=== PATIENT | female | born 1995 | race Caucasian/White ===

== ENCOUNTER 2023-03-24 11:40 | Outpatient (OUT) | payer OTHER, SELFPAY ==
[2023-03-24 12:03] LABS: Basophils Absolute Auto 0.1 10^3/uL (0.0-0.1); Basophils Percent Auto 1.1 % (0.2-2.0); Eosinophils Absolute Auto 0.1 10^3/uL (0.0-0.7); Eosinophils Percent Auto 1.3 % (0.9-7.0); Hematocrit 39.1 % (36.0-48.0); Hemoglobin 12.9 g/dL (12.0-16.0); Immature Granulocytes Abs Auto 0.03 10^3/uL (0.00-0.03); Immature Granulocytes Pct Auto 0.5 % (0.0-0.5); Lymphocytes Absolute Auto 2.4 10^3/uL (1.2-3.8); Lymphocytes Percent Auto 37.9 % (20.5-60.0); Mean Corpuscular Hemoglobin 31.5 pg (26.7-34.0); Mean Corpuscular Volume 95.6 fL (81.0-99.0); Mean Platelet Volume 10.3 fL (9.5-13.5); Monocytes Absolute Auto 0.6 10^3/uL (0.3-0.8); Monocytes Percent Auto 10.1 % (1.7-12.0); Neutrophils Absolute Auto 3.1 10^3/uL (1.4-6.5); Neutrophils Percent Auto 49.1 % (43.0-75.0); Platelet Count 339 10^3/uL (150-450); Red Blood Count 4.09 10^6/uL (4.20-5.40); Red Cell Distribution Width 11.9 % (11.0-15.0); White Blood Count 6.3 10^3/uL (4.0-11.0)
[2023-03-24 13:37] LABS: Estimated Average Glucose 91 mg/dL; Glycohemoglobin A1C 4.8 % (4.5-6.2)
[2023-03-24 13:53] LABS: Alanine Aminotransferase 22 U/L (14-59); Albumin Globulin Ratio 1.1; Albumin Level 3.7 g/dL (3.4-5.0); Alkaline Phosphatase 63 U/L (46-116); Anion Gap 11.6; Aspartate Amino Transferase 16 U/L (15-37); BUN Creatinine Ratio 17.6; Bilirubin Direct 0.1 mg/dL (0.0-0.2); Bilirubin Total 0.6 mg/dL (0.2-1.0); Calcium 8.8 mg/dL (8.5-10.1); Carbon Dioxide 28.7 mmol/L (21.0-32.0); Chloride 102 mmol/L (98-107); Chol HDL Ratio 2.1; Cholesterol 164 mg/dL (<=200); Estimated GFR (African America >60 (>=60); Estimated GFR (Non-African Ame >60 (>=60); Globulin 3.3 g/dL; Glucose 89 mg/dL (74-106); HDL Cholesterol 77 mg/dL (40-60); Potassium 4.3 mmol/L (3.5-5.1); Sodium 138 mmol/L (136-145); Thyroid Stimulating Hormone 1.737 uIU/mL (0.358-3.740); Triglycerides 50 mg/dL (<=150)
== END 2023-03-24 11:41 | disposition home or self-care (01) ==
LOC: LAB 11:44
PROVIDERS: PCP Family Medicine; Visit Provider Family Medicine
DX: Z00.00 Encounter for general adult medical examination without abnormal findings (principal)
CPT/HCPCS: 36415; 80048; 80061; 80076; 83036; 84443; 85025

== ENCOUNTER 2024-06-27 11:56 | Outpatient (OUT) | payer OTHER, SELFPAY ==
[2024-06-27 12:14] LABS: Basophils Absolute Auto 0.1 10^3/uL (0.0-0.1); Basophils Percent Auto 0.7 % (0.2-2.0); Eosinophils Absolute Auto 0.1 10^3/uL (0.0-0.7); Eosinophils Percent Auto 0.7 % (0.9-7.0); Hematocrit 39.4 % (36.0-48.0); Hemoglobin 13.2 g/dL (12.0-16.0); Immature Granulocytes Abs Auto 0.03 10^3/uL (0.00-0.03); Immature Granulocytes Pct Auto 0.4 % (0.0-0.5); Lymphocytes Absolute Auto 1.8 10^3/uL (1.2-3.8); Lymphocytes Percent Auto 24.2 % (20.5-60.0); Mean Corpuscular HGB Conc 33.5 g/dL (29.9-35.2); Mean Corpuscular Hemoglobin 31.1 pg (26.7-34.0); Mean Corpuscular Volume 92.9 fL (81.0-99.0); Mean Platelet Volume 10.5 fL (9.5-13.5); Monocytes Absolute Auto 0.7 10^3/uL (0.3-0.8); Neutrophils Absolute Auto 4.7 10^3/uL (1.4-6.5); Platelet Count 301 10^3/uL (150-450); Red Blood Count 4.24 10^6/uL (4.20-5.40); Red Cell Distribution Width 12.1 % (11.0-15.0); White Blood Count 7.3 10^3/uL (4.0-11.0)
[2024-06-27 12:45] LABS: Estimated Average Glucose 97 mg/dL
[2024-06-27 12:57] LABS: Alanine Aminotransferase 18 U/L (14-59); Albumin Globulin Ratio 1.3; Albumin Level 3.9 g/dL (3.4-5.0); Alkaline Phosphatase 61 U/L (46-116); Anion Gap 12.7; Aspartate Amino Transferase 14 U/L (15-37); BUN Creatinine Ratio 10.4; Bilirubin Direct 0.1 mg/dL (0.0-0.2); Bilirubin Total 0.5 mg/dL (0.2-1.0); Calcium 9.1 mg/dL (8.5-10.1); Carbon Dioxide 28.2 mmol/L (21.0-32.0); Chloride 105 mmol/L (98-107); Chol HDL Ratio 2.6; Cholesterol 157 mg/dL (<=200); Estimated GFR (African America >60 (>=60 mL/min/1.73m^2); Estimated GFR (Non-African Ame >60 (>=60 mL/min/1.73m^2); Globulin 3.1 g/dL; Glucose 94 mg/dL (74-106); HDL Cholesterol 60 mg/dL (40-60); LDL Cholesterol Calculated 86.6 mg/dL; Potassium 3.9 mmol/L (3.5-5.1); Sodium 142 mmol/L (136-145); Thyroid Stimulating Hormone 1.979 uIU/mL (0.358-3.740); Triglycerides 52 mg/dL (<=150); VLDL CHOLESTEROL 10.4 mg/dL
== END 2024-06-27 11:57 | disposition home or self-care (01) ==
LOC: LAB 11:57
PROVIDERS: PCP Family Medicine; Visit Provider Family Medicine
DX: Z00.00 Encounter for general adult medical examination without abnormal findings (principal)
CPT/HCPCS: 36415; 80048; 80061; 80076; 83036; 84443; 85025

== ENCOUNTER 2024-11-26 13:16 | Outpatient (OUT) | payer OTHER, SELFPAY ==
--- OUTSIDE RECORDS SUMMARY | 2024-11-22 08:00 | XMS_ITS | Encounter Summary ---
Author Organization [facility] Address [address] [place] [address] Care Team Providers Care Sponge Fisherman Name Role Phone Skyler Webb MD Primary Care Provider [phone] Encounter Details Date Type Department Care Team (Latest Contact Info) Description 11/22/2024 8:00 AM EDT Ancillary Procedure [facility] [address] [place] [address] Abnormal yolk sac during first trimester, single or unspecified fetus Social History Tobacco Use Types Packs/Day Years Used Date Smoking Tobacco: Never Smokeless Tobacco: Never Social Connection and Isolat ion Panel [NHANES] Answer Date Recorded In a typical week, how many times do you talk on the phone with family, friends, or neighbors? More than three times a week 09/19/2023 How often do you get togethe r with friends or relatives? Once a week 09/19/2023 How often do you attend chur or hindu services? Never 09/19/2023 Do you belong to any clubs o r organizations such as taoism groups, unions, fraternal or athletic groups, or school groups? No 09/19/2023 How often do you attend meet ings of the clubs or organizations you belong to? Never 09/19/2023 Are you , , di vorced, , never , or living with a partner? 09/19/2023 AUDIT-C Answer Date Recorded Q1: How often do you have a drink containing alc ohol? 2-4 times a month 09/19/2023 Q2: How many drinks containi ng alcohol do you have on a typical day when you are drinking? 3 or 4 09/19/2023 Q3: How often do you have si x or more drinks on one occasion? Never 09/19/2023 Overall Financial Resource Strain (CARDIA) Answe r Date Recorded How hard is it for you to pa y for the very basics like food, housing, medical care, and heating? Not hard at all 09/19/2023 [facility] of Occupat ional Health - Occupational Stress Questionnaire Answer Date Recorded Do you feel stress - tense, restless, nervous, or anxious, or unable to sleep at night because your mind is troubled all the time - these days? Not at all 09/19/2023 Exercise Vital Sign Answer Date Recorde d On average, how many days pe r week do you engage in moderate to strenuous exercise (like a brisk walk)? 5 days 09/19/2023 On average, how many minutes do you engage in exercise at this level? 60 min 09/19/2023 Hunger Vital Sign Answer Date Recorded Within the past 12 months, y ou worried that your food would run out before you got the money to buy more. Never true 09/19/19 24 Within the past 12 months, t he food you bought just didn't last and you didn't have money to get more. Never true 09/19/2023 PRAPARE - Transportation Answer Date Re corded In the past 12 months, has l ack of transportation kept you from medical appointments or from getting medications? No 08/25 In the past 12 months, has l ack of transportation kept you from meetings, work, or from getting things needed for daily living? No 09/19/2023 Housing Stability Vital Sign Answer Ramiro e Recorded In the last 12 months, was t here a time when you were not able to pay the mortgage or rent on time? No 09/19/2023 In the last 12 months, how many places have you lived? 1 09/19/2023 In the last 12 months, was t here a time when you did not have a steady place to sleep or slept in a care home (including now)? No 09/19/2023 Estimated Date of Delivery Comme nts Yes 06/23/2025 Based on last me nstrual period of 09/16/2024 Sex and Gender Information Value Date Recorded Sex Assigned at Not on file Legal Sex Female 10:00 AM EDT Gender Identity Not on file Sexual Orientation Not on file documented as of this encounter Plan of Treatment Upcoming Encounters Date Type Department Care Team (Late st Contact Info) Description 11/28/2024 1:00 PM EDT Office Visit [facility] [address] [place] [address] Skyler Webb MD [address] [place] [address] 12/05/2024 9:50 AM EDT Routine [facility] [address] [place] [place] [id number] Oleksandr Phelan DO [address] [place] [address] documented as of this encounter Procedures Procedure Name Priority Date/Time Associated Diagnosis Comments US OB TRANSVAGINAL Routine 11/22/2024 8: 25 AM EDT Abnormal yolk sac during first trimester, single or unspecified fetus documented in this encounter Results * US OB transvaginal (11/22/2024 8:25 AM EDT) Anatomical Region Laterality Modality Body Ultrasound 11/25/2024 10:2 4 AM EDT Narrative 11/25/2024 10:24 AM EDT EXAM: US OB TRANSVAGINAL HISTORY: Dating. COMPARISON: Ob ultrasound 11/08/2024. TECHNIQUE: Two-dimensional transvaginal grayscale ultrasound imaging of the pelvis was performed. Color Doppler evaluation of the ovaries was also performed. FINDINGS: The uterus demonstrates a normal homogeneous echotexture. The cervix measures 4.2 cm in length and the cervical os is closed. The right ovary is not visualized. The left ovary measures 3.1 x 1.6 x 2.1 cm and demonstrates a normal echotexture. There is normal color Doppler flow. No fluid is present within the cul-de-sac. There is a single, live intrauterine gestation identified with a heart rate of 179 beats per minute and a crown-rump length measurement of 2.9 cm, correlating to a gestational age of 9 weeks 5 days (+/- 6 days). There is no subchorionic hemorrhage visualized. A yolk sac is visualized. IMPRESSION: 1. Single, live intrauterine gestation 9 weeks, 4 days by LMP. Today's ultrasound measurements correlate with a gestational age of 9 weeks 5 days (+/- 6 days). AVILA by today's ultrasound is 06/22/2025. 2. Yolk sac appears unremarkable on today's exam. 3. Normal color Doppler evaluation of the left ovary, the right ovary was not visualized. Interpreted by: Electronically signed by PIERCE CLARK II, MD, PHD at 25-Nov-2024 10:22:19 AM [facility] Procedure Note Pierce Clark MD - 11/25/2024 EXAM: US OB TRANSVAGINAL HISTORY: Dating. COMPARISON: Ob ultrasound 11/08/2024. TECHNIQUE: Two-dimensional transvaginal grayscale ultrasound imaging ofthe pelvis was performed. Color Doppler evaluation of the ovaries was alsoperformed. FINDINGS: The uterus demonstrates a normal homogeneous echotexture. The cervixmeasures 4.2 cm in length and the cervical os is closed. The right ovary is not visualized. The left ovary measures 3.1 x 1.6 x 2.1 cm and demonstrates a normalechotexture. There is normal color Doppler flow. No fluid is present within the cul-de-sac. There is a single, live intrauterine gestation identified with a fetalheart rate of 179 beats per minute and a crown-rump length measurement of2.9 cm, correlating to a gestational age of 9 weeks 5 days (+/- 6 days).There is no subchorionic hemorrhage visualized. A yolk sac isvisualized. IMPRESSION: 1. Single, live intrauterine gestation 9 weeks, 4 days by LMP. Today'sultrasound measurements correlate with a gestational age of 9 weeks 5 days(+/- 6 days). AVILA by today's ultrasound is 06/22/2025. 2. Yolk sac appears unremarkable on today's exam. 3. Normal color Doppler evaluation of the left ovary, the right ovary wasnot visualized. Interpreted by: Electronically signed by PIERCE CLARK II, MD, PHD [id number] 10:22:19 AM [facility] us Oleksandr Phelan DO IMG OB US PROCEDURES Final Resul t documented in this encounter Visit Diagnoses Diagnosis Abnormal yolk sac during first trimester, single or unspecified fetus documented in this encounter Care Teams Sponge Fisherman Relationship Specialty Start Date End Date Skyler Webb MD [address] [place] [address] PCP - General Family Medicine 09/26/23 documented as of this encounter
--- OUTSIDE RECORDS SUMMARY | 2024-11-26 13:20 | XMS_ITS | Clinical Summary ---
Author Organization [facility] Healthcare Address [address] [place] [address] Care Team Providers Care Cat Scanner Operator Name Role Phone Skyler Webb MD Primary Care Provider [phone] Allergies Active Allergy Reactions Criticality Noted Date Comments Lactose Unknown 07/04/2023 Lactose Intolerance - Digestive Aids Medications loratadine (Claritin) 10 MG tablet 03/26/2024 Active sertraline (Zoloft) 50 MG tabletIndication s:Major depressive disorder, recurrent episode, mild (HCC) (CMS/HCC) Take 1 tablet (50 mg) by mouth Daily 30 tablet 3 08/14/2024 Active MV-Min-Fe Fum-FA-DHA ( 1 PO) Take 1 tablet by mouth Daily Active Inulin (FIBER CHOICE PO) Take 1 tablet by mouth Daily Active Active Problems Problem Noted Date Diagnosed Date Family planning counseling 08/14/2024 Assessment & Plan (08/14/2024 10:57 AM EST): Discussed OTC and medication safety during . Annual physical exam 05/28/2024 Assessment & Plan (05/28/2024 3:13 PM EST): Due for labs. Discussed proper diet and regular aerobic exercise. Need aerobic exercise 5-6 days a week for 30 minutes at a time. Smaller portions and limit total calories. Colonoscopy after age 45. Tetanus every 10 years. Advised not to smoke. Generalized anxiety disorder 09/26/2023 Assessment & Plan (08/14/2024 10:56 AM EST): Mood well controlled but plan on getting . Stop wellbutrin and change to zoloft. Assessment & Plan (03/28/2024 11:45 AM EDT): Symptoms remain controlled with wellbutrin and continue. Assessment & Plan (01/26/2024 11:31 AM EDT): Symptoms remain controlled with wellbutrin and continue. Assessment & Plan (12/26/2023 11:17 AM EDT): Symptoms remain controlled with wellbutrin and continue. Assessment & Plan (09/26/2023 11:18 AM EDT): Symptoms well controlled but weight gain. Wants to work on weight and continue celexa. May need to adjust meds if no change or continue to gain weight. Major depressive disorder, recurrent episode, mi ld ([facility]) 09/26/2023 Assessment & Plan (08/14/2024 10:56 AM EST): Mood well controlled but plan on getting . Stop wellbutrin and change to zoloft. Assessment & Plan (05/28/2024 3:14 PM EST): Symptoms remain controlled with wellbutrin and continue. Assessment & Plan (03/28/2024 11:45 AM EDT): Symptoms remain controlled with wellbutrin and continue. Assessment & Plan (01/26/2024 11:31 AM EDT): Symptoms remain controlled with wellbutrin and continue. Assessment & Plan (12/26/2023 11:17 AM EDT): Symptoms remain controlled with wellbutrin and continue. Assessment & Plan (09/26/2023 11:19 AM EDT): Symptoms well controlled but weight gain. Wants to work on weight and continue celexa. May need to adjust meds if no change or continue to gain weight. Vitamin D deficiency 09/26/2023 Overweight (BMI 25.0-29.9) 09/26/2023 Assessment & Plan (03/28/2024 11:46 AM EDT): Patient doing well with adipex and lost 24 pounds in 3 months. Tolerating well with only mild dry mouth. Continue with dietary changes and less calories. Need to limit snacking and smaller portions. Continue healthier choices. Need regular aerobic exercise 30 minutes at a time 5-6 days a week. Refill for another month. OARRS reviewed. Continue meds as prescribed. If develop new or worsening symptoms contact office. Assessment & Plan (01/26/2024 11:32 AM EDT): Patient doing well with adipex and lost 12 pounds in first month. Tolerating well with only mild dry mouth. Continue with dietary changes and less calories. Need to limit snacking and smaller portions. Continue healthier choices. Need regular aerobic exercise 30 minutes at a time 5-6 days a week. Refill for second month. OARRS reviewed. Continue meds as prescribed. If develop new or worsening symptoms contact office. Assessment & Plan (12/26/2023 11:17 AM EDT): Patient overweight and difficult time losing weight. Discussed proper diet and regular aerobic exercise. Recommend Weight Watchers and need to limit calories and smaller portions. Need to increase activity and regular aerobic exercise several days a week for 30 minutes at a time. Interested in adipex and warned of potential cardiac side effects. Script written for first month and will need to recheck weight in 1 month. OARRS reviewed. Continue medications as prescribed. Assessment & Plan (09/26/2023 11:18 AM EDT): Gained weight likely related to celexa. Discussed proper diet and regular aerobic exercise. Recommend Weight Watchers and need to limit calories and smaller portions. Need to increase activity and regular aerobic exercise several days a week for 30 minutes at a time. Estimated Date of Delivery Comme nts Yes 06/23/2025 Based on last me nstrual period of 09/16/2024 Resolved Problems Problem Noted Date Diagnosed Date Resolved Date Need for malaria prophylaxis 01/26/2024 03/28/2024 Assessment & Plan (01/26/2024 11:32 AM EDT): Plan on travel to [place] and take malaria prophylaxis. Encounters Date Type Department Care Team Description 11/22/2024 8:00 AM EDT Ancillary Procedure [facility] [address] [place] [address] Abnormal yolk sac during first trimester, single or unspecified fetus 11/13/2024 Telephone [facility] [address] [place] [address] Noemí Yanes LPN 11/08/2024 10:30 AM EDT Initial [facility] [address] [place] [address] [place]: [id number] 11/08/2024 10:00 AM EDT Ancillary Procedure [facility] [address] [place] [address] Missed menses 10/17/2024 Refill [facility] [address] [place] [address] Skyler Webb MD from Last 3 Months Family History Medical History Relation Name Comments high blood pressure Father Polycystic ovary syndrome Mother high blood pressure Paternal Grandfather Relation Name Status Comments Father Mother Other Alive Paternal Grandfather Alive Social History Tobacco Use Types Packs/Day Years Used Date Smoking Tobacco: Never Smokeless Tobacco: Never Tobacco Cessation:Counseling Given: Not Answered Social Connection and Isolat ion Panel [NHANES] Answer Date Recorded In a typical week, how many times do you talk on the phone with family, friends, or neighbors? More than three times a week 09/19/2023 How often do you get togethe r with friends or relatives? Once a week 09/19/2023 How often do you attend chur ch or muslim services? Never 09/19/2023 Do you belong to any clubs o r organizations such as yarsanism groups, unions, fraternal or athletic groups, or [...] and heating? Not hard at all 09/19/2023 [facility] of Occupat ional Health - Occupational Stress [...] place to sleep or slept in a fpc (including now)? No 09/19/2023 Estimated Date of Delivery Comme nts Yes 06/23/2025 Based on last me nstrual period of 09/16/2024 Sex and Gender Information Value Date Recorded Sex Assigned at Not on file Legal Sex Female 10:00 AM EDT Gender Identity Not on file Sexual Orientation Not on file Last Filed Vital Signs Vital Sign Reading Time Taken Comments Blood Pressure 120/70 11/08/2024 11:00 AM EDT Pulse 98 08/14/2024 10:35 AM EST Temperature 36.2 C (97.1 F) 08/14/2024 10:35 AM EST Respiratory Rate 20 08/14/2024 10:35 AM EST Oxygen Saturation 99% 08/14/2024 10:35 AM EST Inhaled Oxygen Concentration - - Weight 70.1 kg (154 lb 9.6 oz) 11/08/2024 11:00 AM EDT Height 167.6 cm (5' 6 ) 08/14/2024 10:35 AM EST Body Mass Index 24.95 08/14/2024 10:35 AM EST Plan of Treatment Upcoming Encounters Date Type Department Care Team (Late st Contact Info) Description 11/28/2024 1:00 PM EDT Office Visit [facility] [address] [place] [address] Skyler Webb MD [address] [place] [address] 12/05/2024 9:50 AM EDT Routine [facility] [address] [place] [id number] Oleksandr Phelan, DO [address] [place] [address] Health Maintenance Due Date Last Done Comments Pap Smear 11/16/2015 Cervical Cancer Screening 2024 HPV/Cotest 2024 Influenza Vaccine Completed 05/01/2024 Procedures Procedure Name Priority Date/Time Associated Diagnosis Comments US OB TRANSVAGINAL Routine 11/22/2024 8: 25 AM EDT Abnormal yolk sac during first trimester, single or unspecified fetus US OB TRANSVAGINAL Routine 11/08/2024 10 :58 AM EDT Missed menses POCT URINALYSIS DIPSTICK Routine 11/08/2024 10:37 AM EDT Missed menses POCT , URINE Routine 11/08/2024 10:37 AM EDT Missed menses from Last 3 Months Results * US OB transvaginal (11/22/2024 8:25 AM EDT) Only the most recent of2 resultswithin the time period is included. Anatomical Region Laterality Modality Body Ultrasound 11/25/2024 [...] II, MD, PHD at 25-Nov-2024 10:22:19 AM [facility] Procedure Note Pierce Clark MD - [...] signed by PIERCE CLARK II, MD, PHD [id number] 10:22:19 AM [facility] Oleksandr Phelan DO [facility] [place] [place] OB US PROCEDURES Final Resul t * (ABNORMAL) POCT , urine manually resulted (11/08/2024 10:37 AM EDT) Preg Test, Ur Positive Negative Urine 11/08/2024 10:3 7 AM EDT Oleksandr Tapan DO POINT OF CARE TEST ENTER/EDIT OR DERABLES Final Result * (ABNORMAL) POCT urinalysis dipstick manually resulted (11/08/2024 10:37 AM EDT) Color, UA Yellow Clarity, UA Clear Glucose, UA Negative Negative - 2000(110) ++++ mg/dL Bilirubin, UA Positive Negative - 4(70) +++ mg/dL Comment:small Ketones, UA Positive Negative - 160(16) ++++ mg/dL Comment:15 Spec Grav, UA 1.020 1 - 1.03 Blood, UA Positive Negative - 50 Curtis/mcL Comment:trace-intact pH, UA 7.5 5 - 9 Protein, UA Positive Negative - 2000(20) ++++ mg/dL Comment:30 Urobilinogen, UA 1.0 0.2 - 12 mg/dL Leukocytes, UA Trace Negative - 500+++ Ramos/mcL Nitrite, UA Negative Negative - Positive Urine 11/08/2024 10:3 7 AM EDT Anatexiso DO POINT OF CARE TEST ENTER/EDIT OR DERABLES Final Result from Last 3 Months Insurance [employer] Care Teams Cat Scanner Operator Relationship Specialty Start Date End Date Skyler Webb MD [address] [place] [address] PCP - General Family Medicine 09/26/23
--- OUTSIDE RECORDS SUMMARY | 2024-11-26 13:20 | XMS_ITS | Encounter Summary ---
Author Organization [facility] Address [address] [facility] [place] [address] Care Team Providers Care Wind Energy Mechanic Name Role Phone Skyler Webb MD Primary Care Provider [phone] Encounter Details Date Type Department Care Team (Late st Contact Info) Description 11/13/2024 Telephone [facility] [address] [place] [address] Noemí Yanes LPN Social History Tobacco Use Types Packs/Day Years [...] How often do you attend chur or samaritan services? Never 09/19/2023 Do you belong to any clubs o r organizations such as jewish groups, unions, fraternal or athletic groups, or [...] and heating? Not hard at all 09/19/2023 [facility] [place] of Occupat ional Health - Occupational Stress [...] place to sleep or slept in a retirement (including now)? No 09/19/2023 Estimated Date of Delivery Comme nts Yes 06/23/2025 Based on last me nstrual period of 09/16/2024 Sex and Gender Information Value Date Recorded Sex Assigned at Not on file Legal Sex Female 10:00 AM EDT Gender Identity Not on file Sexual Orientation Not on file documented as of this encounter Miscellaneous Notes * Telephone Encounter - Noemí Yanes LPN - 11/13/2024 1:41 PM EDT Pt was called and reviewed ultrasound and abnormal yolk sac- ordered repeat ultrasound for pt to have obtained on 11/22/24- pt transferred to front desk agent to schedule. documented in this encounter Plan of Treatment Upcoming Encounters Date Type Department Care Team (Late st Contact Info) Description 11/28/2024 1:00 PM EDT Office Visit [facility] [address] [place] [address] Skyler Webb MD [address] [place] [address] 12/05/2024 9:50 AM EDT Routine [facility] [address] [place] [address] Oleksandr Phelan, DO [address] [place], [place] [id number] documented as of this encounter Results * US OB transvaginal [...] II, MD, PHD at 25-Nov-2024 10:22:19 AM [facility] Procedure Note Pierce Clark MD - [...] signed by PIERCE CLARK II, MD, PHD [id number] 10:22:19 AM [facility] us Oleksandr Phelan DO IMG OB US PROCEDURES Final Resul t documented in this encounter Visit Diagnoses Diagnosis Abnormal yolk sac during first trimester, single or unspecified fetus Abnormal yolk sac during first trimester, single or unspecified fetus documented in this encounter Care Teams Wind Energy Mechanic Relationship Specialty Start Date End Date Skyler Webb MD [address] [place] [address] PCP - General Family Medicine 09/26/23 documented as of this encounter
--- OUTSIDE RECORDS SUMMARY | 2024-11-26 13:40 | XMS_ITS | CCD ---
Author Organization [facility] Care Team Providers Care De Ionizer Operator Name Role Phone WEST, DR QUINN Mortensen Consulting Unavailable HAY, DR RIVAS Attending Unavailable HAY, DR RIVAS Admitting Unavailable HAY, DR RIVAS Consulting Unavailable NADERER, DR SKYLER Arizmendi Attending Unavailable NADERER, DR SKYLER Arizmendi Consulting Unavailable NADERER, DR SKYLER Arizmendi Primary Care Unavailable KARELYERER, DR SKYLER Arizmendi Admitting Unavailable JAMES VALVERDE Consulting Unavailable JAMES VALVERDE Admitting Unavailable KARELYEREModesta, DR SKYLER Arizmendi Primary Care Unavailable JAMES VALVERDE Attending Unavailable Angelia Teixeira Unavailable Harmony DESIGN CHECKER-Kayleen Shannon Attending Provider Mirtha Antunez Unavailable Mirtha Antunez Attending Unavailable Mirtha Antunez Admitting Unavailable NON STAFF Primary Care Unavailable Skyler Puente MD Primary Care Provider SKYLER PUENTE Attending Unavailable KWAME, SKYLER Attending Unavailable KWAME, SKYLER Attending Unavailable KWAME, SKYLER Attending Unavailable KWAME, SKYLER Attending Unavailable Allergies Allergy Classification Reported Allergen(s) Allergy Type Date of Onset Reaction(s) Facility (12 sources) Lactose (non-medical use) Propensity to adverse reactions 4 Unknown [facility] Medications Current Medications Medication Drug Class(es) Dates Sig (Normalized) Sig (Original) atovaquone 250 mg / proguanil hydrochloride 100 mg oral tablet (3 sources) Antimalarial, Antiprotozoal Start: 01-26-2024 End: 03-28-2024 take 1 tablet by mouth once daily atovaquone-proguan il (Malarone) 250-100 MG tablet Indications: Need for malaria prophylaxis Take 1 tablet by mouth Daily Start 2 days prior to travel and continue for 7 days after returning home. 20 tablet 01/26/2024 03/28/2024 Discontinued 24 hr buPROPion hydrochloride 150 mg extended release oral tablet (12 sources) Aminoketone Start: 02-27-2024 End: 08-14-2024 take 1 tablet by mouth once daily buPROPion XL (Wellbutrin XL) 150 MG 24 hr tablet Indications: Major depressive disorder, recurrent episode, mild (HCC) (CMS/HCC) TAKE 1 TABLET BY MOUTH DAILY DO NOT CRUSH, CHEW, OR SPLIT 30 tablet 3 02/27/2024 08/14/2024 Discontinued Start: 01-11-2024 Bupropion Hcl Active MG PO January 11, 2024 12:00am Inulin (1 source) take 1 tablet by mouth once daily Inulin (FIBER CHOICE PO) Take 1 tablet by mouth Daily Active loratadine 10 mg oral tablet (7 sources) Start: loratadine (Claritin) 10 MG tablet 03/26/2024 Active naproxen sodium 550 mg oral tablet (1 source) Nonsteroidal Anti-inflammatory Drug Start: 3 take 1 tablet by mouth every twelve hours Naproxen Sodium 550 MG 1 cap(s) Orally every 12 hrs for 10 days for wrist pain and swelling Dec, Active MV-Min-Fe Fum-FA-DHA ( 1 PO) (1 source) MV-Min- Fe Fum-FA-DHA ( 1 PO) Take 1 tablet by mouth Daily Active sertraline 50 mg oral tablet (4 sources) Serotonin Reuptake Inhibitor Start: 5 take 1 tablet by mouth once daily sertraline (Zoloft) 50 MG tablet Indications: Major depressive disorder, recurrent episode, mild (HCC) (CMS/HCC) Take 1 tablet (50 mg) by mouth Daily 30 tablet 3 08/14/2024 Active Start: 08-14-2024 take 1 tablet by arelis th once daily sertraline (Zoloft) 50 MG tablet Indications: Major depressive disorder, recurrent episode, mild (HCC) (CMS/HCC) Take 1 tablet (50 mg) by mouth Daily 30 tablet 3 08/14/2024 Active Sertraline HCl 5 0 MG 1.5 tablet Oral for 30 days Active Wrist Splint/Right XL - (1 source) Start: 01-04-2023 Wrist Splint/R ight XL - as directed Dec, Active Completed/Discontinued Medications Medication Drug Class(es) Dates Sig (Normalized) Sig (Original) brompheniramine maleate 0.4 mg/ml / dextromethorphan hydrobromide 2 mg/ml / pseudoephedrine hydrochloride 6 mg/ml oral solution (2 sources) alpha-Adrenergic Agonist, Uncompetitive D-bpttyd-V-aspartat e Receptor Antagonist, Sigma-1 Agonist Start: 09-27-2022 take 10 mL by mouth every six hours Pseudoeph-Bromp hen-DM 30-2-10 MG/5ML 10 mL Orally every 6 hours for 5 days Sep, Not-Taking FLUoxetine (2 sources) Serotonin Reuptake Inhibitor Fluoxetine Not-Taking Fluoxetine Activ e ondansetron 4 mg disintegrating oral tablet (2 sources) Serotonin-3 Receptor Antagonist Start: 09-27-2022 take 1 tablet by mouth every eight hours Ondansetron 4 MG 1 tablet on the tongue and allow to dissolve Orally every 8 hours for 5 days Sep, Not-Taking phentermine hydrochloride 37.5 mg oral tablet (11 sources) Sympathomimetic Amine Anorectic Start: 01-26-2024 End: 06-06-2024 take 1 tablet by mouth before mealtime phentermine (Adipex-P) 37.5 MG tablet Indications: Obesity (BMI 30-39.9) Take 1 tablet (37.5 mg) by mouth in the morning. Take before meals. 30 tablet 05/07/2024 05/28/2024 Discontinued Start: 01-11-2024 take 37.5 mg by mout h once daily Phentermine Active 37.5 MG PO Daily January 11, 2024 12:00am Problems Active Problems Problem Classification Problem Date Documented Da te Episodic/Chronic Anxiety disorders (16 sources) Generalized anxiety disorder; Translations: [Generalized anxiety disorder] Onset: 09-26-2023 09-26-2023 Chronic Cardiac dysrhythmias (4 sources) Palpitations; Translations: [PALPITATIONS] Onset: 03-11-2021 Episodic Contraceptive and procreative management (5 sources) Patient encounter status; Translations: [Encounter for other general counseling and advice on contraception] Onset: 08-14-2024 08-14-2024 Episodic Menstrual disorders (1 source) Missed period; Translations: [Irregular menstruation, unspecified] 11-01-2024 Chronic Mood disorders (18 sources) Recurrent major depressive episodes, mild ; Translations: [Major depressive disorder, recurrent, mild] Onset: 09-26-2023 09-26-2023 Chronic Nutritional deficiencies (12 sources) Vitamin D deficiency; Translations: [Vitamin D deficiency, unspecified] Onset: 09-26-2023 09-26-2023 Chronic Other nervous system disorders (1 source) Carpal tunnel syndrome of right wrist; Translations: [Carpal tunnel syndrome, right upper limb] Chronic Other nervous system disorders (1 source) Carpal tunnel syndrome, right upper limb Chronic Other non-traumatic joint disorders (1 source) Pain in right wrist Episodic Other nutritional; endocrine; and metabolic disorders (5 sources) Body mass index 30+ - obesity; Translations: [Obesity, unspecified] Onset: 09-26-2023 09-26-2023 Chronic Other and delivery including normal (2 sources) ; Translations: [Encounter for supervision of normal , unspecified, unspecified trimester] 11-08-2024 Episodic Other upper respiratory disease (1 source) Nasal congestion Episodic Unclassified (1 source) Pain in right wrist; Translations: [Pain in right wrist] Onset: 01-04-2023 Past or Other Problems Problem Classification Problem Date Documented Da te Episodic/Chronic E Codes: Fall (1 source) Fall on same level from slipping, tripping and stumbling without subsequent striking against object, initial encounter; Translations: [FALL SAME LVL SLIP NO STRK OBJ INIT] Onset: 10-05-2020 Episodic Other injuries and conditions due to external causes (3 sources) Unspecified injury of thorax, initial encounter; Translations: [UNSPECIFIED INJURY THORAX INITIAL] Onset: 10-01-2020 Episodic Other nutritional; endocrine; and metabolic disorders (13 sources) Body mass index 25-29 - overweight; Translations: [Overweight] Onset: 09-26-2023 03-28-2024 Episodic Residual codes; unclassified (12 sources) Prevention status; Translations: [Need for malaria prophylaxis] Onset: 01-26-2024 Resolved: 03-28-2024 01-26-2024 Episodic Superficial injury; contusion (1 source) Contusion of unspecified front wall of thorax, initial encounter; Translations: [CONTUS UNS FRONT WALL THORAX INIT] Onset: 04-12-2021 Episodic Viral infection (1 source) COVID-19 Results Test Name Value Interpretation Reference Range Facility US OB TRANSVAGINALon US OB TRANSVAGINAL EXAM: US OB TRANSVAGINAL HISTORY: Dating. COMPARISON: [...] II, MD, PHD at 25-Nov-2024 10:22:19 AM [facility] Normal Not Available Comment on above: Order Comment: US OB VIABILITY PLEASE PERFORM TRANSVAGINAL ULTRASOUND IF INDICATED Patient's last menstrual period was 09/16/2024. HCG ( test) Ql (U)o n 11-08-2024 Interpretation and review of laboratory results Abnormal [facility] Preg Test, Ur Positive Negative [facility] US OB TRANSVAGINALon 025 US OB TRANSVAGINAL EXAM: US OB TRANSVAGINAL HISTORY: Dating. COMPARISON: None available. TECHNIQUE: Two-dimensional transvaginal grayscale ultrasound imaging of the pelvis was performed. Color Doppler evaluation of the ovaries was also performed. FINDINGS: The uterus demonstrates a normal homogeneous echotexture. There is a 3.2 cm fibroid within the uterine body. The cervix measures 3.5 cm in length and the cervical os is closed. The right ovary is not visualized. The left ovary measures 3.9 x 1.8 x 3.1 cm and demonstrates a normal echotexture. There is normal color Doppler flow. No fluid is present within the cul-de-sac. There is a single, live intrauterine gestation identified with a heart rate of 155 beats per minute and a crown-rump length measurement of 1.4 cm, correlating to a gestational age of 7 weeks 4 days (+/- 5 days). There is no subchorionic hemorrhage visualized. There is a yolk sac visualized that appears abnormal in shape, based off of the provided images. IMPRESSION: 1. Single, live intrauterine gestation 7 weeks, 4 days by LMP. Today's ultrasound measurements correlate with a gestational age of 7 weeks 4 days (+/- 5 days). AVILA by today's ultrasound is 07/24/2024. 2. Abnormal appearing yolk sac visualized on the provided images. A short-term follow-up ultrasound is recommended to monitor progression. 3. Uterine fibroid. 4. Normal color Doppler evaluation of the left ovary, the right ovary was not visualized. Interpreted by: Electronically signed by PIERCE CLARK II, MD, PHD at 10-Nov-2024 09:18:36 PM [facility] Normal Not Available Comment on above: Order Comment: US OB TRANSVAGINAL No LMP recorded. Urinalysis macro (dipstick) panel (U)on 11-08-2024 Bilirubin, UA Positive Negative - 4(70) +++ mg/dL [facility] Comment on above: small Blood, UA Positive Negative - 50 Curtis/mcL [facility] Comment on above: trace-intact [facility]A Yellow [facility] Glucose, UA Negative Negative - 2000(110) ++++ mg/dL [facility] Interpretation and review of laboratory results Abnormal [facility] Ketones, UA Positive Negative - 160(16) ++++ mg/dL [facility] Comment on above: 15 Leukocytes, UA Trace Negative - 500+++ Ramos/mcL [facility] Nitrite, UA Negative Negative - Positive [facility] pH, UA 7.5 5 - [address] [facility] Protein, UA Positive Negative - 1999(20) ++++ mg/dL [facility] Comment on above: 30 Spec Grav, UA 1.02 1 - 1.03 [facility] Urobilinogen, UA 1.0 0.2 - 12 mg/dL [facility] ALL CBC WITH AUTO DIFFon BASOPHILS ABSOLUTE AUTO 0.1 [facility] Basophils/100 WBC (Bld) 0.7 % 0.2 - 2.0 % [facility] Eosinophils/100 WBC (Bld) 0.7 % Low 0.9 - 7.0 % [facility] Erythrocyte distribution width (RBC) [Ratio] 12.1 % 11.0 - 15.0 % [facility] Hematocrit (Bld) [Volume fraction] 39.4 % 36.0 - 48.0 % [facility] e Hemoglobin (Bld) [Mass/Vol] 13.2 g/dL 12.0 - 16.0 g/dL [facility] IMMATURE GRANULOCYTES ABS AUTO 0.03 [facility] Immature granulocytes/100 WBC (Bld) 0.4 % 0.0 - 0.5 % [facility] Interpretation and review of laboratory results Abnormal [facility] LYMPHOCYTES ABSOLUTE AUTO 1.8 [facility] Lymphocytes/100 WBC (Bld) 24.2 % 20.5 - 60.0 % [facility] MCH (RBC) [Entitic mass] 31.1 pg 26.7 - 34.0 pg [facility] MCHC (RBC) [Mass/Vol] 33.5 g/dL 29.9 - 35.2 g/dL [facility] MCV (RBC) [Entitic vol] 92.9 fL 81.0 - 99.0 fL [facility] MONOCYTES ABSOLUTE AUTO 0.7 [facility] Monocytes/100 WBC (Bld) 9 % 1.7 - 12.0 % [facility] NEUTROPHILS ABSOLUTE AUTO 4.7 [facility] Neutrophils/100 WBC (Bld) 65 % 43.0 - 75.0 % [facility] Platelet mean volume (Bld) [Entitic vol] 10.5 fL 9.5 - 13.[address] [facility] EO # 0.1 [facility] PLT 301 [facility] TB RBC 4.24 [facility] WBC 7[facility]3 [facility] XR wrist RT min 3V*on 2022 XR wrist RT min 3V* [facility] [employer] Other XR wrist RT min 3V* [facility] [employer] Other XR wrist RT min 3V* [address] [place] [address] [employer] Other XR wrist RT min 3V* KOURTNEY Gal[place] [address] [place] [employer] Other XR wrist RT min 3V* XRay Report [place] [employer] Other XR wrist RT min 3V* Signed [employer] Other XR wrist RT min 3V* Patient: Anjana Booth MR#: [id number] [employer] Other XR wrist RT min 3V* [id number] [employer] Other XR wrist RT min 3V* : 1995 Acct:[id number] [employer] Other XR wrist RT min 3V* Age/Sex: 27 / F ADM Date: 01/04/23 [employer] Other XR wrist RT min 3V* Loc: XDUCLY Room: Type: [facility] [employer] Other XR wrist RT min 3V* Attending Dr: Mirtha TYSON [employer] Other XR wrist RT min 3V* Copies to: JAH Monsalve [employer] Other XR wrist RT min 3V* Ordering Provider: JAH Monsalve [employer] Other XR wrist RT min 3V* Date of Service: 01/04/23 [employer] Other XR wrist RT min 3V* XR/XR wrist RT min 3V*: RIGHT WRIST PAIN [employer] Other XR wrist RT min 3V* 4 views RIGHT wrist plain film [employer] Other XR wrist RT min 3V* COMPARISON: None [employer] Other XR wrist RT min 3V* HISTORY: RIGHT dorsal wrist pain starting 2 days ago. [employer] Other XR wrist RT min 3V* ACUTE FINDINGS: None [employer] Other XR wrist RT min 3V* DEGENERATIVE CHANGE: Unremarkable [employer] Other XR wrist RT min 3V* SOFT TISSUE FINDINGS: Unremarkable [employer] Other XR wrist RT min 3V* JOINT EFFUSION: None [employer] Other XR wrist RT min 3V* POSTOP CHANGES: None [employer] Other XR wrist RT min 3V* BONE MINERALIZATION: Adequate [employer] Other XR wrist RT min 3V* XR/XR wrist RT min 3V* [employer] Other XR wrist RT min 3V* IMPRESSION: Unremarkable exam [employer] Other XR wrist RT min 3V* Impression dictated by: Anurag Hollingsworth M.D.01/04/2023 10:38 AM [employer] Other XR wrist RT min 3V* Dictation Location: [facility] [employer] Other XR wrist RT min 3V* Transcribed By: JOSEFINA 01/04/23 1038 [employer] Other XR wrist RT min 3V* Dictated By: Anurag Hollingsworth DO 01/04/23 1033 [employer] Other XR wrist RT min 3V* Signed By: [employer] Other XR wrist RT min 3V* 01/04/23 1038 No rt [employer] Other XR wrist RT min 3V* [facility] [employer] [address] [place] [address] XRay Report Signed Patient: Anjana Booth MR#: [id number] : 1995 Acct:[id number] Age/Sex: 27 / F ADM Date: 01/04/23 Loc: XDUC Room: Type: [facility] Attending Dr: Mirtha TYSON Copies to: JAH Monsalve Ordering Provider: JAH Monsalve Date of Service: 01/04/23 XR/XR wrist RT min 3V*: RIGHT WRIST PAIN 4 views RIGHT wrist plain film COMPARISON: None HISTORY: RIGHT dorsal wrist pain starting 2 days ago. ACUTE FINDINGS: None DEGENERATIVE CHANGE: Unremarkable SOFT TISSUE FINDINGS: Unremarkable JOINT EFFUSION: None POSTOP CHANGES: None BONE MINERALIZATION: Adequate XR/XR wrist RT min 3V* IMPRESSION: Unremarkable exam Impression dictated by: Anurag Hollingsworth M.D.01/04/2023 10:38 AM Dictation Location: [place] [address] Transcribed By: [facility] 01/04/23 1038 Dictated By: Anurag Hollingsworth DO 01/04/23 1033 Signed By: 01/04/23 1038 Normal [facility] COVID/FLU RT-PCRon 3 SARS-CoV-2 (COVID-19) RNA DEIRDRE+probe Ql (Unsp spec) Positive [facility] Other COVID/FLU RT-PCR Negative [facility] [employer] Other CBC AUTO DIFFon 03-11-2021 BASO # 0.1 103/ul Normal 0.0-0.1 [facility] Comment on above: Performed By: #### C BC #### [facility] [address] [address] [address] Mary Billy Basophils/100 WBC (Bld) 0.6 % Normal 0.2-2.0 [facility] Comment on above: Performed By: #### C BC #### [facility] [address] [place] [address] Dr. Mary Billy EO # 0.1 103/ul Normal 0.0-0.7 [facility] Comment on above: Performed By: #### C BC #### [facility] [address] [place] [address] Dr. Mary Billy Eosinophils/100 WBC (Bld) 0.6 % Critically low 0.9-7.0 [facility] Comment on above: Performed By: #### C BC #### [facility] [address] [place] [address] Dr. Mary Billy Erythrocyte distribution width (RBC) [Ratio] 12.0 % Normal 11.0-15.0 [facility] Comment on above: Performed By: #### C BC #### [facility] [address] [place] [address] Dr. Mary Billy Hematocrit (Bld) [Volume fraction] 38.8 % Normal 36.0-48.0 [facility] Comment on above: Performed By: #### C BC #### [facility] [address] [place] [address] Dr. Mary Billy Hemoglobin (Bld) [Mass/Vol] 12.8 g/dL Normal 12.0-16.0 [facility] Comment on above: Performed By: #### C BC #### [facility] [address] [place] [address] Dr. Mary Billy IG # 0.03 10e3/ul Normal 0.00-0.03 [facility] Comment on above: Performed By: #### C BC #### [facility] [address] [place] [address] Dr. Mary Billy IG % 0.4 % Normal 0.0-0.5 [facility] Comment on above: Performed By: #### C BC #### [facility] [address] [place] [address] Dr. Mary Billy LYMPH # 2.7 103/ul Normal 1.2-3.[address] [facility] Comment on above: Performed By: #### C BC #### [facility] [address] [place] [address] Dr. Mary Billy Lymphocytes/100 WBC (Bld) 33.0 % Normal 20.5-60.0 [facility] Comment on above: Performed By: #### C BC #### [facility] [address] [place] [address] Dr. Mary Billy MANUAL DIFF REQ NO Normal [facility] Comment on above: Performed By: #### C BC #### [facility] [address] [place] [address] Dr. Mary Billy MCH (RBC) [Entitic mass] 31.3 pg Normal 26.7-34.0 [facility] Comment on above: Performed By: #### C BC #### [facility] [address] [place] [address] Dr. Mary Billy MCHC (RBC) [Mass/Vol] 33.0 g/dL Normal 29.9-35.2 [facility] Comment on above: Performed By: #### C BC #### [facility] [address] [place] [address] Dr. Mary Billy MCV (RBC) [Entitic vol] 94.9 fL Normal 81.0-99.0 [facility] Comment on above: Performed By: #### C BC #### [facility] [address] [place] [address] Dr. Mary Billy MONO # 0.8 103/ul Normal 0.3-0.[address] [facility] Comment on above: Performed By: #### C BC #### [facility] [address] [place] [address] Dr. Mary Billy Monocytes/100 WBC (Bld) 10.1 % Normal 1.7-12.[address] [facility] Comment on above: Performed By: #### C BC #### [facility] [address] [place] [address] Dr. Mary Billy NEUT # 4.5 103/ul Normal 1.4-6.[address] [facility] Comment on above: Performed By: #### C BC #### [facility] [address] [address] [address] Mary Billy Neutrophils/100 WBC (Bld) 55.3 % Normal 43.0-75.0 [facility] Comment on above: Performed By: #### C BC #### [facility] [address] [address] [address] Mary Billy Platelet mean volume (Bld) [Entitic vol] 10.5 fL Normal 9.5-13.5 [facility] Comment on above: Performed By: #### C BC #### [facility] [address] [address] [address] Mary Billy PLT 261 103/ul Normal 150-450 [facility] Comment on above: Performed By: #### C BC #### [facility] [address] [place] [address] Dr. Mary Billy RBC 4.09 106/ul Critically low 4.20-5.40 [facility] Comment on above: Performed By: #### C BC #### [facility] [address] [place] [address] Dr. Mary Billy WBC 8.1 103/ul Normal 4.0-11.0 [facility] Comment on above: Performed By: #### C BC #### [facility] [address] [place] [address] Dr. Mary Billy PROF CHEM 8 (BAS METB)on Anion gap [Moles/Vol] 9.6 mmol/L Normal [facility] Comment on above: Performed By: #### B MP #### [facility] [address] [place] [address] Dr. Mary Billy Calcium [Mass/Vol] 9.2 mg/dL Normal 8.4-10.2 [facility] Comment on above: Performed By: #### B MP #### [facility] [address] [place] [address] Dr. Mary Billy Chloride [Moles/Vol] 104 mmol/L Normal 98-107 [facility] Comment on above: Performed By: #### B MP #### [facility] [address] [address] [address] Mary Billy CO2 [Moles/Vol] 29.9 mmol/L Normal 22.0-30.0 [facility] Comment on above: Performed By: #### B MP #### [facility] [address] [address] [address] Mary Billy Creatinine [Mass/Vol] 0.50 mg/dL Critically low 0.52-1.[address] [facility] Comment on above: Performed By: #### B MP #### [facility] [address] [address] [address] Mary Billy EGFR-AF SURINAMESE >60 Normal >=60 [facility] Comment on above: Performed By: #### B MP #### [facility] [address] [address] [address] Mary Billy EGFR-NON AF SURINAMESE >60 Normal >=[address] [facility] Comment on above: Performed By: #### B MP #### [facility] [address] [address] [address] Mary Billy Glucose [Mass/Vol] 89 mg/dL Normal 74-106 [facility] Comment on above: Performed By: #### B MP #### [facility] [address] [address] [address] Mary Billy Potassium [Moles/Vol] 3.5 mmol/L Normal 3.4-5.[address] [facility] Comment on above: Performed By: #### B MP #### [facility] [address] [address] [address] Mary Billy Sodium [Moles/Vol] 140 mmol/L Normal 137-145 [facility] Comment on above: Performed By: #### B MP #### [facility] [address] [address] [address] Mary Billy Urea nitrogen [Mass/Vol] 6.0 mg/dL Critically low 7.0-17.[address] [facility] Comment on above: Performed By: #### B MP #### [facility] [address] [address] [address] Mary Billy Urea nitrogen/Creatinine [Mass ratio] 12.0 mg/mg Normal [facility] Comment on above: Performed By: #### B MP #### [facility] [address] [place] [address] Dr. Mary Billy CBC AUTO DIFFon 12-09-2020 BASO # 0.1 103/ul Normal 0.0-0.1 [facility] Comment on above: Performed By: #### C BC #### [facility] [address] [place] [address] Curt Noemí Basophils/100 WBC (Bld) 0.9 % Normal 0.2-2.0 [facility] Comment on above: Performed By: #### C BC #### [facility] [address] [place] [address] Curt Noemí EO # 0.1 103/ul Normal 0.0-0.7 [facility] Comment on above: Performed By: #### C BC #### [facility] [address] [place] [address] Curt Noemí Eosinophils/100 WBC (Bld) 1.5 % Normal 0.9-7.0 [facility] Comment on above: Performed By: #### C BC #### [facility] [address] [place] [address] Curt Noemí Erythrocyte distribution width (RBC) [Ratio] 11.6 % Normal 11.0-15.0 [facility] Comment on above: Performed By: #### C BC #### [facility] [address] [place] [address] Curt Noemí Hematocrit (Bld) [Volume fraction] 38.6 % Normal 36.0-48.0 [facility] Comment on above: Performed By: #### C BC #### [facility] [address] [place], [place] [id number] Curt Noemí Hemoglobin (Bld) [Mass/Vol] 13.1 g/dL Normal 12.0-16.0 [facility] Comment on above: Performed By: #### C BC #### [facility] [address] [place] [address] Curt Noemí IG # 0.08 10e3/ul Critically high 0.00-0.03 [facility] Comment on above: Performed By: #### C BC #### [facility] [address] [address] Curtbenny Dowd IG % 0.9 % Critically high 0.0-0.5 [facility] Comment on above: Performed By: #### C BC #### [facility] [address] [address] Curtbenny Dowd LYMPH # 2.7 103/ul Normal 1.2-3.8 [facility] Comment on above: Performed By: #### C BC #### [facility] [address] [place] [address] Curt Dowd Lymphocytes/100 WBC (Bld) 31.4 % Normal 20.5-60.0 [facility] Comment on above: Performed By: #### C BC #### [facility] [address] [place] [address] Curt Dowd MANUAL DIFF REQ NO Normal [facility] Comment on above: Performed By: #### C BC #### [facility] [address] [place] [address] Curt Dowd MCH (RBC) [Entitic mass] 31.7 pg Normal 26.7-34.0 [facility] Comment on above: Performed By: #### C BC #### [facility] [address] [place] [address] Curt Dowd MCHC (RBC) [Mass/Vol] 33.9 g/dL Normal 29.9-35.2 [facility] Comment on above: Performed By: #### C BC #### [facility] [address] [place] [address] Curtbenny Dowd MCV (RBC) [Entitic vol] 93.5 fL Normal 81.0-99.0 [facility] Comment on above: Performed By: #### C BC #### [facility] [address] [place] [address] Curtbenny Morganen MONO # 0.8 103/ul Normal 0.3-0.8 [facility] Comment on above: Performed By: #### C BC #### [facility] [address] [place], [place] [address] Curt Morganen Monocytes/100 WBC (Bld) 9.4 % Normal 1.7-12.0 [facility] Comment on above: Performed By: #### C BC #### [facility] [address] [place], [place] [address] Curt Dowd NEUT # 4.8 103/ul Normal 1.4-6.5 [facility] Comment on above: Performed By: #### C BC #### [facility] [address] [place], [place] [address] Curt Dowd Neutrophils/100 WBC (Bld) 55.9 % Normal 43.0-75.0 [facility] Comment on above: Performed By: #### C BC #### [facility] [address] [place], [place] [phone] Curt Dowd Platelet mean volume (Bld) [Entitic vol] 10.8 fL Normal 9.5-13.5 [facility] Comment on above: Performed By: #### C BC #### [facility] [address] [place], [place] [phone] Curtbenny Morganen PLT 379 103/ul Normal 150-450 [facility] Comment on above: Performed By: #### C BC #### [facility] [address] [place] [address] Curt Noemí RBC 4.13 106/ul Critically low 4.20-5.40 [facility] Comment on above: Performed By: #### C BC #### [facility] [address] [place] [address] Curt Noemí WBC 8.6 103/ul Normal 4.0-11.[address] [facility] Comment on above: Performed By: #### C BC #### [facility] [address] [place], [place] [phone] Curt Dowd GLYCOHEMOGLOBIN A1Con 2020 ADA RECOMMENDATION ADA THERAPEUTIC TARGET 6.0 - 7.0 ACTION SUGGESTED > 7.0 Normal [facility] Comment on above: Performed By: #### A 1C #### [facility] [address] [place], [place] [address] Cutr Noemí Glucose [Mass/Vol] 100 mg/dL Normal [facility] Comment on above: Performed By: #### A 1C #### [facility] [address] [place], [place] [address] Curt Noemí HbA1c (Bld) [Mass fraction] 5.1 % Normal <=6.0 [facility] Comment on above: Performed By: #### A 1C #### [facility] [address] [place], [place] [address] Curt Noemí LIPID PROFILEon 12-09-2020 CHOL-HDL RATIO NORM SEE BELOW Normal [facility] Comment on above: Result Comment: 3.3 - 4.4 LOW RISK 4.4 - 7.1 AVERAGE RISK 7.1 - 11.0 MODERATE RISK >11.0 HIGH RISK Performed By: #### T SH, LIPID, BMP, LIVER #### [facility] [address] [phone] Curt Noemí Cholesterol [Mass/Vol] 131 mg/dL Normal <=200 [facility] Comment on above: Performed By: #### T SH, LIPID, BMP, LIVER #### [facility] [address] [place], [place] [address] Curt Noemí Cholesterol in HDL [Mass/Vol] 71 mg/dL Normal [facility] Comment on above: Performed By: #### T SH, LIPID, BMP, LIVER #### [facility] [address] [place], [place] [address] Curt Noemí Cholesterol in LDL [Mass/Vol] 55.2 mg/dL Normal [facility] Comment on above: Performed By: #### T SH, LIPID, BMP, LIVER #### [facility] [address] [place], [place] [address] Curt Noemí Cholesterol.total/Ch olesterol in HDL [Mass ratio] 1.8 {ratio} Normal [facility] Comment on above: Performed By: #### T SH, LIPID, BMP, LIVER #### [facility] [address] [place], [place] [address] Curt Noemí HDL NORMAL > or = 60 mg/dl - LOW CARDIOVASCULAR RISK <40 mg/dl - HIGH CARDIOVASCULAR RISK Normal [facility] Comment on above: Performed By: #### T SH, LIPID, BMP, LIVER #### [facility] [address] [phone] Curt Noemí LDL CALC NORMAL SEE BELOW Normal [facility] Comment on above: Result Comment: <100 mg/dl OPTIMAL 100 - 129 mg/dl NEAR OR ABOVE OPTIMAL 130 - 159 mg/dl BORDERLINE HIGH 160 - 189 mg/dl HIGH >190 mg/dl VERY HIGH Performed By: #### T SH, LIPID, BMP, LIVER #### [facility] [address] [address] Curt Noemí Triglyceride [Mass/Vol] 24 mg/dL Normal <=150 [facility] Comment on above: Performed By: #### T SH, LIPID, BMP, LIVER #### [facility] [address] [address] Curt Noemí VLDL CALC 4.8 mg/dL Normal [facility] Comment on above: Performed By: #### T SH, LIPID, BMP, LIVER #### [facility] [address] [phone] Curtbenny Morganen LIVER PROFILEon 12-09-2020 Albumin [Mass/Vol] 3.9 g/dL Normal 3.5-5.0 [facility] Comment on above: Performed By: #### T SH, LIPID, BMP, LIVER #### [facility] [address] [phone] Curt Noemí Albumin/Globulin [Mass ratio] 1.0 {ratio} Normal [facility] Comment on above: Performed By: #### T SH, LIPID, BMP, LIVER #### [facility] [address] [phone] Curt Noemí ALP [Catalytic activity/Vol] 59 U/L Normal 38-126 [facility] Comment on above: Performed By: #### T SH, LIPID, BMP, LIVER #### [facility] [address] [phone] Curt Noemí ALT [Catalytic activity/Vol] 20 U/L Normal 9-[address] [facility] Comment on above: Performed By: #### T SH, LIPID, BMP, LIVER #### [facility] [address] [place] [address] Curt Noemí AST [Catalytic activity/Vol] 17 U/L Normal 14-36 [facility] Comment on above: Performed By: #### T SH, LIPID, BMP, LIVER #### [facility] [address] [place], [place] [address] Curt Noemí BILI, CONJUGATED 0.1 mg/dL Normal 0.0-0.3 [facility] Comment on above: Performed By: #### T SH, LIPID, BMP, LIVER #### [facility] [address] [place] [address] Curt Noemí Bilirubin [Mass/Vol] 0.3 mg/dL Normal 0.2-1.[address] [facility] Comment on above: Performed By: #### T SH, LIPID, BMP, LIVER #### [facility] [address] [place] [address] Curt Noemí Globulin (S) [Mass/Vol] 3.8 g/dL Normal [facility] Comment on above: Performed By: #### T SH, LIPID, BMP, LIVER #### [facility] [address] [place] [address] Curt Noemí Protein [Mass/Vol] 7.7 g/dL Normal 6.1-8.2 [facility] [place] [facility] Comment on above: Performed By: #### T SH, LIPID, BMP, LIVER #### [facility] [address] [place], [place] [address] Curt Noemí PROF CHEM 8 (BAS METB)on Anion gap [Moles/Vol] 10.3 mmol/L Normal [facility] Comment on above: Performed By: #### T SH, LIPID, BMP, LIVER #### [facility] [address] [place], [place] [address] Curt Noemí Calcium [Mass/Vol] 9.1 mg/dL Normal 8.4-10.2 [facility] [place] [facility] Comment on above: Performed By: #### T SH, LIPID, BMP, LIVER #### [facility] [address] [address] Curt Noemí Chloride [Moles/Vol] 104 mmol/L Normal 98-107 [facility] Comment on above: Performed By: #### T SH, LIPID, BMP, LIVER #### [facility] [address] [address] Curt Noemí CO2 [Moles/Vol] 31.3 mmol/L Critically high 22.0-30.0 [facility] Comment on above: Performed By: #### T SH, LIPID, BMP, LIVER #### [facility] [address] [address] Curt Noemí Creatinine [Mass/Vol] 0.60 mg/dL Normal 0.52-1.04 [facility] Comment on above: Performed By: #### T SH, LIPID, BMP, LIVER #### [facility] [address] [address] Curt Noemí EGFR-AF SURINAMESE >60 Normal >=60 [facility] Comment on above: Performed By: #### T SH, LIPID, BMP, LIVER #### [facility] [address] [address] Curt Noemí EGFR-NON AF SURINAMESE >60 Normal >=60 [facility] Comment on above: Performed By: #### T SH, LIPID, BMP, LIVER #### [facility] [address] [address] Curt Noemí Glucose [Mass/Vol] 108 mg/dL Critically high 74-106 [facility] Comment on above: Performed By: #### T SH, LIPID, BMP, LIVER #### [facility] [address] [phone] Curt Noemí Potassium [Moles/Vol] 3.6 mmol/L Normal 3.4-5.0 [facility] Comment on above: Performed By: #### T SH, LIPID, BMP, LIVER #### [facility] [address] [phone] Curt Noemí Sodium [Moles/Vol] 142 mmol/L Normal 137-145 [facility] [place] [facility] Comment on above: Performed By: #### T SH, LIPID, BMP, LIVER #### [facility] [address] [place], [place] [address] Curt Noemí Urea nitrogen [Mass/Vol] 10.0 mg/dL Normal 7.0-17.0 [facility] Comment on above: Performed By: #### T SH, LIPID, BMP, LIVER #### [facility] [address] [place] [address] Curt Noemí Urea nitrogen/Creatinine [Mass ratio] 16.7 mg/mg Normal [facility] Comment on above: Performed By: #### T SH, LIPID, BMP, LIVER #### [facility] [address] [place] [address] Curt Noemí TSHon 12-09-2020 TSH 2.211 uIU/mL Normal 0.470-4.680 [facility] Comment on above: Performed By: #### T SH, LIPID, BMP, LIVER #### [facility] [address] [place] [address] Curt Noemí TSH RANGE SEE BELOW Normal [facility] Comment on above: Result Comment: <0.3 4 UIU/ml HYPERTHYROID 0.34-5.60 UIU/ml EUTHYROID >5.60 UIU/ml HYPOTHYROID Performed By: #### T SH, LIPID, BMP, LIVER #### [facility] [address] [place], [place] [phone] Curt Noemí VITAMIN D 25 OHon 12-09-2020 VIT D 25-OH 35.1 ng/mL Normal [facility] Comment on above: Performed By: #### V ITAD #### [facility] [address] [place] [address] Curt Noemí VIT D RANGES SEE BELOW Normal [facility] Comment on above: Result Comment: <20 ng/mL Vit D deficient 20 - <30 ng/mL Vit D insufficient 30 - 100 ng/mL Vit D sufficient >100 ng/mL Potential Toxicity Performed By: #### V ITAD #### [facility] [address] [place] [address] Curt Noemí XR CHEST 2 Von 10-01-2020 XR CHEST 2 V EXAMINATION: XR CHEST 2 V HISTORY: Injury of sternum COMPARISON: No relevant comparison available. TECHNIQUE: PA and lateral FINDINGS: LUNGS: No significant pulmonary parenchymal abnormalities. VASCULATURE: No increased pulmonary vasculature. PLEURA: No pneumothorax, effusion, or pleural thickening. CARDIAC: No cardiomegaly or cardiac silhouette abnormality. MEDIASTINUM: No visible mass or adenopathy. BONES: No fracture or visible bone lesion. OTHER: Negative. IMPRESSION: No acute abnormality Electronically authenticated by: QUINN LEAL Date: 2020-10-01 09:29 Normal [facility] Vital Signs Date Time Vital Sign Value Performing Clinician Facility 11-08-2024 11:00-0400 Body mass index (BMI) [Ratio] 24.95 kg/m2 [facility] 11-08-2024 11:00-0400 Body weight 70.13 kg [facility] 11-08-2024 11:00-0400 Diastolic blood pressure 70 mm[Hg] [facility] 11-08-2024 11:00-0400 Systolic blood pressure 120 mm[Hg] [facility] 08-14-2024 10:35-0500 Body height 167.6 cm Skyler Puente MD Work Phone: [facility] 08-14-2024 10:35-0500 Body mass index (BMI) [Ratio] 26.47 kg/m2 Skyler Puente MD Work Phone: [facility] 08-14-2024 10:35-0500 Body temperature 97.11 [degF] Skyler Puente MD Work Phone: [facility] 08-14-2024 10:35-0500 Body weight 74.39 kg Skyler Puente MD Work Phone: [facility] 08-14-2024 10:35-0500 Diastolic blood pressure 66 mm[Hg] Skyler Puente MD Work Phone: [facility] 08-14-2024 10:35-0500 Heart rate 98 /min Skyler Puente MD Work Phone: [facility] 02-19-2025 10:35-0500 Respiratory rate 20 /min Skyler Puente MD Work Phone: [facility] 08-14-2024 10:35-0500 SaO2% (BldA) [Mass fraction] 99 % Skyler Puente MD Work Phone: [facility] 08-14-2024 10:35-0500 Systolic blood pressure 120 mm[Hg] Skyler Puente MD Work Phone: [facility] 05-28-2024 14:46-0500 Body height 167.6 cm Skyler Puente MD Work Phone: [facility] 05-28-2024 14:46-0500 Body mass index (BMI) [Ratio] 26.95 kg/m2 Skyler Puente MD Work Phone: [facility] 05-28-2024 14:46-0500 Body temperature 97.81 [degF] Skyler Puente MD Work Phone: [facility] 05-28-2024 14:46-0500 Body weight 75.75 kg Skyler Puente MD Work Phone: [facility] 05-28-2024 14:46-0500 Diastolic blood pressure 70 mm[Hg] Skyler Puente MD Work Phone: [facility] 05-28-2024 14:46-0500 Heart rate 94 /min Skyler Puente MD Work Phone: [facility] 05-28-2024 14:46-0500 Respiratory rate 18 /min Skyler Puente MD Work Phone: [facility] 05-28-2024 14:46-0500 SaO2% (BldA) [Mass fraction] 99 % Skyler Puente MD Work Phone: [facility] 05-28-2024 14:46-0500 Systolic blood pressure 122 mm[Hg] Skyler Puente MD Work Phone: [facility] 03-28-2024 11:17-0400 Body height 167.6 cm Skyler Puente MD Work Phone: [facility] 03-28-2024 11:17-0400 Body mass index (BMI) [Ratio] 28.08 kg/m2 Skyler Puente MD Work Phone: [facility] 03-28-2024 11:17-0400 Body temperature 97.9 [degF] Skyler Puente MD Work Phone: [facility] 03-28-2024 11:17-0400 Body weight 78.93 kg Skyler Puente MD Work Phone: [facility] 03-28-2024 11:17-0400 Diastolic blood pressure 62 mm[Hg] Skyler Puente MD Work Phone: [facility] 03-28-2024 11:17-0400 Heart rate 110 /min Skyler Puente MD Work Phone: [facility] 03-28-2024 11:17-0400 Respiratory rate 18 /min Skyler Puente MD Work Phone: [facility] 03-28-2024 11:17-0400 SaO2% (BldA) [Mass fraction] 98 % Skyler Puente MD Work Phone: [facility] 03-28-2024 11:17-0400 Systolic blood pressure 114 mm[Hg] Skyler Puente MD Work Phone: [facility] 01-11-2024 14:39-0400 Body height 167.64 cm [facility] 01-11-2024 14:39-0400 Body mass index (BMI) [Ratio] 31.4 kg/m2 [facility] 01-11-2024 14:39-0400 Body temperature 98.2 [degF] [facility] 01-11-2024 14:39-0400 Body weight 88.45 kg [facility] 01-11-2024 14:39-0400 Heart rate 85 /min [facility] 01-11-2024 14:39-0400 Respiratory rate 18 /min [facility] 01-11-2024 14:39-0400 SaO2% (BldA) [Mass fraction] 98 % [facility] 01-04-2023 09:55-0400 Body height 167.64 cm Mirtha Antunez Other [facility] Other 01-04-2023 09:55-0400 Body mass index (BMI) [Ratio] 27.08 kg/m2 Mirtha Lackeymond Other [facility] Other 01-04-2023 09:55-0400 Body temperature 97.7 [degF] Mirtha Antunez Other [facility] Other 01-04-2023 09:55-0400 Body weight 76.11 kg Mirtha Antunez Other [facility] Other 01-04-2023 09:55-0400 Diastolic blood pressure 81 mm[Hg] Mirtha Antunez Other [facility] Other 01-04-2023 09:55-0400 Respiratory rate 18 /min Mirtha Antunez Other [facility] Other 01-04-2023 09:55-0400 SaO2% (BldA) [Mass fraction] 96 % Mirtha Antunez Other [facility] Other 01-04-2023 09:55-0400 Systolic blood pressure 113 mm[Hg] Mirtha Harmony Other [facility] Other 09-27-2022 10:35-0400 Body height 167.64 cm Angelia Teixeira Other [facility] Other 09-27-2022 10:35-0400 Body mass index (BMI) [Ratio] 25.82 kg/m2 Angelia Teixeira Other [facility] Other 09-27-2022 10:35-0400 Body temperature 98.8 [degF] Angelia Teixeira Other [facility] Other 09-27-2022 10:35-0400 Body weight 72.58 kg Angelia Teixeira Other [facility] Other 09-27-2022 10:35-0400 Respiratory rate 18 /min Angelia Teixeira Other [facility] Other 09-27-2022 10:35-0400 SaO2% (BldA) [Mass fraction] 96 % Angelia Teixeira Other [facility] Other Encounters Encounter Date Encounter Type Care Provider Facility Start: 11-22-2024 End: 11-22-2024 ambulatory SKYLER PUENTE Not Available Start: 11-08-2024 End: 11-08-2024 Office outpatient visit 5 minutes [facility] [place] [facility] Comment on above: GA: 7w4d Start: 11-08-2024 End: 11-08-2024 ambulatory SKYLER PUENTE Not Available Start: 08-14-2024 End: 08-14-2024 Bamboo flowsheet Skyler Puente MD Work Phone: [facility] Start: 08-14-2024 End: 08-14-2024 Bamboo flowsheet Skyler Puenet MD Work Phone: [facility] Start: 08-14-2024 End: 08-14-2024 Office outpatient visit 25 minutes Skyler Puente MD Work Phone: [facility] Comment on above: Major depressive dis order, recurrent episode, mild (HCC) (CMS/HCC) (Primary Dx); Generalized anxiety disorder (CMS/HCC); Family planning counseling Start: 08-14-2024 End: 08-14-2024 ambulatory SKYLER PUENTE Not Available Start: 06-27-2024 End: 06-27-2024 Clinisync Result Encounter Skyler Puente MD Work Phone: [facility] Unsolicited Start: 06-27-2024 End: 06-27-2024 Clinisync Result Encounter Skyler Puente MD Work Phone: [facility] Unsolicited Start: 05-28-2024 End: 05-28-2024 Periodic preventive med est patient 18-39 yrs Skyler Puente MD Work Phone: [facility] Comment on above: Annual physical exam (Primary Dx); Major depressive disorder, recurrent episode, mild (HCC) (CMS/HCC) Start: 05-28-2024 End: 05-28-2024 ambulatory SKYLER PUENTE Not Available Start: 05-28-2024 End: 05-28-2024 Bamboo flowsheet Skyler Puente MD Work Phone: [facility] Start: 05-28-2024 End: 05-28-2024 Bamboo flowsheet Skyler Puente MD Work Phone: [facility] Start: 05-28-2024 End: 05-28-2024 Patient encounter procedure Skyler Puente MD Work Phone: [facility] Work Phone: Start: 05-07-2024 End: 05-07-2024 Refill Skyler Puente MD Work Phone: [facility] Comment on above: Obesity (BMI 30-39.9 ) Start: 03-28-2024 End: 03-28-2024 Bamboo flowsheet Skyler Puente MD Work Phone: [facility] Start: 03-28-2024 End: 03-28-2024 Bamboo flowsheet Skyler Puente MD Work Phone: [facility] Start: 03-28-2024 End: 03-28-2024 Office outpatient visit 25 minutes Skyler Puente MD Work Phone: [facility] Comment on above: Major depressive dis order, recurrent episode, mild (HCC) (CMS/HCC) (Primary Dx); Generalized anxiety disorder (CMS/HCC); Obesity (BMI 30-39.9); Overweight (BMI 25.0-29.9) Start: 03-28-2024 End: 03-28-2024 ambulatory SKYLER PUENTE Not Available Start: 01-26-2024 End: 01-26-2024 ambulatory SKYLER PUENTE Not Available Start: 01-11-2024 End: 01-11-2024 ambulatory [facility] Work Phone: Start: 01-11-2024 End: 01-11-2024 Patient encounter procedure [facility] Work Phone: Start: 12-26-2023 End: 12-26-2023 ambulatory SKYLER PUENTE Not Available Start: 01-04-2023 Office outpatient vi sit 15 minutes Mirthaketty Antunez [facility] Start: 01-04-2023 End: 01-04-2023 ambulatory Mirtha Antunez Facility:[facility] Start: 01-04-2023 End: 01-04-2023 ambulatory DES[employer] Mirtha Antunez Work Phone: [facility] Work Phone: Start: 01-04-2023 End: 01-04-2023 Patient encounter procedure DESIGN CHECKER-C Mirtha Antunez Work Phone: [facility] Work Phone: Start: 09-27-2022 End: 09-27-2022 ambulatory Angelia Teixeira Other [facility] Other Start: 09-27-2022 Office outpatient ne w 30 minutes Angelia Teixeira [facility] Start: 03-11-2021 End: 03-11-2021 ambulatory JAMES VALVERDE Facility: Start: 12-16-2020 Encounter for genera l adult medical examination without abnormal findings DR SKYLER PUENTE [facility] Start: 12-09-2020 End: 12-10-[address] SKYLER PUENTE Facility:[facility] Start: 12-09-2020 End: 12-10-2020 Encounter for general adult medical examination without abnormal findings DR SKYLER PUENTE Facility:[facility] Start: 10-01-2020 End: 10-01-[address] QUINN LEAL Facility:[facility] Procedures Date Procedure Procedure Detail Performing Clinician Start: 11-08-2024 Urnls dip stick/tabl et rgnt non-auto w/o micrscp Oleksandr Phelan DO Work Phone: Start: 06-27-2024 ALL CBC WITH AUTO DIFF Skyler Puente MD Work Phone: Start: 01-04-2023 Plain X-ray of right wrist DESIGN CHECKER-C Mirtha Antunez Work Phone: Plan of Treatment Date Care Activity Detail Author Start: 12-05-2024 End: 12-05-2024 Patient encounter procedure 12/05/2024 9:50 AM EDT Routine [facility] [address] [place] [id number] Oleksandr Phelan, DO [address] [place] [address] [facility] Start: 11-28-2024 End: 11-28-2024 Patient encounter procedure 11/28/2024 1:00 PM EDT Office Visit [facility] [address] [place] [phone] Skyler Puente MD [address] [place] [id number] [facility] Start: 11-12-2024 End: 11-12-2024 Patient encounter procedure 11/12/2024 10:45 AM EDT Office Visit [facility] [address] [place] [phone] Skyler Puente MD [address] [place] [address] [facility] Start: 11-08-2024 End: 11-08-2025 ABO/Rh ABO/Rh Lab Routine Missed menses , unspecified gestational age Expected: 11/08/2024 (Approximate), Expires: 11/08/2025 [facility] Comment on above: Expected: 11/08/2024 (Approximate), Expires: 11/08/2025 Start: 11-08-2024 End: 11-08-2025 Blood type and Indirect antibody screen panel - Blood Type and screen Lab Routine Missed menses , unspecified gestational age Expected: 11/08/2024 (Approximate), Expires: 11/08/2025 [facility] Comment on above: Expected: 11/08/2024 (Approximate), Expires: 11/08/2025 Start: 11-08-2024 End: 11-08-2025 Drugs of abuse panel - Urine by Screen method Rapid drug screen, urine Lab Routine , unspecified gestational age Encounter for supervision of normal first in first trimester Expected: 11/08/2024 (Approximate), Expires: 11/08/2025 [facility] Comment on above: Expected: 11/08/2024 (Approximate), Expires: 11/08/2025 Start: 11-01-2024 End: 02-01-2025 US Pelvis transvaginal US OB transvaginal Imaging Routine Missed menses Expected: 11/01/2024, Expires: 02/01/2025 [facility] Work Phone: Comment on above: Expected: 11/01/2024 , Expires: 02/01/2025 Start: 08-14-2024 End: 08-14-2024 Patient encounter procedure 08/14/2024 10:30 AM EST Office Visit [facility] [address] [place] [id number] Skyler Puente MD [address] [place] [address] Arrived [facility] Comment on above: Arrived Start: 05-28-2024 End: 05-28-2024 Patient encounter procedure [facility] Comment on above: Arrived Start: 05-28-2024 End: 05-28-2025 Basic metabolic 1998 panel - Serum or Plasma Basic metabolic panel Lab Routine Annual physical exam Expected: 05/28/2024 (Approximate), Expires: 05/28/2025 [facility] Comment on above: Expected: 05/28/2024 (Approximate), Expires: 05/28/2025 Start: 05-28-2024 End: 05-28-2025 CBC W Auto Differential panel - Blood CBC and differential Lab Routine Annual physical exam Expected: 05/28/2024 (Approximate), Expires: 05/28/2025 [facility] Comment on above: Expected: 05/28/2024 (Approximate), Expires: 05/28/2025 Start: 05-28-2024 End: 05-28-2025 Hemoglobin A1c/Hemoglobin.total in Blood Hemoglobin A1c Lab Routine Annual physical exam Expected: 05/28/2024 (Approximate), Expires: 05/28/2025 [facility] Work Phone: Comment on above: Expected: 05/28/2024 (Approximate), Expires: 05/28/2025 Start: 05-28-2024 End: 05-28-2025 Hepatic function 2000 panel - Serum or Plasma Hepatic function panel Lab Routine Annual physical exam Expected: 05/28/2024 (Approximate), Expires: 05/28/2025 [facility] Comment on above: Expected: 05/28/2024 (Approximate), Expires: 05/28/2025 Start: 05-28-2024 End: 05-28-2025 Lipid 1996 panel - Serum or Plasma Lipid panel Lab Routine Annual physical exam Expected: 05/28/2024 (Approximate), Expires: 05/28/2025 [facility] Comment on above: Expected: 05/28/2024 (Approximate), Expires: 05/28/2025 Start: 05-28-2024 End: 05-28-2025 Thyrotropin [Units/volume] in Serum or Plasma TSH Lab Routine Annual physical exam Expected: 05/28/2024 (Approximate), Expires: 05/28/2025 [facility] Comment on above: Expected: 05/28/2024 (Approximate), Expires: 05/28/2025 Start: 03-28-2024 End: 03-28-2024 Patient encounter procedure 03/28/2024 11:15 AM EDT Office Visit [facility] [address] [place] [address] Skyler Puente MD [address] [place] [address] Arrived [facility] Comment on above: Arrived Start: 02-25-2024 Influenza vaccination Influenza Vacc ine (#1) [facility] Bacteria identified in Urine by Culture Urine culture Microbiology Routine Missed menses Ordered: 11/08/2024 [facility] Comment on above: Ordered: 11/08/2024 CBC W Auto Different ial panel - Blood CBC and differential Lab Routine Missed menses , unspecified gestational age Ordered: 11/08/2024 [facility] Comment on above: Ordered: 11/08/2024 Hemoglobin A1c/Hemoglobin.total in Blood Hemoglobin A1c Lab Routine Missed menses , unspecified gestational age Ordered: 11/08/2024 [facility] Comment on above: Ordered: 11/08/2024 Hepatitis B virus surface Ag [Presence] in Serum or Plasma by Immunoassay Hepatitis B surface antigen Lab Routine Missed menses , unspecified gestational age Ordered: 11/08/2024 [facility] Comment on above: Ordered: 11/08/2024 Hepatitis C virus Ab [Presence] in Serum or Plasma by Immunoassay Hepatitis C antibody Lab Routine Missed menses , unspecified gestational age Ordered: 11/08/2024 [facility] Comment on above: Ordered: 11/08/2024 HIV-1/HIV-2 antigen/antibody combination immunoassay HIV-1 and HIV-2 antibodies Lab Routine Missed menses , unspecified gestational age Ordered: 11/08/2024 [facility] Comment on above: Ordered: 11/08/2024 Reagin Ab [Presence] in Serum by RPR RPR Lab Routine Missed menses , unspecified gestational age Ordered: 11/08/2024 [facility] Comment on above: Ordered: 11/08/2024 Rubella antibody, IgG Rubella an tibody, IgG Lab Routine Missed menses , unspecified gestational age Ordered: 11/08/2024 [facility] Comment on above: Ordered: 11/08/2024 US Pelvis transvaginal US OB tra nsvaginal Imaging Routine Missed menses 11/08/2024 10:58 AM EDT [facility] Immunizations Immunization Date Immunization Notes Care Provider Fa cility 05-01-2024 influenza virus vacc ine, unspecified formulation Skyler Puente MD Work Phone: [facility] Healthcare Payers Date Payer Category Payer Private Health Insurance [id number] 2023 Self-pay 2018 Managed Care HMO (unspecified) [id number] 1994 Unknown [id number] 1994 Unknown [id number] 2.16.84 [id number] 1994 Unknown [id number] 2.16.84 [id number] 1994 Unknown [id number] 1994 Unknown [id number] 1994 Unknown [id number] 1994 Unknown [id number] 1994 Unknown [id number] 1994 Unknown [id number] 1994 Unknown [id number] 1994 Unknown [id number] 1959 Private Health Insurance [id number] Unknown [id number] Social History Date Type Detail Facility Unknown if ever smoked [facility] Other Start: 09-19-2023 End: 08-14-2024 Sex Assigned At [facility] Start: 1995 Sex Assigned At Female [facility] Start: 09-26-2023 End: 01-11-2024 Tobacco smoking status NHIS Never smoked tobacco (finding) [facility] Start: 09-26-2023 Tobacco use and exposure Smokeless tobacco non-user [facility] Start: 09-19-2023 End: 08-14-2024 History of Social function [facility] Do you belong to any clubs or organizations such as voodoo groups, unions, fraternal or athletic groups, or school groups? No [facility] Are you now , , , , never or living with a partner? [facility] How often to you hav e a drink containing alcohol? 2-4 times a month [facility] How many standard dr inks containing alcohol do you have on a typical day? 3 or 4 [facility] How often do you hav e 6 or more drinks on 1 occasion? Never [facility] How hard is it for y ou to pay for the very basics like food, housing, medical care, and heating Not hard at all [facility] Do you feel stress - tense, restless, nervous, or anxious, or unable to sleep at night because your mind is troubled all the time - these days [OSQ] Not at all [facility] (I/We) worried wheth er (my/our) food would run out before (I/we) got money to buy more. Never true [facility] Start: 1995 Sex assigned at Not on file [facility] Start: 09-30-2024 [facility] Healthcare Clinical Notes 09-27-2022 to 11-08-2024 Missy CallejasAVA - 11/08/2024 10:30 AM Sharmin Puente MD - 08/14/2024 10:57 AM Christine Puente MD - 08/14/2024 10:56 AM Christine Puente MD - 08/14/2024 10:56 AM EST Note Date & Type Note Facility 11-08-2024 History of Presen t illness Narrative Reason for Appointment: Patient ID: Anjana Booth is a 28 y.o. female who presents for Amenorrhea Patient presents today for a Nurse OB Intake appointment. Patient is 7w4d with a Estimated Date of Delivery: 06/23/25 OB History Para Term AB Living 1 SAB IAB Ectopic Multiple Live Births # Outcome Date GA Lbr Samuel/2nd Weight Sex Type Anes PTL Lv 1 Current Current Medications: has a current medication list which includes the following prescription(s): inulin, loratadine, mv-min-fe fum-fa-dha, and sertraline. Medical History: Active Ambulatory Problems Diagnosis Date Noted Generalized anxiety disorder (CMS/HCC) 09/26/2023 Major depressive disorder, recurrent episode, mild (HCC) (CMS/HCC) 09/26/2023 Vitamin D deficiency 09/26/2023 Overweight (BMI 25.0-29.9) 09/26/2023 Annual physical exam 05/28/2024 Family planning counseling 08/14/2024 Resolved Ambulatory Problems Diagnosis Date Noted Need for malaria prophylaxis 01/26/2024 Past Medical History: Diagnosis Date At standard risk for fall MO (generalized anxiety disorder) (CMS/HCC) MDD (major depressive disorder), recurrent episode, mild (HCC) (CMS/HCC) Sprain of ulnar collateral ligament of right wrist, subsequent encounter Family History Problem Relation Name Age of Onset Polycystic ovary syndrome Mother Other (high blood pressure) Father Other (high blood pressure) Paternal Grandfather Social History Tobacco Use Smoking status: Never Smokeless tobacco: Never Substance Use Topics Alcohol use: Not on file Drug use: Not on file Past Surgical History: Procedure Laterality Date COLONOSCOPY EGD TONSILLECTOMY 2002 WISDOM TOOTH EXTRACTION Allergies Allergen Reactions Lactose Unknown Lactose Intolerance - Digestive Aids Vitals: Estimated body mass index is 24.95 kg/m as calculated from the following: Height as of 25: 5' 6 . Weight as of this encounter: 154 lb 9.6 oz. BP: 120/70 Patient's last menstrual period was 09/16/2024. Assessment/Plan Diagnoses and all orders for this visit: Missed menses - US OB transvaginal; Future - Type and screen; Future - ABO/Rh; Future - CBC and differential - Hemoglobin A1c - RPR - Rubella antibody, IgG - Hepatitis B surface antigen - Hepatitis C antibody - HIV-1 and HIV-2 antibodies - Urine culture - POCT , urine manually resulted - POCT urinalysis dipstick manually resulted , unspecified gestational age - Type and screen; Future - ABO/Rh; Future - CBC and differential - Hemoglobin A1c - RPR - Rubella antibody, IgG - Hepatitis B surface antigen - Hepatitis C antibody - HIV-1 and HIV-2 antibodies - Rapid drug screen, urine; Future Encounter for supervision of normal first in first trimester - Rapid drug screen, urine; Future Nurse Note: OB Intake: Patient presents today for first OB visit. Patients history has been reviewed in great detail including any potential risks. Patient signed consent forms and patient desires testing in both trimesters. Patient currently has no complaints and has been advised to drink 6-8 glasses of water a day, eat no raw or undercooked meat, and stay away from [facility]. Patient has also been advised to not change litter boxes and eat 6 small meals a day. Patient has been consulted regarding the do's and don'ts of . Patient was given labs and all questions and concerns were answered. Follow Up: Patient is to return in 4 weeks for routine OB appointment. Follow Up: Patient is to have labs drawn at directed and return to office for initial OB appointment with provider. Patient may call office as needed with any concerns or questions. Nurse Visit Completed by: Missy Callejas LPN documented in this encounter [facility] 08-14-2024 History of Presen t illness Narrative Associated Problem(s): Family planning counseling Discussed OTC and medication safety during . Associated Problem(s): Generalized anxiety disorder (CMS/HCC) Mood well controlled but plan on getting . Stop wellbutrin and change to zoloft. Associated Problem(s): Major depressive disorder, recurrent episode, mild (HCC) (CMS/HCC) Mood well controlled but plan on getting . Stop wellbutrin and change to zoloft. Images from the original note were not included. Subjective Patient ID: Anjana Booth is a 28 y.o. female who presents for Follow-up (Med check. ). Wants to discuss possible . Taking wellbutrin daily and mood well controlled. Not down or sad and feels happier. Anxiety stable. Not as stressed out or overwhelmed. Not as nervous or worry as much. Not as graves or irritable. Plans on trying to get soon and wants to know if able to continue antidepressants. Also curious about other medications and OTC during . Review of Systems Respiratory: Negative for cough, shortness of breath and wheezing. Cardiovascular: Negative for chest pain and palpitations. Gastrointestinal: Negative for abdominal pain, diarrhea, nausea and vomiting. Genitourinary: Negative for dysuria. Objective Physical Exam Constitutional: General: She is not in acute distress. Appearance: Normal appearance. HENT: Head: Normocephalic. Right Ear: Tympanic membrane normal. Left Ear: Tympanic membrane normal. Eyes: Extraocular Movements: Extraocular movements intact. Pupils: Pupils are equal, round, and reactive to light. Cardiovascular: Rate and Rhythm: Normal rate and regular rhythm. Heart sounds: No murmur heard. No friction rub. No gallop. Pulmonary: Effort: Pulmonary effort is normal. Breath sounds: Normal breath sounds. No wheezing, rhonchi or rales. Abdominal: General: Bowel sounds are normal. There is no distension. Palpations: Abdomen is soft. Tenderness: There is no abdominal tenderness. There is no guarding or rebound. Musculoskeletal: Cervical back: Neck supple. Right lower leg: No edema. Left lower leg: No edema. Neurological: Mental Status: She is alert. Assessment/Plan Problem List Items Addressed This Visit Generalized anxiety disorder (CMS/HCC) Mood well controlled but plan on getting . Stop wellbutrin and change to zoloft. Major depressive disorder, recurrent episode, mild (HCC) (CMS/HCC) - Primary Mood well controlled but plan on getting . Stop wellbutrin and change to zoloft. Relevant Medications sertraline (Zoloft) 50 MG tablet Family planning counseling Discussed OTC and medication safety during . documented in this encounter [facility] 05-28-2024 History of Presen t illness Narrative Associated Problem(s): Major depressive disorder, recurrent episode, mild (HCC) (CMS/HCC) Symptoms remain controlled with wellbutrin and continue. Associated Problem(s): Annual physical exam Due for labs. Discussed proper diet and regular aerobic exercise. Need aerobic exercise 5-6 days a week for 30 minutes at a time. Smaller portions and limit total calories. Colonoscopy after age 45. Tetanus every 10 years. Advised not to smoke. Images from the original note were not included. Subjective Patient ID: Anjana Booth is a 28 y.o. female who presents for Follow-up (2 m). Presents for annual PE. Patient feels well today. Weight down 7 pounds since last visit and 31 pounds since December. Remains active and exercises several days a week. Tries to watch diet and eat healthy. Increased fruits and vegetables. Smaller portions and limits snacking. Tries to limit total daily calories. Due for labs. Depression and anxiety controlled with medication. Not down or sad and feels happier. Review of Systems Respiratory: Negative for cough, shortness of breath and wheezing. Cardiovascular: Negative for chest pain and palpitations. Gastrointestinal: Negative for abdominal pain, diarrhea, nausea and vomiting. Genitourinary: Negative for dysuria. Objective Physical Exam Constitutional: General: She is not in acute distress. Appearance: Normal appearance. HENT: Head: Normocephalic. Right Ear: Tympanic membrane normal. Left Ear: Tympanic membrane normal. Eyes: Extraocular Movements: Extraocular movements intact. Pupils: Pupils are equal, round, and reactive to light. Cardiovascular: Rate and Rhythm: Normal rate and regular rhythm. Heart sounds: No murmur heard. No friction rub. No gallop. Pulmonary: Effort: Pulmonary effort is normal. Breath sounds: Normal breath sounds. No wheezing, rhonchi or rales. Abdominal: General: Bowel sounds are normal. There is no distension. Palpations: Abdomen is soft. Tenderness: There is no abdominal tenderness. There is no guarding or rebound. Musculoskeletal: General: No swelling or tenderness. Cervical back: Neck supple. Right lower leg: No edema. Left lower leg: No edema. Skin: Findings: No erythema or rash. Neurological: General: No focal deficit present. Mental Status: She is alert and oriented to person, place, and time. Cranial Nerves: No cranial nerve deficit. Motor: No weakness. Gait: Gait normal. Assessment/Plan Problem List Items Addressed This Visit Major depressive disorder, recurrent episode, mild (HCC) (CMS/HCC) Symptoms remain controlled with wellbutrin and continue. Annual physical exam - Primary Due for labs. Discussed proper diet and regular aerobic exercise. Need aerobic exercise 5-6 days a week for 30 minutes at a time. Smaller portions and limit total calories. Colonoscopy after age 45. Tetanus every 10 years. Advised not to smoke. Relevant Orders Hemoglobin A1c Basic metabolic panel CBC and differential Hepatic function panel Lipid panel TSH documented in this encounter [facility] 03-28-2024 History of Presen t illness Narrative Associated Problem(s): Overweight (BMI 25.0-29.9) Patient doing well with adipex and lost [...] develop new or worsening symptoms contact office. Associated Problem(s): Generalized anxiety disorder (CMS/HCC) Symptoms remain controlled with wellbutrin and continue. Associated Problem(s): Major depressive disorder, recurrent episode, mild (HCC) (CMS/HCC) Symptoms remain controlled with wellbutrin and continue. Images from the original note were not included. Subjective Patient ID: Anjana Booth is a 28 y.o. female who presents for Epistaxis (Nose Bleed) and Follow-up (Check up on new meds). Follow up depression, anxiety, and weight. Patient feels well today. Mood well controlled with wellbutrin. Not down or sad and feels happier. Anxiety stable. Not as stressed out or overwhelmed. Not as nervous or worry as much. Not as graves or irritable. Continues to have severe stress and new stressors but handling well. Tolerating medication without side effects. Taking adipex and weight down 12 pounds since last visit and 24 pounds in 3 months. Tolerating medication without side effects except mild dry mouth. Not as hungry with medication. Smaller portions and not snacking. Increased fruits and vegetables. Tries to limit total daily calories. Review of Systems Respiratory: Negative for cough, shortness of breath and wheezing. Cardiovascular: Negative for chest pain and palpitations. Gastrointestinal: Negative for abdominal pain, diarrhea, nausea and vomiting. Genitourinary: Negative for dysuria. Objective Physical Exam Constitutional: General: She is not in acute distress. Appearance: Normal appearance. HENT: Head: Normocephalic. Right Ear: Tympanic membrane normal. Left Ear: Tympanic membrane normal. Eyes: Extraocular Movements: Extraocular movements intact. Pupils: Pupils are equal, round, and reactive to light. Cardiovascular: Rate and Rhythm: Normal rate and regular rhythm. Heart sounds: No murmur heard. No friction rub. No gallop. Pulmonary: Effort: Pulmonary effort is normal. Breath sounds: Normal breath sounds. No wheezing, rhonchi or rales. Abdominal: General: Bowel sounds are normal. There is no distension. Palpations: Abdomen is soft. Tenderness: There is no abdominal tenderness. There is no guarding or rebound. Musculoskeletal: Cervical back: Neck supple. Right lower leg: No edema. Left lower leg: No edema. Neurological: Mental Status: She is alert. Assessment/Plan Problem List Items Addressed This Visit Generalized anxiety disorder (CMS/HCC) Symptoms remain controlled with wellbutrin and continue. Major depressive disorder, recurrent episode, mild (HCC) (CMS/HCC) - Primary Symptoms remain controlled with wellbutrin and continue. Overweight (BMI 25.0-29.9) Patient doing well with adipex and lost [...] develop new or worsening symptoms contact office. Relevant Medications phentermine (Adipex-P) 37.5 MG tablet documented in this encounter [facility] 01-04-2023 Evaluation note Encounter Date Diagnosis Assessment Notes Dec, Right wrist pain (ICD-10 - M25.531) Dec, Carpal tunnel syndrome of right wrist (ICD-10 - G56.01) Carpal tunnel syndrome home care material was printed Drink plenty fluids, get plenty of rest. Take the Aleve as prescribed. Wear the splint to your wrist is much as possible including when you sleep. Follow-up with your family physician if no improvement in 5 to 7 days. Off work until Monday. [facility] Other 04-04-2023 Evaluation note* Encounter Date Diagnosis Assessment Notes Treatment Notes Treatment Clinical Notes Sep, Nasal congestion (ICD-10 - R09.81) Sep, COVID-19 (ICD-10 - U07.1) COVID PCR test performed in office today. Advised patient that test was positive. Influenza A/B test negative. Instructed patient to isolate per CDC guidelines for 5 days from symptom onset, mask 5 days following. May return to work/activities outside home after isolation period as long as symptoms are improving and has been afebrile for 24 hours without use of antipyretic. Advised patient that treatment of COVID is with viral supportive care, rx of Bromfed and Zofran as needed, Tylenol/Motrin as needed for body aches/fever. Increase fluids and rest. Encouraged use of cool mist humidifier. Follow-up with PCP to advise of positive result and further management. Immediate eval for SOB, difficulty, chest pain, fevers that do not break with antipyretic or any other concerning symptoms as reviewed on patient education handout. Patient verbalizes understanding and is agreeable to treatment plan. Patient left in stable condition [facility] Other Evaluation noteNo assessment information available [facility] Work Phone: Evaluation note* Diagnosis Major depressive disorder, recurrent episode, mild (HCC) (CMS/HCC)- Primary Major depressive disorder, recurrent episode, mild Generalized anxiety disorder (CMS/HCC) Generalized anxiety disorder Obesity (BMI 30-39.9) Overweight (BMI 25.0-29.9) Overweight [facility] Diagnosis Major depressive disorder, recurrent episode, mild (HCC) (CMS/HCC)- Primary Major depressive disorder, recurrent episode, mild Generalized anxiety disorder (CMS/HCC) Generalized anxiety disorder Obesity (BMI 30-39.9) Major depressive disorder, recurrent episode, mild (HCC) (CMS/HCC)- Primary Major depressive disorder, recurrent episode, mild Generalized anxiety disorder (CMS/HCC) Generalized anxiety disorder Obesity (BMI 30-39.9) Major depressive disorder, recurrent episode, mild (HCC) (CMS/HCC)- Primary Major depressive disorder, recurrent episode, mild Generalized anxiety disorder (CMS/HCC) Generalized anxiety disorder Obesity (BMI 30-39.9) Need for malaria prophylaxis Major depressive disorder, recurrent episode, mild (HCC) (CMS/HCC)- Primary Major depressive disorder, recurrent episode, mild Generalized anxiety disorder (CMS/HCC) Generalized anxiety disorder Obesity (BMI 30-39.9) Overweight (BMI 25.0-29.9) Overweight Obesity (BMI 30-39.9) [facility] Diagnosis Major depressive disorder, recurrent episode, mild (HCC) (CMS/HCC)- Primary Major depressive disorder, recurrent episode, mild Generalized anxiety disorder (CMS/HCC) Generalized anxiety disorder Obesity (BMI 30-39.9) Major depressive disorder, recurrent episode, mild (HCC) (CMS/HCC)- Primary Major depressive disorder, recurrent episode, mild Generalized anxiety disorder (CMS/HCC) Generalized anxiety disorder Obesity (BMI 30-39.9) Major depressive disorder, recurrent episode, mild (HCC) (CMS/HCC)- Primary Major depressive disorder, recurrent episode, mild Generalized anxiety disorder (CMS/HCC) Generalized anxiety disorder Obesity (BMI 30-39.9) Need for malaria prophylaxis Major depressive disorder, recurrent episode, mild (HCC) (CMS/HCC)- Primary Major depressive disorder, recurrent episode, mild Generalized anxiety disorder (CMS/HCC) Generalized anxiety disorder Obesity (BMI 30-39.9) Overweight (BMI 25.0-29.9) Overweight Annual physical exam- Primary Routine general medical examination at a health care facility Major depressive disorder, recurrent episode, mild (HCC) (CMS/HCC) Major depressive disorder, recurrent episode, mild [facility] Diagnosis Major depressive disorder, recurrent episode, mild (HCC) (CMS/HCC)- Primary Major depressive disorder, recurrent episode, mild Generalized anxiety disorder (CMS/HCC) Generalized anxiety disorder Obesity (BMI 30-39.9) Major depressive disorder, recurrent episode, mild (HCC) (CMS/HCC)- Primary Major depressive disorder, recurrent episode, mild Generalized anxiety disorder (CMS/HCC) Generalized anxiety disorder Obesity (BMI 30-39.9) Major depressive disorder, recurrent episode, mild (HCC) (CMS/HCC)- Primary Major depressive disorder, recurrent episode, mild Generalized anxiety disorder (CMS/HCC) Generalized anxiety disorder Obesity (BMI 30-39.9) Need for malaria prophylaxis Major depressive disorder, recurrent episode, mild (HCC) (CMS/HCC)- Primary Major depressive disorder, recurrent episode, mild Generalized anxiety disorder (CMS/HCC) Generalized anxiety disorder Obesity (BMI 30-39.9) Overweight (BMI 25.0-29.9) Overweight Annual physical exam- Primary Routine general medical examination at a health care facility Major depressive disorder, recurrent episode, mild (HCC) (CMS/HCC) Major depressive disorder, recurrent episode, mild Major depressive disorder, recurrent episode, mild (HCC) (CMS/HCC)- Primary Major depressive disorder, recurrent episode, mild Generalized anxiety disorder (CMS/HCC) Generalized anxiety disorder Family planning counseling Other general counseling and advice for contraceptive management documented in this encounter [facility] Diagnosis Major depressive disorder, recurrent episode, mild (HCC) (CMS/HCC)- Primary Major depressive disorder, recurrent episode, mild Generalized anxiety disorder (CMS/HCC) Generalized anxiety disorder Obesity (BMI 30-39.9) Major depressive disorder, recurrent episode, mild (HCC) (CMS/HCC)- Primary Major depressive disorder, recurrent episode, mild Generalized anxiety disorder (CMS/HCC) Generalized anxiety disorder Obesity (BMI 30-39.9) Major depressive disorder, recurrent episode, mild (HCC) (CMS/HCC)- Primary Major depressive disorder, recurrent episode, mild Generalized anxiety disorder (CMS/HCC) Generalized anxiety disorder Obesity (BMI 30-39.9) Need for malaria prophylaxis Major depressive disorder, recurrent episode, mild (HCC) (CMS/HCC)- Primary Major depressive disorder, recurrent episode, mild Generalized anxiety disorder (CMS/HCC) Generalized anxiety disorder Obesity (BMI 30-39.9) Overweight (BMI 25.0-29.9) Overweight Annual physical exam- Primary Routine general medical examination at a health care facility Major depressive disorder, recurrent episode, mild (HCC) (CMS/HCC) Major depressive disorder, recurrent episode, mild Major depressive disorder, recurrent episode, mild (HCC) (CMS/HCC)- Primary Major depressive disorder, recurrent episode, mild Generalized anxiety disorder (CMS/HCC) Generalized anxiety disorder Family planning counseling Other general counseling and advice for contraceptive management Missed menses , unspecified gestational age Encounter for supervision of normal first in first trimester documented in this encounter [facility] N[facility]ative - Reported* Type Description Date Medical History Depression Medical History Anxiety Surgical History tonsillectomy and adenoidectomy Hospitalization History see above [facility] Other Summary Purpose Family History No Family History Records Found Relationship Condition Age at Onset Recorded Date/T zhang father Hypertension Unknown Advance Directives No Advanced Directives Records Found Advance Directive Response Recorded Date/ Time Advance Directives No January 12 9:23am Chief Complaint and Reason for Visit Chief Complaint Skin irritation on v agina Reason for Referral Specialty Diagnoses / Procedures Referred By Ty t Referred To Contact Diagnoses Obesity (BMI 30-39.9) Skyler Puente MD [address] [place] [address] Referral ID Status Reason Start Date Expiration Date V isits Requested Visits Authorized [id number] Pending Review 03/28/2024 09/24/2024 1 1 Additional Source Comments INFORMATION SOURCE (unrecogn ized section and content) DATE CREATED AUTHOR 03/15/2021 [facility] DATE CREATED AUTHOR AUTHOR'S ORGANIZ ATION 01/14/2023 [facility] DATE CREATED AUTHOR AUTHOR'S ORGANIZ ATION 11/25/2024 [facility] EPIC REASON FOR VISIT (unrecogniz ed section and content) Reason Comments Epistaxis (Nose Bleed) Follow-up Check up on new meds Reason Onset Date Comments Med Refill 05/07/2024 Reason Comments Follow-up 2 m Reason Comments Follow-up Med check. Reason Comments Amenorrhea Care Teams (unrecognized sec tion and content) Team Status: Inactive Member Role Status Dates Mirtha Antunez NP-C Attending Provider Active Team Status: Active Member Role Status Dates NON STAFF Primary Care Provider Active Team Status: Inactive Member Role Status Dates NON STAFF Primary Care Provider Active Start: January 11, 2024 End: January 11, 2024 Pam Zavala APRN Attending Provider Active Start: January 11, 2024 End: January 11, 2024 De Ionizer Operator Relationship Specialty Start Date End Date Skyler Puente MD [address] [place] [address] PCP - General Family Medicine 09/26/23 De Ionizer Operator Relationship Specialty Start Date End Date Skyler Puente MD [address] [place] [address] PCP - General Family Medicine 09/26/23 De Ionizer Operator Relationship Specialty Start Date End Date Skyler Puente MD [address] [place] [phone] PCP - General Family Medicine 09/26/23 De Ionizer Operator Relationship Specialty Start Date End Date Skyler Puente MD [address] [place] [phone] PCP - General Family Medicine 09/26/23 De Ionizer Operator Relationship Specialty Start Date End Date Skyler Puente MD [address] [place] [phone] PCP - General Family Medicine 09/26/23 De Ionizer Operator Relationship Specialty Start Date End Date Skyler Puente MD [address] [place] [phone] PCP - General Family Medicine 09/26/23 De Ionizer Operator Relationship Specialty Start Date End Date Skyler Puente MD [address] [place] [phone] PCP - General Family Medicine 09/26/23 De Ionizer Operator Relationship Specialty Start Date End Date Skyler Puente MD [address] [place] [phone] PCP - General Family Medicine 09/26/23 De Ionizer Operator Relationship Specialty Start Date End Date Skyler Puente MD [address] [place] [phone] PCP - General Family Medicine 09/26/23 Goals (unrecognized section and content) Goals may be documented in a n alternate section FOR RECORDS PERTAINING TO PATIENTS WHO ARE OR HAVE BEEN ENROLLED IN A CHEMICAL DEPENDENCY/SUBSTANCEABUSE PROGRAM, SOME INFORMATION MAY BE OMITTED. This clinical summary was aggregated from multiple sources. Caution should be exercised in using it in the provision of clinical care. This summary normalizes information from multiple sources, and as a consequence, information in this document may materially change the coding, format and clinical context of patient data. In addition, data may be omitted in some cases. CLINICAL DECISIONS SHOULD BE BASED ON THE PRIMARY CLINICAL RECORDS. [facility] [employer] [facility]. provides no warranty or guarantee of the accuracy or completeness of information in this document.
[2024-11-26 14:05] LABS: Basophils Percent Auto 0.5 % (0.2-2.0); Eosinophils Percent Auto 0.5 % (0.9-7.0); Hematocrit 36.5 % (36.0-48.0); Hemoglobin 12.3 g/dL (12.0-16.0); Immature Granulocytes Abs Auto 0.03 10^3/uL (0.00-0.03); Immature Granulocytes Pct Auto 0.4 % (0.0-0.5); Lymphocytes Absolute Auto 1.6 10^3/uL (1.2-3.8); Lymphocytes Percent Auto 21.4 % (20.5-60.0); Mean Corpuscular HGB Conc 33.7 g/dL (29.9-35.2); Mean Corpuscular Hemoglobin 31.2 pg (26.7-34.0); Mean Corpuscular Volume 92.6 fL (81.0-99.0); Mean Platelet Volume 10.7 fL (9.5-13.5); Monocytes Absolute Auto 0.7 10^3/uL (0.3-0.8); Monocytes Percent Auto 9.7 % (1.7-12.0); Neutrophils Percent Auto 67.5 % (43.0-75.0); Platelet Count 271 10^3/uL (150-450); Red Blood Count 3.94 10^6/uL (4.20-5.40); Red Cell Distribution Width 11.9 % (11.0-15.0); White Blood Count 7.5 10^3/uL (4.0-11.0)
[2024-11-26 14:12] LABS: Amphetamine Screen Urine NEGATIVE (NEGATIVE); Barbiturates Screen Urine NEGATIVE (NEGATIVE); Benzodiazepines Screen Urine NEGATIVE (NEGATIVE); Cannabinoid Screen Urine NEGATIVE (NEGATIVE); Cocaine Screen Urine NEGATIVE (NEGATIVE); Methadone Screen Urine NEGATIVE (NEGATIVE); Methamphetamines Screen Urine NEGATIVE (NEGATIVE); Opiate Screen Urine NEGATIVE (NEGATIVE); Phencyclidine Screen Urine NEGATIVE (NEGATIVE); Tricyclic Antidepressant Urine NEGATIVE (NEGATIVE)
[2024-11-26 14:12] LABS: BOX Test Reference Lab UNITY; BOX Test Sent Out UNITY
[2024-11-26 14:13] LABS: Buprenorphine Screen Urine NEGATIVE (NEGATIVE); Oxycodone Screen Urine NEGATIVE (NEGATIVE)
[2024-11-26 15:00] LABS: Estimated Average Glucose 97 mg/dL
[2024-11-27 06:08] LABS: HBsAg Screen Negative (Negative); HCV Ab Non Reactive (Non Reactive); Rubella Antibodies, IgG <0.90 index (Immune >0.99)
[2024-11-27 09:08] LABS: HIV Ab/p24 Ag Screen Non Reactive (Non Reactive)
[2024-11-27 12:09] LABS: Rapid Plasma Reagin, Quant Non Reactive titer (NonRea<1:1)
== END 2024-11-26 13:17 | disposition home or self-care (01) ==
LOC: LAB 13:18
PROVIDERS: PCP Family Medicine; Visit Provider Obstetrics & Gynecology
DX: Z34.01 Encounter for supervision of normal first pregnancy, first trimester (principal); Z36.0 Encounter for antenatal screening for chromosomal anomalies; N92.6 Irregular menstruation, unspecified
CPT/HCPCS: 36415; 80307; 83036; 85025; 86592; 86762; 86803; 86850; 86900; 86901; 87086; 87340; 87389

== ENCOUNTER 2025-01-02 12:19 | Outpatient (REF) | payer OTHER, SELFPAY ==
--- OUTSIDE RECORDS SUMMARY | 2025-01-02 09:30 | XMS_ITS | Encounter Summary ---
Author Organization [facility] Address [address] [place] [place] [address] Care Team Providers Care Site Administrator Name Role Phone Skyler Webb MD Primary Care Provider [phone] Reason for Visit * Reason Comments Routine Visit Encounter Details Date Type Department Care Team (Latest Contact Info) Description 01/02/2025 9:30 AM EDT Routine [facility] [address] [phone] Mariam Fatima PA [address] [place] [address] 15 weeks gestation of ([facility]); Second trimester ([facility]); Well woman exam with routine gynecological exam; Screening, , for anatomic survey ([facility]); Exposure to STD; Vaginal discharge Social History Tobacco Use Types Packs/Day Years [...] often do you attend chur ch or sikh services? Never 09/19/2023 Do you belong to any clubs o r organizations such as yazidi groups, unions, fraternal or athletic groups, or [...] and heating? Not hard at all 09/19/2023 [facility] - Occupational Stress [...] place to sleep or slept in a mcc (including now)? No 09/19/2023 Estimated Date of Delivery Comme nts Yes 06/23/2025 Based on last me nstrual period of 09/16/2024 Sex and Gender Information Value Date Recorded Sex Assigned at Not on file Legal Sex Female 10:00 AM EDT Gender Identity Not on file Sexual Orientation Not on file documented as of this encounter Last Filed Vital Signs Vital Sign Reading Time Taken Comments Blood Pressure 110/70 01/02/2025 9:46 AM EDT Pulse - - Temperature - - Respiratory Rate - - Oxygen Saturation - - Inhaled Oxygen Concentration - - Weight 70.4 kg (155 lb 1.9 oz) 01/02/2025 9:46 A M EDT Height - - Body Mass Index 25.04 11/28/2024 1:18 PM EDT documented in this encounter Progress Notes * LOWELL Mckee - 01/02/2025 9:30 AM EDT Reason for Appointment: Patient ID: Yi Booth is a 29 y.o. female who presents for Routine Visit Patient presents today for Annual Exam. and Return OB appointment. MEDICATIONS Current Outpatient Medications Medication Instructions aspirin 81 mg, Daily Inulin (FIBER CHOICE PO) 1 tablet, Daily MV-Min-Fe Fum-FA-DHA ( 1 PO) 1 tablet, Daily sertraline (ZOLOFT) 50 mg, Oral, Daily ALLERGIES Allergies Allergen Reactions Lactose Unknown Lactose Intolerance - Digestive Aids PROBLEMS Active Ambulatory Problems Diagnosis Date Noted Generalized anxiety disorder 09/26/2023 Major depressive disorder, recurrent episode, mild 09/26/2023 Vitamin D deficiency 09/26/2023 Overweight (BMI 25.0-29.9) 09/26/2023 Annual physical exam 05/28/2024 10 weeks gestation of ([facility]) 11/28/2024 Resolved Ambulatory Problems Diagnosis Date Noted Need for malaria prophylaxis 01/26/2024 Family planning counseling 08/14/2024 Past Medical History: Diagnosis Date At standard risk for fall MO (generalized anxiety disorder) MDD (major depressive disorder), recurrent episode, mild Other primary thrombophilia ([facility]) Sprain of ulnar collateral ligament of right wrist, subsequent encounter HISTORY PAST MEDICAL HISTORY SOCIAL HISTORY Past Medical History: Diagnosis Date At standard risk for fall MO (generalized anxiety disorder) MDD (major depressive disorder), recurrent episode, mild Other primary thrombophilia ([facility]) pre-disposition to blood clots- (genetic testing) Overweight (BMI 25.0-29.9) Sprain of ulnar collateral ligament of right wrist, subsequent encounter Vitamin D deficiency Social History Tobacco Use Smoking status: Never Smokeless tobacco: Never Substance Use Topics Alcohol use: Not on file Drug use: Not on file FAMILY HISTORY Family History Problem Relation Name Age of Onset Polycystic ovary syndrome Mother Other (high blood pressure) Father Other (high blood pressure) Paternal Grandfather SURGICAL HISTORY Past Surgical History: Procedure Laterality Date COLONOSCOPY EGD TONSILLECTOMY 2002 WISDOM TOOTH EXTRACTION REVIEW OF SYSTEMS Review of Systems: Review of Systems All other systems reviewed and are negative. OBJECTIVE Objective: Physical Exam Constitutional: Appearance: Normal appearance. She is well-developed. Genitourinary: Vulva normal. Cardiovascular: Rate and Rhythm: Normal rate and regular rhythm. Pulmonary: Effort: Pulmonary effort is normal. Breath sounds: Normal breath sounds. Abdominal: General: Bowel sounds are normal. There is no distension. Palpations: Abdomen is soft. Tenderness: There is no abdominal tenderness. There is no guarding or rebound. Musculoskeletal: General: No swelling. Normal range of motion. Right lower leg: No edema. Left lower leg: No edema. Neurological: Mental Status: She is alert and oriented to person, place, and time. Skin: General: Skin is warm and dry. Psychiatric: Mood and Affect: Mood normal. Behavior: Behavior normal. Vitals and nursing note reviewed. Exam conducted with a occ med physician present. Vitals: Estimated body mass index is 25.04 kg/m?? as calculated from the following: Height as of 11/28/24: 5' 6 . Weight as of this encounter: 155 lb 1.9 oz. BP: 110/70 Patient's last menstrual period was 09/16/2024. ASSESSMENT & PLAN ICD-10-CM 1. 15 weeks gestation of ([facility]) Z3A.15 POCT urinalysis dipstick manually resulted Alpha fetoprotein, maternal Alpha fetoprotein, maternal CANCELED: POCT urinalysis dipstick manually resulted 2. Second trimester ([facility]) Z34.92 POCT urinalysis dipstick manually resulted Alpha fetoprotein, maternal Alpha fetoprotein, maternal CANCELED: POCT urinalysis dipstick manually resulted 3. Well woman exam with routine gynecological exam Z01.419 Pap Smear HPV DNA probe, amplified 4. Screening, , for anatomic survey ([facility]) Z36.89 US OB 14+ weeks anatomy scan US OB 14+ weeks anatomy scan 5. Exposure to STD Z20.2 CHLAMYDIA TRACHOMATIS (GENITO/STI) Neisseria gonorrhea DNA probe, direct 6. Vaginal discharge N89.8 SURESWAB(R) ADVANCED VAGINITIS PLUS, TMA Return OB/Annual Exam: Patient presents today for a annual exam/routine obstetrics appointment. Patient is currently [id number]. Patient states she is doing well but has complaints of nausea in the morning. Pap and cultures was obtained without difficulty and patient was given orders for anatomy scan and msAFP to be obtained. Orders Placed This Encounter Procedures HPV DNA probe, amplified US OB 14+ weeks anatomy scan CHLAMYDIA TRACHOMATIS (GENITO/STI) Neisseria gonorrhea DNA probe, direct Alpha fetoprotein, maternal POCT urinalysis dipstick manually resulted Follow Up: Patient is to schedule annual exam for next year and return to office in 4 weeks for OB appointment. Documented by Coby Strauss MA on behalf of: LOWELL Mckee documented in this encounter Plan of Treatment Upcoming Encounters Date Type Department Care Team (Late st Contact Info) Description 02/03/2025 1:00 PM EDT Ancillary Procedure [facility] [address] [place] [phone] 02/03/2025 2:10 PM EDT Routine [facility] [address] [place] [phone] Oleksandr Phelan, [address] [place] [address] 05/30/2025 9:15 AM EST Office Visit [facility] [address] [place] [address] Skyler Webb MD [address] [place] [address] Scheduled Orders Name Type Priority Associated Diagnoses Orde r Schedule SURESWAB(R) ADVANCED VAGINITIS PLUS, TMA Pathology and Cytology Routine Vaginal discharge Ordered: 01/02/2025 CHLAMYDIA TRACHOMATIS (GENITO/STI) Lab Routine Exposure to STD Ordered: 01/02/2025 Neisseria gonorrhea DNA probe, direct Lab Routine Exposure to STD Ordered: 01/02/2025 Pap Smear Pathology and Cytology Routine Well woman exam with routine gynecological exam Ordered: 01/02/2025 HPV DNA probe, amplified Microbiology Routine Well woman exam with routine gynecological exam Ordered: 01/02/2025 US OB 14+ weeks anatomy scan Imaging Routine Screening, , for anatomic survey ([facility]) Expected: 01/02/2025, Expires: 04/04/2025 Alpha fetoprotein, maternal Lab Routine 15 weeks gestation of ([facility]) Second trimester ([facility]) Expected: 01/02/2025 (Approximate), Expires: 03/05/2025 documented as of this encounter Procedures Procedure Name Priority Date/Time Associated Diagnosis Comments POCT URINALYSIS DIPSTICK Routine 01/02/2025 9:53 AM EDT 15 weeks gestation of ([facility]) Second trimester ([facility]) documented in this encounter Results * POCT urinalysis dipstick manually resulted (01/02/2025 9:53 AM EDT) Color, UA Yellow Clarity, UA Clear Glucose, UA Negative Negative - 1999(110) ++++ mg/dL Bilirubin, UA Negative Negative - 4(70) +++ mg/dL Ketones, UA Negative Negative - 160(16) ++++ mg/dL Spec Grav, UA 1.020 1 - 1.03 Blood, UA Negative Negative - 50 Curtis/mcL pH, UA 6.0 5 - 9 Protein, UA Negative Negative - 1999(20) ++++ mg/dL Urobilinogen, UA 1.0 0.2 - 12 mg/dL Leukocytes, UA Negative Negative - 500+++ Ramos/mcL Nitrite, UA Negative Negative - Positive Urine 01/02/2025 9:53 AM EDT Mariam ETIENNE POINT OF CARE TEST ENTER/EDIT OR DERABLES Final Result documented in this encounter Visit Diagnoses Diagnosis 15 weeks gestation of ([facility]) Second trimester ([facility]) state, incidental Well woman exam with routine gynecological exam Routine gynecological examination Screening, , for anatomic survey ([facility]) Encounter for anatomic survey Exposure to STD Vaginal discharge Leukorrhea, not specified as infective documented in this encounter Care Teams Site Administrator Relationship Specialty Start Date End Date Skyler Webb MD [address] [place] [address] PCP - General Family Medicine 09/26/23 documented as of this encounter
--- OUTSIDE RECORDS SUMMARY | 2025-01-02 12:22 | XMS_ITS | Encounter Summary ---
Author Organization [facility] Address [address] [place] [address] [place] [address] Care Team Providers Care Chemicals Distiller Name Role Phone Skyler Webb MD Primary Care Provider [phone] Encounter Details Date Type Department Care Team (Late st Contact Info) Description 11/26/2024 Abstract [facility] [address] [place] [phone] Oleksandr Phelan, DO [address] [place] [address] Social History Tobacco Use Types Packs/Day Years [...] often do you attend chur ch or rastafarian services? Never 09/19/2023 Do you belong to any clubs o r organizations such as caodaism groups, unions, fraternal or athletic groups, or [...] and heating? Not hard at all 09/19/2023 [facility] - Occupational Stress Questionnaire Answer Date Recorded [...] place to sleep or slept in a senior living (including now)? No 09/19/2023 Estimated Date of [...] EDT Ancillary Procedure [facility] [address] [place] [phone] 02/03/2025 2:10 PM EDT Routine [facility] [address] [place] [place] [phone] Oleksandr Phelan, DO [address] [place], [place] [id number] 05/30/2025 9:15 AM EST Office Visit [facility] [address] [place] [phone] Skyler Webb MD [address] [place] [address] documented as of this encounter Visit Diagnoses Not on filedocumented in this encounter Care Teams Chemicals Distiller Relationship Specialty Start Date End Date Skyler Webb MD [address] [place] [address] PCP - General Family Medicine 09/26/23 documented as of this encounter
--- OUTSIDE RECORDS SUMMARY | 2025-01-02 12:22 | XMS_ITS | Clinical Summary ---
Author Organization [facility] Healthcare Address [address] [place] [address] Care Team Providers Care Anatomy Professor Name Role Phone Skyler Webb MD Primary Care Provider [phone] Allergies Active Allergy Reactions Criticality Noted Date Comments Lactose Unknown 07/04/2023 Lactose Intolerance - Digestive Aids Medications MV-Min-Fe Fum-FA-DHA ( 1 PO) Take 1 tablet by mouth Daily Active Inulin (FIBER CHOICE PO) Take 1 tablet by mouth Daily Active sertraline (Zoloft) 50 MG tabletIndication s:Major depressive disorder, recurrent episode, mild Take 1 tablet (50 mg) by mouth Daily 90 tablet 3 11/28/2024 Active aspirin 81 MG EC tablet Take 81 mg by mouth Daily Active Active Problems Problem Noted Date Diagnosed Date 10 weeks gestation of ([facility]) 2024 Assessment & Plan (11/28/2024 1:42 PM EDT): Doing well and follow with OB. Annual physical exam 05/28/2024 Assessment & Plan (05/28/2024 3:13 PM EST): Due for labs. Discussed proper diet and regular aerobic exercise. Need aerobic exercise 5-6 days a week for 30 minutes at a time. Smaller portions and limit total calories. Colonoscopy after age 45. Tetanus every 10 years. Advised not to smoke. Generalized anxiety disorder 09/26/2023 Assessment & Plan (11/28/2024 1:42 PM EDT): Symptoms remain controlled with zoloft and continue. Assessment & Plan (08/14/2024 10:56 AM EST): [...] Major depressive disorder, recurrent episode, mi ld 09/26/2023 Assessment & Plan (11/28/2024 1:42 PM EDT): Symptoms remain controlled with zoloft and continue. Assessment & Plan (08/14/2024 10:56 AM EST): [...] Problem Noted Date Diagnosed Date Resolved Date Family planning counseling 08/14/2024 0 11/28/2024 Assessment & Plan (08/14/2024 10:57 AM EST): Discussed OTC and medication safety during . Need for malaria prophylaxis 01/26/2024 03/28/2024 Assessment & Plan (01/26/2024 11:32 AM EDT): Plan on travel to [place] and take malaria prophylaxis. Encounters Date Type Department Care Team Description 01/02/2025 9:30 AM EDT [facility]ine [facility] [address] [place] [address] Mariam Fatima PA 15 weeks gestation of ([facility]); Second trimester ([facility]); Well woman exam with routine gynecological exam; Screening, , for anatomic survey ([facility]); Exposure to STD; Vaginal discharge 01/02/2025 Bamboo flowsheet [facility] [address] [place] [place] [address] Mariam Fatima PA 12/09/2024 Abstract [facility] [address] [place] [address] Oleksandr Phelan DO 12/05/2024 9:50 AM EDT Routine [facility] [address] [place] [address] Oleksandr Phelan DO First trimester ([facility]); 11 weeks gestation of ([facility]) 12/05/2024 Bamboo flowsheet [facility] [address] [place] [address] Oleksandr Phelan DO 11/28/2024 1:00 PM EDT [facility] [address] [place] [phone] Skyler Webb MD Major depressive disorder, recurrent episode, mild (Primary Dx); Generalized anxiety disorder ; 10 weeks gestation of ([facility]) 11/28/2024 Bamboo flowsheet [facility] [address] [place] [address] Skyler Webb MD 11/26/2024 Abstract [facility] [address] [place] [address] Oleksandr Phelan, DO 11/26/2024 Clinisync Result Encounter [facility] External Department Unsolicited Oleksandr Phelan, DO 11/22/2024 8:00 AM EDT Ancillary Procedure [facility] [address] [place] [address] Abnormal yolk sac during first trimester, single or unspecified fetus ([facility]) 11/13/20[address] [facility] [address] [place] [address] Noemí Yanes LPN 11/08/2024 10:30 AM EDT Initial [facility] [address] [place] [address] GA: [id number] 11/08/2024 10:00 AM EDT Ancillary Procedure [facility] [address] [place] [address] Missed menses 10/17/2024 Refill [facility] [address] [place] [address] Skyler Webb MD from Last 3 Months [...] often do you attend chur ch or catholic services? Never 09/19/2023 Do you belong to any clubs o r organizations such as congregational groups, unions, fraternal or athletic groups, or [...] and heating? Not hard at all 09/19/2023 [facility] Occupat ional Health - Occupational Stress [...] place to sleep or slept in a long-term (including now)? No 09/19/2023 Estimated Date of [...] Pressure 110/70 01/02/2025 9:46 AM EDT Pulse 100 11/28/2024 1:18 PM EDT Temperature 36.6 C (97.8 F) 11/28/2024 1:18 PM EDT Respiratory Rate 20 11/28/2024 1:18 PM EDT Oxygen Saturation 99% 11/28/2024 1:18 PM EDT Inhaled Oxygen Concentration - - Weight 70.4 kg (155 lb 1.9 oz) 01/02/2025 9:46 A M EDT Height 167.6 cm (5' 6 ) 11/28/2024 1:18 PM EDT Body Mass Index 25.04 11/28/2024 1:18 PM EDT Plan of Treatment Upcoming Encounters Date Type Department Care Team (Late st Contact Info) Description 02/03/2025 1:00 PM EDT Ancillary Procedure [facility] [address] [place] [phone] 02/03/2025 2:10 PM EDT Routine [facility] [address] [facility] [place] [phone] Oleksandr Phelan, DO [facility] [place] [address] 05/30/2025 9:15 AM EST Office Visit [facility] [address] [place] [phone] Skyler Webb MD [address] [place] [address] Health Maintenance Due Date Last Done Comments Pap Smear 11/16/2015 Cervical Cancer Screening 2024 HPV/Cotest 2024 Influenza Vaccine (#1) 2025 05/01/2024 Procedures Procedure Name Priority Date/Time Associated Diagnosis Comments POCT URINALYSIS DIPSTICK Routine 01/02/2025 9:53 AM EDT 15 weeks gestation of ([facility]) Second trimester ([facility]) POCT URINALYSIS DIPSTICK Routine 12/05/2024 9:56 AM EDT First trimester ([facility]) 11 weeks gestation of ([facility]) HBSAG SCREEN Routine 11/26/2024 1:42 PM EDT RAPID PLASMA REAGIN, QUANT Routine 11/26/2024 1:42 PM EDT HIV AB/P24 AG WITH REFLEX Routine 11/26/2024 1:42 PM EDT HCV ANTIBODY RFX TO QUANT PCR Routine 11/26/2024 1:42 PM EDT ALL RUBELLA IGG AB Routine 11/26/2024 1: 42 PM EDT ALL TYPE AND SCREEN Routine 11/26/2024 1 :42 PM EDT MLR HEMOGLOBIN A1C Routine 11/26/2024 1: 42 PM EDT ALL CBC WITH AUTO DIFF Routine 11/26/2024 1:42 PM EDT BOX TEST Routine 11/26/2024 1:42 PM EDT URINE CULTURE, ROUTINE Routine 11/26/2024 1:23 PM EDT [facility] DRUG SCREEN RAPID (URINE) Routine 11/26/2024 1:23 PM EDT US OB TRANSVAGINAL Routine 11/22/2024 8: 25 AM EDT Abnormal yolk sac during first trimester, single or unspecified fetus ([facility]) US OB TRANSVAGINAL Routine 11/08/2024 10 :58 AM EDT Missed menses POCT URINALYSIS DIPSTICK Routine 11/08/2024 10:37 AM EDT Missed menses POCT , URINE Routine 11/08/2024 10:37 AM EDT Missed menses from Last 3 Months Results * POCT urinalysis dipstick manually resulted (01/02/2025 9:53 AM EDT) Only the most recent of3 resultswithin the time period is included. Color, UA Yellow Clarity, UA Clear Glucose, UA Negative Negative - 2000(110) ++++ mg/dL Bilirubin, UA Negative Negative - 4(70) +++ mg/dL Ketones, UA Negative Negative - 160(16) ++++ mg/dL Spec Grav, UA 1.020 1 - 1.03 Blood, UA Negative Negative - 50 Curtis/mcL pH, UA 6.0 5 - 9 Protein, UA Negative Negative - 2000(20) ++++ mg/dL Urobilinogen, UA 1.0 0.2 - 12 mg/dL Leukocytes, UA Negative Negative - 500+++ Ramos/mcL Nitrite, UA Negative Negative - Positive Urine 01/02/2025 9:53 AM EDT Mariam ETIENNE POINT OF CARE TEST ENTER/EDIT OR DERABLES Final Result * BOX TEST (11/26/2024 1:42 PM EDT) [facility] BOX TEST SENT OUT [facility] [address]1 [facility] [address]2 11/26/24 [facility] 11/26/2024 1:42 PM EDT 11/26/2024 1:53 PM EDT Narrative CLINISYNC - 11/26/2024 2:12 PM EDT [facility] Generic External Data Provider LAB BLOOD ORDERAB LES Final Result [facility] * HBSAG SCREEN (11/26/2024 1:42 PM EDT) [facility] HBSAG SCREEN Negative Negative [facility] Comment: Performed at: [facility] [employer] [id number] Political Geographer: Alfred Selby PhD, Phone: [phone] 11/26/2024 1:42 PM EDT 11/26/2024 1:53 PM EDT Narrative CLINISYNC - 11/27/2024 12:09 PM EDT Generic External Data Provider LAB BLOOD ORDERAB LES Final Result Performing Organization Address City/[facility]/ZIP Co de Phone Number [facility] * RAPID PLASMA REAGIN, QUANT (11/26/2024 1:42 PM EDT) [facility] RAPID PLASMA REAGIN, QUANT Non Reactive NonRea<1: 1 titer [facility] Comment: Please Note: This test does not meet current guidelines for screening and diagnosis of syphilis. This test is intended for following treatment response in patients being treated for syphilis infection. To screen for syphilis infection, a reflex cascade that includes both RPR and a treponema-specific assay should be utilized, such as Treponema pallidum (Syphilis) Screening [facility] (439883) or Rapid Plasma Reagin (RPR) Test With Reflex to Quantitative RPR and Confirmatory Treponema pallidum Antibodies ([id number]). Performed at: [facility] [employer], [place] [id number] Political Geographer: Alfred Selby PhD, Phone: [phone] 11/26/2024 1:42 PM EDT 11/26/2024 1:53 PM EDT Narrative CLINISYMN - 11/27/2024 12:09 PM EDT us Generic External Data Provider LAB BLOOD ORDERAB LES Final Result Performing Organization Address [facility] Co de Phone Number [facility] * HIV AB/P24 AG WITH REFLEX (11/26/2024 1:42 PM EDT) HIV AB/P24 AG SCREEN Non Reactive Non Reactive [facility] Comment: HIV-1/HIV-2 antibodies and HIV-1 p24 antigen were NOT detected. There is no laboratory evidence of HIV infection. HIV Negative Performed at: [facility] [address] [id number] Political Geographer: Alfred Sleby PhD, Phone: [phone] 11/26/2024 1:42 PM EDT 11/26/2024 1:53 PM EDT Narrative CLINISYMN - 11/27/2024 9:08 AM EDT us Oleksandr Tapan DO LAB BLOOD ORDERABLES Final Resul t Performing Organization Address [facility] de Phone Number [facility] * HCV ANTIBODY RFX TO QUANT PCR (11/26/2024 1:42 PM EDT) Pathologist [facility] HCV AB Non Reactive Non Reactive [facility] INTERPRETATION: Comment . [facility] Comment: Not infected with HCV unless early or acute infection is suspected (which may be delayed in an immunocompromised individual), or other evidence exists to indicate HCV infection. 11/26/2024 1:42 PM EDT 11/26/2024 1:53 PM EDT Narrative CLINISYMN - 11/27/2024 6:08 AM EDT us Oleksandr Tapan DO LAB BLOOD ORDERABLES Final Resul t Performing Organization Address [facility] Co de Phone Number [facility] * MLR HEMOGLOBIN A1C (11/26/2024 1:42 PM EDT) Pathologist [facility] GLYCOHEMOGLOBIN A1C 5.0 4.5 - 6.2 % [facility] Comment: ADA RECOMMENDED LIMIT 4.0 - 6.0 ADA THERAPEUTIC TARGET < 7.0 ACTION SUGGESTED > 7.0 ESTIMATED AVERAGE GLUCOSE 97 mg/dL [facility] 11/26/2024 1:42 PM EDT 11/26/2024 1:53 PM EDT Narrative CLINISYNC - 11/26/2024 3:21 PM EDT Generic External Data Provider CLINISYNC F inal Result Performing Organization Address [facility]/ZIP Co de Phone Number [facility] * ALL TYPE AND SCREEN (11/26/2024 1:42 PM EDT) [facility] BLOOD TYPE A Negative [facility] ANTIBODY SCREEN NEGATIVE [facility] 11/26/2024 1:42 PM EDT 11/26/2024 1:53 PM EDT Narrative CLINISYNC - 11/26/2024 3:55 PM EDT [facility] , us Oleksandr Phelan DO CLINISYNC Final Result Performing Organization Address [facility] Co de Phone Number [facility] * (ABNORMAL) ALL RUBELLA IGG AB (11/26/2024 1:42 PM EDT) [facility] RUBELLA ANTIBODIES, IGG <0.90(A) Immune >0.99 index [facility] Comment: Non-immune <0.90 Equivocal 0.90 - 0.99 Immune >0.99 Performed at: [address] [id number] Political Geographer: Alfred Selby PhD, Phone: [phone] 11/26/2024 1:42 PM EDT 11/26/2024 1:53 PM EDT Narrative CLINISYNC - 11/27/2024 6:08 AM EDT us Oleksandr Tapan DO CLINISYNC Final Result CLINISYNC [facility] * (ABNORMAL) ALL CBC WITH AUTO DIFF (11/26/2024 1:42 PM EDT) [facility] TB WBC 7.5 4.0 - 11.0 10 3/uL [facility] TBH RBC 3.94(L) 4.20 - 5.40 10 6/uL [facility]H HGB 12.3 12.0 - 16.0 g/dL [facility] TBH HCT 36.5 36.0 - 48.0 % [facility] MCV 92.6 81.0 - 99.0 fL [facility] TBH MCH 31.2 26.7 - 34.0 pg TBH TBH MCHC 33.7 29.9 - 35.2 g/dL [facility] TBH RDW 11.9 11.0 - 15.0 % [facility] TBH PLT 271 150 - 450 10 3/uL TBH TBH MPV 10.7 9.5 - 13.5 fL [facility] NEUTROPHILS PERCENT AUTO 67.5 43.0 - 75.0 % [facility] LYMPHOCYTES PERCENT AUTO 21.4 20.5 - 60.0 % [facility] MONOCYTES PERCENT AUTO 9.7 1.7 - 12.0 % [facility]H EO % 0.5(L) 0.9 - 7.0 % [facility] BASOPHILS PERCENT AUTO 0.5 0.2 - 2.0 % [facility] IMMATURE GRANULOCYTES PCT AUTO 0.4 0.0 - 0.5 % [facility] NEUTROPHILS ABSOLUTE AUTO 5.0 1.4 - 6.5 10 3/uL [facility] LYMPHOCYTES ABSOLUTE AUTO 1.6 1.2 - 3.8 10 3/uL [facility] MONOCYTES ABSOLUTE AUTO 0.7 0.3 - 0.8 10 3/uL TBH TBH EO # 0.0 0.0 - 0.7 10 3/uL [facility] BASOPHILS ABSOLUTE AUTO 0.0 0.0 - 0.1 10 3/uL [facility] IMMATURE GRANULOCYTES ABS AUTO 0.03 0.00 - 0.03 10 3/uL [facility] 11/26/2024 1:42 PM EDT 11/26/2024 1:53 PM EDT Narrative CLINTANESHANC - 11/26/2024 2:14 PM EDT Generic External Data Provider YEVGENIY F inal Result Performing Organization Address City[facility]/ZIP Co de Phone Number [facility] * URINE CULTURE, ROUTINE (11/26/2024 1:23 PM EDT) URINE CULTURE, ROUTINE Urine Culture, Routine TB URINE CULTURE, ROUTINE Mixed urogenital tammy [facility] URINE CULTURE, ROUTINE 25,000-50,000 colony forming units per mL [facility] URINE CULTURE, ROUTINE Performed at: [facility] URINE CULTURE, ROUTINE [address], [place] [phone] [facility] URINE CULTURE, ROUTINE Political Geographer: Alfred Selby PhD, Phone: [phone] [facility] 11/26/2024 1:23 PM EDT 11/26/2024 1:55 PM EDT Narrative TIMMN - 11/28/2024 8:09 AM EDT Generic External Data Provider LAB BLOOD ORDERAB LES Final Result Performing Organization Address [facility]/ZIP Co de Phone Number [facility] * [facility] DRUG SCREEN RAPID (URINE) (11/26/2024 1:23 PM EDT) CANNABINOID SCREEN URINE NEGATIVE NEGATIVE TBH PHENCYCLIDINE SCREEN URINE NEGATIVE NEGATIVE TBH COCAINE SCREEN URINE NEGATIVE NEGATIVE TBH METHAMPHETAMINES SCREEN URINE NEGATIVE NEGATIVE TBH OPIATE SCREEN URINE NEGATIVE NEGATIVE TBH AMPHETAMINE SCREEN URINE NEGATIVE NEGATIVE TBH BENZODIAZEPINES SCREEN URINE NEGATIVE NEGATIVE TBH TRICYCLIC ANTIDEPRESSANT URINE NEGATIVE NEGATIVE TBH METHADONE SCREEN URINE NEGATIVE NEGATIVE TBH BARBITURATES SCREEN URINE NEGATIVE NEGATIVE TBH OXYCODONE SCREEN URINE NEGATIVE NEGATIVE TBH BUPRENORPHINE SCREEN URINE NEGATIVE NEGATIVE TB[facility] Comment: DRUG CLASS TEST SYSTEM CUT-OFF CONCENTRATIONS ARE FOLLOWS: AMP (Amphetamine): 500 ng/mL BAR (Barbiturates): 200 ng/mL BZO (Benzodiazepines): 150 ng/mL BUP (Buprenorphine): 10 ng/mL KELLI (Cocaine): 150 ng/mL mAMP (Methamphetamine): 500 ng/mL MTD (Methadone): 200 ng/mL OPI (Opiates): 100 ng/mL OXY (Oxycodone): 100 ng/mL PCP (Phencyclidine): 25 ng/mL THC (Cannabinoids): 50 ng/mL TCA (Trycyclic Antidepressants): 300 ng/mL 11/26/2024 1:23 PM EDT 11/26/2024 1:55 PM EDT Narrative YEVGENIY - 11/26/2024 2:13 PM EDT us Generic External Data Provider YEVGENIY Guerrero inal Result YEVGENIY [facility] * US OB transvaginal (11/22/2024 8:25 AM [...] II, MD, PHD at 25-Nov-2024 10:22:19 AM [facility] Procedure Note Pierce Clark MD - [...] signed by PIERCE CLARK II, MD, PHD [id number] 10:22:19 AM [facility] us Oleksandr Tapan DO IMG OB US PROCEDURES Final Resul t * (ABNORMAL) POCT , urine manually resulted (11/08/2024 10:37 AM EDT) Preg Test, Ur Positive Negative Urine 11/08/2024 10:3 7 AM EDT us Oleksandr Tapan DO POINT OF CARE TEST ENTER/EDIT OR DERABLES Final Result from Last 3 Months Insurance [facility] Address: [facility] [id number] [place] [address] Care Teams Anatomy Professor Relationship Specialty Start Date End Date Skyler Webb MD [address] [facility] [place] [address] PCP - General Family Medicine 09/26/23
--- OUTSIDE RECORDS SUMMARY | 2025-01-02 12:22 | XMS_ITS | Encounter Summary ---
Author Organization [facility] Address [address] [facility] [place] [address] Care Team Providers Care Presiding Steward Name Role Phone Skyler Webb MD Primary Care Provider [phone] Encounter Details Date Type Department Care Team (Late st Contact Info) Description 12/09/2024 Abstract [facility] OB [address] [place] [phone] Oleksandr Phelan, DO [address] [place] [address] Social History Tobacco Use Types Packs/Day Years [...] often do you attend chur ch or alevism services? Never 09/19/2023 Do you belong to [...] and heating? Not hard at all 09/19/2023 [facility]at ional [facility] - Occupational Stress Questionnaire Answer Date Recorded [...] place to sleep or slept in a [place] health care facility (including now)? No 09/19/2023 Estimated Date of [...] EDT Ancillary Procedure [facility] [address] [facility] [place] [address] 02/03/2025 2:10 PM EDT Routine [facility] [address] [facility] [place] [address] Oleksandr Phelan, DO [address] [place], [place] [address] 05/30/2025 9:15 AM EST Office Visit [facility] [address] [place] [phone] Skyler Webb MD [address] [place] [address] documented as of this encounter Visit Diagnoses Not on filedocumented in this encounter Care Teams Presiding Steward Relationship Specialty Start Date End Date Skyler Webb MD [address] [place] [address] PCP - General Family Medicine 09/26/23 documented as of this encounter
--- OUTSIDE RECORDS SUMMARY | 2025-01-02 12:22 | XMS_ITS | Clinical Summary ---
Author Organization [facility] tem Address [id number] [address] [place] [address] Care Team Providers Care Medical Billing Coordinator Name Role Phone Skyler Webb MD Primary Care Provider [phone] Allergies No known active allergies Medications No known medications Active Problems No known active problems Family History Medical History Relation Name Comments Hypertension Father Fibromyalgia Maternal Grandmother Ovarian cysts Mother hysterectomy Heart disease Paternal Grandfather Stroke Paternal Grandfather Relation Name Status Comments Father Maternal Grandmother Mother Paternal Grandfather Social History Tobacco Use Types Packs/Day Years Used Date Smoking Tobacco: Never Smokeless Tobacco: Never Alcohol Use Standard Drinks/Week Comments Yes 2 (1 standard drink = 0.6 oz pur e alcohol) 4-6 drinks every 2 weeks Childcare Answer Date Recorded Childcare Unknown 12/06/2018 Employment Answer Date Recorded Employment Unknown 12/06/2018 Purpose - Life Answer Date Recorded Purpose and direction in life Unknown Comments No Sex and Gender Information Value Date Recorded Sex Assigned at Not on file Legal Sex Female 10:56 AM EST Gender Identity Not on file Sexual Orientation Not on file 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 Not on file Not on file Last Filed Vital Signs Vital Sign Reading Time Taken Comments Blood Pressure 120/62 01/28/2021 11:15 AM EDT Pulse 82 01/28/2021 11:15 AM EDT Temperature - - Respiratory Rate 16 01/28/2021 11:15 AM EDT Oxygen Saturation - - Inhaled Oxygen Concentration - - Weight 68 kg (150 lb) 01/28/2021 11:15 AM EDT Height 166.4 cm (5' 5.5 ) 01/28/2021 11:15 AM ED T Body Mass Index 24.58 01/28/2021 11:15 AM EDT Plan of Treatment Health Maintenance Due Date Last Done Comments Depression Screening 2006 Tobacco Screening 2006 Adult BMI Screening 2012 DTaP,Tdap and Td Vaccines (1 - Tdap) 2013 Pap Smear 01/29/2024 01/28/2021, 08/14/2017 COVID-19 Vaccine ( season) 02/25/202401/2021, 10/25/2020 Influenza Vaccine 02/24/2025 Medical Devices Not on file Procedures Procedure Name Priority Date/Time Associated Diagnosis Comments PAP SMEAR Routine 01/28/2021 10:19 AM EDT Encounter for gynecological examination with Papanicolaou smear of cervix from Last 3 Months or Most Recently Relevant to Health Maintenance Results * Pap Smear (01/28/2021 10:19 AM EDT) 01/28/2021 10:1 9 AM EDT 01/29/2021 10:20 AM EDT Narrative COPATH - 02/01/2021 12:18 PM EDT [facility] [address] [place] [address] Gynecologic Cytology Consultation Patient Name: ANJANA BOOTH : 1995 (Age: 25) Gender: F Taken: 01/28/2021 Reported: 02/01/2021 Physician(s): MARLYN RIZVI ([phone]) Copy To: Med. Rec. #: [id number] Acct: # [id number] Final Cytologic Interpretation ThinPrep Pap Test (Cervical): Satisfactory for evaluation. A transformation zone component is present. NEGATIVE FOR INTRAEPITHELIAL LESION OR MALIGNANCY. [facility]/02/01/2021 Interpretation performed at [facility], [address] [place] [address], License number: [id number]. Electronically Signed Out By [place](ASCP) Date of Last Menstrual Period: 01/07/2021 Other Clinical Conditions: Z01.419 Mannequin Maker exam wo/abn findings Source of Specimen ThinPrep Pap Test (Cervical) Thin Prep Pap (DEALER CARD ROOM) Fee Code(s): G0145 The Pap test is a screening test with an inherent, but low, probability of error. The Pap test is primarily effective for the diagnosis and prevention of squamous cell carcinoma. Regular screening is critical for prevention. ThinPrep liquid-based slides, which meet the [employer] criteria for automated screening, have been screened by the [employer] System (as of 03/12/07) along with an additional manual rescreening by a metal drawer and, if indicated, by a pathologist. us Marlyn Rizvi MD PATHOLOGY/CYTOLOGY ORDERABLES nal Result COPATH from Last 3 Months or Most Recently Relevant to Health Maintenance Insurance [employer] Care Teams Medical Billing Coordinator Relationship Specialty Start Date End Date Skyler Webb MD PCP - General Family Medicine 01/28/21
[2025-01-06 16:09] LABS: Age Gdln ACOG Testing Note (.); IGP, Aptima HPV, rfx 16/18,45 Note (.)
== END 2025-01-02 12:20 | disposition home or self-care (01) ==
LOC: LAB 12:19
PROVIDERS: PCP Family Medicine; Visit Provider Physician Assistant
DX: Z01.419 Encounter for gynecological examination (general) (routine) without abnormal findings (principal)
CPT/HCPCS: 88175

== ENCOUNTER 2025-02-03 14:59 | Outpatient (OUT) | payer OTHER, SELFPAY ==
--- OUTSIDE RECORDS SUMMARY | 2025-02-03 13:00 | XMS_ITS | Encounter Summary ---
Author Organization [facility] Address [address] [place] [address] Care Team Providers Care Pan Shover Name Role Phone Skyler Webb MD Primary Care Provider [phone] Encounter Details Date Type Department Care Team (Late st Contact Info) Description 02/03/2025 1:00 PM EDT Ancillary Procedure [facility] [address] [place] [address] [place] [address] Social History Tobacco Use Types Packs/Day Years [...] How often do you attend chur or christianity services? Never 09/19/2023 Do you belong to any clubs o r organizations such as hindu groups, unions, fraternal or athletic groups, or [...] and heating? Not hard at all 09/19/2023 [facility] - Occupational [...] place to sleep or slept in a penitentiary (including now)? No 09/19/2023 Estimated Date of [...] Care Team (Late st Contact Info) Description 03/03/2025 9:50 AM EDT Routine [facility] [address] [place] [address] Mariam Fatima PA [address] [place] [address] 05/30/2025 9:15 AM EST Office Visit [facility] [address] [place] [phone] Skyler Webb MD [address] [place] [phone] Pending Results Name Type Priority Associated Diagnoses Date /Time US OB 14+ weeks anatomy scan Imaging Routine Screening, , for anatomic survey ([facility]) 02/03/2025 1:54 PM EDT documented as of this encounter Visit Diagnoses Not on filedocumented in this encounter Care Teams Pan Shover Relationship Specialty Start Date End Date Skyler Webb MD [address] [place] [phone] PCP - General Family Medicine 09/26/23 documented as of this encounter
--- OUTSIDE RECORDS SUMMARY | 2025-02-03 14:10 | XMS_ITS | Encounter Summary ---
Author Organization [facility] Address [address] [facility] [place] [address] Care Team Providers Care Supervisor [employer] Name Role Phone Skyler Webb MD Primary Care Provider [phone] Reason for Visit * Reason Comments Routine Visit Encounter Details Date Type Department Care Team (Late st Contact Info) Description 02/03/2025 2:10 PM EDT Routine [facility] [address] [place] [place] [address] Oleksandr Phelan DO [address] [place] [address] Second trimester ([facility]); 20 weeks gestation of ([facility]); Vitamin D deficiency Social History Tobacco Use Types Packs/Day Years [...] often do you attend chur ch or congregation services? Never 09/19/2023 Do you belong to [...] and heating? Not hard at all 09/19/2023 [facility]at ional [facility] - Occupational Stress [...] place to sleep or slept in a long term (including now)? No 09/19/2023 Estimated Date of [...] Sign Reading Time Taken Comments Blood Pressure 120/80 02/03/2025 2:15 PM EDT Pulse - - Temperature - - Respiratory Rate - - Oxygen Saturation - - Inhaled Oxygen Concentration - - Weight 73.1 kg (161 lb 4 oz) 02/03/2025 2:15 PM EDT Height - - Body Mass Index 26.03 11/28/2024 1:18 PM EDT documented in this encounter Plan of Treatment Upcoming Encounters Date Type Department Care Team (Late st Contact Info) Description 03/03/2025 9:50 AM EDT Routine [facility] [address] [place] [address] Mariam Fatima PA [address] [place] [address] 05/30/2025 9:15 AM EST Office Visit [facility] [address] [place] [address] Skyler Webb MD [address] [place] [address] Scheduled Orders Name Type Priority Associated Diagnoses Orde r Schedule Lead, blood Lab Routine Second trimester ([facility]) 20 weeks gestation of ([facility]) Vitamin D deficiency Expected: 02/03/2025 (Approximate), Expires: 02/03/2026 documented as of this encounter Procedures Procedure Name Priority Date/Time Associated Diagnosis Comments POCT URINALYSIS DIPSTICK Routine 02/03/2025 2:20 PM EDT Second trimester ([facility]) documented in this encounter Results * POCT urinalysis dipstick manually resulted (02/03/2025 2:20 PM EDT) Color, UA Yellow Clarity, UA Clear Glucose, UA Negative Negative - 1999(110) ++++ mg/dL Bilirubin, UA Negative Negative - 4(70) +++ mg/dL Ketones, UA Negative Negative - 160(16) ++++ mg/dL Spec Grav, UA 1.015 1 - 1.03 Blood, UA Negative Negative - 50 Curtis/mcL pH, UA 6.5 5 - 9 Protein, UA Negative Negative - 2000(20) ++++ mg/dL Urobilinogen, UA 0.2 0.2 - 12 mg/dL Leukocytes, UA Negative Negative - 500+++ Ramos/mcL Nitrite, UA Negative Negative - Positive Urine 02/03/2025 2:20 PM EDT Oleksandr Phelan DO POINT OF CARE TEST ENTER/EDIT OR DERABLES Final Result documented in this encounter Visit Diagnoses Diagnosis Second trimester ([facility]) state, incidental 20 weeks gestation of ([facility]) Vitamin D deficiency documented in this encounter Care Teams Supervisor Water Treatment Plant Relationship Specialty Start Date End Date Skyler Webb MD [address] [place] [address] PCP - General Family Medicine 09/26/23 documented as of this encounter
--- OUTSIDE RECORDS SUMMARY | 2025-02-03 15:04 | XMS_ITS ---
Author Organization [facility] Source Produ ction (ClinicalSummary Clone) Address Unknown Care Team Providers Care Bridge Construction Inspector Name Role Phone Unavailable Primary Care Physician Unavailab le Results * [UNITY] ANEUPLOIDY NIPT Performed by: [email or web address] Component Value Range Date Fraction 7.6% 12/02/2024 08 :59 pm UTC Rh(D) NIPT RhD NOT DETECTED 12/02/2024 08:59 pm UTC Sex Chromosome Aneuploidy NOT DETECTED 08:59 pm UTC Monosomy X LOW RISK <1 in 10,000 2024 08:59 pm UTC Trisomy 13 LOW RISK <1 in 10,000 2024 08:59 pm UTC Trisomy 18 LOW RISK <1 in 10,000 2024 08:59 pm UTC Trisomy 21 LOW RISK <1 in 10,000 2024 08:59 pm UTC Sex MALE 12/02/2024 08:5 9 pm UTC Gestation LEYVA 12/03/19 08:59 pm UTC For detailed report, see PDF See PDF 12/02/2024 08:59 pm UTC 12/02/2024 08:5 9 pm UTC Social History Observation Value Start Date End Date
--- OUTSIDE RECORDS SUMMARY | 2025-02-03 15:04 | XMS_ITS | Clinical Summary ---
Author Organization [facility] Healthcare Address [address] [place] [address] Care Team Providers Care Activities Assistant Name Role Phone Skyler Webb MD Primary Care Provider [phone] Allergies Active Allergy Reactions Criticality Noted Date [...] Date Diagnosed Date 10 weeks gestation of ([facility]) 2024 Assessment & Plan (11/28/2024 1:42 PM [...] 11:32 AM EDT): Plan on travel to [place] and take malaria prophylaxis. Encounters Date Type Department Care Team Description 02/03/2025 2:10 PM [place] [address] Oleksandr Phelan DO Second trimester ([facility]); 20 weeks gestation of ([facility]); Vitamin D deficiency 02/03/2025 1:00 PM EDT [place]illary [place] [address] 01/08/2025 Orders Only NOMTamera CARMEN [facility] [place] [address] Lucrecia Das MA 01/02/2025 9:30 AM ED[place] [address] Mariam Fatima PA 15 weeks gestation of ([facility]); Second trimester ([facility]); Well woman exam with routine gynecological exam; Screening, , for anatomic survey ([facility]); Exposure to STD; Vaginal discharge 01/02/2025 Clinisync Result Encounter NOMS External Department Unsolicited Provider, Generic External Data 01/02/2025 External Result Encounter NOMS External Department Unsolicited Mariam Fatima PA 01/02/2025 Bamboo flowsheet [place] [place] [phone] Mariam Fatima PA 12/09/2024 Abstract [facility] [place] [phone] Oleksandr Phelan, 12/05/2024 9:50 AM EDT Routine [facility] [place] [address] Oleksandr Phelan, DO First trimester ([facility]); 11 weeks gestation of ([facility]) 12/05/2024 Bamboo flowsheet [facility] Sasha Tavarez [facility] [address] Oleksandr Phelan, 11/28/2024 1:00 PM EDT Office Visit [facility] [address] [place] [address] Skyler Webb MD Major depressive disorder, recurrent episode, mild (Primary Dx); Generalized anxiety disorder ; 10 weeks gestation of ([facility]) 11/28/2024 Bamboo flowsheet [facility] [address] [place] [address] Skyler Webb MD 11/26/2024 Abstract [facility] [place] [phone] Oleksandr Phelan, 11/26/2024 Clinisync Result Encounter NOMS External Department Unsolicited Oleksandr Phelan, DO 11/22/2024 8:00 AM EDT Ancillary Procedure [facility] [phone] Abnormal yolk sac during first trimester, single or unspecified fetus ([facility]) 11/13/2024 Telephone [facility] [place] [address] Noemí Yanes LPN 11/08/2024 10:30 AM EDT Initial [facility]asha CARMEN [address] [place] [address] GA: [id number] 11/08/2024 10:00 AM EDT Ancillary Procedure [facility] S[facility] CARMEN [address] [place] [address] Missed menses from Last 3 Months Family History Medical [...] How often do you attend chur or taoist services? Never 09/19/2023 Do you belong to any clubs o r organizations such as oriental orthodox groups, unions, fraternal or athletic groups, or [...] and heating? Not hard at all 09/19/2023 [facility] Occupat ional Health - Occupational Stress [...] Pressure 120/80 02/03/2025 2:15 PM EDT Pulse 100 11/28/2024 1:18 PM EDT Temperature 36.6 C (97.8 F) 11/28/2024 1:18 PM EDT Respiratory Rate 20 11/28/2024 1:18 PM EDT Oxygen Saturation 99% 11/28/2024 1:18 PM EDT Inhaled Oxygen Concentration - - Weight 73.1 kg (161 lb 4 oz) 02/03/2025 2:15 PM EDT Height 167.6 cm (5' 6 ) 11/28/2024 1:18 PM EDT Body Mass Index 26.03 11/28/2024 1:18 PM EDT Plan of Treatment Upcoming Encounters Date Type Department Care Team (Late st Contact Info) Description 03/03/2025 9:50 AM EDT Routine [facility] OBGYN [address] [facility] [facility] [facility] [place] [address] Mariam Fatima PA [address] [place], [place] [phone] 05/30/2025 9:15 AM EST Office Visit [facility] [address] [place] [address] Skyler Webb MD [address] [place] [address] Health Maintenance Due Date Last Done Comments Influenza Vaccine (#1) 2025 05/01/2024 Cervical Cancer Screening 01/02/2030 HPV/Cotest 01/02/2030 Pap Smear 01/02/2030 01/02/2025 Procedures Procedure Name Priority Date/Time Associated Diagnosis Comments POCT URINALYSIS DIPSTICK Routine 02/03/2025 2:20 PM EDT Second trimester ([facility]) RECURRENT VAGINITIS (HTRX) Routine 01/02/2025 11:47 AM EDT POCT URINALYSIS DIPSTICK Routine 01/02/2025 9:53 AM EDT 15 weeks gestation of ([facility]) Second trimester ([facility]) IGP,APTIMA HPV,AGE GDLN Routine 01/02/2025 9:32 AM EDT PAP SMEAR Routine 01/02/2025 12:00 AM EDT POCT URINALYSIS DIPSTICK Routine 12/05/2024 9:56 AM EDT First trimester ([facility]) 11 weeks gestation of ([facility]) HBSAG SCREEN Routine 11/26/2024 1:42 PM EDT [...] during first trimester, single or unspecified fetus ([facility]) US OB TRANSVAGINAL Routine 11/08/2024 10 :58 AM EDT Missed menses POCT URINALYSIS DIPSTICK Routine 11/08/2024 10:37 AM EDT Missed menses POCT , URINE Routine 11/08/2024 10:37 AM EDT Missed menses from Last 3 Months Results * POCT urinalysis dipstick manually resulted (02/03/2025 2:20 PM EDT) Only the most recent of4 resultswithin the time period is included. Color, [...] TEST ENTER/EDIT OR DERABLES Final Result * RECURRENT VAGINITIS (HTRX) (01/02/2025 11:47 AM EDT) ATOPOBIUM VAGINAE 0 19.961 - 24.689 ppm 01/03/2025 6:32 AM EDT [facility] ATOPOBIUM VAGINAE Not Detected 19.961 - 24.689 ppm 01/03/2025 6:32 AM EDT [facility] BVAB 2,3 (BACTERIAL VAGINOSIS ASSOCIATED BACTERIA 2, 3); MOBILUNCUS SPP 0 19.961 - 24.689 ppm 01/03/2025 6:32 AM EDT [facility] BVAB 2,3 (BACTERIAL VAGINOSIS ASSOCIATED BACTERIA 2, 3); MOBILUNCUS SPP Not Detected 19.961 - 24.689 ppm 01/03/2025 6:32 AM EDT [facility] BRY ALBICANS, PARAPSILOSIS, TROPICALIS 0 19.961 - 30.770 ppm 01/03/2025 6:32 AM EDT [facility] BRY ALBICANS, PARAPSILOSIS, TROPICALIS Not Detected 19.961 - 30.770 ppm 01/03/2025 6:32 AM EDT [facility] BRY GLABRATA 0 23.000 - 32.138 ppm 01/03/2025 6:32 AM EDT [facility] BRY GLABRATA Not Detected 23.000 - 32.138 ppm 01/03/2025 6:32 AM EDT [facility] BRY KRUSEI 0 23.000 - 32.271 ppm 01/03/2025 6:32 AM EDT [facility] BRY KRUSEI Not Detected 23.000 - 32.271 ppm 01/03/2025 6:32 AM EDT [facility] CHLAMYDIA TRACHOMATIS 0 23.000 - 31.467 ppm 01/03/2025 6:32 AM EDT [facility] CHLAMYDIA TRACHOMATIS Not Detected 23.000 - 31.467 ppm 01/03/2025 6:32 AM EDT [facility] GARDNERELLA VAGINALIS 0 19.961 - 24.689 ppm 01/03/2025 6:32 AM EDT [facility] GARDNERELLA VAGINALIS Not Detected 19.961 - 24.689 ppm 01/03/2025 6:32 AM EDT [facility] MEGASPHAERA (TYPES 1, 2) 0 19.961 - 24.689 ppm 01/03/2025 6:32 AM EDT [facility] MEGASPHAERA (TYPES 1, 2) Not Detected 19.961 - 24.689 ppm 01/03/2025 6:32 AM EDT [facility] NEISSERIA GONORRHOEAE 0 23.000 - 32.117 ppm 01/03/2025 6:32 AM EDT [facility] NEISSERIA GONORRHOEAE Not Detected 23.000 - 32.117 ppm 01/03/2025 6:32 AM EDT [facility] TRICHOMONAS VAGINALIS 0 23.000 - 32.119 ppm 01/03/2025 6:32 AM EDT [facility] TRICHOMONAS VAGINALIS Not Detected 23.000 - 32.119 ppm 01/03/2025 6:32 AM EDT [facility] MYCOPLASMA GENITALIUM 0 19.961 - 24.689 ppm 01/03/2025 6:32 AM EDT [facility] MYCOPLASMA GENITALIUM Not Detected 19.961 - 24.689 ppm 01/03/2025 6:32 AM EDT [facility] Tissue 01/02/2025 11:4 7 AM EDT 01/03/2025 1:21 AM EDT us Mariam ETIENNE LAB BLOOD ORDERABLES Final Resul t [facility] [address] [place] [address] * IGP,APTIMA HPV,AGE GDLN (01/02/2025 9:32 AM EDT) Pathologist [facility] AGE GDLN ACOG TESTING Note . [facility] Comment: TESTS RESULT FLAG UNITS REF RANGE LAB Clinician Provided Cytology Information Source.............Vagina Other.............. No. of containers..01 ThinPrep Vial Age Algo ACOG Mariah... FLAG LEGEND: L-Low Normal,H-High Normal,LL-Alert Low,HH-Alert High <-Panic Low,>-Panic High,A-Abnormal,AA-Critical Abnormal Performed at: 01 =[facility] [place] [address] Chloe Valdes MD, IGP, APTIMA HPV, RFX 16/18,45 Note . [facility] Comment: TESTS RESULT FLAG UNITS REF RANGE LAB DIAGNOSIS: 02 NEGATIVE FOR INTRAEPITHELIAL LESION OR MALIGNANCY. Specimen adequacy: 02 Satisfactory for evaluation. No endocervical component is identified. An endocervical component is not commonly seen in the patient. Performed by: 02 Peace Shaw, Dry House Attendant ([facility]) . 02 Note: Note 02 The Pap smear is a screening test designed to aid in the detection of premalignant and malignant conditions of the uterine cervix. It is not a diagnostic procedure and should not be used as the sole means of detecting cervical cancer. Both false-positive and false-negative reports do occur. Test Methodology: Note 02 This liquid based ThinPrep(R) pap test was screened with the use of an image guided system. HPV Genotype Reflex Note 02 Criteria not met, HPV Genotype not performed. FLAG LEGEND: L-Low Normal,H-High Normal,LL-Alert Low,HH-Alert High <-Panic Low,>-Panic High,A-Abnormal,AA-Critical Abnormal Performed at: [address] [phone] Chloe Valdes MD, HPV APTIMA Negative Negative [facility] Comment: This nucleic acid amplification test detects fourteen high- risk HPV types (16,18,31,33,35,39,45,51,52,56,58,59,66,68) without differentiation. Performed at: =[facility] [address] [id number] Program Eligibility Specialist: Chloe Valdes MD, Phone: [phone] Performed at: [address] [id number] Program Eligibility Specialist: Chloe Valdes MD, Phone: [phone] 01/02/2025 9:32 AM EDT 01/02/2025 12:22 PM EDT Narrative CLINISYNC - 01/06/2025 4:09 PM EDT SPATULA-ALONE VAGINA Mariam ETIENNE LAB BLOOD ORDERABLES Final Resul t Performing Organization Address [facility]/ZIP Co de Phone Number [facility] * Pap Smear (01/02/2025 12:00 AM EDT) Swab Cervical swab / Unknown Oleksandr Phelan DO LAB CYTOLOGY ORDERABLES Final Re sult Performing Organization Address [facility]/ZIP Co de Phone Number EXTERNAL LAB * BOX TEST (11/26/2024 1:42 PM EDT) BOX TEST SENT OUT [facility] [address]1 [facility] BOX2 11/26/24 [facility] 11/26/2024 1:42 PM EDT 11/26/2024 1:53 PM EDT Narrative CLINISYNC - 11/26/2024 2:12 PM EDT UNITY BOX Generic External Data Provider LAB BLOOD ORDERAB LES Final Result Performing Organization Address [facility] Co de Phone Number [facility] * HBSAG SCREEN (11/26/2024 1:42 PM EDT) [facility] HBSAG SCREEN Negative Negative [facility] Comment: Performed at: [address] [id number] Program Eligibility Specialist: Alfred Selby PhD, Phone: [phone] 11/26/2024 1:42 PM EDT 11/26/2024 1:53 PM EDT Narrative CLINISYNC - 11/27/2024 12:09 PM EDT [facility] External Data Provider LAB BLOOD ORDERAB LES Final Result Performing Organization Address [facility] Phone [facility] * RAPID PLASMA REAGIN, QUANT (11/26/2024 1:42 PM EDT) [facility] RAPID PLASMA REAGIN, QUANT Non Reactive NonRea<1: 1 titer [facility] Comment: Please Note: This test does not meet current guidelines for screening and diagnosis of syphilis. This test is intended for following treatment response in patients being treated for syphilis infection. To screen for syphilis infection, a reflex cascade that includes both RPR and a treponema-specific assay should be utilized, such as Treponema pallidum (Syphilis) Screening [place] (037864) or Rapid Plasma Reagin (RPR) Test With Reflex to Quantitative RPR and Confirmatory Treponema pallidum Antibodies (154511). Performed at: [address] [id number] Program Eligibility Specialist: Alfred Selby PhD, Phone: [phone] 11/26/2024 1:42 PM EDT 11/26/2024 1:53 PM EDT Narrative CLINISYNC - 11/27/2024 12:09 PM EDT Generic External Data Provider LAB BLOOD ORDERAB LES Final Result Performing Organization Address [facility] Co de Phone Number [facility] * HIV AB/P24 AG WITH REFLEX (11/26/2024 1:42 PM EDT) Pathologist [facility] HIV AB/P24 AG SCREEN Non Reactive Non Reactive [facility] Comment: HIV-1/HIV-2 antibodies and HIV-1 p24 antigen were NOT detected. There is no laboratory evidence of HIV infection. HIV Negative Performed at: [facility] [address] [id number] Program Eligibility Specialist: Alfred Selby PhD, Phone: [phone] 11/26/2024 1:42 PM EDT 11/26/2024 1:53 PM EDT Narrative [facility] - 11/27/2024 9:08 AM EDT [facility] LAB BLOOD ORDERABLES Final Resul t Performing Organization Address [facility] Co de Phone Number [facility] * HCV ANTIBODY RFX TO QUANT PCR (11/26/2024 1:42 PM EDT) Pathologist [facility] HCV AB Non Reactive Non Reactive [facility] INTERPRETATION: Comment . [facility] Comment: Not infected with HCV unless early or acute infection is suspected (which may be delayed in an immunocompromised individual), or other evidence exists to indicate HCV infection. 11/26/2024 1:42 PM EDT 11/26/2024 1:53 PM EDT Narrative [facility] - 11/27/2024 6:08 AM EDT Electronic [facility] LAB BLOOD ORDERABLES Final Resul t Performing Organization Address City/[facility] Co de Phone Number [facility] * MLR HEMOGLOBIN A1C (11/26/2024 1:42 PM EDT) [facility] GLYCOHEMOGLOBIN A1C 5.0 4.5 - 6.2 % [facility] Comment: ADA RECOMMENDED LIMIT 4.0 - 6.0 ADA THERAPEUTIC TARGET < 7.0 ACTION SUGGESTED > 7.0 ESTIMATED AVERAGE GLUCOSE 97 mg/dL [facility] 11/26/2024 1:42 PM EDT 11/26/2024 1:53 PM EDT Narrative CLIN[facility]YNC - 11/26/2024 3:21 PM EDT Generic External Data Provider CLINISYNC F inal Result [facility] * ALL TYPE AND SCREEN (11/26/2024 1:42 PM EDT) Pathologist [facility] BLOOD TYPE A Negative [facility] ANTIBODY SCREEN NEGATIVE [facility] 11/26/2024 1:42 PM EDT 11/26/2024 1:53 PM EDT Narrative CLINISYNC - 11/26/2024 3:[address] [facility] Tapan DO CLINISYNC Final Result Performing Organization Address [facility] Co de Phone Number [facility] * (ABNORMAL) ALL RUBELLA IGG AB (11/26/2024 1:42 PM EDT) [facility] RUBELLA ANTIBODIES, IGG <0.90(A) Immune >0.99 index [facility] Comment: Non-immune <0.90 Equivocal 0.90 - 0.99 Immune >0.99 Performed at: [facility] [address] [id number] Program Eligibility Specialist: Alfred Selby PhD, Phone: [phone] 11/26/2024 1:42 PM EDT 11/26/2024 1:53 PM EDT Narrative CLINISYNC - 11/27/2024 6:08 AM EDT us Oleksandr Tapan DO CLINISYNC Final Result Performing Organization Address City/[facility]/ZIP Co de Phone Number [facility] * (ABNORMAL) ALL CBC WITH AUTO DIFF (11/26/2024 1:42 PM EDT) [facility] WBC 7.5 4.0 - 11.0 10 3/uL TBH TBH RBC 3.94(L) 4.20 - 5.40 10 6/uL TBH TBH HGB 12.3 12.0 - 16.0 g/dL TB TB HCT 36.5 36.0 - 48.0 % TB TB MCV 92.6 81.0 - 99.0 fL TB TB MCH 31.2 26.7 - 34.0 pg TBH TB MCHC 33.7 29.9 - 35.2 g/dL TB TB RDW 11.9 11.0 - 15.0 % TB TBH PLT 271 150 - 450 10 3/uL TB TBH MPV 10.7 9.5 - 13.5 fL TB NEUTROPHILS PERCENT AUTO 67.5 43.0 - 75.0 % TBH LYMPHOCYTES PERCENT AUTO 21.4 20.5 - 60.0 % TBH MONOCYTES PERCENT AUTO 9.7 1.7 - 12.0 % TB TBH EO % 0.5(L) 0.9 - 7.0 % TBH BASOPHILS PERCENT AUTO 0.5 0.2 - 2.0 % TBH IMMATURE GRANULOCYTES PCT AUTO 0.4 0.0 - 0.5 % TB NEUTROPHILS ABSOLUTE AUTO 5.0 1.4 - 6.5 [...] 1:53 PM EDT Narrative CLINISYNC - 11/26/2024 2:14 PM EDT us Generic External Data Provider YEVGENIY vickers Result [facility]ENTER[facility]CHELSEA [facility] * URINE CULTURE, ROUTINE (11/26/2024 1:23 PM EDT) Pathologist [facility] URINE CULTURE, ROUTINE Urine Culture, Routine TB URINE CULTURE, ROUTINE Mixed urogenital tammy TB URINE CULTURE, ROUTINE 25,000-50,000 colony forming units per mL [facility] URINE CULTURE, ROUTINE Performed at: - [facility] URINE CULTURE, ROUTINE [address] [place], [place] [id number] [facility] URINE CULTURE, ROUTINE Program Eligibility Specialist: Alfred Selby PhD, Phone: [phone] [facility] 11/26/2024 1:23 PM EDT 11/26/2024 1:55 PM EDT Narrative CLINISYNC - 11/28/2024 8:09 AM EDT us Generic External Data Provider LAB BLOOD ORDERAB LES Final Result [facility] * [facility] DRUG SCREEN RAPID (URINE) (11/26/2024 1:23 PM EDT) Pathologist [facility] CANNABINOID SCREEN URINE NEGATIVE NEGATIVE [facility] PHENCYCLIDINE [...] PM EDT 11/26/2024 1:55 PM EDT Narrative CLINISYNC - 11/26/2024 2:13 PM EDT us Generic External Data Provider CLINISYNC F inal Result YEVGENIY [facility] * US OB [...] II, MD, PHD at 25-Nov-2024 10:22:19 AM [facility] Procedure Note Pierce Clark MD - [...] signed by PIERCE CLARK II, MD, PHD [id number] 10:22:19 AM [facility] us Oleksandr Tapan DO IMG OB US PROCEDURES Final Resul t * (ABNORMAL) POCT , urine manually resulted (11/08/2024 10:37 AM EDT) Preg Test, Ur Positive Negative Urine 11/08/2024 10:3 7 AM EDT us Oleksandr Tapan DO POINT OF CARE TEST ENTER/EDIT OR DERABLES Final Result from Last 3 Months Insurance [employer] Care Teams Activities Assistant Relationship Specialty Start Date End Date Skyler Webb MD [address] [facility] [place] [address] PCP - General Family Medicine 09/26/23
--- OUTSIDE RECORDS SUMMARY | 2025-02-03 15:04 | XMS_ITS | Encounter Summary ---
Author Organization [facility] Address [address] [facility] [place] [address] Care Team Providers Care Plant Operator Control Room Operator Name Role Phone Skyler Webb MD Primary Care Provider [phone] Encounter Details Date Type Department Care Team (Late st Contact Info) Description 11/26/2024 Abstract [facility] OBGYN [address] [place] [address] Oleksandr Phelan DO [address] [place] [address] Social History Tobacco Use Types Packs/Day Years [...] often do you attend chur ch or spiritism services? Never 09/19/2023 Do you belong to any clubs o r organizations such as mandaen groups, unions, fraternal or athletic groups, or [...] and heating? Not hard at all 09/19/2023 [facility] Occupat ional Health - Occupational Stress [...] AM EDT Routine [facility] CARMEN [address] [place] [address] Mariam Fatima PA [address] [place] [address] 05/30/2025 9:15 AM EST Office Visit [facility] [address] [place] [phone] Skyler Webb MD [address] [place] [address] documented as of this encounter Visit Diagnoses Not on filedocumented in this encounter Care Teams Plant Operator Control Room Operator Relationship Specialty Start Date End Date Skyler Webb MD [address] [place] [address] PCP - General Family Medicine 09/26/23 documented as of this encounter
--- OUTSIDE RECORDS SUMMARY | 2025-02-03 15:04 | XMS_ITS ---
Author Organization [facility] Source Produ ction (ClinicalSummary Clone) Address Unknown Care Team Providers Care Business Economist Name Role Phone Unavailable Primary Care Physician Unavailab le Results * [UNITY] CARRIER SCREEN Performed by: [employer] AS Component Value Range Date Sickle Cell Disease/Beta-Thalassemia/Hemo globinopathies carrier screen NEGATIVE 12/06/2024 04:47 pm UTC Alpha-Thalassemia carrier screen NEGATIVE 12/06/2024 04:47 pm UTC Cystic Fibrosis carrier screen NEGATIVE 12/06/2024 04:47 pm UTC Spinal Muscular Atrophy carrier screen NEGATIVE 2 SMN1 copies, SNP not present 12/06/2024 04:47 pm UT For detailed report, see PDF See PDF 12/06/2024 04:47 pm UTC 12/06/2024 04:4 7 pm UT Social History Observation Value Start Date End Date
--- OUTSIDE RECORDS SUMMARY | 2025-02-03 15:04 | XMS_ITS | Encounter Summary ---
Author Organization [facility] Address [address] [facility] [place] [address] Care Team Providers Care Home Care Aide Name Role Phone Skyler Webb MD Primary Care Provider [phone] Encounter Details Date Type Department Care Team (Late st Contact Info) Description 01/08/2025 Orders Only [facility] [address] [place] [phone] Lucrecia Das MA [address] [place] [address] Social History Tobacco Use Types Packs/Day Years [...] How often do you attend chur or catholic services? Never 09/19/2023 Do you belong to any clubs o r organizations such as islam groups, unions, fraternal or athletic groups, or [...] and heating? Not hard at all 09/19/2023 [facility]at [facility] - Occupational Stress Questionnaire Answer Date Recorded [...] AM EDT Routine [facility] O[facility] [address] [address] Mariam Fatima PA [address] [place] [address] 05/30/2025 9:15 AM EST Office Visit [facility] [address] [place] [address] Skyler Webb MD [address] [place] [address] documented as of this encounter Procedures Procedure Name Priority Date/Time Associated Diagnosis Comments PAP SMEAR Routine 01/02/2025 12:00 AM EDT documented in this encounter Results * Pap Smear (01/02/2025 12:00 AM EDT) Swab Cervical swab / Unknown Oleksandr Tapan DO LAB CYTOLOGY ORDERABLES Final Re sult EXTERNAL LAB documented in this encounter Visit Diagnoses Not on filedocumented in this encounter Care Teams Home Care Aide Relationship Specialty Start Date End Date Skyler Webb MD [address] [place] [address] PCP - General Family Medicine 09/26/23 documented as of this encounter
--- OUTSIDE RECORDS SUMMARY | 2025-02-03 15:04 | XMS_ITS | Encounter Summary ---
Author Organization [facility] Address [address] [address] Care Team Providers Care Ops Manager Name Role Phone Skyler Webb MD Primary Care Provider [phone] Encounter Details Date Type Department Care Team (Late st Contact Info) Description 12/09/2024 Abstract [facility] [address] [place] [address] Oleksandr Phelan DO [address] [place] [address] Social History Tobacco Use Types Packs/Day Years [...] often do you attend chur ch or christianity services? Never 09/19/2023 Do you belong to any clubs o r organizations such as mormon groups, unions, fraternal or athletic groups, or [...] and heating? Not hard at all 09/19/2023 [facility] - Occupational [...] place to sleep or slept in a snf (including now)? No 09/19/2023 Estimated Date of [...] AM EDT Routine [facility] [address] [address] Mariam Fatima PA [address] [place] [address] 05/30/2025 9:15 AM EST Office Visit [facility] [address] [place] [id number] Skyler Webb MD [address] [place] [phone] documented as of this encounter Visit Diagnoses Not on filedocumented in this encounter Care Teams Ops Manager Relationship Specialty Start Date End Date Skyler Webb MD [address] [place] [address] PCP - General Family Medicine 09/26/23 documented as of this encounter
--- OUTSIDE RECORDS SUMMARY | 2025-02-03 15:04 | XMS_ITS | Clinical Summary ---
Author Organization [facility] tem Address [id number] [address] [place] [address] Care Team Providers Care Writing Tutor Name Role Phone Skyler Webb MD Primary Care Provider [phone] Allergies No known active allergies Medications No [...] Narrative COPATH - 02/01/2021 12:18 PM EDT [facility] [address] [place] [address] Gynecologic Cytology Consultation Patient Name: ANJANA BOOTH : 1995 (Age: 25) Gender: F Taken: 01/28/2021 Reported: 02/01/2021 Physician(s): MARLYN RIZVI ([phone]) Copy To: Med. Rec. #: [id number] Acct: # [id number] Final Cytologic Interpretation ThinPrep Pap Test (Cervical): Satisfactory for evaluation. A transformation zone component is present. NEGATIVE FOR INTRAEPITHELIAL LESION OR MALIGNANCY. [facility] [place]02/01/2021 Interpretation performed at [facility], [address] [place] [address], License number: [id number]. Electronically Signed Out By [place](ASCP) Date of Last Menstrual Period: 01/07/2021 Other Clinical Conditions: Z01.419 Piano Stringer exam wo/abn findings Source of Specimen ThinPrep Pap Test (Cervical) Thin Prep Pap (SEPARATOR TENDER) Fee Code(s): G0145 The Pap test is a screening test with an inherent, but low, probability of error. The Pap test is primarily effective for the diagnosis and prevention of squamous cell carcinoma. Regular screening is critical for prevention. ThinPrep liquid-based slides, which meet the Church History Professor criteria for automated screening, have been screened by the [facility] (as of 03/12/07) along with an additional manual rescreening by a trailer technician and, if indicated, by a pathologist. us Marlyn Rizvi MD PATHOLOGY/CYTOLOGY ORDERABLES nal Result COPATH from Last 3 Months or Most Recently Relevant to Health Maintenance Insurance [employer] Care Teams Writing Tutor Relationship Specialty Start Date End Date Skyler Webb MD PCP - General Family Medicine 01/28/21
[2025-02-04 11:08] LABS: Lead, Blood (Adult) <1.0 ug/dL (0.0-3.4)
== END 2025-02-03 15:00 | disposition home or self-care (01) ==
LOC: LAB 15:00
PROVIDERS: PCP Family Medicine; Visit Provider Obstetrics & Gynecology
DX: Z34.92 Encounter for supervision of normal pregnancy, unspecified, second trimester (principal); Z3A.20 20 weeks gestation of pregnancy; E55.9 Vitamin D deficiency, unspecified
CPT/HCPCS: 36415; 83655

== ENCOUNTER 2025-03-17 12:07 | Outpatient (OUT) | payer OTHER, SELFPAY ==
--- OUTSIDE RECORDS SUMMARY | 2025-03-17 12:13 | XMS_ITS | CCD ---
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 Name Role Phone WEST, DR QUINN Mortensen Consulting Unavailable HAY, DR RIVAS Attending Unavailable HAY, DR RIVAS Admitting Unavailable HAY, DR RIVAS Consulting Unavailable NADERER, DR SKYLER Arizmendi Attending Unavailable NADEREModesta, DR SKYLER Arizmendi Consulting Unavailable KWAME, DR SKYLER Arizmendi Primary Care Unavailable KARELYEREModesta, DR SKYLER Arizmendi Admitting Unavailable JAMES VALVERDE Consulting Unavailable JAMES VALVERDE Admitting Unavailable KWAME, DR SKYLER Arizmendi Primary Care Unavailable JAMES VALVERDE Attending Unavailable Angelia Teixeira Unavailable JAH Antunez Attending Provider Mirtha Antunez Unavailable Mirtha Antunez Attending Unavailable Mirtha Antunez Admitting Unavailable NON STAFF Primary Care Unavailable Skyler Puente MD Primary Care Provider Skyler Puente MD Primary Care Provider [phone] SKYLER PUENTE Attending Unavailable KWAME, SKYLER Attending Unavailable TOM PHELAN Attending Unavailable SKYLER PUENTE Attending Unavailable SKYLER PUENTE Attending Unavailable MARIAM FAJARDO Attending Unavailable MARIAM FAJARDO Referring Unavailable TOM PHELAN Attending Unavailable ALIZA KC Attending Unavailable Allergies Allergy Classification Reported Allergen(s) Allergy Type Date of Onset Reaction(s) Facility (20 sources) Lactose (non-medical use) Propensity to adverse reactions 4 Unknown [facility] Medications Current Medications Medication Drug Class(es) Dates Sig (Normalized) Sig (Original) aspirin 81 mg delayed release oral tablet (10 sources) Platelet Aggregation Inhibitor, Nonsteroidal Anti-inflammatory Drug take 1 tablet by mouth once daily aspirin 81 MG EC tablet Take 81 mg by mouth Daily Active atovaquone 250 mg / proguanil hydrochloride 100 [...] MG PO January 11, 2024 12:00am Inulin (19 sources) take 1 tablet by mouth once daily Inulin (FIBER CHOICE PO) Take 1 tablet by mouth Daily Active loratadine 10 mg oral tablet (11 sources) Start: 4 End: 5 loratadine (Claritin) 10 MG tablet 03/26/2024 11/28/2024 Discontinued naproxen sodium 550 mg oral tablet (1 source) Nonsteroidal Anti-inflammatory Drug Start: 3 take 1 tablet by mouth every twelve hours Naproxen Sodium 550 MG 1 cap(s) Orally every 12 hrs for 10 days for wrist pain and swelling Dec, Active MV-Min-Fe Fum-FA-DHA ( 1 PO) (19 sources) MV-Min- Fe Fum-FA-DHA ( 1 PO) Take 1 tablet by mouth Daily Active sertraline 50 mg oral tablet (20 sources) Serotonin Reuptake Inhibitor Start: 5 End: 5 take 1 tablet by mouth once daily sertraline (Zoloft) 50 MG tablet Indications: Major depressive disorder, recurrent episode, mild Take 1 tablet (50 mg) by mouth Daily 90 tablet 3 11/28/2024 Active Sertraline HCl 5 0 MG 1.5 tablet Oral for 30 days Active Wrist Splint/Right XL - (1 source) Start: 01-04-2023 Wrist Splint/R ight XL - as directed Dec, Active Completed/Discontinued Medications Medication Drug Class(es) Dates Sig (Normalized) Sig (Original) brompheniramine maleate 0.4 mg/ml / dextromethorphan hydrobromide 2 mg/ml / pseudoephedrine hydrochloride 6 mg/ml oral solution (2 sources) alpha-Adrenergic Agonist, Uncompetitive Z-udkjir-M-aspartat e Receptor Antagonist, Sigma-1 Agonist Start: 09-27-2022 [...] Active Problems Problem Classification Problem Date Documented Date Episodic/Chronic Anxiety disorders (20 sources) Generalized anxiety disorder; Translations: [Generalized anxiety disorder] Onset: 09-26-2023 09-26-2023 Chronic Cardiac dysrhythmias (4 sources) Palpitations; Translations: [PALPITATIONS] Onset: 03-11-2021 Episodic Contraceptive and procreative management (20 sources) Patient encounter status; Translations: [Encounter for other general counseling and advice on contraception] Onset: 08-14-2024 Resolved: 11-28-2024 08-14-2024 Episodic Immunizations and screening for infectious disease (2 sources) Exposure to sexually transmissible disorder; Translations: [Contact with and (suspected) exposure to infections with a predominantly sexual mode of transmission] 01-02-2025 Episodic Menstrual disorders (1 source) Missed period; Translations: [Irregular menstruation, unspecified] 11-01-2024 Chronic Mood disorders (20 sources) Recurrent major depressive episodes, mild ; Translations: [Major depressive disorder, recurrent, mild] Onset: 09-26-2023 09-26-2023 Chronic Nutritional deficiencies (20 sources) Vitamin D deficiency; Translations: [Vitamin D deficiency, unspecified] Onset: 09-26-2023 09-26-2023 Chronic Other female genital disorders (2 sources) Vaginal discharge; Translations: [Other specified noninflammatory disorders of vagina] 01-02-2025 Episodic Other nervous system disorders (1 source) Carpal [...] 09-26-2023 Chronic Other and delivery including normal (10 sources) ; Translations: [Encounter for supervision of normal , unspecified, unspecified trimester] 11-08-2024 Episodic Other upper respiratory disease (1 source) Nasal congestion Episodic Residual codes; unclassified (2 sources) Gestation period, 11 weeks; Translations: [11 weeks gestation of ] 12-05-2024 Episodic Residual codes; unclassified (2 sources) Gestation period, 15 weeks; Translations: [15 weeks gestation of ] 01-02-2025 Episodic Residual codes; unclassified (2 sources) Gestation period, 20 weeks; Translations: [20 weeks gestation of ] 02-03-2025 Episodic Residual codes; unclassified (2 sources) Gestation period, 24 weeks; Translations: [24 weeks gestation of ] 03-03-2025 Episodic Unclassified (1 source) Pain in right [...] Episodic Other nutritional; endocrine; and metabolic disorders (20 sources) Body mass index 25-29 - overweight; Translations: [Overweight] Onset: 09-26-2023 03-28-2024 Episodic Residual codes; unclassified (20 sources) Prevention status; Translations: [Need for malaria prophylaxis] Onset: 01-26-2024 Resolved: 03-28-2024 01-26-2024 Episodic Residual codes; unclassified (18 sources) Gestation period, 10 weeks; Translations: [10 weeks gestation of ] Onset: 11-28-2024 11-28-2024 Episodic Superficial injury; contusion (1 source) Contusion of unspecified front wall of thorax, initial encounter; Translations: [CONTUS UNS FRONT WALL THORAX INIT] Onset: 10-05-2020 Episodic Viral infection (1 source) COVID-19 Results Test Name Value Interpretation Reference Range Facility Urinalysis macro (dipstick) panel (U)on 03-03-2025 Bilirubin, UA Negative Negative - 4(70) +++ mg/dL [facility] Blood, UA Negative Negative - 50 Curtis/mcL [facility] Clarity, UA Clear [facility] re Color, UA [facility] Glucose, UA Negative Negative - 1999(110) ++++ mg/dL [facility] Interpretation and review of laboratory results Normal [facility] Ketones, UA Negative Negative - 160(16) ++++ mg/dL [facility] Leukocytes, UA Negative Negative - 500+++ Ramos/mcL [facility] Nitrite, UA Negative Negative - Positive [facility] pH, UA 6.5 5 - 9 [facility] e Protein, UA Negative Negative - 1999(20) ++++ mg/dL [facility] Spec Grav, UA 1.015 1 - 1.03 [facility] Urobilinogen, UA 1.0 0.2 - 12 mg/dL [facility] ALL LEADon 02-04-2025 LEAD, BLOOD (ADULT) <1.0 0.0 - 3. 4 ug/dL [facility] Comment on above: Testing performed by Inductively coupled plasma/Mass Spectrometry. Analysis by inductively coupled plasma/mass spectrometry (ICP/MS) This test was developed and its performance characteristics determined by [employer]. It has not been cleared or approved by the Food and Drug Administration. Environmental Exposure: WHO Recommendation <5.0 Occupational Exposure: OS Lead Std 40.0 TINO 30.0 Detection Limit = 1.0 Performed at: [address] [id number] Brand Planner: Alfred Selby PhD, Phone: [phone] Initial Venous No White/ [facility] Urinalysis macro (dipstick) panel (U)on 02-03-2025 Bilirubin, UA Negative Negative - 4(70) +++ mg/dL [facility] Blood, UA Negative Negative - 50 Curtis/mcL [facility] Clarity, UA Clear [facility] re Color, UA Yellow [facility] Glucose, UA Negative Negative - 1999(110) ++++ mg/dL [facility] Interpretation and review of laboratory results Normal [facility] Ketones, UA Negative Negative - 160(16) ++++ mg/dL [facility] Leukocytes, UA Negative Negative - 500+++ Ramos/mcL [facility] Nitrite, UA Negative Negative - Positive [facility] pH, UA 6.5 5 - 9 [facility] Protein, UA Negative Negative - 1999(20) ++++ mg/dL [facility] Spec Grav, UA 1.015 1 - 1.03 [facility] Urobilinogen, UA 0.2 0.2 - 12 mg/dL [facility] IGP,APTIMA HPV,AGE GDLNon AGE GDLN ACOG TESTING Note . [facility] Comment on above: TESTS RESULT FLAG UN ITS REF RANGE LAB Clinician Provided Cytology Information Source.............Vagina Other.............. No. of containers..01 ThinPrep Vial Age Annmarie MANRIQUEZ Mariah... 3065 FLAG LEGEND: L-Low Normal,H-High Normal,LL-Alert Low,HH-Alert High <-Panic Low,>-Panic High,A-Abnormal,AA-Critical Abnormal Performed at: 01 =G [address] [place] [address] Chloe Valdes MD, HPV APTIMA Negative Negative [facility] Comment on above: This nucleic acid am plification test detects fourteen high- risk HPV types (16,18,31,33,35,39,45,51,52,56,58,59,66,68) without differentiation. Performed at: [facility] [id number] Brand Planner: Chloe Valdes MD, Phone: [phone] Performed at: - [address] [id number] Brand Planner: Chloe Valdes MD, Phone: [phone] IGP, APTIMA HPV, RFX 16/18,45 Note . [facility] Comment on above: TESTS RESULT FLAG UN ITS REF RANGE LAB DIAGNOSIS: 02 NEGATIVE FOR INTRAEPITHELIAL LESION OR MALIGNANCY. Specimen adequacy: 02 Satisfactory for evaluation. No endocervical component is identified. An endocervical component is not commonly seen in the patient. Performed by: 02 [employer]ractor Mechan[employer] ([facility]) . 02 Note: Note 02 The Pap [...] <-Panic Low,>-Panic High,A-Abnormal,AA-Critical Abnormal Performed at: [address] [address] Chloe Valdes MD, SPATULA-ALONE VAGINA [facility] RECURRENT VAGINITIS (HTRX)on 01-03-2025 ATOPOBIUM VAGINAE 0 [facility] ATOPOBIUM VAGINAE Not detected [facility] BVAB 2,3 (BACTERIAL VAGINOSIS ASSOCIATED BACTERIA 2, 3); MOBILUNCUS SPP 0 [facility] BVAB 2,3 (BACTERIAL VAGINOSIS ASSOCIATED BACTERIA 2, 3); MOBILUNCUS SPP Not detected [facility] BRY ALBICANS, PARAPSILOSIS, TROPICALIS 0 [facility] BRY ALBICANS, PARAPSILOSIS, TROPICALIS Not detected [facility] BRY GLABRATA 0 [facility] BRY GLABRATA Not detected [facility] BRY KRUSEI 0 [facility] BRY KRUSEI Not detected [facility] CHLAMYDIA TRACHOMATIS 0 [facility] CHLAMYDIA TRACHOMATIS Not detected [facility] GARDNERELLA VAGINALIS 0 [facility] GARDNERELLA VAGINALIS Not detected [facility] MEGASPHAERA (TYPES 1, 2) 0 [facility] MEGASPHAERA (TYPES 1, 2) Not detected [facility] MYCOPLASMA GENITALIUM 0 [facility] MYCOPLASMA GENITALIUM Not detected [facility] NEISSERIA GONORRHOEAE 0 [facility] NEISSERIA GONORRHOEAE Not detected [facility] TRICHOMONAS VAGINALIS 0 [facility] TRICHOMONAS VAGINALIS Not detected [facility] US OB 14+ WEEKS ANATOMY SCAN on 01-02-2025 US OB 14+ WEEKS ANATOMY SCAN FINDINGS: Comparison made with prior examination of November 22, 2024. A single, live intrauterine is present with normal cardiac rate of 151 beats per minute. Normal activity and amniotic fluid volume. Amniotic fluid index is cm. Morphology is grossly normal. The placenta is posterior, inferior margin 4.8 cm from the closed internal cervical os. (5.0 cm length). The current sonographic age is 20 weeks and 1 days, based on the following measurements: BPD 4.7cm (20 weeks, 0days) Head Circumference 17.5cm ( 20 weeks,0 days) Abdominal Circumference 15.3cm ( 20 weeks,3 days) Femur Length 3.3cm ( 20 weeks, 2 days) Presentation Variable Placenta Posterior These measurements result in an estimated date of delivery of June 22, 2025. The current estimated weight is 349 grams ( pound, 12 ounces). IMPRESSION: Single, live intrauterine , current sonographic age of 20 weeks and 1 days, with an estimated date of delivery of June 22, 2025 * Estimated Weight (g) by Percentile is based upon an accurate estimated age based on last menstrual period. TRANSCRIBED BY: ELECTRONICALLY SIGNED BY: Elieser Camacho MD Normal Not Available Comment on above: Order Comment: US OB ANATOMY SINGLE W US OB CERVICAL LENGTH Estimated Date of Delivery: 06/23/25 Gestational Age as of 01/02/2025: 15w3d Urinalysis macro (dipstick) panel (U)on 01-02-2025 Bilirubin, UA Negative Negative - 4(70) +++ mg/dL [facility] Blood, UA Negative Negative - 50 Curtis/mcL [facility] Clarity, UA Clear [facility] re Color, UA Yellow [facility] Glucose, UA Negative Negative - 1999(110) ++++ mg/dL [facility] Interpretation and review of laboratory results Normal [facility] Ketones, UA Negative Negative - 160(16) ++++ mg/dL [facility] Leukocytes, UA Negative Negative - 500+++ Ramos/mcL [facility] Nitrite, UA Negative Negative - Positive [facility] pH, UA 6 5 - 9 [facility] Health[facility] e Protein, UA Negative Negative - 1999(20) ++++ mg/dL [facility] Spec Grav, UA 1.02 1 - 1.03 [facility] Urobilinogen, UA 1.0 0.2 - 12 mg/dL [facility] Urinalysis macro (dipstick) panel (U)on 12-05-2024 Bilirubin, UA Negative Negative - 4(70) +++ mg/dL [facility] Blood, UA Negative Negative - 50 Curtis/mcL [facility] Clarity, UA Clear [facility] re Color, UA Yellow [facility] Glucose, UA Negative Negative - 1999(110) ++++ mg/dL [facility] Interpretation and review of laboratory results Abnormal [facility] Ketones, UA Negative Negative - 160(16) ++++ mg/dL [facility] Leukocytes, UA Negative Negative - 500+++ Ramos/mcL [facility] Healthcare Nitrite, UA Negative Negative - Positive [facility] pH, UA 6 5 - 9 [facility] Health[facility] e Protein, UA Negative Negative - 1999(20) ++++ mg/dL [facility] Spec Grav, UA 1.025 1 - 1.03 [facility] Health care Urobilinogen, UA 1.0 0.2 - 12 mg/dL [facility] BOX TESTon 11-26-2024 BOX TEST SENT OUT JOSÉ [facility]EL [facility] B[facility] BOX2 11/26/24 [facility] BOX [facility] OB TRANSVAGINALon 025 US OB TRANSVAGINAL EXAM: [...] II, MD, PHD at 25-Nov-2024 10:22:19 AM [facility] Normal Not Available Comment on above: Order [...] II, MD, PHD at 10-Nov-2024 09:18:36 PM [facility] Normal Not Available Comment on above: Order Comment: US OB TRANSVAGINAL No LMP recorded. Urinalysis macro (dipstick) panel (U)on 11-08-2024 Bilirubin, UA Positive Negative - 4(70) +++ mg/dL [facility] Comment on above: small Blood, UA Positive Negative - 50 Curtis/mcL [facility] Comment on above: trace-intact Clarity, UA Clear [facility] re Color, UA Yellow [facility] Glucose, UA Negative Negative - 1999(110) ++++ mg/dL [facility] Interpretation and review of laboratory results Abnormal [facility] Ketones, UA Positive Negative - 160(16) ++++ mg/dL [facility] Comment on above: 15 Leukocytes, UA Trace Negative - 500+++ Ramos/mcL [facility] Nitrite, UA Negative Negative - Positive [facility] pH, UA 7.5 5 - 9 [facility] Protein, UA Positive Negative - 1999(20) ++++ mg/dL [facility] Comment on above: 30 Spec Grav, UA 1.02 1 - 1.03 [facility] Urobilinogen, UA 1.0 0.2 - 12 mg/dL [facility] ALL CBC WITH AUTO DIFFon BASOPHILS ABSOLUTE AUTO 0.1 [facility] Basophils/100 WBC (Bld) 0.7 % 0.2 - 2.0 % [facility] Eosinophils/100 WBC (Bld) 0.7 % Low 0.9 - 7.0 % [facility] Erythrocyte distribution width (RBC) [Ratio] 12.1 % 11.0 - 15.0 % [facility] Hematocrit (Bld) [Volume fraction] 39.4 % 36.0 - 48.0 % [facility] Hemoglobin (Bld) [Mass/Vol] 13.2 g/dL 12.0 - 16.0 g/dL [facility] IMMATURE GRANULOCYTES ABS AUTO 0.03 [facility] Immature granulocytes/100 WBC (Bld) 0.4 % 0.0 - 0.5 % [facility] Interpretation and review of laboratory results Abnormal [facility] LYMPHOCYTES ABSOLUTE AUTO 1.8 [facility] Lymphocytes/100 WBC (Bld) 24.2 % 20.5 - 60.0 % [facility] MCH (RBC) [Entitic mass] 31.1 pg 26.7 - 34.0 pg [facility] MCHC (RBC) [Mass/Vol] 33.5 g/dL 29.9 - 35.2 g/dL [facility] MCV (RBC) [Entitic vol] 92.9 fL 81.0 - 99.0 fL [facility] MONOCYTES ABSOLUTE AUTO 0.7 [facility] Monocytes/100 WBC (Bld) 9 % 1.7 - 12.0 % [facility] NEUTROPHILS ABSOLUTE AUTO 4.7 [facility] Neutrophils/100 WBC (Bld) 65 % 43.0 - 75.0 % [facility] Platelet mean volume (Bld) [Entitic vol] 10.5 fL 9.5 - 13.5 fL [facility] Healthc are TBH EO # 0.1 [facility] TBH PLT 301 [facility] TB RBC 4.24 [facility] WBC 7.3 [facility] XR wrist RT min 3V*on 07-12- 2023 XR wrist RT min 3V* [facility] [employer] Other XR wrist RT min 3V* [facility] [employer] Other XR wrist RT min 3V* [address] [facility] [employer] Other XR wrist RT min 3V* KOURTNEY Galvan [address] [place] [employer] Other XR wrist RT min 3V* XRay Report [place] [employer] Other XR wrist RT min 3V* Signed [employer] Other XR wrist RT min 3V* Patient: Yi Booth MR#: [id number] [employer] Other XR wrist RT min 3V* [id number] [employer] Other XR wrist RT min 3V* : 1995 Acct:[id number] [employer] Other XR wrist RT min 3V* Age/Sex: 27 / F ADM Date: 01/04/23 [employer] Other XR wrist RT min 3V* Loc: XDUCLY Room: Type: [facility] [employer] Other XR wrist RT min 3V* Attending Dr: Mirtha TYSON [employer] Other XR wrist RT min 3V* Copies to: JAH Monsalve [employer] Other XR wrist RT min 3V* Ordering Provider: JAH oMnsalve [employer] Other XR wrist RT min 3V* Date of Service: 01/04/23 [employer] Other XR wrist RT min 3V* XR/XR wrist RT min 3V*: RIGHT WRIST PAIN [employer] Other XR wrist RT min 3V* 4 views RIGHT wrist plain film [employer] Other XR wrist RT min 3V* COMPARISON: None [employer] Other XR wrist RT min 3V* HISTORY: RIGHT dorsal wrist pain starting 2 days ago. [employer] Other XR wrist RT min 3V* ACUTE FINDINGS: None [employer] Other XR wrist RT min 3V* DEGENERATIVE CHANGE: Unremarkable [employer] Other XR wrist RT min 3V* SOFT TISSUE FINDINGS: Unremarkable [employer] Other XR wrist RT min 3V* JOINT EFFUSION: None [employer] Other XR wrist RT min 3V* POSTOP CHANGES: None [employer] Other XR wrist RT min 3V* BONE MINERALIZATION: Adequate [employer] Other XR wrist RT min 3V* XR/XR wrist RT min 3V* [employer] Other XR wrist RT min 3V* IMPRESSION: Unremarkable exam [employer] Other XR wrist RT min 3V* Impression dictated by: Anurag Hollingsworth M.D.01/04/2023 10:38 AM [employer] Other XR wrist RT min 3V* Dictation Location: [place] [address] [employer] Other XR wrist RT min 3V* Transcribed By: PWS 01/04/23 1038 [employer] Other XR wrist RT min 3V* Dictated By: Anurag Hollingsworth DO 01/04/23 1033 [employer] Other XR wrist RT min 3V* Signed By: [employer] Other XR wrist RT min 3V* 01/04/23 1038 No [employer] [employer] [place] Other XR wrist RT min 3V* [facility] Main [place] [address] [place] [address] XRay Report Signed Patient: Yi Booth MR#: [id number] : 1995 Acct:[id number] Age/Sex: 27 / F ADM Date: 01/04/23 Loc: XDUCLY Room: Type: [facility] Attending Dr: Mirtha TYSON Copies to: JAH [...] Anurag Hollingsworth M.D.01/04/2023 10:38 AM Dictation Location: [place] [address] Transcribed By: [facility] 01/04/23 1038 Dictated By: Anurag Hollingsworth DO 01/04/23 1033 Signed By: 01/04/23 1038 Normal [facility] COVID/FLU RT-PCRon 3 SARS-CoV-2 (COVID-19) RNA DEIRDRE+probe Ql (Unsp spec) Positive [place] [employer] Other COVID/FLU RT-PCR Negative [facility] [employer] Other CBC AUTO DIFFon 03-11-2021 BASO # 0.1 103/ul Normal 0.0-0.1 [facility] Comment on above: Performed By: #### C BC #### [facility] [address] [place] [address] Dr. Mary Billy Basophils/100 WBC (Bld) 0.6 % Normal 0.2-2.0 [facility] Comment on above: Performed By: #### C BC #### [facility] [address] [place] [address] Dr. Mary Billy EO # 0.1 103/ul Normal 0.0-0.7 [facility] Comment on above: Performed By: #### C BC #### [facility] [address] [place] [address] Dr. Mary Billy Eosinophils/100 WBC (Bld) 0.6 % Critically low 0.9-7.0 [facility] Comment on above: Performed By: #### C BC #### [facility] [address] [place] [address] Dr. Mary Billy Erythrocyte distribution width (RBC) [Ratio] 12.0 % Normal 11.0-15.0 [facility] Comment on above: Performed By: #### C BC #### [facility] [address] [place] [address] Dr. Mary Billy Hematocrit (Bld) [Volume fraction] 38.8 % Normal 36.0-48.0 [facility] Comment on above: Performed By: #### C BC #### [facility] [address] [place] [address] Dr. Mary Billy Hemoglobin (Bld) [Mass/Vol] 12.8 g/dL Normal 12.0-16.0 [facility] Comment on above: Performed By: #### C BC #### [facility] [address] [place] [address] Dr. Mary Billy IG # 0.03 10e3/ul Normal 0.00-0.03 [facility] Comment on above: Performed By: #### C BC #### [facility] [address] [place] [address] Dr. Mary Billy IG % 0.4 % Normal 0.0-0.5 [facility] Comment on above: Performed By: #### C BC #### [facility] [address] [place] [address] Dr. Mary Billy LYMPH # 2.7 103/ul Normal 1.2-3.8 [facility] Comment on above: Performed By: #### C BC #### [facility] [address] [place] [address] Dr. Mary Billy Lymphocytes/100 WBC (Bld) 33.0 % Normal 20.5-60.0 [facility] Comment on above: Performed By: #### C BC #### [facility] [address] [place] [address] Dr. Mary Billy MANUAL DIFF REQ NO Normal [facility] Comment on above: Performed By: #### C BC #### [facility] [address] [place] [address] Dr. Mary Billy MCH (RBC) [Entitic mass] 31.3 pg Normal 26.7-34.0 [facility] Comment on above: Performed By: #### C BC #### [facility] [address] [place] [address] Dr. Mary Billy MCHC (RBC) [Mass/Vol] 33.0 g/dL Normal 29.9-35.2 [facility] Comment on above: Performed By: #### C BC #### [facility] [address] [place] [address] Dr. Mary Billy MCV (RBC) [Entitic vol] 94.9 fL Normal 81.0-99.0 [facility] Comment on above: Performed By: #### C BC #### [facility] [address] [place] [address] Dr. Mary Billy MONO # 0.8 103/ul Normal 0.3-0.8 [facility] Comment on above: Performed By: #### C BC #### [facility] [address] [place] [address] Dr. Mary Billy Monocytes/100 WBC (Bld) 10.1 % Normal 1.7-12.0 [facility] Comment on above: Performed By: #### C BC #### [facility] [address] [place] [address] Dr. Mary Billy NEUT # 4.5 103/ul Normal 1.4-6.5 [facility] Comment on above: Performed By: #### C BC #### [facility] [address] [place] [address] Dr. Mary Billy Neutrophils/100 WBC (Bld) 55.3 % Normal 43.0-75.0 [facility] Comment on above: Performed By: #### C BC #### [facility] [address] [place] [address] Dr. Mary Billy Platelet mean volume (Bld) [Entitic vol] 10.5 fL Normal 9.5-13.5 [facility] Comment on above: Performed By: #### C BC #### [facility] [address] [place] [address] Dr. Mary Billy PLT 261 103/ul Normal 150-450 [facility] Comment on above: Performed By: #### C BC #### [facility] [address] [place] [address] Dr. Mary Billy RBC 4.09 106/ul Critically low 4.20-5.40 [facility] Comment on above: Performed By: #### C BC #### [facility] [address] [place] [address] Dr. Mary Billy WBC 8.1 103/ul Normal 4.0-11.0 [facility] Comment on above: Performed By: #### C BC #### [facility] [address] [place] [address] Dr. Mary Billy PROF CHEM 8 (BAS METB)on Anion gap [Moles/Vol] 9.6 mmol/L Normal [facility] Comment on above: Performed By: #### B MP #### [facility] [address] [place] [address] Dr. Mary Billy Calcium [Mass/Vol] 9.2 mg/dL Normal 8.4-10.2 [facility] Comment on above: Performed By: #### B MP #### [facility] [address] [place] [address] Dr. Mary Billy Chloride [Moles/Vol] 104 mmol/L Normal 98-107 [facility] Comment on above: Performed By: #### B MP #### [facility] [address] [place] [address] Dr. Mary Billy CO2 [Moles/Vol] 29.9 mmol/L Normal 22.0-30.0 [facility] Comment on above: Performed By: #### B MP #### [facility] [address] [address] [address] Mary Billy Creatinine [Mass/Vol] 0.50 mg/dL Critically low 0.52-1.04 [facility] Comment on above: Performed By: #### B MP #### [facility] [address] [address] [address] Mary Billy EGFR-AF BRUNEIAN >60 Normal >=60 [facility] Comment on above: Performed By: #### B MP #### [facility] [address] [address] [address] Mary Billy EGFR-NON AF BRUNEIAN >60 Normal >=60 [facility] Comment on above: Performed By: #### B MP #### [facility] [address] [address] [address] Mary Billy Glucose [Mass/Vol] 89 mg/dL Normal 74-106 [facility] Comment on above: Performed By: #### B MP #### [facility] [address] [address] [address] Mary Billy Potassium [Moles/Vol] 3.5 mmol/L Normal 3.4-5.0 [facility] Comment on above: Performed By: #### B MP #### [facility] [address] [address] [address] Mary Billy Sodium [Moles/Vol] 140 mmol/L Normal 137-145 [facility] Comment on above: Performed By: #### B MP #### [facility] [address] [address] [address] Mary Billy Urea nitrogen [Mass/Vol] 6.0 mg/dL Critically low 7.0-17.0 [facility] Comment on above: Performed By: #### B MP #### [facility] [address] [address] [address] Mary Billy Urea nitrogen/Creatinine [Mass ratio] 12.0 mg/mg Normal [facility] Comment on above: Performed By: #### B MP #### [facility] [address] [place], [place] [address] Dr. Mary Billy CBC AUTO DIFFon 12-09-2020 BASO # 0.1 103/ul Normal 0.0-0.1 [facility] Comment on above: Performed By: #### C BC #### [facility] [address] [id number] Curt Noemí Basophils/100 WBC (Bld) 0.9 % Normal 0.2-2.0 [facility] Comment on above: Performed By: #### C BC #### [facility] [address] [id number] Curt Noemí EO # 0.1 103/ul Normal 0.0-0.7 [facility] Comment on above: Performed By: #### C BC #### [facility] [address] [place], [place] [id number] Curt Noemí Eosinophils/100 WBC (Bld) 1.5 % Normal 0.9-7.0 [facility] Comment on above: Performed By: #### C BC #### [facility] [address] [place], [place] [id number] Curt Noemí Erythrocyte distribution width (RBC) [Ratio] 11.6 % Normal 11.0-15.0 [facility] Comment on above: Performed By: #### C BC #### [facility] [address] [place], [place] [id number] Curt Noemí Hematocrit (Bld) [Volume fraction] 38.6 % Normal 36.0-48.0 [facility] Comment on above: Performed By: #### C BC #### [facility] [address] [id number] Curt Noemí Hemoglobin (Bld) [Mass/Vol] 13.1 g/dL Normal 12.0-16.0 [facility] Comment on above: Performed By: #### C BC #### [facility] [address] [id number] Curt Noemí IG # 0.08 10e3/ul Critically high 0.00-0.03 [facility] Comment on above: Performed By: #### C BC #### [facility] [address] [id number] Curt Noemí IG % 0.9 % Critically high 0.0-0.5 [facility] Comment on above: Performed By: #### C BC #### [facility] [address] [place], [place] [id number] Curt Noemí LYMPH # 2.7 103/ul Normal 1.2-3.8 [facility] Comment on above: Performed By: #### C BC #### [facility] [address] [place], [place] [id number] Curt Noemí Lymphocytes/100 WBC (Bld) 31.4 % Normal 20.5-60.0 [facility] Comment on above: Performed By: #### C BC #### [facility] [address] [place], [place] [id number] Curt Noemí MANUAL DIFF REQ NO Normal [facility] Comment on above: Performed By: #### C BC #### [facility] [address] [place], [place] [id number] Curt Noemí MCH (RBC) [Entitic mass] 31.7 pg Normal 26.7-34.0 [facility] Comment on above: Performed By: #### C BC #### [facility] [address] [place], [place] [id number] Curtbenny Dowd MCHC (RBC) [Mass/Vol] 33.9 g/dL Normal 29.9-35.2 [facility] Comment on above: Performed By: #### C BC #### [facility] [address] [place] [address] Curt Noemí MCV (RBC) [Entitic vol] 93.5 fL Normal 81.0-99.0 [facility] Comment on above: Performed By: #### C BC #### [facility] [address] [place] [address] Curt Noemí MONO # 0.8 103/ul Normal 0.3-0.8 [facility] Comment on above: Performed By: #### C BC #### [facility] [address] [id number] Curt Morganen Monocytes/100 WBC (Bld) 9.4 % Normal 1.7-12.0 [facility] Comment on above: Performed By: #### C BC #### [facility] [address] [place], [place] [id number] Curt Dowd NEUT # 4.8 103/ul Normal 1.4-6.5 [facility] Comment on above: Performed By: #### C BC #### [facility] [address] [place], [place] [id number] Curt Noemí Neutrophils/100 WBC (Bld) 55.9 % Normal 43.0-75.0 [facility] Comment on above: Performed By: #### C BC #### [facility] [address] [place], [place] [address] Curtbenny Dowd Platelet mean volume (Bld) [Entitic vol] 10.8 fL Normal 9.5-13.5 [facility] Comment on above: Performed By: #### C BC #### [facility] [address] [place], [place] [address] Curt Noemí PLT 379 103/ul Normal 150-450 [facility] Comment on above: Performed By: #### C BC #### [facility] [address] [place], [place] [address] Curtbenny Morganen RBC 4.13 106/ul Critically low 4.20-5.40 [facility] Comment on above: Performed By: #### C BC #### [facility] [address] [place], [place] [address] Curt Noemí WBC 8.6 103/ul Normal 4.0-11.0 [facility] Comment on above: Performed By: #### C BC #### [facility] [address] [place], [place] [address] Curtbenny Dowd GLYCOHEMOGLOBIN A1Con 2020 ADA RECOMMENDATION ADA THERAPEUTIC TARGET 6.0 - 7.0 ACTION SUGGESTED > 7.0 Normal [facility] Comment on above: Performed By: #### A 1C #### [facility] [address] [place], [place] [id number] Curt Noemí Glucose [Mass/Vol] 100 mg/dL Normal [facility] Comment on above: Performed By: #### A 1C #### [facility] [address] [place], [place] [address] Curt Noemí HbA1c (Bld) [Mass fraction] 5.1 % Normal <=6.0 [facility] Comment on above: Performed By: #### A 1C #### [facility] [address] [place], [place] [address] Curt Noemí LIPID PROFILEon 12-09-2020 CHOL-HDL RATIO NORM SEE BELOW Normal [facility] Comment on above: Result Comment: 3.3 - 4.4 LOW RISK 4.4 - 7.1 AVERAGE RISK 7.1 - 11.0 MODERATE RISK >11.0 HIGH RISK Performed By: #### T SH, LIPID, BMP, LIVER #### [facility] [address] [place], [place] [address] Curt Noemí Cholesterol [Mass/Vol] 131 mg/dL Normal <=200 [facility] Comment on above: Performed By: #### T SH, LIPID, BMP, LIVER #### [facility] [address] [place], [place] [address] Curt Noemí Cholesterol in HDL [Mass/Vol] 71 mg/dL Normal [facility] Comment on above: Performed By: #### T SH, LIPID, BMP, LIVER #### [facility] [address] [place], [place] [address] Curt Noemí Cholesterol in LDL [Mass/Vol] 55.2 mg/dL Normal [facility] Comment on above: Performed By: #### T SH, LIPID, BMP, LIVER #### [facility] [address] [place], [place] [address] Curt Noemí Cholesterol.total/Ch olesterol in HDL [Mass ratio] 1.8 {ratio} Normal [facility] Comment on above: Performed By: #### T SH, LIPID, BMP, LIVER #### [facility] [address] [place], [place] [address] Curt Noemí HDL NORMAL > or = 60 mg/dl - LOW CARDIOVASCULAR RISK <40 mg/dl - HIGH CARDIOVASCULAR RISK Normal [facility] Comment on above: Performed By: #### T SH, LIPID, BMP, LIVER #### [facility] [address] [id number] Curt Noemí LDL CALC NORMAL SEE BELOW Normal [facility] Comment on above: Result Comment: <100 mg/dl OPTIMAL 100 - 129 mg/dl NEAR OR ABOVE OPTIMAL 130 - 159 mg/dl BORDERLINE HIGH 160 - 189 mg/dl HIGH >190 mg/dl VERY HIGH Performed By: #### T SH, LIPID, BMP, LIVER #### [facility] [address] [address] Curt Noemí Triglyceride [Mass/Vol] 24 mg/dL Normal <=150 [facility] Comment on above: Performed By: #### T SH, LIPID, BMP, LIVER #### [facility] [address] [address] Curt Noemí VLDL CALC 4.8 mg/dL Normal [facility] Comment on above: Performed By: #### T SH, LIPID, BMP, LIVER #### [facility] [address] [address] Curtbenny Morganen LIVER PROFILEon 12-09-2020 Albumin [Mass/Vol] 3.9 g/dL Normal 3.5-5.0 [facility] Comment on above: Performed By: #### T SH, LIPID, BMP, LIVER #### [facility] [address] [id number] Curt Noemí Albumin/Globulin [Mass ratio] 1.0 {ratio} Normal [facility] Comment on above: Performed By: #### T SH, LIPID, BMP, LIVER #### [facility] [address] [address] Curt Noemí ALP [Catalytic activity/Vol] 59 U/L Normal 38-126 [facility] Comment on above: Performed By: #### T SH, LIPID, BMP, LIVER #### [facility] [address] [address] Curt Noemí ALT [Catalytic activity/Vol] 20 U/L Normal 9-52 [facility] Comment on above: Performed By: #### T SH, LIPID, BMP, LIVER #### [facility] [address] [id number] Curt Noemí AST [Catalytic activity/Vol] 17 U/L Normal 14-36 [facility] Comment on above: Performed By: #### T SH, LIPID, BMP, LIVER #### [facility] [address] [address] Curt Noemí BILI, CONJUGATED 0.1 mg/dL Normal 0.0-0.3 [facility] Comment on above: Performed By: #### T SH, LIPID, BMP, LIVER #### [facility] [address] [place] [address] Curt Noemí Bilirubin [Mass/Vol] 0.3 mg/dL Normal 0.2-1.3 [facility] Comment on above: Performed By: #### T SH, LIPID, BMP, LIVER #### [facility] [address] [place] [address] Curt Noemí Globulin (S) [Mass/Vol] 3.8 g/dL Normal [facility] Comment on above: Performed By: #### T SH, LIPID, BMP, LIVER #### [facility] [address] [place], [place] [address] Curt Noemí Protein [Mass/Vol] 7.7 g/dL Normal 6.1-8.2 [facility] Comment on above: Performed By: #### T SH, LIPID, BMP, LIVER #### [facility] [address] [place], [place] [address] Curt Noemí PROF CHEM 8 (BAS METB)on Anion gap [Moles/Vol] 10.3 mmol/L Normal [facility] Comment on above: Performed By: #### T SH, LIPID, BMP, LIVER #### [facility] [address] [place], [place] [address] Curt Noemí Calcium [Mass/Vol] 9.1 mg/dL Normal 8.4-10.2 [facility] Comment on above: Performed By: #### T SH, LIPID, BMP, LIVER #### [facility] [address] [place], [place] [address] Curt Noemí Chloride [Moles/Vol] 104 mmol/L Normal 98-107 [facility] Comment on above: Performed By: #### T SH, LIPID, BMP, LIVER #### [facility] [address] [address] Curt Onemí CO2 [Moles/Vol] 31.3 mmol/L Critically high 22.0-30.0 [facility] Comment on above: Performed By: #### T SH, LIPID, BMP, LIVER #### [facility] [address] [place] [address] Curt Noemí Creatinine [Mass/Vol] 0.60 mg/dL Normal 0.52-1.04 [facility] Comment on above: Performed By: #### T SH, LIPID, BMP, LIVER #### [facility] [address] [place] [address] Curt Noemí EGFR-AF BRUNEIAN >60 Normal >=60 [facility] Comment on above: Performed By: #### T SH, LIPID, BMP, LIVER #### [facility] [address] [place] [address] Curt Noemí EGFR-NON AF BRUNEIAN >60 Normal >=60 [facility] Comment on above: Performed By: #### T SH, LIPID, BMP, LIVER #### [facility] [address] [place] [address] Curt Noemí Glucose [Mass/Vol] 108 mg/dL Critically high 74-106 [facility] Comment on above: Performed By: #### T SH, LIPID, BMP, LIVER #### [facility] [address] [place] [address] Curt Noemí Potassium [Moles/Vol] 3.6 mmol/L Normal 3.4-5.0 [facility] Comment on above: Performed By: #### T SH, LIPID, BMP, LIVER #### [facility] [address] [place] [address] Curt Noemí Sodium [Moles/Vol] 142 mmol/L Normal 137-145 [facility] Comment on above: Performed By: #### T SH, LIPID, BMP, LIVER #### [facility] [address] [place], [place] [address] Curt Noemí Urea nitrogen [Mass/Vol] 10.0 mg/dL Normal 7.0-17.0 [facility] Comment on above: Performed By: #### T SH, LIPID, BMP, LIVER #### [facility] [address] [place] [address] Curt Noemí Urea nitrogen/Creatinine [Mass ratio] 16.7 mg/mg Normal [facility] Comment on above: Performed By: #### T SH, LIPID, BMP, LIVER #### [facility] [address] [place] [address] Curt Noemí TSHon 12-09-2020 TSH 2.211 uIU/mL Normal 0.470-4.680 [facility] Comment on above: Performed By: #### T SH, LIPID, BMP, LIVER #### [facility] [address] [place] [address] Curt Noemí TSH RANGE SEE BELOW Normal [facility] Comment on above: Result Comment: <0.3 4 UIU/ml HYPERTHYROID 0.34-5.60 UIU/ml EUTHYROID >5.60 UIU/ml HYPOTHYROID Performed By: #### T SH, LIPID, BMP, LIVER #### [facility] [address] [place] [address] Curt Noemí VITAMIN D 25 OHon 12-09-2020 VIT D 25-OH 35.1 ng/mL Normal [facility] Comment on above: Performed By: #### V ITAD #### [facility] [address] [place] [address] Curt Noemí VIT D RANGES SEE BELOW Normal [facility] Comment on above: Result Comment: <20 ng/mL Vit D deficient 20 - <30 ng/mL Vit D insufficient 30 - 100 ng/mL Vit D sufficient >100 ng/mL Potential Toxicity Performed By: #### V ITAD #### [facility] [address] [place], [place] [address] Curt Noemí XR CHEST 2 Von 10-01-2020 [...] by: QUINN LEAL Date: 2020-10-01 09:29 Normal [facility] Vital Signs Date Time Vital Sign Value Performing Clinician Facility 03-03-2025 10:23-0400 Body mass index (BMI) [Ratio] 27.12 kg/m2 Aliza Kc [employer] Work Phone: [facility] 03-03-2025 10:23-0400 Body weight 76.2 kg Aliza Kc [employer] Work Phone: [facility] 03-03-2025 10:23-0400 Diastolic blood pressure 72 mm[Hg] Aliza De [employer] Work Phone: [facility] 03-03-2025 10:23-0400 Systolic blood pressure 110 mm[Hg] Aliza De [employer] Work Phone: [facility] 02-03-2025 14:15-0400 Body mass index (BMI) [Ratio] 26.03 kg/m2 Tom Tapan DO Work Phone: [facility] 02-03-2025 14:15-0400 Body weight 73.14 kg Tom Tapan DO Work Phone: [facility] 02-03-2025 14:15-0400 Diastolic blood pressure 80 mm[Hg] Tom Tapan DO Work Phone: [facility] 02-03-2025 14:15-0400 Systolic blood pressure 120 mm[Hg] Tom Tapan DO Work Phone: [facility] 01-02-2025 09:46-0400 Body mass index (BMI) [Ratio] 25.04 kg/m2 Mariam ETIENNE Work Phone: [facility] 01-02-2025 09:46-0400 Body weight 70.36 kg Mariam ETIENNE Work Phone: [facility] 01-02-2025 09:46-0400 Diastolic blood pressure 70 mm[Hg] Mariam ETIENNE Work Phone: [facility] 01-02-2025 09:46-0400 Systolic blood pressure 110 mm[Hg] Mariam ETIENNE Work Phone: [facility] 12-05-2024 09:53-0400 Body mass index (BMI) [Ratio] 24.55 kg/m2 Tom Tapan DO Work Phone: [facility] 12-05-2024 09:53-0400 Body weight 69 kg Tom Tapan DO Work Phone: [facility] 12-05-2024 09:53-0400 Diastolic blood pressure 70 mm[Hg] Tom Tapan DO Work Phone: [facility] 12-05-2024 09:53-0400 Systolic blood pressure 110 mm[Hg] Tom Tapan DO Work Phone: [facility] 11-28-2024 13:18-0400 Body height 167.6 cm Skyler Puente MD Work Phone: [facility] 11-28-2024 13:18-0400 Body mass index (BMI) [Ratio] 25.02 kg/m2 Skyler Puente MD Work Phone: [facility] 11-28-2024 13:18-0400 Body temperature 97.81 [degF] Skyler Puente MD Work Phone: [facility] 11-28-2024 13:18-0400 Body weight 70.31 kg Skyler Puente MD Work Phone: [facility] 11-28-2024 13:18-0400 Diastolic blood pressure 70 mm[Hg] Skyler Puente MD Work Phone: [facility] 11-28-2024 13:18-0400 Heart rate 100 /min Skyler Puente MD Work Phone: [facility] 11-28-2024 13:18-0400 Respiratory rate 20 /min Skyler Puente MD Work Phone: [facility] 11-28-2024 13:18-0400 SaO2% (BldA) [Mass fraction] 99 % Skyler Puente MD Work Phone: [facility] 11-28-2024 13:18-0400 Systolic blood pressure 112 mm[Hg] Skyler Puente MD Work Phone: [facility] 11-08-2024 11:00-0400 Body mass index (BMI) [Ratio] 24.95 kg/m2 [facility] Nurse [facility] 11-08-2024 11:00-0400 Body weight 70.13 kg [facility] Nurse [facility] 11-08-2024 11:00-0400 Diastolic blood pressure 70 mm[Hg] [facility] Nurse [facility] 11-08-2024 11:00-0400 Systolic blood pressure 120 mm[Hg] [facility] Nurse [facility] 08-14-2024 10:35-0500 Body height 167.6 cm Skyler Puente MD Work Phone: [facility] 08-14-2024 10:35-0500 Body mass index (BMI) [Ratio] 26.47 kg/m2 Skyler Puente MD Work Phone: [facility] 08-14-2024 10:35-0500 Body temperature 97.11 [degF] Skyler Puente MD Work Phone: [facility] 08-14-2024 10:35-0500 Body weight 74.39 kg Skyler Puente MD Work Phone: [facility] 08-14-2024 10:35-0500 Diastolic blood pressure 66 mm[Hg] Skyler Puente MD Work Phone: [facility] 08-14-2024 10:35-0500 Heart rate 98 /min Skyler Puente MD Work Phone: [facility] Services 08-14-2024 10:35-0500 Respiratory rate 20 /min Skyler Puente MD Work Phone: [facility] 08-14-2024 10:35-0500 SaO2% (BldA) [Mass fraction] 99 % Skyler Puente MD Work Phone: [facility] 08-14-2024 10:35-0500 Systolic blood pressure 120 mm[Hg] Skyler Puente MD Work Phone: [facility] 05-28-2024 14:46-0500 Body height 167.6 cm Skyler Puente MD Work Phone: [facility] 05-28-2024 14:46-0500 Body mass index (BMI) [Ratio] 26.95 kg/m2 Skyler Puente MD Work Phone: [facility] 05-28-2024 14:46-0500 Body temperature 97.81 [degF] Skyler Puente MD Work Phone: [facility] 05-28-2024 14:46-0500 Body weight 75.75 kg Skyler Puente MD Work Phone: [facility] 05-28-2024 14:46-0500 Diastolic blood pressure 70 mm[Hg] Skyler Puente MD Work Phone: [facility] 05-28-2024 14:46-0500 Heart rate 94 /min Skyler Puente MD Work Phone: [facility] 05-28-2024 14:46-0500 Respiratory rate 18 /min Skyler Puente MD Work Phone: [facility] 05-28-2024 14:46-0500 SaO2% (BldA) [Mass fraction] 99 % Skyler Puente MD Work Phone: [facility] 05-28-2024 14:46-0500 Systolic blood pressure 122 mm[Hg] Skyler Puente MD Work Phone: [facility] 03-28-2024 11:17-0400 Body height 167.6 cm Skyler Puente MD Work Phone: [facility] 03-28-2024 11:17-0400 Body mass index (BMI) [Ratio] 28.08 kg/m2 Skyler Puente MD Work Phone: [facility] 03-28-2024 11:17-0400 Body temperature 97.9 [degF] Skyler Puente MD Work Phone: [facility] 03-28-2024 11:17-0400 Body weight 78.93 kg Skyler Puente MD Work Phone: [facility] 03-28-2024 11:17-0400 Diastolic blood pressure 62 mm[Hg] Skyler Puente MD Work Phone: [facility] 03-28-2024 11:17-0400 Heart rate 110 /min Skyler Puente MD Work Phone: [facility] 03-28-2024 11:17-0400 Respiratory rate 18 /min Skyler Puetne MD Work Phone: [facility] 03-28-2024 11:17-0400 SaO2% (BldA) [Mass fraction] 98 % Skyler Puente MD Work Phone: [facility] 03-28-2024 11:17-0400 Systolic blood pressure 114 mm[Hg] Skyler Puente MD Work Phone: [facility] 01-11-2024 14:39-0400 Body height 167.64 cm [facility] 01-11-2024 14:39-0400 Body mass index (BMI) [Ratio] 31.4 kg/m2 [facility] 01-11-2024 14:39-0400 Body temperature 98.2 [degF] [facility] 01-11-2024 14:39-0400 Body weight 88.45 kg [facility] 01-11-2024 14:39-0400 Heart rate 85 /min [facility] 01-11-2024 14:39-0400 Respiratory rate 18 /min [facility] 01-11-2024 14:39-0400 SaO2% (BldA) [Mass fraction] 98 % [facility] 01-04-2023 09:55-0400 Body height 167.64 cm Mirtha Lackeymond Other [facility] Other 01-04-2023 09:55-0400 Body mass index (BMI) [Ratio] 27.08 kg/m2 Mirtha Harmony Other [facility] Other 01-04-2023 09:55-0400 Body temperature 97.7 [degF] Mirtha Lackeymond Other [facility] Other 01-04-2023 09:55-0400 Body weight 76.11 kg Mirtha Harmony Other [facility] Other 01-04-2023 09:55-0400 Diastolic blood pressure 81 mm[Hg] Mirtha Harmony Other [facility] Other 01-04-2023 09:55-0400 Respiratory rate 18 /min Mirtha Harmony Other [facility] Other 01-04-2023 09:55-0400 SaO2% (BldA) [Mass fraction] 96 % Mirtha Harmony Other [facility] Other 01-04-2023 09:55-0400 Systolic blood pressure 113 mm[Hg] Mirtha Harmony Other [facility] Other 09-27-2022 10:35-0400 Body height 167.64 cm Angelia Teixeira Other [facility] Other 09-27-2022 10:35-0400 Body mass index (BMI) [Ratio] 25.82 kg/m2 Angelia Teixeira Other [facility] Other 09-27-2022 10:35-0400 Body temperature 98.8 [degF] Angelia Teixeira Other [facility] Other 09-27-2022 10:35-0400 Body weight 72.58 kg Angelia Teixeira Other [facility] Other 09-27-2022 10:35-0400 Respiratory rate 18 /min Angelia Teixeira Other [facility] Other 09-27-2022 10:35-0400 SaO2% (BldA) [Mass fraction] 96 % Angelia Teixeira Other [facility] Other Encounters Encounter Date Encounter Type Care Provider Facility Start: 03-03-2025 End: 03-03-2025 Bamboo flowsheet Aliza Kc [employer] Work Phone: [facility] Start: 03-03-2025 End: 03-03-2025 Bamboo flowsheet Aliza Kc [employer] Work Phone: [facility] Start: 03-03-2025 End: 03-03-2025 flow sheet Aliza Kc [employer] Work Phone: [facility] Comment on above: Second trimester pre gnancy ([facility]); 24 weeks gestation of ([facility]); Diabetes mellitus screening Start: 03-03-2025 End: 03-03-2025 ambulatory ALIZA KC Not Available Start: 02-03-2025 End: 02-03-2025 flow sheet Tom Phelan DO Work Phone: [facility] Comment on above: Second trimester pre gnancy ([facility]); 20 weeks gestation of ([facility]); Vitamin D deficiency Start: 02-03-2025 End: 02-04-2025 Clinisync Result Encounter Generic External Data Provider [facility] Unsolicited Start: 02-03-2025 End: 02-04-2025 Clinisync Result Encounter Generic External Data Provider [facility] External [facility] Unsolicited Start: 02-03-2025 End: 02-03-2025 ambulatory TOM TAPAN Not Available Start: 02-03-2025 End: 02-03-2025 ambulatory MARIAM FAJARDO Not Available Start: 01-02-2025 End: 01-02-2025 Bamboo flowsheet Mariam ETIENNE Work Phone: [facility] Start: 01-02-2025 End: 01-06-2025 Bamboo flowsheet Mariam EITENNE Work Phone: [facility] Start: 01-02-2025 End: 01-06-2025 Clinisync Result Encounter Generic External Data Provider [facility] External Department Unsolicited Start: 01-02-2025 End: 01-03-2025 External Result Encounter Mariam ETIENNE Work Phone: [facility] Unsolicited Start: 01-02-2025 End: 01-02-2025 Patient encounter procedure Mariam ETIENNE Work Phone: [facility] Start: 01-02-2025 End: 01-02-2025 Periodic preventive med est patient 18-39 yrs Mariam ETIENNE Work Phone: [facility] Comment on above: 15 weeks gestation o f ([facility]); Second trimester ([facility]); Well woman exam with routine gynecological exam; Screening, , for anatomic survey ([facility]); Exposure to STD; Vaginal discharge Start: 01-02-2025 End: 01-02-2025 ambulatory MARIAM FAJARDO Not Available Start: 12-05-2024 End: 12-05-2024 Bamboo flowsheet Tom Tapan DO Work Phone: [facility] Start: 12-05-2024 End: 12-05-2024 Bamboo flowsheet Tom Tapan DO Work Phone: [facility] Start: 12-05-2024 End: 12-05-2024 flow sheet Tom Tapan DO Work Phone: [facility] Comment on above: First trimester preg chio ([facility]); 11 weeks gestation of ([facility] Start: 12-05-2024 End: 12-05-2024 ambulatory TOM TAPAN Not Available Start: 11-28-2024 End: 11-28-2024 Bamboo flowsheet Skyler Puente MD Work Phone: [facility] Start: 11-28-2024 End: 11-28-2024 Bamboo flowsheet Skyler Puenet MD Work Phone: [facility] Start: 11-28-2024 End: 11-28-2024 ambulatory SKYLER PUENTE Not Available Start: 11-28-2024 End: 11-28-2024 Office outpatient visit 15 minutes Skyler Puente MD Work Phone: [facility] Comment on above: Major depressive dis order, recurrent episode, mild (HCC) (CMS/HCC) (Primary Dx); Generalized anxiety disorder (CMS/HCC); 10 weeks gestation of Start: 11-26-2024 End: 11-26-2024 Clinisync Result Encounter Tom Tapan DO Work Phone: [facility] Unsolicited Start: 11-26-2024 End: 11-26-2024 Clinisync Result Encounter Tom Tapan DO Work Phone: [facility] Unsolicited Start: 11-22-2024 End: 11-22-2024 ambulatory SKYLER PUENTE [...] (BMI 25.0-29.9) Start: 03-28-2024 End: 03-28-2024 ambulatory SKYELR PUENTE Not Available Start: 01-11-2024 End: 01-11-2024 ambulatory [facility] Work Phone: Start: 01-11-2024 End: 01-11-2024 Patient encounter procedure [facility] Work Phone: Start: 01-04-2023 Office outpatient vi sit 15 minutes Mirtha Antunez [facility] Start: 01-04-2023 End: 01-04-2023 ambulatory Mirtha Antunez Facility:[facility] Start: 01-04-2023 End: 01-04-2023 ambulatory [employer] Mirtha Antunez Work Phone: [facility] Work Phone: Start: 01-04-2023 End: 01-04-2023 Patient encounter procedure [employer] Mirthaketty Antunez Work Phone: [facility] Work Phone: Start: 09-27-2022 End: 09-27-2022 ambulatory Angelia Teixeira Other [facility] Other Start: 09-27-2022 Office outpatient ne w 30 minutes Angelia Teixeira [facility] Start: 03-11-2021 End: 03-11-2021 ambulatory JAMES VALVERDE Facility:[facility] Start: 12-16-2020 Encounter for genera l adult medical examination without abnormal findings DR SKYLER PUENTE [facility] Start: 12-09-2020 End: 12-10-[address] SKYLER PUENTE Facility:[facility] Start: 12-09-2020 End: 12-10-2020 Encounter for general adult medical examination without abnormal findings DR SKYLER PUENTE Facility:[facility] Start: 10-01-2020 End: 10-01-[address] QUINN LEAL Facility:[facility] Procedures Date Procedure Procedure Detail Performing Clinician Start: 03-03-2025 Urnls dip stick/tabl et rgnt non-auto w/o micrscp Aliza Kc NP Work Phone: Start: 02-03-2025 ALL LEAD Tom Fazi o DO Work Phone: Start: 02-03-2025 Urnls dip stick/tabl et rgnt non-auto w/o micrscp Tom Tapan DO Work Phone: Start: 01-02-2025 RECURRENT VAGINITIS (HTRX) Mariam ETIENNE Work Phone: Start: 01-02-2025 Urnls dip stick/tabl et rgnt non-auto w/o micrscp Mariam ETIENNE Work Phone: Start: 01-02-2025 IGP,APTIMA HPV,AGE GDLN Mariam ETIENNE Work Phone: Start: 01-02-2025 Microscopic observat ion [Identifier] in Cervix by Cyto stain Generic Provider Start: 12-05-2024 Urnls dip stick/tabl et rgnt non-auto w/o micrscp Tom Tapan DO Work Phone: Start: 11-26-2024 BOX TEST Generic Ex ternal Data Provider Start: 11-08-2024 Urnls dip stick/tabl et rgnt non-auto w/o micrscp Tom Phelan DO Work Phone: Start: 06-27-2024 ALL CBC WITH AUTO DIFF Skyler Puente MD Work Phone: Start: 01-04-2023 Plain X-ray of right wrist [employer] Mirtha Antunez Work Phone: Plan of Treatment Date Care Activity Detail Author Start: 01-02-2030 Screening for malign ant neoplasm of cervix [facility] Start: 05-30-2025 End: 05-30-2025 Patient encounter procedure 05/30/2025 9:15 AM EST Office Visit [facility] [address] [place] [address] Skyler Puente MD [address] [place] [phone] [facility] Start: 04-01-2025 End: 04-01-2025 Patient encounter procedure 04/01/2025 11:00 AM EDT Routine [facility] [address] [place] [phone] Aliza Kc, [employer] [address] [place] [phone] [facility] Start: 03-03-2025 End: 03-03-2026 CBC panel - Blood by Automated count CBC Lab Routine Diabetes mellitus screening Expected: 03/03/2025 (Approximate), Expires: 03/03/2026 [facility] Work Phone: Comment on above: Expected: 03/03/2025 (Approximate), Expires: 03/03/2026 Start: 03-03-2025 End: 03-03-2026 Measurement of glucose 1 hour after glucose challenge for glucose tolerance test Glucose tolerance, 1 hour Lab Routine Diabetes mellitus screening Expected: 03/03/2025 (Approximate), Expires: 03/03/2026 [facility] Comment on above: Expected: 03/03/2025 (Approximate), Expires: 03/03/2026 Start: 03-03-2025 End: 03-03-2025 Patient encounter procedure [facility] Comment on above: Arrived Start: 02-24-2025 Influenza vaccination Influenza Vacc ine (#1) [facility] Start: 02-03-2025 End: 02-03-2025 Patient encounter procedure 02/03/2025 2:10 PM EDT Routine [facility] [address] [place] [phone] Tom Phelan, DO [address] [place] [address] [facility] Start: 02-03-2025 End: 02-03-2026 Lead, blood Lead, blood Lab Routine Second trimester ([facility]) 20 weeks gestation of ([facility]) Vitamin D deficiency Expected: 02/03/2025 (Approximate), Expires: 02/03/2026 [facility] Work Phone: Comment on above: Expected: 02/03/2025 (Approximate), Expires: 02/03/2026 Start: 02-03-2025 End: 02-03-2025 Professional / ancillary services management 02/03/2025 1:00 PM EDT Ancillary Procedure [facility] [address] [place] [phone] [facility] Start: 01-02-2025 End: 03-05-2025 Alpha fetoprotein, maternal Alpha fetoprotein, maternal Lab Routine 15 weeks gestation of ([facility]) Second trimester ([facility]) Expected: 01/02/2025 (Approximate), Expires: 03/05/2025 [facility] Comment on above: Expected: 01/02/2025 (Approximate), Expires: 03/05/2025 Start: 01-02-2025 End: 04-04-2025 US for US OB 14+ weeks anatomy scan Imaging Routine Screening, , for anatomic survey ([facility]) Expected: 01/02/2025, Expires: 04/04/2025 [facility] Comment on above: Expected: 01/02/2025 , Expires: 04/04/2025 Start: 01-02-2025 End: 01-02-2025 Patient encounter procedure 01/02/2025 9:30 AM EDT Routine [facility] [address] [place] [phone] Mariam Fajardo PA [address] [place] [address] Arrived [facility] Comment on above: Arrived Start: 12-05-2024 End: 12-05-2024 Patient encounter procedure [facility] Comment on above: Arrived Start: 11-28-2024 End: 11-28-2024 Patient encounter procedure 11/28/2024 1:00 PM EDT Office Visit [facility] [address] [place] [address] Skyler Puente MD [address] [place] [phone] [facility] Start: 2024 Screening for malign ant neoplasm of cervix [facility] Start: 11-12-2024 End: 11-12-2024 Patient encounter procedure 11/12/2024 10:45 AM EDT Office Visit [facility] [address] [place] [address] Skyler Puente MD [address] [place] [phone] [facility] Start: 11-08-2024 End: 11-08-2025 ABO/Rh ABO/Rh Lab Routine Missed menses , unspecified gestational age Expected: 11/08/2024 (Approximate), Expires: 11/08/2025 [facility] Comment on above: Expected: 11/08/2024 (Approximate), Expires: 11/08/2025 Start: 11-08-2024 End: 11-08-2025 Blood type and Indirect antibody screen panel - Blood Type and screen Lab Routine Missed menses , unspecified gestational age Expected: 11/08/2024 (Approximate), Expires: 11/08/2025 [facility] Comment on above: Expected: 11/08/2024 (Approximate), Expires: 11/08/2025 Start: 11-08-2024 End: 11-08-2025 Drugs of abuse panel - Urine by Screen method Rapid drug screen, urine Lab Routine , unspecified gestational age Encounter for supervision of normal first in first trimester Expected: 11/08/2024 (Approximate), Expires: 11/08/2025 [facility] Comment on above: Expected: 11/08/2024 (Approximate), Expires: 11/08/2025 Start: 11-01-2024 End: 02-01-2025 US Pelvis transvaginal US OB transvaginal Imaging Routine Missed menses Expected: 11/01/2024, Expires: 02/01/2025 [facility] Work Phone: Comment on above: Expected: 11/01/2024 , Expires: 02/01/2025 Start: 08-14-2024 End: 08-14-2024 Patient encounter procedure 08/14/2024 10:30 AM EST Office Visit [facility] [address] [place] [address] Skyler Puente MD [address] [place] [address] Arrived [facility] Comment on above: Arrived Start: 05-28-2024 End: 05-28-2024 Patient encounter procedure [facility] Comment on above: Arrived Start: 05-28-2024 End: 05-28-2025 Basic metabolic 1998 panel - Serum or Plasma Basic metabolic panel Lab Routine Annual physical exam Expected: 05/28/2024 (Approximate), Expires: 05/28/2025 [facility] Comment on above: Expected: 05/28/2024 (Approximate), Expires: 05/28/2025 Start: 05-28-2024 End: 05-28-2025 CBC W Auto Differential panel - Blood CBC and differential Lab Routine Annual physical exam Expected: 05/28/2024 (Approximate), Expires: 05/28/2025 [facility] Comment on above: Expected: 05/28/2024 (Approximate), Expires: 05/28/2025 Start: 05-28-2024 End: 05-28-2025 Hemoglobin A1c/Hemoglobin.total in Blood Hemoglobin A1c Lab Routine Annual physical exam Expected: 05/28/2024 (Approximate), Expires: 05/28/2025 [facility] Work Phone: Comment on above: Expected: 05/28/2024 (Approximate), Expires: 05/28/2025 Start: 05-28-2024 End: 05-28-2025 Hepatic function 2000 panel - Serum or Plasma Hepatic function panel Lab Routine Annual physical exam Expected: 05/28/2024 (Approximate), Expires: 05/28/2025 [facility] Comment on above: Expected: 05/28/2024 (Approximate), Expires: 05/28/2025 Start: 05-28-2024 End: 05-28-2025 Lipid 1996 panel - Serum or Plasma Lipid panel Lab Routine Annual physical exam Expected: 05/28/2024 (Approximate), Expires: 05/28/2025 [facility] Comment on above: Expected: 05/28/2024 (Approximate), Expires: 05/28/2025 Start: 05-28-2024 End: 05-28-2025 Thyrotropin [Units/volume] in Serum or Plasma TSH Lab Routine Annual physical exam Expected: 05/28/2024 (Approximate), Expires: 05/28/2025 [facility] Comment on above: Expected: 05/28/2024 (Approximate), Expires: 05/28/2025 Start: 03-28-2024 End: 03-28-2024 Patient encounter procedure 03/28/2024 11:15 AM EDT Office Visit [facility] [address] [place] [address] Skyler Puente MD [address] [place] [phone] Arrived [facility] Comment on above: Arrived Start: 02-25-2024 Influenza vaccination Influenza Vacc ine (#1) [facility] Start: 11-16-2015 Screening for malign ant neoplasm of cervix Pap Smear [facility] Bacteria identified in Urine by Culture Urine culture Microbiology Routine Missed menses Ordered: 11/08/2024 [facility] Comment on above: Ordered: 11/08/2024 CBC W Auto Different ial panel - Blood CBC and differential Lab Routine Missed menses , unspecified gestational age Ordered: 11/08/2024 [facility] Comment on above: Ordered: 11/08/2024 CHLAMYDIA TRACHOMATI S (GENITO/STI) CHLAMYDIA TRACHOMATIS (GENITO/STI) Lab Routine Exposure to STD Ordered: 01/02/2025 [facility] Comment on above: Ordered: 01/02/2025 Cytology Cervical or vaginal smear or scraping study Pap Smear Pathology and Cytology Routine Well woman exam with routine gynecological exam Ordered: 01/02/2025 [facility] Comment on above: Ordered: 01/02/2025 Hemoglobin A1c/Hemoglobin.total in Blood Hemoglobin A1c Lab Routine Missed menses , unspecified gestational age Ordered: 11/08/2024 [facility] Comment on above: Ordered: 11/08/2024 Hepatitis B virus surface Ag [Presence] in Serum or Plasma by Immunoassay Hepatitis B surface antigen Lab Routine Missed menses , unspecified gestational age Ordered: 11/08/2024 [facility] Comment on above: Ordered: 11/08/2024 Hepatitis C virus Ab [Presence] in Serum or Plasma by Immunoassay Hepatitis C antibody Lab Routine Missed menses , unspecified gestational age Ordered: 11/08/2024 [facility] Comment on above: Ordered: 11/08/2024 HIV-1/HIV-2 antigen/antibody combination immunoassay HIV-1 and HIV-2 antibodies Lab Routine Missed menses , unspecified gestational age Ordered: 11/08/2024 [facility] Comment on above: Ordered: 11/08/2024 Human papilloma viru s DNA [Presence] in Unspecified specimen by Probe with amplification HPV DNA probe, amplified Microbiology Routine Well woman exam with routine gynecological exam Ordered: 01/02/2025 [facility] Comment on above: Ordered: 01/02/2025 Neisseria gonorrhoea e DNA [Presence] in Unspecified specimen by DEIRDRE with probe detection Neisseria gonorrhea DNA probe, direct Lab Routine Exposure to STD Ordered: 01/02/2025 [facility] Comment on above: Ordered: 01/02/2025 Reagin Ab [Presence] in Serum by RPR RPR Lab Routine Missed menses , unspecified gestational age Ordered: 11/08/2024 [facility] Comment on above: Ordered: 11/08/2024 Rubella antibody, IgG Rubella an tibody, IgG Lab Routine Missed menses , unspecified gestational age Ordered: 11/08/2024 [facility] Comment on above: Ordered: 11/08/2024 SURESWAB(R) ADVANCED VAGINITIS PLUS, TMA SURESWAB(R) ADVANCED VAGINITIS PLUS, TMA Pathology and Cytology Routine Vaginal discharge Ordered: 01/02/2025 [facility] Work Phone: Comment on above: Ordered: 01/02/2025 US Pelvis transvaginal US OB tra nsvaginal Imaging Routine Missed menses 11/08/2024 10:58 AM EDT [facility] Immunizations Immunization Date Immunization Notes Care Provider Fa cility 05-01-2024 influenza virus vacc ine, unspecified formulation Skyler Puente MD Work Phone: [facility] Payers Date Payer Category Payer Private Health Insurance [id number] 2023 Self-pay 2018 Managed Care HMO (unspecified) [id number] 1994 Unknown [id number] [id number] 1994 Unknown [id number] 2.16.84 [id number] 1994 Unknown [id number] 2.16.84 [id number] 1994 Unknown [id number] 1994 Unknown [id number] 1994 Unknown [id number] [id number] 1994 Unknown [id number] [id number] 1994 Unknown [id number] [id number] 1994 Unknown [id number] [id number] 1994 Unknown [id number] [id number] 1994 Unknown [id number] [id number] 1994 Unknown [id number] [id number] 1994 Unknown [id number] [id number] 1994 Unknown [id number] [id number] 1994 Unknown [id number] 1959 Private Health Insurance [id number] Unknown [id number] Social History Date Type Detail Facility Unknown if ever smoked [facility] Start: 09-19-2023 End: 11-28-2024 Sex Assigned At [facility] Start: 1995 Sex Assigned At Female [facility] Start: 09-26-2023 End: 01-11-2024 Tobacco smoking status NHIS Never smoked tobacco (finding) [facility] Start: 09-26-2023 Tobacco use and exposure Smokeless tobacco non-user [facility] Start: 09-19-2023 End: 11-28-2024 History of Social function [facility] Do you belong to any clubs or organizations such as taoist groups, unions, fraternal or athletic groups, or [...] Not at all [facility] (I/We) worried whedanie er (my/our) food would run out before (I/we) got money to buy more. Never true [facility] Start: 1995 Sex assigned at Not on file [facility] Start: 09-30-2024 [facility] Clinical Notes 09-27-2022 to 03-03-2025 Aurora Hernandez LPN - 03/03/2025 9:50 AM EDTSbrooke Hernandez LPN - 02/03/2025 2:10 PM LOWELL Low - 01/02/2025 9:30 AM LOWELL Low - 12/05/2024 9:50 AM EDT Note Date & Type Note Facility 03-03-2025 History of Presen t illness Narrative Reason for Appointment: Patient ID: Yi Booth is a 29 y.o. female who presents for Routine Visit Patient presents today for Return OB appointment. MEDICATIONS Current Outpatient Medications [...] physical exam 05/28/2024 10 weeks gestation of ([facility]) 11/28/2024 Resolved Ambulatory Problems Diagnosis Date Noted Need for malaria prophylaxis 01/26/2024 Family planning counseling 08/14/2024 Past Medical History: Diagnosis Date At standard risk for fall MO (generalized anxiety disorder) MDD (major depressive disorder), recurrent episode, mild Other primary thrombophilia ([facility]) Sprain of ulnar collateral ligament of right wrist, subsequent encounter HISTORY PAST MEDICAL HISTORY SOCIAL HISTORY Past Medical History: Diagnosis Date At standard risk for fall MO (generalized anxiety disorder) MDD (major depressive disorder), recurrent episode, mild 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 HENT: Negative. Eyes: Negative. Respiratory: Negative. Cardiovascular: Negative. Gastrointestinal: Negative. Genitourinary: Negative. Musculoskeletal: Negative. Skin: Negative. Neurological: Negative. All other systems reviewed and are negative. Hematological: Negative. Endocrine: Negative. Allergic/Immunologic: Negative. OBJECTIVE Objective: Physical Exam Constitutional: Appearance: Normal appearance. She is well-developed. Cardiovascular: Rate and Rhythm: Normal rate and [...] nursing note reviewed. Exam conducted with a put in beat adjuster present. Vitals: Estimated body mass index is 26.03 kg/m as calculated from the following: Height as of 11/28/24: 5' 6 . Weight as of 02/03/25: 161 lb 4 oz. BP: Patient's last menstrual period was 09/16/2024. ASSESSMENT & PLAN ICD-10-CM 1. Second trimester ([facility]) Z34.92 POCT urinalysis dipstick manually resulted 2. 24 weeks gestation of ([facility]) Z3A.24 3. Diabetes mellitus screening Z13.1 CBC Glucose tolerance, 1 hour CBC Glucose tolerance, 1 hour Patient presents today for a routine obstetrics appointment. Patient is currently 24w0d with a Estimated Date of Delivery: 06/23/25. Patient given orders for 1 hour gtt and CBC today. Patient to return to clinic in 4 weeks. 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 Patient has never personally had a DVT. Advised patient to perform pedal pushes and ensure with airline that she is able to fly at gestation. Documented by Aurora Hernandez LPN on behalf of: Aliza Kc NP documented in this encounter [facility] 02-03-2025 History of Presen t illness Narrative Reason for Appointment: Patient ID: Yi Booth is a 29 y.o. female who presents for Routine Visit Patient presents today for Return OB appointment. MEDICATIONS Current Outpatient Medications [...] physical exam 05/28/2024 10 weeks gestation of ([facility]) 11/28/2024 Resolved Ambulatory Problems Diagnosis Date Noted Need for malaria prophylaxis 01/26/2024 Family planning counseling 08/14/2024 Past Medical History: Diagnosis Date At standard risk for fall MO (generalized anxiety disorder) MDD (major depressive disorder), recurrent episode, mild Other primary thrombophilia ([facility]) Sprain of ulnar collateral ligament of right wrist, subsequent encounter HISTORY PAST MEDICAL HISTORY SOCIAL HISTORY Past Medical History: Diagnosis Date At standard risk for fall MO (generalized anxiety disorder) MDD (major depressive disorder), recurrent episode, mild 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 HENT: Negative. Eyes: Negative. Respiratory: Negative. Cardiovascular: Negative. Gastrointestinal: Negative. Genitourinary: Negative. Musculoskeletal: Negative. Skin: Negative. Neurological: Negative. All other systems reviewed and are negative. Hematological: Negative. Endocrine: Negative. Allergic/Immunologic: Negative. OBJECTIVE Objective: Physical Exam Constitutional: Appearance: Normal appearance. She is well-developed. Cardiovascular: Rate and Rhythm: Normal rate and [...] nursing note reviewed. Exam conducted with a put in beat adjuster present. Vitals: Estimated body mass index is 26.03 kg/m as calculated from the following: Height as of 11/28/24: 5' 6 . Weight as of this encounter: 161 lb 4 oz. BP: 120/80 Patient's last menstrual period was 09/16/2024. ASSESSMENT & PLAN ICD-10-CM 1. Second trimester ([facility]) Z34.92 POCT urinalysis dipstick manually resulted Lead, blood Lead, blood 2. 20 weeks gestation of ([facility]) Z3A.20 Lead, blood Lead, blood 3. Vitamin D deficiency E55.9 Lead, blood Lead, blood Patient presents today for a routine obstetrics appointment. Patient is currently 20w0d with a Estimated Date of Delivery: 06/23/25. Patient had anatomy scan performed prior to appointment today. Patient desires to have Lead Test obtained. Printed lab slip after confirming with [place] at [facility] that correct order was selected. Patient to return to clinic in 4 weeks for routine OB appointment. Documented by Aurora Hernandez LPN on behalf of: Tom Phelan DO documented in this encounter [facility] 01-02-2025 History of Presen t illness Narrative Reason for Appointment: Patient ID: Yi Booth [...] physical exam 05/28/2024 10 weeks gestation of ([facility]) 11/28/2024 Resolved Ambulatory Problems Diagnosis Date Noted Need for malaria prophylaxis 01/26/2024 Family planning counseling 08/14/2024 Past Medical History: Diagnosis Date At standard risk for fall MO (generalized anxiety disorder) MDD (major depressive disorder), recurrent episode, mild Other primary thrombophilia ([facility]) Sprain of ulnar collateral ligament of right wrist, subsequent encounter HISTORY PAST MEDICAL HISTORY SOCIAL HISTORY Past Medical History: Diagnosis Date At standard risk for fall MO (generalized anxiety disorder) MDD (major depressive disorder), recurrent episode, mild 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 Exam conducted with a put in beat adjuster present. Vitals: Estimated body mass index is 25.04 kg/m as calculated from the following: Height as of 11/28/24: 5' 6 . Weight as of this encounter: 155 lb 1.9 oz. BP: 110/70 Patient's last menstrual period was 09/16/2024. ASSESSMENT & PLAN ICD-10-CM 1. 15 weeks gestation of ([facility]) Z3A.15 POCT urinalysis dipstick manually resulted Alpha fetoprotein, maternal Alpha fetoprotein, maternal CANCELED: POCT urinalysis dipstick manually resulted 2. Second trimester ([facility]) Z34.92 POCT urinalysis dipstick manually resulted Alpha fetoprotein, maternal Alpha fetoprotein, maternal CANCELED: POCT urinalysis dipstick manually resulted 3. Well woman exam with routine gynecological exam Z01.419 Pap Smear HPV DNA probe, amplified 4. Screening, , for anatomic survey ([facility]) Z36.89 US OB 14+ weeks anatomy scan US OB 14+ weeks anatomy scan 5. Exposure to STD Z20.2 CHLAMYDIA TRACHOMATIS (GENITO/STI) Neisseria gonorrhea DNA probe, direct 6. Vaginal discharge N89.8 SURESWAB(R) ADVANCED VAGINITIS PLUS, TMA Return OB/Annual Exam: Patient presents today for a annual exam/routine obstetrics appointment. Patient is currently 15w3d . Patient states she is doing well but [...] of: LOWELL Mckee documented in this encounter [facility] 12-05-2024 History of Presen t illness Narrative Reason for Appointment: Patient ID: Yi Booth is a 29 y.o. female who presents for Routine Visit Patient presents today for Return OB appointment. MEDICATIONS Current Outpatient Medications Medication Instructions Inulin (FIBER CHOICE PO) 1 tablet, Daily [...] physical exam 05/28/2024 10 weeks gestation of ([facility]) 11/28/2024 Resolved Ambulatory Problems Diagnosis Date Noted Need for malaria prophylaxis 01/26/2024 Family planning counseling 08/14/2024 Past Medical History: Diagnosis Date At standard risk for fall MO (generalized anxiety disorder) MDD (major depressive disorder), recurrent episode, mild Other primary thrombophilia ([facility]) Sprain of ulnar collateral ligament of right wrist, subsequent encounter HISTORY PAST MEDICAL HISTORY SOCIAL HISTORY Past Medical History: Diagnosis Date At standard risk for fall MO (generalized anxiety disorder) MDD (major depressive disorder), recurrent episode, mild 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 HENT: Negative. Eyes: Negative. Respiratory: Negative. Cardiovascular: Negative. Gastrointestinal: Negative. Genitourinary: Negative. Musculoskeletal: Negative. Skin: Negative. Neurological: Negative. All other systems reviewed and are negative. Hematological: Negative. Endocrine: Negative. Allergic/Immunologic: Negative. OBJECTIVE Objective: Physical Exam Constitutional: Appearance: Normal appearance. She is normal weight. HENT: Head: Normocephalic. Cardiovascular: Rate and Rhythm: Normal rate. Pulses: Normal pulses. Pulmonary: Effort: Pulmonary effort is normal. Breath sounds: Normal breath sounds. Abdominal: Palpations: Abdomen is soft. Musculoskeletal: General: Normal range of motion. Neurological: General: No focal deficit present. Mental Status: She is alert and oriented to person, place, and time. Psychiatric: Mood and Affect: Mood normal. Behavior: Behavior normal. Thought Content: Thought content normal. Judgment: Judgment normal. Vitals and nursing note reviewed. Vitals: Estimated body mass index is 24.55 kg/m as calculated from the following: Height as of 11/28/24: 5' 6 . Weight as of this encounter: 152 lb 1.9 oz. BP: 110/70 Patient's last menstrual period was 09/16/2024. ASSESSMENT & PLAN ICD-10-CM 1. First trimester ([facility]) Z34.91 Urine dip 2. 11 weeks gestation of ([facility]) Z3A.11 Urine dip Return OB: Patient presents today for a routine obstetrics appointment. Patient is currently 11w3d . Patient states she is doing well but has complaints of being tired due to current . Patient has verbalizes frequent movement. labor precautions was discussed/given and patient was instructed to perform kick counts three times a day. Orders Placed This Encounter Procedures Urine dip Follow Up: Patient is to return to office in 2 week for routine OB appointment. Documented by LOWELL Mckee on behalf of: Tom Phelan DO documented in this encounter [facility] 11-28-2024 History of Presen t illness Narrative Associated Problem(s): Generalized anxiety disorder (CMS/HCC) Symptoms remain controlled with zoloft and continue. Associated Problem(s): Major depressive disorder, recurrent episode, mild (HCC) (CMS/HCC) Symptoms remain controlled with zoloft and continue. Associated Problem(s): 10 weeks gestation of Doing well and follow with OB. Images from the original note were not included. Subjective Patient ID: Yi Booth is a 29 y.o. female who presents for Follow-up (6m). Follow up depression and anxiety. Last visit stopped wellbutrin and changed to zoloft because wanted to get . Currently about 10 weeks and doing well. Mild nausea but overall feels well during early . Mood remains well controlled with zoloft. Not down or sad and feels happy. Interacting well with others and functioning well. Anxiety stable. Recently with increased stress and needed major home repair and lost job but handled well. Not as stressed out or overwhelmed. Not as nervous or worry as much. Not as graves or irritable. Review of Systems Respiratory: Negative for cough, [...] anxiety disorder (CMS/HCC) Symptoms remain controlled with zoloft and continue. Major depressive disorder, recurrent episode, mild (HCC) (CMS/HCC) - Primary Symptoms remain controlled with zoloft and continue. Relevant Medications sertraline (Zoloft) 50 MG tablet 10 weeks gestation of Doing well and follow with OB. documented in this encounter [facility] 11-08-2024 History of Presen t illness Narrative Reason for Appointment: Patient ID: Yi Booth is a 28 y.o. female who [...] calculated from the following: Height as of 08/14/24: 5' 6 . Weight as of this [...] or undercooked meat, and stay away from [facility]. Patient has also been advised to [...] Missy Callejas LPN documented in this encounter [facility] 08-14-2024 History of Presen t illness Narrative [...] note were not included. Subjective Patient ID: Yi Booth is a 28 y.o. female who [...] safety during . documented in this encounter [facility] 05-28-2024 History of Presen t illness Narrative [...] note were not included. Subjective Patient ID: Yi Booth is a 28 y.o. female who [...] Lipid panel TSH documented in this encounter [facility] 03-28-2024 History of Presen t illness Narrative [...] note were not included. Subjective Patient ID: Yi Booth is a 28 y.o. female who [...] 37.5 MG tablet documented in this encounter [facility] 01-04-2023 Evaluation note Encounter Date Diagnosis Assessment [...] to 7 days. Off work until Monday. [facility] [employer] Other 04-04-2023 Evaluation note* Encounter Date Diagnosis [...] treatment plan. Patient left in stable condition [facility] Other Evaluation noteNo assessment information available [facility] Work Phone: Evaluation note* Diagnosis Major depressive disorder, recurrent episode, mild (HCC) (CMS/HCC)- Primary Major depressive disorder, recurrent episode, mild Generalized anxiety disorder (CMS/HCC) Generalized anxiety disorder Obesity (BMI 30-39.9) Overweight (BMI 25.0-29.9) Overweight documented in this encounter [facility] HealthcareEvaluation note* Diagnosis Major depressive disorder, recurrent [...] Obesity (BMI 30-39.9) documented in this encounter [facility] HealthcareEvaluation note* Diagnosis Major depressive disorder, recurrent [...] first trimester documented in this encounter [facility]* [...] general counseling and advice for contraceptive management Major depressive disorder, recurrent episode, mild (HCC) (CMS/HCC)- Primary Major depressive disorder, recurrent episode, mild Generalized anxiety disorder (CMS/HCC) Generalized anxiety disorder 10 weeks gestation of documented in this encounter [facility]* Diagnosis Major depressive disorder, recurrent episode, mild- Primary Major depressive disorder, recurrent episode, mild Generalized anxiety disorder Generalized anxiety disorder Obesity (BMI 30-39.9) Major depressive disorder, recurrent episode, mild- Primary Major depressive disorder, recurrent episode, mild Generalized anxiety disorder Generalized anxiety disorder Obesity (BMI 30-39.9) Major depressive disorder, recurrent episode, mild- Primary Major depressive disorder, recurrent episode, mild Generalized anxiety disorder Generalized anxiety disorder Obesity (BMI 30-39.9) Need for malaria prophylaxis Major depressive disorder, recurrent episode, mild- Primary Major depressive disorder, recurrent episode, mild Generalized anxiety disorder Generalized anxiety disorder Obesity (BMI 30-39.9) Overweight (BMI 25.0-29.9) Overweight Annual physical exam- Primary Routine general medical examination at a health care facility Major depressive disorder, recurrent episode, mild Major depressive disorder, recurrent episode, mild Major depressive disorder, recurrent episode, mild- Primary Major depressive disorder, recurrent episode, mild Generalized anxiety disorder Generalized anxiety disorder Family planning counseling Other general counseling and advice for contraceptive management Major depressive disorder, recurrent episode, mild- Primary Major depressive disorder, recurrent episode, mild Generalized anxiety disorder Generalized anxiety disorder 10 weeks gestation of ([facility]) First trimester ([facility]) state, incidental 11 weeks gestation of ([facility]) documented in this encounter [facility]* Diagnosis Major depressive disorder, recurrent episode, mild- Primary Major depressive disorder, recurrent episode, mild Generalized anxiety disorder Generalized anxiety disorder Obesity (BMI 30-39.9) Major depressive disorder, recurrent episode, mild- Primary Major depressive disorder, recurrent episode, mild Generalized anxiety disorder Generalized anxiety disorder Obesity (BMI 30-39.9) Major depressive disorder, recurrent episode, mild- Primary Major depressive disorder, recurrent episode, mild Generalized anxiety disorder Generalized anxiety disorder Obesity (BMI 30-39.9) Need for malaria prophylaxis Major depressive disorder, recurrent episode, mild- Primary Major depressive disorder, recurrent episode, mild Generalized anxiety disorder Generalized anxiety disorder Obesity (BMI 30-39.9) Overweight (BMI 25.0-29.9) Overweight Annual physical exam- Primary Routine general medical examination at a health care facility Major depressive disorder, recurrent episode, mild Major depressive disorder, recurrent episode, mild Major depressive disorder, recurrent episode, mild- Primary Major depressive disorder, recurrent episode, mild Generalized anxiety disorder Generalized anxiety disorder Family planning counseling Other general counseling and advice for contraceptive management Major depressive disorder, recurrent episode, mild- Primary Major depressive disorder, recurrent episode, mild Generalized anxiety disorder Generalized anxiety disorder 10 weeks gestation of ([facility]) 15 weeks gestation of ([facility]) Second trimester ([facility]) state, incidental Well woman exam with routine gynecological exam Routine gynecological examination Screening, , for anatomic survey ([facility]) Encounter for anatomic survey Exposure to STD Vaginal discharge Leukorrhea, not specified as infective documented in this encounter [facility]* Diagnosis Major depressive disorder, recurrent episode, mild- Primary Major depressive disorder, recurrent episode, mild Generalized anxiety disorder Generalized anxiety disorder Obesity (BMI 30-39.9) Major depressive disorder, recurrent episode, mild- Primary Major depressive disorder, recurrent episode, mild Generalized anxiety disorder Generalized anxiety disorder Obesity (BMI 30-39.9) Major depressive disorder, recurrent episode, mild- Primary Major depressive disorder, recurrent episode, mild Generalized anxiety disorder Generalized anxiety disorder Obesity (BMI 30-39.9) Need for malaria prophylaxis Major depressive disorder, recurrent episode, mild- Primary Major depressive disorder, recurrent episode, mild Generalized anxiety disorder Generalized anxiety disorder Obesity (BMI 30-39.9) Overweight (BMI 25.0-29.9) Overweight Annual physical exam- Primary Routine general medical examination at a health care facility Major depressive disorder, recurrent episode, mild Major depressive disorder, recurrent episode, mild Major depressive disorder, recurrent episode, mild- Primary Major depressive disorder, recurrent episode, mild Generalized anxiety disorder Generalized anxiety disorder Family planning counseling Other general counseling and advice for contraceptive management Major depressive disorder, recurrent episode, mild- Primary Major depressive disorder, recurrent episode, mild Generalized anxiety disorder Generalized anxiety disorder 10 weeks gestation of ([facility]) Second trimester ([facility]) state, incidental 20 weeks gestation of ([facility]) Vitamin D deficiency documented in this encounter [facility] HealthcareEvaluation note* Diagnosis Major depressive disorder, recurrent episode, mild- Primary Major depressive disorder, recurrent episode, mild Generalized anxiety disorder Generalized anxiety disorder Obesity (BMI 30-39.9) Major depressive disorder, recurrent episode, mild- Primary Major depressive disorder, recurrent episode, mild Generalized anxiety disorder Generalized anxiety disorder Obesity (BMI 30-39.9) Major depressive disorder, recurrent episode, mild- Primary Major depressive disorder, recurrent episode, mild Generalized anxiety disorder Generalized anxiety disorder Obesity (BMI 30-39.9) Need for malaria prophylaxis Major depressive disorder, recurrent episode, mild- Primary Major depressive disorder, recurrent episode, mild Generalized anxiety disorder Generalized anxiety disorder Obesity (BMI 30-39.9) Overweight (BMI 25.0-29.9) Overweight Annual physical exam- Primary Routine general medical examination at a health care facility Major depressive disorder, recurrent episode, mild Major depressive disorder, recurrent episode, mild Major depressive disorder, recurrent episode, mild- Primary Major depressive disorder, recurrent episode, mild Generalized anxiety disorder Generalized anxiety disorder Family planning counseling Other general counseling and advice for contraceptive management Major depressive disorder, recurrent episode, mild- Primary Major depressive disorder, recurrent episode, mild Generalized anxiety disorder Generalized anxiety disorder 10 weeks gestation of ([facility]) Second trimester ([facility]) state, incidental 24 weeks gestation of ([facility]) Diabetes mellitus screening Screening for diabetes mellitus documented in this encounter [facility] HealthcareHistory general Narrative - Reported* Type Description Date Medical History Depression Medical History Anxiety Surgical History tonsillectomy and adenoidectomy Hospitalization History see above [facility] Other Summary Purpose Family History No Family History Records Found Relationship Condition Age at Onset Recorded Date/T zhang father Hypertension Unknown Advance Directives No Advanced Directives Records Found Advance Directive Response Recorded Date/ Time Advance Directives No January 12 9:23am Chief Complaint and Reason for Visit Chief Complaint Skin irritation on v agina Reason for Referral Specialty Diagnoses / Procedures Referred By Contac t Referred To Contact Diagnoses Obesity (BMI 30-39.9) Skyler Puente MD [address] [place] [address] Referral ID Status Reason Start Date Expiration Date V isits Requested Visits Authorized [id number] Pending Review 03/28/2024 09/24/2024 1 1 Additional Source Comments INFORMATION SOURCE (unrecogn ized section and content) DATE CREATED AUTHOR 03/15/2021 [facility] DATE CREATED AUTHOR AUTHOR'S ORGANIZ ATION 01/14/2023 [facility] DATE CREATED AUTHOR AUTHOR'S ORGANIZ ATION 03/04/2025 [facility] EPIC REASON FOR VISIT (unrecogniz ed section and content) Reason Comments Epistaxis (Nose Bleed) Follow-up Check up on new meds Reason Onset Date Comments Med Refill 05/07/2024 Reason Comments Follow-up 2 m Reason Comments Follow-up Med check. 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 Relationship Specialty Start Date End Date Skyler Puente MD [address] [place] [address] PCP - General Family Medicine 09/26/23 Flash Oven Operator Relationship Specialty Start Date End Date Skyler Puente MD [address] [place] [address] PCP - General Family Medicine 09/26/23 Flash Oven Operator Relationship Specialty Start Date End Date Skyler Puente MD [address] [place] [address] PCP - General Family Medicine 09/26/23 Flash Oven Operator Relationship Specialty Start Date End Date Skyler Puente MD [address] [place] [address] PCP - General Family Medicine 09/26/23 Flash Oven Operator Relationship Specialty Start Date End Date Skyler Punete MD [address] [place] [address] PCP - General Family Medicine 09/26/23 Flash Oven Operator Relationship Specialty Start Date End Date Skyler Puente MD [address] [place] [address] PCP - General Family Medicine 09/26/23 Flash Oven Operator Relationship Specialty Start Date End Date Skyler Puente MD [address] [place] [address] PCP - General Family Medicine 09/26/23 Flash Oven Operator Relationship Specialty Start Date End Date Skyler Puente MD [address] [place] [address] PCP - General Family Medicine 09/26/23 Flash Oven Operator Relationship Specialty Start Date End Date Skyler Puente MD [address] [place] [address] PCP - General Family Medicine 09/26/23 Flash Oven Operator Relationship Specialty Start Date End Date Skyler Puente MD [address] [place] [address] PCP - General Family Medicine 09/26/23 Flash Oven Operator Relationship Specialty Start Date End Date Skyler Puente MD [address] [place] [address] PCP - General Family Medicine 09/26/23 Flash Oven Operator Relationship Specialty Start Date End Date Skyler Puente MD [address] [place] [address] PCP - General Family Medicine 09/26/23 Flash Oven Operator Relationship Specialty Start Date End Date Skyler Puente MD [address] [place] [address] PCP - General Family Medicine 09/26/23 Flash Oven Operator Relationship Specialty Start Date End Date Skyler Puente MD [address] [place] [address] PCP - General Family Medicine 09/26/23 Flash Oven Operator Relationship Specialty Start Date End Date Skyler Puente MD [address] [place] [address] PCP - General Family Medicine 09/26/23 Flash Oven Operator Relationship Specialty Start Date End Date Skyler Puente MD [address] [place] [address] PCP - General Family Medicine 09/26/23 Flash Oven Operator Relationship Specialty Start Date End Date Skyler Puente MD PCP - General Family Medicine 09/26/23 Flash Oven Operator Relationship Specialty Start Date End Date Skyler Puente MD PCP - General Family Medicine 09/26/23 Goals [...] BE BASED ON THE PRIMARY CLINICAL RECORDS. [employer] provides no warranty or guarantee of the accuracy or completeness of information in this document.
[2025-03-17 13:46] LABS: Glucose 1 Hour 121 mg/dL (<130)
[2025-03-17 13:52] LABS: Hematocrit 37.0 % (36.0-48.0); Hemoglobin 12.6 g/dL (12.0-16.0); Immature Granulocytes Abs Auto 0.26 10^3/uL (0.00-0.03); Immature Granulocytes Pct Auto 2.3 % (0.0-0.5); Lymphocytes Absolute Auto 1.9 10^3/uL (1.2-3.8); Mean Corpuscular HGB Conc 34.1 g/dL (29.9-35.2); Mean Corpuscular Hemoglobin 33.2 pg (26.7-34.0); Mean Corpuscular Volume 97.4 fL (81.0-99.0); Platelet Count 269 10^3/uL (150-450); Red Blood Count 3.80 10^6/uL (4.20-5.40); White Blood Count 11.5 10^3/uL (4.0-11.0)
== END 2025-03-17 12:08 | disposition home or self-care (01) ==
LOC: LAB 12:08
PROVIDERS: PCP Family Medicine; Visit Provider Nurse Practitioner Family
DX: Z13.1 Encounter for screening for diabetes mellitus (principal)
CPT/HCPCS: 36415; 82950; 85025

== ENCOUNTER 2025-05-27 15:00 | Outpatient (REF) | payer OTHER, SELFPAY ==
--- OUTSIDE RECORDS SUMMARY | 2025-05-13 13:30 | XMS_ITS | Encounter Summary ---
Author Organization [facility] Address [address] [place] [address] Care Team Providers Care Cruise Counselor Name Role Phone Skyler Webb MD Primary Care Provider [phone] Reason for Visit * ReasonCommentsRoutine Visit Encounter Details DateTypeDepartmentCare Team (Latest Contact Info)Rpetqfmbpms19/18/2025 1:30 PM ESTRoutine [facility] [address] [place] [place] [phone] Oleksandr Phelan DO [address] [place] [address] Third trimester ([facility]); 34 weeks gestation of ([facility]); Heartburn during in third trimester ([facility]) Social History Tobacco UseTypesPacks/DayYears UsedDateSmoking Tobacco: NeverSmokeless Tobacco: NeverSocial Connection and Isolation PanelAnswerDate RecordedIn a typical week, how many times do you talk on the phone with family, friends, or neighbors?More than three times a week09/19/2023How often do you get together with friends or relatives?Once a week09/19/2023How often do you attend mu-ism or congregational services?Never4Do you belong to any clubs or organizations such as mu-ism groups, unions, fraternal or athletic groups, or school groups?No 09/19/2023How often do you attend meetings of the clubs or organizations you belong to?Never4Are you , , , , never , or living with a partner?Ktxnycp9109/19/2023UDIT-CAnswerDate RecordedQ1: How often do you have a drink containing alcohol?2-4 times a month09/19/2023Q2: How many drinks containing alcohol do you have on a typical day when you are drinking?3 or Q3: How often do you have six or more drinks on one occasion?Never09/19/2023Overall Financial Resource Strain (CARDIA)AnswerDate RecordedHow hard is it for you to pay for the very basics like food, housing, medical care, and heating?Not hard at all09/19/2023[facility] [place] of Occupational Health - Occupational Stress QuestionnaireAnswerDate RecordedDo you feel stress - tense, restless, nervous, or anxious, or unable to sleep at night because yourmind is troubled all the time - these days?Not at all09/19/2023 Exercise Vital SignAnswerDate RecordedOn average, how many days per week do you engage in moderate to strenuous exercise (like a brisk walk)?5 days09/19/2023On average, how many minutes do you engage in exercise at this level?60 min 09/19/2023Hunger Vital SignAnswerDate RecordedWithin the past 12 months, you worried that your food would run out before you got the money to buymore.Never true09/19/2023Within the past 12 months, the food you bought just didn't last and you didn't have money to get more.Never true09/19/2023RAPARE - TransportationAnswerDate RecordedIn the past 12 months, has lack of transportation kept you from medical appointments or from getting medications?No 09/19/2023In the past 12 months, has lack of transportation kept you from meetings, work, or from getting things needed for daily living?No09/19/2023 Housing Stability Vital SignAnswerDate RecordedIn the last 12 months, was there a time when you were not able to pay the mortgage or rent on time?No09/19/2023In the last 12 months, how many places have you lived?In the last 12 months, was there a time when you did not have a steady place to sleep or slept in [facility] (including now)?No4Estimated Date of Delivery GjzxybosBis88/29/2025Based on last menstrual period of 09/16/2024Sex and Gender InformationValueDate RecordedSex Assigned at BirthNot on fileLegal SexFemale 12/20/2022 10:00 AM EDTGender IdentityNot on fileSexual OrientationNot on file documented as of this encounter Last Filed Vital Signs Vital SignReadingTime TakenCommentsBlood Qqztpvln060/6605/13/2025 1:58 PM EST Pulse--Temperature--Respiratory Rate--Oxygen Saturation--Inhaled Oxygen Concentration--Gwbkva93.6 kg (191 lb)05/13/2025 1:58 PM ESTHeight--Body Mass Index30.8306 1:18 PM EDTdocumented in this encounter Progress Notes * Noemí Yanes, HOMOEOPATH - 05/13/2025 1:30 PM EST Reason for Appointment: Patient ID: Yi Booth is a 29 y.o. female who presents for Routine Visit Patient presents today for Return OB appointment. MEDICATIONS Current Outpatient Medications Medication Instructions aspirin 81 mg, Daily Inulin (FIBER CHOICE PO) 1 tablet, Daily omeprazole (PRILOSEC) 20 mg, Oral, Daily before breakfast, Do not crush or chew. MV-Min-Fe Fum-FA-DHA ( 1 PO) 1 tablet, Daily sertraline (ZOLOFT) 50 mg, Oral, Daily ALLERGIES Allergies Allergen Reactions Lactose Unknown Lactose Intolerance - Digestive Aids PROBLEMS Active Ambulatory Problems Diagnosis Date Noted Generalized anxiety disorder 09/26/2023 Major depressive disorder, recurrent episode, mild 09/26/2023 Vitamin D deficiency 09/26/2023 Overweight (BMI 25.0-29.9) 09/26/2023 Annual physical exam 05/28/2024 10 weeks gestation of ([facility]) 11/28/2024 Resolved Ambulatory Problems Diagnosis Date Noted Need for malaria prophylaxis 01/26/2024 Family planning counseling 08/14/2024 Past Medical History: Diagnosis Date At standard risk for fall MO (generalized anxiety disorder) MDD (major depressive disorder), recurrent episode, mild Other primary thrombophilia ([facility]) Sprain of ulnar collateral ligament of right wrist, subsequent encounter HISTORY PAST MEDICAL HISTORY SOCIAL HISTORY Past Medical History: Diagnosis Date At standard risk for fall MO (generalized anxiety disorder) MDD (major depressive disorder), recurrent episode, mild 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 Exam conducted with a business department chair present. Vitals: Estimated body mass index is 30.83 kg/m?? as calculated from the following: Height as of 11/28/24: 5' 6 . Weight as of this encounter: 191 lb. BP: 110/66 Patient's last menstrual period was 09/16/2024. Assessment/Plan ICD-10-CM 1. Third trimester ([facility]) Z34.93 2. 34 weeks gestation of ([facility]) Z3A.34 POCT urinalysis dipstick manually resulted 3. Heartburn during in third trimester ([facility]) O26.893 omeprazole (PriLOSEC) [address] eden R12 Assessment/Plan Return OB: Patient presents today for a routine obstetrics appointment. Patient is currently 34w1d . Patient states she is doing well but has complaints of being tired due to current . Patient has verbalizes frequent movement. labor precautions was discussed/given and patient was instructed to perform kick counts three times a day. Orders Placed This Encounter Procedures POCT urinalysis dipstick manually resulted Follow Up: Patient is to return to office in 2 week for routine OB appointment. Documented by Noemí Yanes LPN on behalf of: Oleksandr Phelan DO documented in this encounter Plan of Treatment DateTypeDepartmentCare Team (Latest Contact Info)Wdwcugtqcsj74/10/2025 1:50 PM ESTRoutine [facility] [address] [place] [address] Oleksandr Phelan DO [address] [place] [address] documented as of this encounter Procedures Procedure NamePriorityDate/TimeAssociated DiagnosisCommentsPOCT URINALYSIS IVPWCAMZLmvzahc87/18/2025 1:58 PM EST 34 weeks gestation of ([facility]) documented in this encounter Results * (ABNORMAL) POCT urinalysis dipstick manually resulted (05/13/2025 1:58 PM EST) ComponentValueRef RangeTest MethodAnalysis TimePerformed AtPathologist SignatureColor, UAYellowClarity, UAClearGlucose, UANegativeNegative - 2000(110) ++++ mg/dLBilirubin, UANegativeNegative - 4(70) +++ mg/dLKetones, UA NegativeNegative - 160(16) ++++ mg/dLSpec Grav, UA1.0101 - 1.03Blood, UA NegativeNegative - 50 Curtis/mcLpH, UA7.05 - 9Protein, UANegativeNegative - 2000(20) ++++ mg/dLUrobilinogen, UA1.00.2 - 12 mg/dLLeukocytes, UA2+Negative - 500+++ Ramos/mcLNitrite, UANegativeNegative - PositiveSpecimen (Source) Anatomical Location / LateralityCollection Method / VolumeCollection Time Received FexpZjjqc18/18/2025 1:58 PM EST Narrative Authorizing ProviderResult TypeResult StatusCorey Tapan DOPOINT OF CARE TEST ENTER/EDIT ORDERABLESFinal Result documented in this encounter Visit Diagnoses Diagnosis Third trimester ([facility]) state, incidental 34 weeks gestation of ([facility]) Heartburn during in third trimester ([facility]) documented in this encounter Care Teams Team MemberRelationshipSpecialtyStart DateEnd Date Skyler Webb MD [address] [place] [address] PCP - GeneralFamily Medicine09/26/23documented as of this encounter
--- OUTSIDE RECORDS SUMMARY | 2025-05-27 10:30 | XMS_ITS | Encounter Summary ---
Author Organization [facility] Address [address] [place] [address] Care Team Providers Care Rehabilitation Center Manager Name Role Phone Skyler Webb MD Primary Care Provider [phone] Reason for Visit * ReasonCommentsRoutine Visit Encounter Details DateTypeDepartmentCare Team (Latest Contact Info)Vcrlnrbwbav16/02/2025 10:30 AM ESTRoutine [facility] [address] [place] [phone] Oleksandr Phelan DO [address] [place] [address] 36 weeks gestation of ([facility]); Third trimester ([facility]); Heartburn during in third trimester ([facility]) Social History Tobacco UseTypesPacks/DayYears UsedDateSmoking Tobacco: NeverSmokeless Tobacco: NeverSocial Connection and Isolation PanelAnswerDate RecordedIn a typical week, how many times do you talk on the phone with family, friends, or neighbors?More than three times a week09/19/2023How often do you get together with friends or relatives?Once a week09/19/2023How often do you attend confucianism or roman catholic services?Never4Do you belong to any clubs or organizations such as confucianism groups, unions, fraternal or athletic groups, or school groups?No 09/19/2023How often do you attend meetings of the clubs or organizations you belong to?Never4Are you , , , , never , or living with a partner?Rmxkowp9209/19/2023UDIT-CAnswerDate RecordedQ1: How often do you have a [...] housing, medical care, and heating?Not hard at all09/19/2023[facility] [place] of Occupational Health - Occupational Stress QuestionnaireAnswerDate [...] steady place to sleep or [facility] ([facility] now)?No4Estimated Date of Delivery AztowrbcMuq20/29/2025Based on last menstrual period of 09/16/2024Sex and Gender InformationValueDate RecordedSex Assigned at BirthNot on fileLegal SexFemale 12/20/2022 10:00 AM EDTGender IdentityNot on fileSexual OrientationNot on file documented as of this encounter Last Filed Vital Signs Vital SignReadingTime TakenCommentsBlood Ytqmdego684/7005/27/2025 10:44 AM EST Pulse--Temperature--Respiratory Rate--Oxygen Saturation--Inhaled Oxygen Concentration--Ehcznz36.6 kg (195 lb 6.4 oz)05/27/2025 10:44 AM ESTHeight--Body Mass Index31.54011/28/2024 1:18 PM EDTdocumented in this encounter Plan of Treatment DateTypeDepartmentCare Team (Latest Contact Info)Mcenesmmzvz40/10/2025 1:50 PM ESTRoutine [facility] [address] [place] [address] Oleksandr Phelan DO [address] [place] [address] NameTypePriorityAssociated DiagnosesOrder ScheduleCULTURE, GROUP B STREP WITH SUSCEPTIBLITYLabRoutine Third trimester ([facility]) Expected: 05/27/2025, Expires: 05/27/2026documented as of this encounter Procedures Procedure NamePriorityDate/TimeAssociated DiagnosisCommentsPOCT URINALYSIS CMXYRYWOIstjwql83/02/2025 10:53 AM EST 36 weeks gestation of ([facility]) Third trimester ([facility]) documented in this encounter Results * (ABNORMAL) POCT urinalysis dipstick manually resulted (05/27/2025 10:53 AM EST)ComponentValueRef RangeTest MethodAnalysis TimePerformed AtPathologist SignatureColor, UAStrawClarity, UAClearGlucose, UANegativeNegative - 2000(110) ++++ mg/dLBilirubin, UANegativeNegative - 4(70) +++ mg/dLKetones, UANegative Negative - 160(16) ++++ mg/dLSpec Grav, UA1.0151 - 1.03Blood, UANegative Negative - 50 Curtis/mcLpH, UA6.55 - 9Protein, UA1+Negative - 2000(20) ++++ mg/dL Urobilinogen, UA1.00.2 - 12 mg/dLLeukocytes, UA1+Negative - 500+++ Ramos/mcL Nitrite, UANegativeNegative - PositiveSpecimen (Source)Anatomical Location / LateralityCollection Method / VolumeCollection TimeReceived TimeUrine 05/27/2025 10:53 AM EST Narrative Authorizing ProviderResult TypeResult StatusCorey Tapan DOPOINT OF CARE TEST ENTER/EDIT ORDERABLESFinal Result documented in this encounter Visit Diagnoses Diagnosis 36 weeks gestation of ([facility]) Third trimester ([facility]) state, incidental Heartburn during in third trimester ([facility]) documented in this encounter Care Teams Team MemberRelationshipSpecialtyStart DateEnd Date Skyler Webb MD [address] [place] [address] PCP - GeneralFamily Medicine09/26/23documented as of this encounter
--- OUTSIDE RECORDS SUMMARY | 2025-05-27 15:04 | XMS_ITS | Encounter Summary ---
Author Organization [facility] Address [address] [place] [address] Care Team Providers Care Distribution Dispatcher Name Role Phone Skyler Webb MD Primary Care Provider [phone] Encounter Details DateTypeDepartmentCare Team (Latest Contact Info)Veehatndyhu66/18/2025amboo flowsheet [facility] [address] [place] [phone] Oleksandr Phelan DO [address] [place], [facility] Social History Tobacco UseTypesPacks/DayYears UsedDateSmoking Tobacco: NeverSmokeless Tobacco: NeverSocial Connection and Isolation PanelAnswerDate RecordedIn a typical week, how many times do you talk on the phone with family, friends, or neighbors?More than three times a week09/19/2023How often do you get together with friends or relatives?Once a week09/19/2023How often do you attend sabianist or congregation services?Never4Do you belong to any clubs or organizations such as sabianist groups, unions, fraternal or athletic groups, or school groups?No 09/19/2023How often do you attend meetings of the clubs or organizations you belong to?Never09/19/2023re you , , , , never , or living with a partner?Mbnwapg9409/19/2023UDIT-CAnswerDate RecordedQ1: How often do you have a [...] housing, medical care, and heating?Not hard at all09/19/2023[facility] [place] of Occupational Health - Occupational Stress QuestionnaireAnswerDate [...] steady place to sleep or slept in ashelter (including now)?No09/19/2023Estimated Date of Delivery UcksoyujTia77/5Based on last menstrual period of 09/16/2024Sex and Gender InformationValueDate RecordedSex Assigned at BirthNot on fileLegal SexFemale 12/20/2022 10:00 AM EDTGender IdentityNot on fileSexual OrientationNot on file documented as of this encounter Plan of Treatment DateTypeDepartmentCare Team (Latest Contact Info)Gezrvuxcfru77/10/2025 1:50 PM ESTRoutine [facility] [address] [place] [address] Oleksandr Phelan DO [address] [place] [address] documented as of this encounter Visit Diagnoses Not on filedocumented in this encounter Care Teams Team MemberRelationshipSpecialtyStart DateEnd Date Skyler Webb MD [address] [place] [address] PCP - GeneralFamily Medicine09/26/23documented as of this encounter
--- OUTSIDE RECORDS SUMMARY | 2025-05-27 15:04 | XMS_ITS | Clinical Summary ---
Author Organization [facility] Healthcare Address [address] [place] [address] Care Team Providers Care Hand Cigar Maker Name Role Phone Skyler Webb MD Primary Care Provider [phone] Allergies Active AllergyReactionsCriticalityNoted SvjsEbftyxrxNdqqykpSjzpqga43/09/2024 Lactose Intolerance - Digestive Aids Medications MedicationSigDispense QuantityRefillsLast FilledStart DateEnd DateStatus MV-Min-Fe Fum-FA-DHA ( 1 PO) Take 1 tablet by mouth DailyActive Inulin (FIBER CHOICE PO) Take 1 tablet by mouth DailyActive sertraline (Zoloft) 50 MG tablet Indications:Major depressive disorder, recurrent episode, mildTake 1 tablet (50 mg) by mouth Daily 90 tablet 5Active aspirin 81 MG EC tablet Take 81 mg by mouth DailyActive omeprazole (PriLOSEC) [address] capsule Indications:Gastroesophageal Reflux Disease,HeartburnTake 1 capsule (20 mg) by mouth in the morning. Take before meals. Do not crush or chew. 30 capsule 5Active Active Problems ProblemNoted DateDiagnosed Date10 weeks gestation of ([facility]) 11/28/2024 Assessment & Plan (11/28/2024 1:42 PM EDT): Doing well and follow with OB. Annual physical exam05/28/2024 Assessment & Plan (05/28/2024 3:13 PM EST): Due for labs. Discussed proper diet and regular aerobic exercise. Need aerobic exercise 5-6 days a week for 30 minutes at a time. Smaller portions and limit total calories. Colonoscopy after age 45. Tetanus every 10 years. Advised not to smoke. Generalized anxiety ggynjxxn68/02/2024 Assessment & Plan (11/28/2024 1:42 PM EDT): [...] gain weight. Major depressive disorder, recurrent episode, mild09/26/2023 Assessment & Plan (11/28/2024 1:42 PM EDT): [...] or continue to gain weight. Vitamin D bylfkziwfd27/02/2024Overweight (BMI 25.0-29.9)09/26/2023 Assessment & Plan (03/28/2024 11:46 AM EDT): [...] as prescribed. If develop new or worsening sympto ms contact office. Assessment & Plan (01/26/2024 11:32 [...] minutes at a time. Estimated Date of DjbsrfveTgernrkqOwp93/29/2025Based on last menstrual period of 09/16/2024 Resolved Problems ProblemNoted DateDiagnosed DateResolved DateFamily planning lyqtvcucmt73/19/2025 11/28/2024 Assessment & Plan (08/14/2024 10:57 AM EST): Discussed OTC and medication safety during . Need for malaria bwevmaoqrat34 Assessment & Plan (01/26/2024 11:32 AM EDT): Plan on travel to [place] and take malaria prophylaxis. Encounters DateTypeDepartmentCare UyspStszulmmpds54/02/2025 10:30 [place] [address] Oleksandr Phelan, 36 weeks gestation of ([facility]); Third trimester ([facility]); Heartburn during in third trimester ([facility])05/27/20[place] [address] Oleksandr Phelan DO 05/13/2025 1:30 [place] [address] Oleksandr Phelan, Third trimester ([facility]); 34 weeks gestation of ([facility]); Heartburn during in third trimester ([facility])05/13/20[place] [address] Oleksandr Phelan DO 04/30/2025 2:00 PM ESTRoutine [facility] RESENDIZN [address] [place] [address] Oleksandr Phelan, Third trimester ([facility]); 32 weeks gestation of ([facility])04/30/2025 1:30 PM ESTAncillary Procedure [facility] CARMEN [address] [place] [address] [place] [address] size inconsistent with dates ([facility])04/16/2025 9:20 AM EDTRoutine [facility] [address] [place] [address] Aliza Kc NP size inconsistent with dates ([facility]) (Primary Dx); Third trimester ([facility]); 30 weeks gestation of ([facility])5Bamboo flowsheet [facility]END[facility] [address] [place] [address] [place] [address] Aliza Kc NP 04/01/2025 11:00 AM EDTRoutine [facility]END[facility] [address] [place] [address] [place] [address] Aliza Kc NP Third trimester ([facility]); 28 weeks gestation of ([facility])5Bamboo flowsheet [facility]END[facility] [address] [place] [address] [place] [address] Aliza Kc NP 5Clinisync Result Encounter NOMS External Department Unsolicited Aliza Kc NP 03/03/2025 9:50 AM EDTRoutine [facility] KASPERGYN [address] [place] [address] Aliza Kc NP Second trimester ([facility]); 24 weeks gestation of ([facility]); Diabetes mellitus ptkldlrop58/08/2025amboo flowsheet [facility] [address] [place] [address] Aliza Kc NP from Last 3 Months Family History Medical HistoryRelationNameCommentshigh blood pressureFatherPolycystic ovary syndromeMotherhigh blood pressurePaternal GrandfatherRelationNameStatusComments FatherMotherOtherAlivePaternal GrandfatherAlive Social History Tobacco UseTypesPacks/DayYears UsedDateSmoking Tobacco: NeverSmokeless Tobacco: Never Tobacco Cessation:Counseling Given: Not Answered Social Connection and Isolation PanelAnswerDate RecordedIn a typical week, how many times do you talk on the phone with family, friends, or neighbors?More than three times a week09/19/2023How often do you get together with friends or relatives?Once a week09/19/2023How often do you attend jew or jew services?Never09/19/2023o you belong to any clubs or organizations such as jew groups, unions, fraternal or athletic groups, or school groups?No 09/19/2023How often do you attend meetings of the clubs or organizations you belong to?Never09/19/2023re you , , , , never , or living with a partner?Fcdkrnx3809/19/2023UDIT-CAnswerDate RecordedQ1: How often do you have a [...] housing, medical care, and heating?Not hard at all09/19/2023[facility] [place] [facility] Occup[facility] Health - Occupational Stress QuestionnaireAnswerDate [...] steady place to sleep or slept in [facility] (including now)?No09/19/2023Estimated Date of Delivery AbuojkhwSkj20/29/2025Based on last menstrual period of 09/16/2024Sex and Gender InformationValueDate RecordedSex Assigned at BirthNot on fileLegal SexFemale 12/20/2022 10:00 AM EDTGender IdentityNot on fileSexual OrientationNot on file Last Filed Vital Signs Vital SignReadingTime TakenCommentsBlood Dfkrvrud961/7012 10:44 AM EST Lkbtb43555/05/2025 1:18 PM UUCFmiilebjotm78.6 ??C (97.8 ??F)11/28/2024 1:18 PM EDTRespiratory Ydra094411/28/2024 1:18 PM EDTOxygen Jccebwviqc81%11/28/2024 1:18 PM EDTInhaled Oxygen Concentration--Jrpnvy81.6 kg (195 lb 6.4 oz)05/27/2025 10:44 AM DMRHudtdg619.6 cm (5' 6 )11/28/2024 1:18 PM EDTBody Mass Index31.54 11/28/2024 1:18 PM EDT Plan of Treatment DateTypeDepartmentCare Team (Latest Contact Info)Zixtqbouztq94/10/2025 1:50 PM ESTRoutine [facility] [address] [place] [address] Oleksandr Phelan, [address] [place] [address] Health MaintenanceDue DateLast DoneCommentsCOVID-19 Vaccine ( season) /01/2021, 10/25/2020Influenza Vaccine (#1)/11/2023 Cervical Cancer Rnbviuble08/10/2030HPV/Frqxiy0001/02/2030Pap Smear01/02/2030 01/02/2025Pneumococcal Vaccine: Pediatrics (0 to 5 Years) and At-Risk Patients (6 to 64 Years)Aged OutNo longer eligible based on patient's age to complete this topic Procedures Procedure NamePriorityDate/TimeAssociated DiagnosisCommentsPOCT URINALYSIS OPXCXDBPCyorvge05/02/2025 10:53 AM EST 36 weeks gestation of ([facility]) Third trimester ([facility]) POCT URINALYSIS ETPYKJUYNubgdni57/18/2025 1:58 PM EST 34 weeks gestation of ([facility]) POCT URINALYSIS JYFOPLCNOzszwbb84/05/2025 2:35 PM EST 32 weeks gestation of ([facility]) OB FOLLOW UP TRANSABDOMINAL HIDONPPWJpxpybu80/05/2025 1:58 PM EST size inconsistent with dates ([facility]) POCT URINALYSIS RSCCKKFEJgrgask19/22/2025 9:56 AM EDT Third trimester ([facility]) POCT URINALYSIS YBUJTGHYVykulgx76/07/2025 11:12 AM EDT Third trimester ([facility]) ALL CBC WITH AUTO ZWCJYxhitvg75/22/2025 1:15 PM EDT GLUCOSE 1 HZKFGtbsnty85/22/2025 1:15 PM EDT POCT URINALYSIS UEWIOAUVSsyfhny67/08/2025 10:02 AM EDT Second trimester ([facility]) PAP QCVGNAvcrupz91/10/2025 12:00 AM EDTfrom Last 3 Months or Most Recently Relevant to Health Maintenance Results * (ABNORMAL) POCT urinalysis dipstick manually resulted (05/27/2025 10:53 AM EST) Only the most recent of6 resultswithin the time period is included. ComponentValueRef RangeTest MethodAnalysis TimePerformed AtPathologist Signature Color, UAStrawClarity, UAClearGlucose, UANegativeNegative - 2000(110) ++++ mg/dL Bilirubin, UANegativeNegative - 4(70) +++ mg/dLKetones, UANegativeNegative - 160(16) ++++ mg/dLSpec Grav, UA1.0151 - 1.03Blood, UANegativeNegative - 50 Curtis/mcLpH, UA6.55 - 9Protein, UA1+Negative - 2000(20) ++++ mg/dLUrobilinogen, UA 1.00.2 - 12 mg/dLLeukocytes, UA1+Negative - 500+++ Ramos/mcLNitrite, UANegative Negative - PositiveSpecimen (Source)Anatomical Location / LateralityCollection Method / VolumeCollection TimeReceived DznnIspyf60/02/2025 10:53 AM EST Narrative Authorizing ProviderResult TypeResult StatusCorey Tapan DOPOINT OF CARE TEST ENTER/EDIT ORDERABLESFinal Result * US OB follow up transabdominal approach (04/30/2025 1:58 PM EST)Anatomical RegionLateralityModalityBodyUltrasoundSpecimen (Source)Anatomical Location / LateralityCollection Method / VolumeCollection TimeReceived Time04/30/2025 2:27 PM EST Impressions 05/01/2025 7:58 AM EST 1. Single, live intrauterine , current sonographic age of 32 weeks and 4 days, with an estimated date of delivery of June 21, 2025. 2.Comparison made with the prior examination of February 03, 2025 delivery at that time was June 22, 2025. 3. Breech 4. 68.0% weight by percentile. * ??Estimated Weight (g) by Percentile is based upon an accurate estimated age based onlast menstrual period. ?? TRANSCRIBED BY: ? ELECTRONICALLY SIGNED BY: Elieser Camacho MD Narrative 05/01/2025 7:58 AM EST FINDINGS: A single, live intrauterine is present with normal cardiac rate of 132 ??beats per minute. Normal activity and amniotic fluid volume. Amniotic fluid index is ??14 cm. ??Morphology is grossly normal. The current sonographic age is 32 weeks and 4 days, based on the following measurements: BPD ? 8.1 cm ( 32 weeks,3 ??days) Head Circumference ? 30.7cm (34 weeks, 1 days) Abdominal Circumference ?29.7cm ( 33weeks, 5 days) Femur Length ?6.2 ??cm (32 weeks,0 ??days) Presentation ? Breech ? Weight (g) by Percentile ??68.0 % * These measurements result in an estimated date of delivery of June 21, 2025 ?The current estimated weight is 2131 ?? grams ( 4 pound, 11 ??ounces). ?? Procedure Note Elieser Camacho MD - 05/01/2025 FINDINGS: A single, live intrauterine is present with normal cardiacrate of 132 beats per minute. Normal activity and amniotic fluidvolume. Amniotic fluid index is 14 cm. Morphology is grossly normal. Thecurrent sonographic age is 32 weeks and 4 days, based on the followingmeasurements: BPD 8.1 cm ( 32 weeks,3 days) Head Circumference 30.7cm (34 weeks, 1 days) Abdominal Circumference 29.7cm ( 33weeks, 5 days) Femur Length 6.2 cm (32 weeks,0 days) Presentation Breech Weight (g) by Percentile 68.0 % * These measurements result in an estimated date of delivery of May The current estimated weight is 2131 grams ( 4 pound, 11ounces). IMPRESSION: 1. Single, live intrauterine , current sonographic age of 32weeks and 4 days, with an estimated date of delivery of May. 2.Comparison made with the prior examination of February 03, 2025 deliveryat that time was June 22, 2025. 3. Breech 4. 68.0% weight by percentile. * Estimated Weight (g) by Percentile is based upon an accurateestimated age based on last menstrual period. TRANSCRIBED BY: ELECTRONICALLY SIGNED BY: Elieser Camacho MD Authorizing ProviderResult TypeResult StatusAliza Kc NPIMG OB US PROCEDURESFinal Result * GLUCOSE 1 HOUR (03/17/2025 1:15 PM EDT)ComponentValueRef RangeTest Method Analysis TimePerformed AtPathologist SignatureGLUCOSE 1 FXZG910<130 mg/dLTBH Specimen (Source)Anatomical Location / LateralityCollection Method / Volume Collection TimeReceived Time03/17/2025 1:15 PM EDT03/17/2025 1:16 PM EDT Narrative [facility] - 03/17/2025 1:46 PM EDT Authorizing ProviderResult TypeResult StatusAliza Kc NPLAB BLOOD ORDERABLESFinal ResultPerforming OrganizationAddressCity/State/ZIP CodePhone Number [facility] * (ABNORMAL) ALL CBC WITH AUTO DIFF (03/17/2025 1:15 PM EDT)ComponentValueRef RangeTest MethodAnalysis TimePerformed AtPathologist SignatureTBH WBC11.5(H) 4.0 - 11.0 10 3/uLTBHTBH RBC3.80(L)4.20 - 5.40 10 6/uLTBHTBH HGB12.612.0 - 16.0 g/dLTBHTBH HCT37.036.0 - 48.0 %TBHTBH MCV97.481.0 - 99.0 fLTBHTBH MCH33.2 26.7 - 34.0 pgTBHTBH MCHC34.129.9 - 35.2 g/dLTBHTBH RDW12.511.0 - 15.0 %TBHTBH VHK684472 - 450 10 3/uLTBHTBH MPV10.79.5 - 13.5 fLTBHNEUTROPHILS PERCENT AUTO 72.743.0 - 75.0 %TBHLYMPHOCYTES PERCENT AUTO16.4(L)20.5 - 60.0 %TBHMONOCYTES PERCENT AUTO7.31.7 - 12.0 %TBHTBH EO %0.8(L)0.9 - 7.0 %TBHBASOPHILS PERCENT AUTO0.50.2 - 2.0 %TBHIMMATURE GRANULOCYTES PCT AUTO2.3(H)0.0 - 0.5 %TBH NEUTROPHILS ABSOLUTE AUTO8.3(H)1.4 - 6.5 10 3/uLTBHLYMPHOCYTES ABSOLUTE AUTO 1.91.2 - 3.8 10 3/uLTBHMONOCYTES ABSOLUTE AUTO0.80.3 - 0.8 10 3/uLTBHTBH EO # 0.10.0 - 0.7 10 3/uLTBHBASOPHILS ABSOLUTE AUTO0.10.0 - 0.1 10 3/uLTBHIMMATURE GRANULOCYTES ABS AUTO0.26(H)0.00 - 0.03 10 3/uLTBHSpecimen (Source)Anatomical Location / LateralityCollection Method / VolumeCollection TimeReceived Time 03/17/2025 1:15 PM EDT03/17/2025 1:16 PM EDT Narrative [facility] - 03/17/2025 1:57 PM EDT Authorizing ProviderResult TypeResult StatusKrjaroda De NPCLINISYNCFinal ResultPerforming OrganizationAddressCity/State/ZIP CodePhone Number CLINIS[facility]NC [facility] * Pap Smear (01/02/2025 12:00 AM EDT)Specimen (Source)Anatomical Location / LateralityCollection Method / VolumeCollection TimeReceived TimeSwabCervical swab / Unknown Narrative Authorizing ProviderResult TypeResult StatusCorey Tapan DOLAB CYTOLOGY ORDERABLESFinal ResultPerforming OrganizationAddressCity/State/ZIP CodePhone Number EXTERNAL LAB from Last 3 Months or Most Recently Relevant to Health Maintenance Insurance [facility] Address: [id number] [place] [address] Care Teams Team MemberRelationshipSpecialtyStart DateEnd Date Skyler Webb MD [address] [place] [address] PCP - GeneralFamily Medicine09/26/23
--- OUTSIDE RECORDS SUMMARY | 2025-05-27 15:04 | XMS_ITS | Encounter Summary ---
Author Organization [facility] Address [address] [place] [address] Care Team Providers Care Manager Technical Services Name Role Phone Skyler Webb MD Primary Care Provider [phone] Encounter Details DateTypeDepartmentCare Team (Latest Contact Info)Bnqzuazartr78/02/2025amboo flowsheet [facility] [address] [place] [address] Oleksandr Phelan DO [address] [place] [address] Social History Tobacco UseTypesPacks/DayYears UsedDateSmoking Tobacco: NeverSmokeless Tobacco: NeverSocial Connection and Isolation PanelAnswerDate RecordedIn a typical week, how many times do you talk on the phone with family, friends, or neighbors?More than three times a week09/19/2023How often do you get together with friends or relatives?Once a week09/19/2023How often do you attend mu-ism or adventism services?Never4Do you belong to any clubs or organizations such as mu-ism groups, unions, fraternal or athletic groups, or school groups?No 09/19/2023How often do you attend meetings of the clubs or organizations you belong to?Never09/19/2023re you , , , , never , or living with a partner?Rcbzabv6109/19/2023UDIT-CAnswerDate RecordedQ1: How often do you have a [...] housing, medical care, and heating?Not hard at all09/19/2023[facility] [place] of Occupational Health - Occupational Stress QuestionnaireAnswerDate [...] in ashelter (including now)?No09/19/2023Estimated Date of Delivery KtcqacxeQjv43/5Based on last menstrual period of 09/16/2024Sex and Gender InformationValueDate RecordedSex Assigned at BirthNot on fileLegal SexFemale 12/20/2022 10:00 AM EDTGender IdentityNot on fileSexual OrientationNot on file documented as of this encounter Plan of Treatment DateTypeDepartmentCare Team (Latest Contact Info)Yodxmyczgxz41/10/2025 1:50 PM ESTRoutine [facility] [address] [facility] [address] [place] [address] Oleksandr Phelan DO [address] [place] [address] documented as of this encounter Visit Diagnoses Not on filedocumented in this encounter Care Teams Team MemberRelationshipSpecialtyStart DateEnd Date Skyler Webb MD [address] [place] [address] PCP - GeneralFamily Medicine09/26/23documented as of this encounter
--- OUTSIDE RECORDS SUMMARY | 2025-05-27 15:16 | XMS_ITS | CCD ---
Author Organization [facility] CliniSyaz Care Team Providers Care Integration Manager Name Role Phone WEST, DR QUINN Mortensen [...] Angelia Teixeira Unavailable JAH Antunez Attending Provider [phone] Mirtha Antunez Unavailable Mirtha Antunez Attending Unavailable Mirtha Antunez Admitting Unavailable NON STAFF Primary Care Unavailable Skyler Puente MD Primary Care Provider [phone] Skyler Puente MD Primary Care Provider SKYLER PUENTE Attending Unavailable SKYLER PUENTE Attending Unavailable OLEKSANDR PHELAN Attending Unavailable MARIAM FAJARDO Attending Unavailable MARIAM FAJARDO Referring Unavailable OLEKSANDR PHELAN Attending Unavailable NIURKA KC Attending Unavailable NIURKA KC Attending Unavailable NIURKA KC Attending Unavailable NIURKA KC Referring Unavailable OLEKSANDR PHELAN Attending Unavailable SKYLER PUENTE Attending Unavailable Allergies Allergy ClassificationReported Allergen(s)Allergy TypeDate of OnsetReaction(s) Facility (20 sources)Lactose (non-medical use)Propensity to adverse whttftymb02-04-3230 UnknownNOMS Healthcare Medications Current Medications MedicationDrug Class(es)DatesSig (Normalized)Sig (Original)aspirin 81 mg delayed release oral tablet (19 sources)Platelet Aggregation Inhibitor, Nonsteroidal Anti-inflammatory Drug take 1 tablet by mouth once dailyaspirin 81 MG EC tablet Take 81 mg by mouth Daily Activeatovaquone 250 mg / proguanil hydrochloride 100 mg oral tablet (3 sources)Antimalarial, AntiprotozoalStart: 01-26-2024 End: 37-29-9536lufo 1 tablet by mouth once dailyatovaquone-proguanil (Malarone) 250-100 MG tablet Indications: Need for malaria prophylaxis Take 1 tablet by mouth Daily Start 2 days prior to travel and continue for 7 days after returning home. 20 tablet 01/26/2024 03/28/2024 Ldwwgmfwgpme81 hr buPROPion hydrochloride 150 mg extended release oral tablet (12 sources)AminoketoneStart: 02-27-2024 End: 55-90-7611rsnp 1 tablet by mouth once dailybuPROPion XL (Wellbutrin XL) 150 MG 24 hr tablet Indications: Major depressive disorder, recurrent episode, mild (HCC) (CMS/HCC) TAKE 1 TABLET BY MOUTH DAILY DO NOT CRUSH, CHEW, OR SPLIT 30 tablet 3 02/27/2024 08/14/2024 DiscontinuedStart: 36-78-9034Iacpuhcpj Hcl Active MG PO January 11, 2024 12:00amInulin (20 sources)take 1 tablet by mouth once dailyInulin (FIBER CHOICE PO) Take 1 tablet by mouth Daily Activeloratadine 10 mg oral tablet (11 sources)Start: 03-26-2024 End: 58-38-3827pvekhcoawg (Claritin) 10 MG tablet 03/26/2024 11/28/2024 Discontinuednaproxen sodium 550 mg oral tablet (1 source)Nonsteroidal Anti-inflammatory DrugStart: 86-53-1485ksmp 1 tablet by mouth every twelve hoursNaproxen Sodium 550 MG 1 cap(s) Orally every 12 hrs for 10 days for wrist pain and swelling ActivePrenatal MV-Min-Fe Fum-FA-DHA ( 1 PO) (20 sources) MV-Min-Fe Fum-FA-DHA ( 1 PO) Take 1 tablet by mouth Daily Activesertraline 50 mg oral tablet (20 sources)Serotonin Reuptake InhibitorStart: 08-14-2024 End: 58-59-5045uelm 1 tablet by mouth once dailysertraline (Zoloft) 50 MG tablet Indications: Major depressive disorder, recurrent episode, mild Take 1 tablet (50 mg) by mouth Daily 90 tablet 3 11/28/2024 ActiveSertraline HCl 50 MG 1.5 tablet Oral for 30 days ActiveWrist Splint/Right XL - (1 source)Start: 66-75-9148Xjkwh Splint/Right XL - as directed Dec, Active Completed/Discontinued Medications MedicationDrug Class(es)DatesSig (Normalized)Sig (Original)brompheniramine maleate 0.4 mg/ml / dextromethorphan hydrobromide 2 mg/ml / pseudoephedrine hydrochloride 6 mg/ml oral solution (2 sources)alpha-Adrenergic Agonist, Uncompetitive N-qewxid-A-aspartate Receptor Antagonist, Sigma-1 AgonistStart: 44-11-2631ktxe 10 mL by mouth every six hours Soeclycix-Roizelqf-YL 30-2-10 MG/5ML 10 mL Orally every 6 hours for 5 days Sep, Not-TakingFLUoxetine (2 sources)Serotonin Reuptake InhibitorFluoxetine Not-TakingFluoxetine Active ondansetron 4 mg disintegrating oral tablet (2 sources)Serotonin-3 Receptor AntagonistStart: 02-94-5104wiic 1 tablet by mouth every eight hoursOndansetron 4 MG 1 tablet on the tongue and allow to dissolve Orally every 8 hours for 5 days Sep, Not-Takingphentermine hydrochloride 37.5 mg oral tablet (11 sources)Sympathomimetic Amine AnorecticStart: 01-26-2024 End: 53-06-7049pcml 1 tablet by mouth before mealtimephentermine (Adipex-P) 37.5 MG tablet Indications: Obesity (BMI 30-39.9) Take 1 tablet (37.5 mg) bymouth in the morning. Take before meals. 30 tablet 05/07/2024 05/28/2024 Discontinued Start: 90-18-6665tfkb 37.5 mg by mouth once dailyPhentermine Active 37.5 MG PO Daily January 11, 2024 12:00am Problems Active Problems Problem ClassificationProblemDateDocumented DateEpisodic/ChronicAnxiety disorders (20 sources)Generalized anxiety disorder; Translations: [Generalized anxiety disorder]Onset: 701684-30-7488EwrugecLqvwdtk dysrhythmias (4 sources)Palpitations; Translations: [PALPITATIONS]Onset: 27-65-1964Gfbonmwv Immunizations and screening for infectious disease (2 sources)Exposure to sexually transmissible disorder; Translations: [Contact with and (suspected) exposure to infections with a predominantly sexual mode of transmission]83-01-5021BnseekmrNskuphplz disorders (1 source)Missed period; Translations: [Irregular menstruation, unspecified] 18-41-0064WbbgdfoRjgo disorders (20 sources)Recurrent major depressive episodes, mild ; Translations: [Major depressive disorder, recurrent, mild]Onset: hronic Nutritional deficiencies (20 sources)Vitamin D deficiency; Translations: [Vitamin D deficiency, unspecified]Onset: 214493-34-3779StzkwqePajxy complications of (2 sources) size does not accord with dates; Translations: [Uterine size- date discrepancy, unspecified trimester]25-97-7304CdxhktbnWqxom female genital disorders (2 sources)Vaginal discharge; Translations: [Other specified noninflammatory disorders of vagina]77-47-4570BevnhzovSggjw nervous system disorders (1 source)Carpal tunnel syndrome of right wrist; Translations: [Carpal tunnel syndrome, right upper limb]ChronicOther nervous system disorders (1 source)Carpal tunnel syndrome, right upper limbChronicOther non-traumatic joint disorders (1 source)Pain in right wristEpisodicOther nutritional; endocrine; and metabolic disorders (5 sources)Body mass index 30+ - obesity; Translations: [Obesity, unspecified] Onset: 508197-33-8349BvvyvxgBunxf and delivery including normal (16 sources); Translations: [Encounter for supervision of normal , unspecified, unspecified trimester]86-18-3860NuoeyadpUpkam upper respiratory disease (1 source)Nasal congestionEpisodicResidual codes; unclassified (2 sources)Gestation period, 11 weeks; Translations: [11 weeks gestation of ]91-50-8648LuinjbgvGvnepuiv codes; unclassified (2 sources)Gestation period, 15 weeks; Translations: [15 weeks gestation of ]32-40-0925MwvrdjjcRanvnvsf codes; unclassified (2 sources)Gestation period, 20 weeks; Translations: [20 weeks gestation of ]11-83-0886CupqwuodHkomahip codes; unclassified (2 sources)Gestation period, 24 weeks; Translations: [24 weeks gestation of ]59-19-2589LynizmquOakphowy codes; unclassified (2 sources)Gestation period, 28 weeks; Translations: [28 weeks gestation of ]19-55-2518SzzpzshxSgtkvyqw codes; unclassified (2 sources)Gestation period, 30 weeks; Translations: [30 weeks gestation of ]88-31-6720DhcmoyigBoziqwel codes; unclassified (2 sources)Gestation period, 32 weeks; Translations: [32 weeks gestation of ]29-46-9564NaactekrQurocwfbkeht (1 source)Pain in right wrist; Translations: [Pain in right wrist]Onset: 01-04-2023 Past or Other Problems Problem ClassificationProblemDateDocumented DateEpisodic/ChronicContraceptive and procreative management (20 sources)Patient encounter status; Translations: [Encounter for other general counseling and advice on contraception]Onset: 08-14-2024 Resolved: 205528-12-0722VfzkvqhxZ Codes: Fall (1 source)Fall on same level from slipping, tripping and stumbling without subsequent striking against object, initial encounter; Translations: [FALL SAME LVL SLIP NO STRK OBJ INIT]Onset: 37-07-1873TketgofySspom injuries and conditions due to external causes (3 sources)Unspecified injury of thorax, initial encounter; Translations: [UNSPECIFIED INJURY THORAX INITIAL]Onset: 53-55-6325IrxnbrsdTjlzz nutritional; endocrine; and metabolic disorders (20 sources)Body mass index 25-29 - overweight; Translations: [Overweight]Onset: 755730-78-7548KvnrgnmeDnxkcnes codes; unclassified (20 sources)Prevention status; Translations: [Need for malaria prophylaxis] Onset: 01-26-2024 Resolved: 110602-35-7925NyjweetpIhyxjqao codes; unclassified (20 sources)Gestation period, 10 weeks; Translations: [10 weeks gestation of ]Onset: 516581-47-9977DoynqewuMuwlegvofky injury; contusion (1 source)Contusion of unspecified front wall of thorax, initial encounter; Translations: [CONTUS UNS FRONT WALL THORAX INIT]Onset: 48-63-3677OhtczusjGahao infection (1 source)COVID-19 Results Test NameValueInterpretationReference RangeFacilityUS OB FOLLOW UP TRANSABDOMINAL APPROACHon 75-77-7579SK OB FOLLOW UP TRANSABDOMINAL APPROACH FINDINGS: A single, live intrauterine is present with normal cardiac rate of 132 beats per minute. Normal activity and amniotic fluid volume. Amniotic fluid index is 14 cm. Morphology is grossly normal. The current sonographic age is 32 weeks and 4 days, based on the following measurements: BPD 8.1 cm ( 32 weeks,3 days) Head Circumference 30.7cm (34 weeks, 1 days) Abdominal Circumference 29.7cm ( 33weeks, 5 days) Femur Length 6.2 cm (32 weeks,0 days) Presentation Breech Weight (g) by Percentile 68.0 % * These measurements result in an estimated date of delivery of June 21, 2025 The current estimated weight is 2131 grams ( 4 pound, 11 ounces). IMPRESSION: 1. Single, live intrauterine , current [...] menstrual period. TRANSCRIBED BY: ELECTRONICALLY SIGNED BY: Pastor RevelesNot AvailableComment on above:Order Comment: US OB SCAN FOR GROWTH Estimated Date of Delivery: 06/23/25 Gestational Age as of 04/16/2025: 06j5uRcpdmpaxod macro (dipstick) panel (U)on 99-58-8068Nrrmanvxr, UANegativeNegative - 4(70) +++ mg/dLNOMS HealthcareBlood, UANegativeNegative - 50 Curtis/mcLNOMS HealthcareClarity, UAClearNOMS Healthcare Color, UAYellowNOMS HealthcareGlucose, UANegativeNegative - 1999(110) ++++ mg/dL NOMS HealthcareInterpretation and review of laboratory resultsNormalNOMS HealthcareKetones, UANegativeNegative - 160(16) ++++ mg/dLNOMS Healthcare Leukocytes, UANegativeNegative - 500+++ Ramos/mcLNOMS HealthcareNitrite, UA NegativeNegative - PositiveNOMS HealthcarepH, UA6.05 - 9NOMS HealthcareProtein, UANegativeNegative - 1999(20) ++++ mg/dLNOMS HealthcareSpec Grav, UA1.0101 - 1.03NOMS HealthcareUrobilinogen, UA1.00.2 - 12 mg/dLNOMS HealthcareNOMS HealthcareUrinalysis macro (dipstick) panel (U)on 31-92-4026Xumlothts, UA NegativeNegative - 4(70) +++ mg/dLNOMS HealthcareBlood, UANegativeNegative - 50 Curtis/mcLNOMS HealthcareClarity, UACloudyNOMS HealthcareColor, UAYellowNOMS HealthcareGlucose, UANegativeNegative - 1999(110) ++++ mg/dLNOMS Healthcare Interpretation and review of laboratory resultsAbnormalNOMS HealthcareKetones, UANegativeNegative - 160(16) ++++ mg/dLNOMS HealthcareLeukocytes, UA3+Negative - 500+++ Ramos/mcLNOMS HealthcareNitrite, UANegativeNegative - PositiveNOMS HealthcarepH, UA6.55 - 9NOMS HealthcareProtein, UANegativeNegative - 1999(20) ++++ mg/dLNOMS HealthcareSpec Grav, UA1.0101 - 1.03NOMS HealthcareUrobilinogen, UA1.00.2 - 12 mg/dLNOMS HealthcareNOMS HealthcareUrinalysis macro (dipstick) panel (U)on 67-64-9428Fkgdtdfdl, UANegativeNegative - 4(70) +++ mg/dLNOMS HealthcareBlood, UANegativeNegative - 50 Curtis/mcLNOMS HealthcareClarity, UAClear NOMS HealthcareColor, UAYellowNOMS HealthcareGlucose, UANegativeNegative - 2000(110) ++++ mg/dLNOMS HealthcareInterpretation and review of laboratory resultsNormalNOMS HealthcareKetones, UANegativeNegative - 160(16) ++++ mg/dLNOMS HealthcareLeukocytes, UANegativeNegative - 500+++ Ramos/mcLNOMS HealthcareNitrite, UANegativeNegative - PositiveNOMS HealthcarepH, UA65 - 9NOMS HealthcareProtein, UANegativeNegative - 2000(20) ++++ mg/dLNOMS HealthcareSpec Grav, UA1.0151 - 1.03NOMS HealthcareUrobilinogen, UA0.20.2 - 12 mg/dLNOMS HealthcareNOMS HealthcareGLUCOSE 1 HOURon 46-12-5368Szdqdhh [Mass/Vol]121 mg/dLNINF - 130 mg/dL NOMS HealthcareCLINISYNCNOMS HealthcareUrinalysis macro (dipstick) panel (U)on 00-42-0972Dqhhpaune, UANegativeNegative - 4(70) +++ mg/dLNOMS HealthcareBlood, UANegativeNegative - 50 Curtis/mcLNOMS HealthcareClarity, UAClearNOMS Healthcare Color, UAAmberNOMS HealthcareGlucose, UANegativeNegative - 2000(110) ++++ mg/dL NOMS HealthcareInterpretation and review of laboratory resultsNormalNOMS HealthcareKetones, UANegativeNegative - 160(16) ++++ mg/dLNOMS Healthcare Leukocytes, UANegativeNegative - 500+++ Ramos/mcLNOMS HealthcareNitrite, UA NegativeNegative - PositiveNOMS HealthcarepH, UA6.55 - 9NOMS HealthcareProtein, UANegativeNegative - 2000(20) ++++ mg/dLNOMS HealthcareSpec Grav, UA1.0151 - 1.03NOMS HealthcareUrobilinogen, UA1.00.2 - 12 mg/dLNOMS HealthcareNOMS HealthcareALL LEADon 21-96-2060ZKIK, BLOOD (ADULT)<1.00.0 - 3.4 ug/dLNOMS HealthcareComment on above:Testing performed by Inductively coupled plasma/Mass Spectrometry. Analysis by inductively coupled plasma/mass spectrometry (ICP/MS) This test was developed and its performance characteristics determined by [employer]. It has not been cleared or approved by the Food and Drug Administration. Environmental Exposure: WHO Recommendation <5.0 Occupational Exposure: OSHA Lead Std 40.0 TINO 30.0 Detection Limit = 1.0 Performed at: [address] [id number] [employer] Photo Operator: Alfred Selby PhD, Phone: [phone] Initial Venous No White/ CLINISYNCNOMS HealthcareUrinalysis macro (dipstick) panel (U)on 02-03-2025 Bilirubin, UANegativeNegative - 4(70) +++ mg/dLNOMS HealthcareBlood, UANegative Negative - 50 Curtis/mcLNOMS HealthcareClarity, UAClearNOMS HealthcareColor, UA YellowNOMS HealthcareGlucose, UANegativeNegative - 2000(110) ++++ mg/dLNOMS HealthcareInterpretation and review of laboratory resultsNormalNOMS Healthcare Ketones, UANegativeNegative - 160(16) ++++ mg/dLNOMS HealthcareLeukocytes, UA NegativeNegative - 500+++ Ramos/mcLNOMS HealthcareNitrite, UANegativeNegative - PositiveNOMS HealthcarepH, UA6.55 - 9NOMS HealthcareProtein, UANegativeNegative - 2000(20) ++++ mg/dLNOMS HealthcareSpec Grav, UA1.0151 - 1.03N[facility] Healthcare Urobilinogen, UA0.20.2 - 12 mg/dLNOMS HealthcareNOMS HealthcareIGP,APTIMA HPV,AGE GDLNon 73-76-8413WBZ GDLN ACOG TESTINGNote.NOMS HealthcareComment on above:TESTS RESULT FLAG UNITS REF RANGE LAB Clinician Provided Cytology Information Source.............Vagina Other.............. No. of containers..01 ThinPrep Vial Age Algo ACOG Mariah... 29- FLAG LEGEND: L-Low Normal,H-High Normal,LL-Alert Low,HH-Alert High <-Panic Low,>-Panic High,A-Abnormal,AA-Critical Abnormal Performed at: 01 =[address] [address] Chloe Valdes MD, HPV APTIMANegativeNegativeNOMS HealthcareComment on above:This nucleic acid amplification test detects fourteen high- risk HPV types (16,18,31,33,35,39,45,51,52,56,58,59,66,68) without differentiation. Performed at: =[address] [id number] [employer] Operator: Chloe Valdes MD, Phone: [phone] Performed at: [address] [id number] [employer] Operator: Chloe Valdes MD, Phone: [phone] IGP, APTIMA HPV, RFX 16/18,45Note.NOMS HealthcareComment on above:TESTS RESULT FLAG UNITS REF RANGE LAB DIAGNOSIS: 02 NEGATIVE FOR INTRAEPITHELIAL LESION OR MALIGNANCY. Specimen adequacy: 02 Satisfactory for evaluation. No endocervical component is identified. An endocervical component is not commonly seen in the patient. Performed by: 02 [employer] ([facility]) . 02 Note: Note 02 The [...] <-Panic Low,>-Panic High,A-Abnormal,AA-Critical Abnormal Performed at: [address] [address] Chloe Valdes MD, SPATULA-ALONE VAGINA CLINISYNCNOMS HealthcareRECURRENT VAGINITIS (HTRX)on 27-94-4992KWJQJUYEU VAGINAE 0NOMS HealthcareATOPOBIUM VAGINAENot detectedNOMS HealthcareBVAB 2,3 (BACTERIAL VAGINOSIS ASSOCIATED BACTERIA 2, 3); MOBILUNCUS HAX3FTRR HealthcareBVAB 2,3 (BACTERIAL VAGINOSIS ASSOCIATED BACTERIA 2, 3); MOBILUNCUS SPPNot detectedNOMS HealthcareCANDIDA ALBICANS, PARAPSILOSIS, [id number] HealthcareCANDIDA ALBICANS, PARAPSILOSIS, TROPICALISNot detectedNOMS HealthcareCANDIDA GLABRATA0 NOMS HealthcareCANDIDA GLABRATANot detectedNOMS HealthcareCANDIDA NPZVSO2BVCE HealthcareCANDIDA KRUSEINot detectedNOMS HealthcareCHLAMYDIA UZLBUQSGATV5FAUS HealthcareCHLAMYDIA TRACHOMATISNot detectedNOMS HealthcareGARDNERELLA VAGINALIS0 NOMS HealthcareGARDNERELLA VAGINALISNot detectedNOMS HealthcareMEGASPHAERA (TYPES 1, 2)0NOMS HealthcareMEGASPHAERA (TYPES 1, 2)Not detectedNOMS Healthcare MYCOPLASMA [id number] HealthcareMYCOPLASMA GENITALIUMNot detectedNOMS HealthcareNEISSERIA ASVUUFPMMQR9CMZV HealthcareNEISSERIA GONORRHOEAENot detected NOMS HealthcareTRICHOMONAS PIZAYPDKR4ZXEZ HealthcareTRICHOMONAS VAGINALISNot detectedNOMS HealthcareNOMS HealthcareUS OB 14+ WEEKS ANATOMY SCANon 01-02-2025 US OB 14+ WEEKS ANATOMY SCANFINDINGS: Comparison made with prior examination of November 22, 2024. A single, live intrauterine is present with normal cardiac rate of 151 beats per minute. Normal activity and amniotic fluid volume. Amniotic fluid index is cm. Morphology is grossly normal. The placenta is posterior, inferior margin 4.8 cm from the closed internal cervical os.(5.0 cm length). The current sonographic age is [...] menstrual period. TRANSCRIBED BY: ELECTRONICALLY SIGNED BY: Juanjo Reveles AvailableComment on above:Order Comment: US OB ANATOMY SINGLE W US OB CERVICAL LENGTH Estimated Date of Delivery: 06/23/25 Gestational Age as of 01/02/2025: 58x2qUrarribhpb macro (dipstick) panel (U)on 95-91-9646Citaurcut, UANegativeNegative - 4(70) +++ mg/dLNOMS HealthcareBlood, UANegativeNegative - 50 Curtis/mcLNOMS HealthcareClarity, UAClearNOMS Healthcare Color, UAYellowNOMS HealthcareGlucose, UANegativeNegative - 2000(110) ++++ mg/dL NOMS HealthcareInterpretation and review of laboratory resultsNormalNOMS HealthcareKetones, UANegativeNegative - 160(16) ++++ mg/dLNOMS Healthcare Leukocytes, UANegativeNegative - 500+++ Ramos/mcLNOMS HealthcareNitrite, UA NegativeNegative - PositiveNOMS HealthcarepH, UA65 - 9NOMS HealthcareProtein, UA NegativeNegative - 2000(20) ++++ mg/dLNOMS HealthcareSpec Grav, UA1.021 - 1.03 NOMS HealthcareUrobilinogen, UA1.00.2 - 12 mg/dLNOMS HealthcareNOMS Healthcare Urinalysis macro (dipstick) panel (U)on 76-12-4696Youlowkos, UANegativeNegative - 4(70) +++ mg/dLNOMS HealthcareBlood, UANegativeNegative - 50 Curtis/mcLNOMS HealthcareClarity, UAClearNOMS HealthcareColor, UAYellowNOMS HealthcareGlucose, UANegativeNegative - 2000(110) ++++ mg/dLNOMS HealthcareInterpretation and review of laboratory resultsAbnormalNOMS HealthcareKetones, UANegativeNegative - 160(16) ++++ mg/dLNOMS HealthcareLeukocytes, UANegativeNegative - 500+++ Ramos/mcLNOMS HealthcareNitrite, UANegativeNegative - PositiveNOMS HealthcarepH, UA65 - 9NOMS HealthcareProtein, UANegativeNegative - 2000(20) ++++ mg/dLNOMS HealthcareSpec Grav, UA1.0251 - 1.03NOMS HealthcareUrobilinogen, UA1.00.2 - 12 mg/dLNOMS HealthcareNOMS HealthcareBOX TESTon 96-95-0387AKS TEST SENT OUTUNITY NOMS HwrvuqfythXQB0JTLJFUXSJ LwxfixdfcxCPO82/09/17NOMS HealthcareUNITY BOX CLINISYNCNOMS HealthcareUS OB TRANSVAGINALon 47-41-8884YW OB TRANSVAGINALEXAM: US OB TRANSVAGINAL HISTORY: Dating. COMPARISON: Ob [...] II, MD, PHD at 25-Nov-2024 10:22:19 AM [facility] TeleradiologyNormalNot AvailableComment on above:Order Comment: US OB VIABILITY PLEASE PERFORM TRANSVAGINAL ULTRASOUND IF INDICATED Patient's last menstrual period was 09/16/2024.HCG ( test) Ql (U)on 50-94-2812Jxsjmeshbzqkve and review of laboratory resultsAbnormACMH Hospital Preg Test, UrPositiveNegativeNOPhelps HealthNONY HealthcareUS OB TRANSVAGINALon 60-20-3130PL OB TRANSVAGINALEXAM: US OB TRANSVAGINAL HISTORY: Dating. COMPARISON: None [...] on the provided images. A short-term follow-up ultrasoundis recommended to monitor progression. 3. Uterine fibroid. 4. Normal color Doppler evaluation of the left ovary, the right ovary was not visualized. Interpreted by: Electronically signed by PIERCE CLARK II, MD, PHD at 10-Nov-2024 09:18:36 PM [facility] TeleradiologyNormalNot AvailableComment on above:Order Comment: US OB TRANSVAGINAL No LMP recorded.Urinalysis macro (dipstick) panel (U)on 80-18-2066Krsbcuwec, UA PositiveNegative - 4(70) +++ mg/dLNOMS HealthcareComment on above:smallBlood, UA PositiveNegative - 50 Curtis/mcLNOMS HealthcareComment on above:trace-intact Clarity, UAClearNOMS HealthcareColor, UAYellowNOMS HealthcareGlucose, UANegative Negative - 2000(110) ++++ mg/dLNOMS HealthcareInterpretation and review of laboratory resultsAbnormalNOMS HealthcareKetones, UAPositiveNegative - 160(16) ++++ mg/dLNOMS HealthcareComment on above:15Leukocytes, UATraceNegative - 500+++ Ramos/mcLNOMS HealthcareNitrite, UANegativeNegative - PositiveNOMS HealthcarepH, UA7.55 - 9NOMS HealthcareProtein, UAPositiveNegative - 2000(20) ++++ mg/dLNOMS HealthcareComment on above:30Spec Grav, UA1.021 - 1.03NOMS Healthcare Urobilinogen, UA1.00.2 - 12 mg/dLECU Health Chowan HospitalALL CBC WITH AUTO DIFFon 70-38-9213ZRAKTJNTW ABSOLUTE AUTO0.1NOMS HealthcareBasophils/100 WBC (Bld)0.7 %0.2 - 2.0 %NOMMetropolitan Saint Louis Psychiatric CenterEosinophils/100 WBC (Bld)0.7 %Low0.9 - 7.0 % University HospitalErythrocyte distribution width (RBC) [Ratio]12.1 %11.0 - 15.0 % NOMMetropolitan Saint Louis Psychiatric CenterHematocrit (Bld) [Volume fraction]39.4 %36.0 - 48.0 %University HospitalHemoglobin (Bld) [Mass/Vol]13.2 g/dL12.0 - 16.0 g/dLUniversity Hospital IMMATURE GRANULOCYTES ABS AUTO0.03NOPhelps HealthImmature granulocytes/100 WBC (Bld)0.4 %0.0 - 0.5 %University HospitalInterpretation and review of laboratory resultsAbnormalUniversity HospitalLYMPHOCYTES ABSOLUTE AUTO1.8NOPhelps Health Lymphocytes/100 WBC (Bld)24.2 %20.5 - 60.0 %[facility] DivisionH (RBC) [Entitic mass]31.1 pg26.7 - 34.0 pgHCA Midwest DivisionHC (RBC) [Mass/Vol]33.5 g/dL29.9 - 35.2 g/dLHCA Midwest DivisionV (RBC) [Entitic vol]92.9 fL81.0 - 99.0 fLUniversity HospitalMONOCYTES ABSOLUTE AUTO0.7NOPhelps HealthMonocytes/100 WBC (Bld)9 %1.7 - 12.0 %University HospitalNEUTROPHILS ABSOLUTE AUTO4.7NOPhelps Health Neutrophils/100 WBC (Bld)65 %43.0 - 75.0 %University HospitalPlatelet mean volume (Bld) [Entitic vol]10.5 fL9.5 - 13.5 fLSaint Luke's East Hospital EO #0.1NOMS [facility] TB [id number] Rehabilitation Center RBC4.24NOMissouri Rehabilitation Center WBC7.3NOPhelps Health CLINISYNCNONY HealthcareXR wrist RT min 3V*on 96-10-7598ZI wrist RT min 3V* [facility] SYSTEMNoscot[facility] [employer] Other XR wrist RT min 3V*[facility] Main [facility] Front[employer] Other XR wrist RT min 3V*[address] [facility] [employer] Other XR wrist RT min 3V*KOURTNEY Galvan [address]GlypdSamaritan Healthcare Front[employer] Other XR wrist RT min 3V*XRay ReportSamaritan Healthcare Front[employer] Other XR wrist RT min 3V*SignedMendon [employer] Other XR wrist RT min 3V*Patient: Yi Booth MR#: [id number] [employer] Other XR wrist RT min 3V*[id number] [employer] Other XR wrist RT min 3V*: 1995 Acct:[id number] [place] [employer] Other XR wrist RT min 3V*Age/Sex: 27 / F ADM Date: 01/04/23 [place] [employer] Other XR wrist RT min 3V*Loc: XDUCLY Room: Type: [facility] GERS Other XR wrist RT min 3V*Attending Dr: Mirtha TYSON [place] [employer] Other XR wrist RT min 3V*Copies to: JAH Monsalve GERS Other XR wrist RT min 3V*Ordering Provider: CHERELLE Monsalvemosaic life care at [facility] [employer] Other XR wrist RT min 3V*Date of Service: 01/04/23[place] [employer] Other XR wrist RT min 3V* XR/XR wrist RT min 3V*: RIGHT WRIST [facility] [employer] Other XR wrist RT min 3V*4 views RIGHT wrist plain filmMendon [employer] Other XR wrist RT min 3V*COMPARISON: [facility] [employer] Other XR wrist RT min 3V*HISTORY: RIGHT dorsal wrist pain starting 2 days ago.GERS Other XR wrist RT min 3V*ACUTE FINDINGS: [facility] [employer] Other XR wrist RT min 3V*DEGENERATIVE CHANGE: Unremarkable [place] [employer] Other XR wrist RT min 3V*SOFT TISSUE FINDINGS: Unremarkable GERS Other XR wrist RT min 3V*JOINT EFFUSION: [facility] [place] Other XR wrist RT min 3V*POSTOP CHANGES: [facility] [employer] Other XR wrist RT min 3V*BONE MINERALIZATION: AdequateMendon [employer] Other XR wrist RT min 3V* XR/XR wrist RT min 3V*GERS Other XR wrist RT min 3V*IMPRESSION: Unremarkable examMendon [employer] Other XR wrist RT min 3V*Impression dictated by: Anurag Hollingsworth M.D.01/04/2023 10:38 [facility] [place] Other XR wrist RT min 3V*Dictation Location: [place] [address] GERS Other XR wrist RT min 3V*Transcribed By: JOSEFINA 01/04/23 1038 GERS Other XR wrist RT min 3V*Dictated By: Anurag Hollingsworth DO 01/04/23 1033[place] [employer] Other XR wrist RT min 3V*Signed By:GERS Other XR wrist RT min 3V*01/04/23 1038[facility] [place] Other XR wrist RT min 3V*[facility] [place] [address] XRay Report Signed Patient: Yi Booth MR#: [id number] : 1995 Acct:[id number] Age/Sex: 27 / F ADM Date: 01/04/23 Loc: XDUCLY Room: Type: [facility] Attending Dr: Mirtha TYSON Copies to: JAH [...] Anurag Hollingsworth M.D.01/04/2023 10:38 AM Dictation Location: [place] [address] Transcribed By: [facility] 01/04/23 1038 Dictated By: Anurag Hollingsworth DO 01/04/23 1033 Signed By: 01/04/23 1038[facility] CenterCOVID/FLU RT-PCRon [id number]-CoV-2 (COVID-19) RNA DEIRDRE+probe Ql (Unsp spec)PositiveCarondelet HealthAMX Other COVID/FLU RT-PCRNegativeNoAMX Other CBC AUTO DIFFon [id number] #0.1 103/ulNormal 0.0-0.1The Flower HospitalComment on above:Performed By: #### CBC #### [facility] [address] [address] [address] Mary Gasophils/100 WBC (Bld)0.6 %Normal0.2-2.0[facility] Comment on above:Performed By: #### CBC #### [facility] [address] [place] [address] Dr. Mary Bedolla #0.1 103/ulNormal0.0-0.7The Flower HospitalComment on above: Performed By: #### CBC #### [facility] [address] [place] [address] Dr. Mary Mcbrideosinophils/100 WBC (Bld)0.6 %Critically low0.9-7.0The Flower HospitalComment on above:Performed By: #### CBC #### [facility] [address] [place] [address] Dr. Mary Mcbriderythrocyte distribution width (RBC) [Ratio]12.0 %Tmrham88.0-15.0 The Flower HospitalComment on above:Performed By: #### CBC #### [facility] [address] [place] [address] Dr. Mary BillyHematocrit (Bld) [Volume fraction]38.8 %Mvumkr19.0-48.0The Flower HospitalComment on above:Performed By: #### CBC #### [facility] [address] [place] [address] Dr. Mary BillyHemoglobin (Bld) [Mass/Vol]12.8 g/hZCrfwom16.0-16.0The Flower HospitalComment on above:Performed By: #### CBC #### [facility] [address] [place] [address] Dr. Mary Lowe #0.03 10e3/ulNormal0.00-0.03The Flower HospitalComment on above:Performed By: #### CBC #### [facility] [address] [place] [address] Dr. Mary Lowe %0.4 %Normal0.0-0.5The Flower HospitalComment on above: Performed By: #### CBC #### [facility] [address] [place] [address] Dr. Mary Mcneal #2.7 103/ulNormal1.2-3.8The Flower HospitalComment on above:Performed By: #### CBC #### [facility] [address] [place] [address] Dr. Mary Glasgowhocytes/100 WBC (Bld)33.0 %Bodcpr80.5-60.0The Flower HospitalComment on above:Performed By: #### CBC #### [facility] [address] [place] [address] Dr. Mary Mckeon DIFF REQNONormalThe Flower HospitalComment on above: Performed By: #### CBC #### [facility] [address] [place] [address] Dr. Mary Rose (RBC) [Entitic mass]31.3 olLbxmpu97.7-34.0The Flower HospitalComment on above:Performed By: #### CBC #### [facility] [address] [place] [address] Dr. Mary Rose (RBC) [Mass/Vol]33.0 g/bIEhposo52.9-35.2The Flower HospitalComment on above:Performed By: #### CBC #### [facility] [address] [place] [address] Dr. Mary Rose (RBC) [Entitic vol]94.9 zBGstplv24.0-99.0The Flower HospitalComment on above:Performed By: #### CBC #### [facility] [address] [place] [address] Dr. Mary Sanders #0.8 103/ulNormal0.3-0.8The Flower HospitalComment on above:Performed By: #### CBC #### [facility] [address] [place] [address] Dr. Mary Hardyocytes/100 WBC (Bld)10.1 %Normal1.7-12.0[facility] Comment on above:Performed By: #### CBC #### [facility] [address] [place] [address] Dr. Mary LopezUT #4.5 103/ulNormal1.4-6.5The Flower HospitalComment on above:Performed By: #### CBC #### [facility] [address] [address] [address] Mary Lopezutrophils/100 WBC (Bld)55.3 %Nfixya17.0-75.0The Flower HospitalComment on above:Performed By: #### CBC #### [facility] [address] [address] [address] Mary BillyPlatelet mean volume (Bld) [Entitic vol]10.5 fLNormal9.5-13.5The Flower HospitalComment on above:Performed By: #### CBC #### [facility] [address] [place] [address] Dr. Mary BillyPLT261 103/xfHgtqcu693-015Ywu Flower HospitalComment on above: Performed By: #### CBC #### [facility] [address] [place] [address] Dr. Mary BillyRBC4.09 106/ulCritically low4.20-5.40The Flower HospitalComment on above:Performed By: #### CBC #### [facility] [address] [place] [address] Dr. Mary BillyWBC8.1 103/ulNormal4.0-11.0The Flower HospitalComment on above: Performed By: #### CBC #### [facility] [address] [place] [address] Dr. Mary BillyPROF CHEM 8 (BAS METB)on 37-43-1048Hmbgh gap [Moles/Vol]9.6 mmol/LNormalThe Flower HospitalComment on above:Performed By: #### BMP #### [facility] [address] [place] [address] Dr. Mary BillyCalcium [Mass/Vol]9.2 mg/dLNormal8.4-10.2[facility] Comment on above:Performed By: #### BMP #### [facility] [address] [address] [address] Mary BillyChloride [Moles/Vol]104 mmol/QSmfype22-081RvrCenterville Comment on above:Performed By: #### BMP #### [facility] [address] [place] [address] Dr. Mary BillyCO2 [Moles/Vol]29.9 mmol/INflacz23.0-30.0[place] Comment on above:Performed By: #### BMP #### [facility] [address] [place] [address] Dr. Mary BillyCreatinine [Mass/Vol]0.50 mg/dLCritically low0.52-1.04The Flower HospitalComment on above:Performed By: #### BMP #### [facility] [address] [place] [address] Dr. Hernandez ChangEGFR-AF BERMUDIAN>60Normal>=60The Flower HospitalComment on above:Performed By: #### BMP #### [facility] [address] [place] [address] Dr. Mary McbrideGFR-NON AF BERMUDIAN>60Normal>=60CentervilleComment on above:Performed By: #### BMP #### [facility] [address] [place] [address] Dr. Mary BillyGlucose [Mass/Vol]89 mg/gEQihuut41-443RuwCenterville Comment on above:Performed By: #### BMP #### [facility] [address] [address] [address] Mary BillyPotassium [Moles/Vol]3.5 mmol/LNormal3.4-5.0[facility] Comment on above:Performed By: #### BMP #### [facility] [address] [place] [address] Dr. Mary BillySodium [Moles/Vol]140 mmol/YKoibvi821-536KngCenterville Comment on above:Performed By: #### BMP #### [facility] [address] [place] [address] Dr. Yilan ChangUrea nitrogen [Mass/Vol]6.0 mg/dLCritically low7.0-17.0The Flower HospitalComment on above:Performed By: #### BMP #### [facility] [address] [place] [address] Dr. Mary Saucedo nitrogen/Creatinine [Mass ratio]12.0 mg/mgNormalThe Flower HospitalComment on above:Performed By: #### BMP #### [facility] [address] [place] [address] Dr. Mary DelgadilloC AUTO DIFFon [id number] #0.1 103/ulNormal0.0-0.1The Flower HospitalComment on above:Performed By: #### CBC #### [facility] [address] [place] [address] Curt KarenBasophils/100 WBC (Bld)0.9 %Normal0.2-2.0[facility] Comment on above:Performed By: #### CBC #### [facility] [address] [place] [address] Curt KarenEO #0.1 103/ulNormal0.0-0.7The Flower HospitalComment on above: Performed By: #### CBC #### [facility] [address] [place] [address] Curt KarenEosinophils/100 WBC (Bld)1.5 %Normal0.9-7.0[facility] Comment on above:Performed By: #### CBC #### [facility] [address] [place] [address] Curt KarenErythrocyte distribution width (RBC) [Ratio]11.6 %Coujgk75.0-15.0The Flower HospitalComment on above:Performed By: #### CBC #### [facility] [address] [place] [address] Curt KarenHematocrit (Bld) [Volume fraction]38.6 %Scjvpq63.0-48.0The Flower HospitalComment on above:Performed By: #### CBC #### [facility] [address] [address] Curt KarenHemoglobin (Bld) [Mass/Vol]13.1 g/iCBfmlhs51.0-16.0The Flower HospitalComment on above:Performed By: #### CBC #### [facility] [address] [place] [address] Curt KarenIG #0.08 10e3/ulCritically high0.00-0.03The Flower HospitalComment on above:Performed By: #### CBC #### [facility] [address] [place] [address] Curt KarenIG %0.9 %Critically high0.0-0.5The Flower HospitalComment on above:Performed By: #### CBC #### [facility] [address] [place] [address] Curt KarenLYMPH #2.7 103/ulNormal1.2-3.8The Flower HospitalComment on above: Performed By: #### CBC #### [facility] [address] [place] [address] Curt KarenLymphocytes/100 WBC (Bld)31.4 %Xpntfr21.5-60.0[facility] Comment on above:Performed By: #### CBC #### [facility] [address] [place] [address] Curt KarenMANUAL DIFF REQNONormalThe Flower HospitalComment on above: Performed By: #### CBC #### [facility] [address] [place] [address] Curt KarenMCH (RBC) [Entitic mass]31.7 swNpkeev43.7-34.0[facility] Comment on above:Performed By: #### CBC #### [facility] [address] [place] [address] Curt KarenMCHC (RBC) [Mass/Vol]33.9 g/kERmsjcm08.9-35.2[facility] Comment on above:Performed By: #### CBC #### [facility] [address] [place] [address] Curt KarenMCV (RBC) [Entitic vol]93.5 hHDrmbod94.0-99.0[facility] Comment on above:Performed By: #### CBC #### [facility] [address] [place] [address] Curt MorganenMONO #0.8 103/ulNormal0.3-0.8The Flower HospitalComment on above: Performed By: #### CBC #### [facility] [address] [place] [address] Curt KarenMonocytes/100 WBC (Bld)9.4 %Normal1.7-12.0[facility] Comment on above:Performed By: #### CBC #### [facility] [address] [place] [address] Curt MorganenNEUT #4.8 103/ulNormal1.4-6.5The Flower HospitalComment on above: Performed By: #### CBC #### [facility] [address] [place] [address] Curt KarenNeutrophils/100 WBC (Bld)55.9 %Nazmav21.0-75.0[facility] Comment on above:Performed By: #### CBC #### [facility] [address] [place] [address] Curt KarenPlatelet mean volume (Bld) [Entitic vol]10.8 fLNormal9.5-13.5The Flower HospitalComment on above:Performed By: #### CBC #### [facility] [address] [place] [address] Curt PnwnxJRZ336 103/bnSrkysw742-297Chv Flower HospitalComment on above: Performed By: #### CBC #### [facility] [address] [place] [address] Curt KarenRBC4.13 106/ulCritically low4.20-5.40The Flower HospitalComment on above:Performed By: #### CBC #### [facility] [address] [place] [address] Curt KarenWBC8.6 103/ulNormal4.0-11.0CentervilleComment on above: Performed By: #### CBC #### [facility] [address] [address] Curt KarenGLYCOHEMOGLOBIN A1Con [id number] RECOMMENDATIONADA THERAPEUTIC TARGET 6.0 - 7.0 ACTION SUGGESTED > 7.0[facility] HospitalComment on above:Performed By: #### A1C #### [facility] [address] [address] Curt KarenGlucose [Mass/Vol]100 mg/dLTriHealth Bethesda North HospitalComment on above:Performed By: #### A1C #### [facility] [address] [place] [address] Curt DxldqJmI8d (Bld) [Mass fraction]5.1 %Normal<=6.0[place] Comment on above:Performed By: #### A1C #### [facility] [address] [address] Curt KarenLIPID PROFILEon 03-20-1062QGHS-HDL RATIO NORMSEE St[facility] Ironton CampusComment on above:Result Comment: 3.3 - 4.4 LOW RISK 4.4 - 7.1 AVERAGE RISK 7.1 - 11.0 MODERATE RISK >11.0 HIGH RISKPerformed By: #### TSH, LIPID, BMP, LIVER #### [facility] [address] [address] Curt KarenCholesterol [Mass/Vol]131 mg/dLrmal<=200[place] Comment on above:Performed By: #### TSH, LIPID, BMP, LIVER #### [facility] [address] [address] Curt KarenCholesterol in HDL [Mass/Vol]71 mg/dLTriHealth Bethesda North Hospital Comment on above:Performed By: #### TSH, LIPID, BMP, LIVER #### [facility] [address] [address] Curt KarenCholesterol in LDL [Mass/Vol]55.2 mg/dLTriHealth Bethesda North Hospital Comment on above:Performed By: #### TSH, LIPID, BMP, LIVER #### [facility] [address] [id number] Curt KarenCholesterol.total/Cholesterol in HDL [Mass ratio]1.8 {ratio}Normal The Flower HospitalComment on above:Performed By: #### TSH, LIPID, BMP, LIVER #### [facility] [address] [id number] Curt KarenHDL NORMAL> or = 60 mg/dl - LOW CARDIOVASCULAR RISK <40 mg/dl - HIGH CARDIOVASCULAR RISKTriHealth Bethesda North HospitalComment on above:Performed By: #### TSH, LIPID, BMP, LIVER #### [facility] [address] [id number] Curt KarenLDL CALC NORMALSEE BELOWTriHealth Bethesda North HospitalComment on above: Result Comment: <100 mg/dl OPTIMAL 100 - 129 mg/dl NEAR OR ABOVE OPTIMAL 130 - 159 mg/dl BORDERLINE HIGH 160 - 189 mg/dl HIGH >190 mg/dl VERY HIGHPerformed By: #### TSH, LIPID, BMP, LIVER #### [facility] [address] [address] Curt KarenTriglyceride [Mass/Vol]24 mg/dLNormal<=150[place] Comment on above:Performed By: #### TSH, LIPID, BMP, LIVER #### [facility] [address] [phone] Curt KarenVLDL CALC4.8 mg/dLNormMercy Health West HospitalComment on above: Performed By: #### TSH, LIPID, BMP, LIVER #### [facility] [address] [phone] Curt KarenLIVER PROFILEon 17-96-6975Lutdppg [Mass/Vol]3.9 g/dLNormal3.5-5.0The Flower HospitalComment on above:Performed By: #### TSH, LIPID, BMP, LIVER #### [facility] [address] [address] Curt KarenAlbumin/Globulin [Mass ratio]1.0 {ratio}NormalThe [facility] Comment on above:Performed By: #### TSH, LIPID, BMP, LIVER #### [facility] [address] [address] Curt KarenALP [Catalytic activity/Vol]59 U/VXbdshn78-773YkpCenterville Comment on above:Performed By: #### TSH, LIPID, BMP, LIVER #### [facility] [address] [place] [address] Curt KarenALT [Catalytic activity/Vol]20 U/LNormal9-52[place] Comment on above:Performed By: #### TSH, LIPID, BMP, LIVER #### [facility] [address] [place] [address] Curt KarenAST [Catalytic activity/Vol]17 U/UHdpdzc69-51DjsCenterville Comment on above:Performed By: #### TSH, LIPID, BMP, LIVER #### [facility] [address] [place] [address] Curt KarenBILI, CONJUGATED0.1 mg/dLNormal0.0-0.3TLouis Stokes Cleveland VA Medical CenterComment on above:Performed By: #### TSH, LIPID, BMP, LIVER #### [facility] [address] [place] [address] Curt KarenBilirubin [Mass/Vol]0.3 mg/dLNormal0.2-1.3TLouis Stokes Cleveland [facility] Center Comment on above:Performed By: #### TSH, LIPID, BMP, LIVER #### [facility] [address] [place] [address] Curt KarenGlobulin (S) [Mass/Vol]3.8 g/dLNormalThe Flower HospitalComment on above:Performed By: #### TSH, LIPID, BMP, LIVER #### [facility] [address] [place], [place] [id number] Curt KarenProtein [Mass/Vol]7.7 g/dLNormal6.1-8.2CentervilleComment on above:Performed By: #### TSH, LIPID, BMP, LIVER #### [facility] [address] [place] [address] Curt KarenPROF CHEM 8 (BAS METB)on 15-82-4677Ibapz gap [Moles/Vol]10.3 mmol/L NormalCentervilleComment on above:Performed By: #### TSH, LIPID, BMP, LIVER #### [facility] [address] [place] [address] Curt KarenCalcium [Mass/Vol]9.1 mg/dLNormal8.4-10.2[place] Comment on above:Performed By: #### TSH, LIPID, BMP, LIVER #### [facility] [address] [place] [address] Curt KarenChloride [Moles/Vol]104 mmol/CSirvyo29-676Tqe [facility] Comment on above:Performed By: #### TSH, LIPID, BMP, LIVER #### [facility] [address] [place] [address] Curt KarenCO2 [Moles/Vol]31.3 mmol/LCritically high22.0-30.0CentervilleComment on above:Performed By: #### TSH, LIPID, BMP, LIVER #### [facility] [address] [place] [address] Curt KarenCreatinine [Mass/Vol]0.60 mg/dLNormal0.52-1.04[place] Comment on above:Performed By: #### TSH, LIPID, BMP, LIVER #### [facility] [address] [place] [address] Curt KarenEGFR-AF BERMUDIAN>60Normal>=60The Flower HospitalComment on above: Performed By: #### TSH, LIPID, BMP, LIVER #### [facility] [address] [place] [address] Curt KarenEGFR-NON AF BERMUDIAN>60Normal>=60The Flower HospitalComment on above:Performed By: #### TSH, LIPID, BMP, LIVER #### [facility] [address] [place] [address] Curt KarenGlucose [Mass/Vol]108 mg/dLCritically jssh87-205YkeCentervilleComment on above:Performed By: #### TSH, LIPID, BMP, LIVER #### [facility] [address] [place] [address] Curt KarenPotassium [Moles/Vol]3.6 mmol/LNormal3.4-5.0[place] Comment on above:Performed By: #### TSH, LIPID, BMP, LIVER #### [facility] [address] [place] [address] Curt KarenSodium [Moles/Vol]142 mmol/UXkxmzp262-664Ack [facility] Comment on above:Performed By: #### TSH, LIPID, BMP, LIVER #### [facility] [address] [place] [address] Curt KarenUrea nitrogen [Mass/Vol]10.0 mg/dLNormal7.0-17.0CentervilleComment on above:Performed By: #### TSH, LIPID, BMP, LIVER #### [facility] [address] [place] [address] Curt KarenUrea nitrogen/Creatinine [Mass ratio]16.7 mg/mgNoOhioHealth Dublin Methodist HospitalComment on above:Performed By: #### TSH, LIPID, BMP, LIVER #### [facility] [address] [place] [address] Curt KarenTSHon 49-14-2043QIG3.211 uIU/mLNormal0.470-4.680The Flower HospitalComment on above:Performed By: #### TSH, LIPID, BMP, LIVER #### [facility] [address] [place] [address] Curt KarenTSH RANGESEE BELOWNoOhioHealth Dublin Methodist HospitalComment on above:Result Comment: <0.34 UIU/ml HYPERTHYROID 0.34-5.60 UIU/ml EUTHYROID >5.60 UIU/ml HYPOTHYROIDPerformed By: #### TSH, LIPID, BMP, LIVER #### [facility] [address] [place] [address] Curt KarenVITAMIN D 25 OHon 45-23-2028WLT D 25-OH35.1 ng/mLNHenry County HospitalComment on above:Performed By: #### VITAD #### [facility] [address] [place], [place] [id number] Curt DowdVIT Tamar RANGESSEE BELOWTriHealth Bethesda North HospitalComment on above: Result Comment: <20 ng/mL Vit D deficient 20 - <30 ng/mL Vit D insufficient 30 - 100 ng/mL Vit D sufficient >100 ng/mL Potential ToxicityPerformed By: #### VITAD #### [facility] [address] [place] [address] Curt MorganenXR CHEST 2 Von 23-47-2088JR CHEST 2 VEXAMINATION: XR CHEST 2 V HISTORY: Injury of [...] Electronically authenticated by: QUINN LEAL Date: 2020-10-01 09:29[facility] Vital Signs Date TimeVital SignValuePerforming YdrqmltmdEvqsfsat62-11-9380 14:22-0500Body mass index (BMI) [Ratio]30.18 kg/z4Wakzk Tapan DO Work Phone: [facility] HospitalAtrvgdyhhf87-62-3452 14:22-050Body ufebwf03.82 kgCorey Tapan DO Work Phone: [facility] HospitalTxlzgxtxoi68-89-0926 14:22050Diastolic blood qscmhnyu52 mm[Hg]Oleksandr Tapan DO Work Phone: [facility] HospitalSnpjpzqchp22-23-2869 14:22-050Systolic blood mm[Hg]Oleksandr Tapan DO Work Phone: [facility] HospitalGbmcjhrjle17-02-5827 09:46-0400Body mass index (BMI) [Ratio]29.38 kg/f5Qbmrylyr De REED OR WIND INSTRUMENT REPAIRER Work Phone: [phone] [place], [place] [address]Pmlosdvgwu19-93-3222 09:46-0400Body uhjxce27.56 kgKristina De REED OR WIND INSTRUMENT REPAIRER Work Phone: [phone] [place], [place] [address]Iriptcalzi61-08-8227 09:46-0400Diastolic blood lgripdsa78 mm[Hg]Niurka De REED OR WIND INSTRUMENT REPAIRER Work Phone: [phone] [place], [place] [address]Ejnjgqpyln51-52-1786 09:46-0400Systolic blood uwczxkcu174 mm[Hg]Niurka De REED OR WIND INSTRUMENT REPAIRER Work Phone: [phone] [place], [place] [address]3310-07-2025 11:05-0400Body mass index (BMI) [Ratio]28.85 kg/y5Jrddumab De REED OR WIND INSTRUMENT REPAIRER Work Phone: [phone] [place], [place] 6183310-07-2025 11:05-0400Body uwbxuf73.08 kgKristina De REED OR WIND INSTRUMENT REPAIRER Work Phone: [phone] [place], [place] 6183310-07-2025 11:05-0400Diastolic blood izcxblwj48 mm[Hg]Niurka De REED OR WIND INSTRUMENT REPAIRER Work Phone: [phone] [place], [place] [address]3310-07-2025 11:05-0400Systolic blood kgecbzpj626 mm[Hg]Niurka De REED OR WIND INSTRUMENT REPAIRER Work Phone: [phone] [place], [place] 6183309-08-2025 10:23-0400Body mass index (BMI) [Ratio]27.12 kg/w6Owckznyl De REED OR WIND INSTRUMENT REPAIRER Work Phone: [phone] [place], [place] 6183309-08-2025 10:23-0400Body jyfavb69.2 kg Niurka De REED OR WIND INSTRUMENT REPAIRER Work Phone: [phone] [place], [place] 6183309-08-2025 10:23-0400Diastolic blood concmuxe62 mm[Hg]Niurka De REED OR WIND INSTRUMENT REPAIRER Work Phone: [phone] [place], [place] 6183309-08-2025 10:23-0400Systolic blood brxxriox015 mm[Hg]Niurka De REED OR WIND INSTRUMENT REPAIRER Work Phone: [phone] [place], [place] 6183308-11-2025 14:15-0400Body mass index (BMI) [Ratio]26.03 kg/u1Ogvhy Tapan DO Work Phone: [facility] HospitalRlzdajwygg03-83-6700 14:15-0400Body .14 kgCorey Tapan DO Work Phone: [facility] HospitalCkduamfqmx69-51-1267 14:15-0400Diastolic blood ctbwmfoi36 mm[Hg]Oleksandr Tapan DO Work Phone: [phone]-[facility] HospitalIxbufhjtjo81-29-0926 14:15-0400Systolic blood fcignwit924 mm[Hg]Oleksandr Tapan DO Work Phone: [phone] [place], [place] [address]Ijnfxnqekj41-33-0642 09:46-0400Body mass index (BMI) [Ratio]25.04 kg/m2Amy Kushal PA Work Phone: [facility] HospitalLabcokhzsq41-66-3985 09:46-0400Body gezmad76.36 kgAmy Decatur PA Work Phone: [phone] [place], [place] [address]Ugpfacuezk66-45-4199 09:46-0400Diastolic blood khvsuqys53 mm[Hg]Mariam Laboyey PA Work Phone: [phone] [place], [place] [address]Iygvwuhnrd16-23-5860 09:46-0400Systolic blood ioomcmrw185 mm[Hg]Mariam Laboyey PA Work Phone: [phone] [place], [place] [address]Hdhnnyyaal84-19-4361 09:53-0400Body mass index (BMI) [Ratio]24.55 kg/o1Tavmb Tapan DO Work Phone: [phone] [place], [place] [address]Qobztetmxb68-26-0074 09:53-0400Body wtzane89 kg Oleksandr Tapan DO Work Phone: [phone] [place], [place] [address]Hrddwsfukl00-07-1152 09:53-0400Diastolic blood zwdhddic73 mm[Hg]Oleksandr Tapan DO Work Phone: [phone] [place], [place] [address]Fbdexjvqur84-65-6026 09:53-0400Systolic blood cessxqas458 mm[Hg]Oleksandr Tapan DO Work Phone: [phone] [place], [place] [address]Hfuodkgpwg11-19-1503 13:18-0400Body huiwka546.6 cmMar Naderer MD Work Phone: [facility] HospitalFtvytsbyru44-33-4455 13:18-0400Body mass index (BMI) [Ratio]25.02 kg/m2Skyler Puente MD Work Phone: [facility] HospitalWdzanhwgvm66-61-7749 13:18-0400Body temperature 97.81 [degF]Skyler Puente MD Work Phone: [facility] HospitalHjukdbtzqc74-34-2795 13:18-0400Body siounw66.31 kgSkyler Puente MD Work Phone: [facility] HospitalZzanqyptqm70-54-5953 13:18-0400Diastolic blood ggkdujiq79 mm[Hg]Skyler Puente MD Work Phone: [facility] HospitalXsllrgejgy90-69-3920 13:18-0400Heart gpqw203 /min Skyler Puente MD Work Phone: [facility] HospitalLdtyscswxr64-83-2084 13:18-0400Respiratory rate20 /minSkyler Puente MD Work Phone: [facility] HospitalUduvbnhthp81-62-7447 13:18-5584PmA5% (BldA) [Mass fraction]99 %Skyler Puente MD Work Phone: [facility] HospitalFitsiqduyf85-53-0490 13:18-0400Systolic blood lxobyrka081 mm[Hg]Skyler Puente MD Work Phone: [facility] HospitalIcjgboecur91-36-9896 11:00-0400Body mass index (BMI) [Ratio]24.95 kg/m2[facility]05-16-2025 11:00-0400Body slqyff67.13 kgSaint [facility]05-[facility]-2025 11:00-0400Diastolic blood gtflloos96 mm[Hg][facility]05-16-2025 11:00-0400Systolic blood fubgyamr109 mm[Hg][facility]02-19-2025 10:35-0500Body amqxyt168.6 cmSkyler Puente MD Work Phone: [facility] HospitalYjsijolzht54-62-0972 10:35-0500Body mass index (BMI) [Ratio]26.47 kg/m2Skyler Puente MD Work Phone: [facility] HospitalQeknvywnfq11-64-7323 10:35-0500Body temperature 97.11 [degF]Skyler Puente MD Work Phone: [facility] HospitalNymfklegkl02-22-2088 10:35-0500Body orppwi88.39 kgSkyler Puente MD Work Phone: [facility] HospitalUydnvjzhgd38-99-1042 10:35-0500Diastolic blood fseacygw28 mm[Hg]Skyler Puente MD Work Phone: [facility] HospitalNkzphpzreb21-73-3994 10:35-0500Heart rate98 /min Skyler Puente MD Work Phone: [facility] HospitalDfshonzghl03-11-3818 10:35-0500Respiratory rate20 /minSkyler Puente MD Work Phone: [facility] HospitalDjxszginqk53-69-1279 10:35-9020ZtM5% (BldA) [Mass fraction]99 %Skyler Puente MD Work Phone: [facility] HospitalAyqgmstwnd79-79-0028 10:35-0500Systolic blood chtbnwwy903 mm[Hg]Skyler Puente MD Work Phone: [facility] HospitalSqefjijylm58-93-8523 14:46-0500Body aglgay688.6 cmSkyler Puente MD Work Phone: [facility] HospitalLbkzdfjhhk56-34-8726 14:46-0500Body mass index (BMI) [Ratio]26.95 kg/m2Skyler Puente MD Work Phone: [facility] HospitalOmdfngwqej66-82-8997 14:46-0500Body temperature 97.81 [degF]Skyler Puente MD Work Phone: [facility] HospitalZrpqmcmeho62-04-8870 14:46-0500Body pbjpde87.75 kgSkyler Puente MD Work Phone: [facility] HospitalAnlsbgpseh58-94-1881 14:46-0500Diastolic blood fkpicgut55 mm[Hg]Skyler Puente MD Work Phone: [facility] HospitalOqnngijyew77-31-0122 14:46-0500Heart rate94 /min Skyler Puente MD Work Phone: [facility] HospitalJoqcqifrnu05-41-1275 14:46-0500Respiratory rate18 /minSkyler Puente MD Work Phone: [facility] HospitalAnlmqkwxpz77-70-8255 14:46-2393EgL3% (BldA) [Mass fraction]99 %Skyler Puente MD Work Phone: [facility] HospitalKjdckwzovm43-03-9309 14:46-0500Systolic blood ziatnjnf735 mm[Hg]Skyler Puente MD Work Phone: [facility] HospitalDbwssawzxa78-51-0343 11:17-0400Body rkilku688.6 cmSkyler Puente MD Work Phone: [phone])713-[address] [place], [place] [address]Edncexdxnx31-05-2236 11:17-0400Body mass index (BMI) [Ratio]28.08 kg/m2Skyler Puente MD Work Phone: [facility] HospitalJcctsjecqv23-25-2532 11:17-0400Body temperature 97.9 [degF]Skyler Puente MD Work Phone: [facility] HospitalQkvozcmiue68-86-6486 11:17-0400Body rynmtx75.93 kgSkyler Puente MD Work Phone: [phone] HospitalLecvxycaru86-78-1414 11:17-0400Diastolic blood ictvptnw20 mm[Hg]Skyler Puente MD Work Phone: [place] [address]Cldlfmxsif82-63-7731 11:17-0400Heart zsug706 /min Skyler Puente MD Work Phone: [place] [address]Wqeexuosgc69-65-6777 11:17-0400Respiratory rate18 /minSkyler Puente MD Work Phone: [place] [address]Svoaacjqvr27-22-1891 11:17-7477HkY5% (BldA) [Mass fraction]98 %Skyler Puente MD Work Phone: [facility] HospitalHealjixxkc88-48-2300 11:17-0400Systolic blood njovmfhe660 mm[Hg]Skyler Puente MD Work Phone: [facility] HospitalOhlynnzank10-72-6687 14:39-0400Body numwtr648.64 [facility] 14:39-0400Body mass index (BMI) [Ratio]31.4 kg/c0BbnzosmvhMorrow County Hospital07-18-2024 14:39-0400Body hbytpwwmssw47.2 [degF][facility]07-18-2024 14:39-0400Body mvzmsa04.45 kgMorrow [facility]07-18-2024 14:39-0400Heart rate 85 /[facility]07-18-2024 14:39-0400Respiratory rate18 /[facility]07-18-2024 14:39-6637OnS8% (BldA) [Mass fraction]98 %[facility]07-12-2023 09:55-0400Body height 167.64 [place] Other [employer] Other 07-12-2023 09:55-0400Body mass index (BMI) [Ratio] 27.08 kg/x3DuydayMirtha Antunez Other [employer] Other 07-12-2023 09:55-0400Body snotsssffmn56.7 [degF]Mirtha Antunez Other [employer] Other 07-12-2023 09:55-0400Body .11 kgLowellpawan Harmony Other [employer] Other 07-12-2023 09:55-0400Diastolic blood fzknqogz64 mm[Hg] Mirtha Antunez Other no[employer]cracy Other 07-12-2023 09:55-0400Respiratory rate18 /minPapawan Antunez Other noWowcracy Other 07-12-2023 09:55-4341YfI7% (BldA) [Mass fraction]96 % Mirtha Antunez Other [employer] Other 07-12-2023 09:55-0400Systolic blood wuvppjir335 mm[Hg] Mirtha Antunez Other [facility] Other 04-04-2023 10:35-0400Body vxurhr823.64 cmAmbshashi Teixeira Other [facility] [employer] Other 04-04-2023 10:35-0400Body mass index (BMI) [Ratio] 25.82 kg/r3CfnaaAngelia Teixeira Other [employer] Other 04-04-2023 10:35-0400Body icnjdmotqsy60.8 [degF]Angelia Teixeira Other [employer]cr[employer] Other 04-04-2023 10:35-0400Body mliaen49.58 kgAngelia Teixeira Other [employer] Other 04-04-2023 10:35-0400Respiratory rate18 /minAngelia Teixeira Other [employer]cr[employer] Other 04-04-2023 10:35-4767FqY6% (BldA) [Mass fraction]96 % Angelia Teixeira Other [place] [employer] Other Encounters Encounter DateEncounter TypeCare ProviderFacilityStart: 04-30-2025 End: 67-32-3916Feysjeiu flow sheetCorey Tapan DO Work Phone: [facility] OBGYNComment on above:Third trimester ([facility]); 32 weeks gestation of ([facility])Start: 04-30-2025 End: 93-53-7140eoagdlroqfLQDUD FAZIONot AvailableStart: 04-16-2025 End: 21-23-4942Ilzbjb flowsheetKristina De REED OR WIND INSTRUMENT REPAIRER Work Phone: [facility] OBGYNStart: 04-16-2025 End: 76-98-5973Efhuwn flowsheetKristina De REED OR WIND INSTRUMENT REPAIRER Work Phone: [facility] [place] OBGYNStart: 04-16-2025 End: 11-14-6605vvnqraeswaJBPMCNBI EBERLYNot AvailableStart: 04-16-2025 End: 52-53-2151Qrzqiwve flow sheetKristina De REED OR WIND INSTRUMENT REPAIRER Work Phone: [facility] [place] OBGYNComment on above: size inconsistent with dates ([facility]) (Primary Dx); Third trimester ([facility]); 30 weeks gestation of ([facility])Start: 04-01-2025 End: 85-25-2784Nvobdf flowsheetKristina De REED OR WIND INSTRUMENT REPAIRER Work Phone: [facility] [place] OBGYNStart: 04-01-2025 End: 20-91-8536Ublnzv flowsheetKristina De REED OR WIND INSTRUMENT REPAIRER Work Phone: [facility] OBGYNStart: 04-01-2025 End: 27-34-3052Kvcikfut flow sheetKristina De REED OR WIND INSTRUMENT REPAIRER Work Phone: [facility] [place] OBGYNComment on above:Third trimester ([facility]); 28 weeks gestation of ([facility])Start: 04-01-2025 End: 15-42-9536altmrpjsuoKTTXXQKA EBERLYNot AvailableStart: 03-17-2025 End: 69-20-5396Ujqgnykvh Result EncounterNiurka Kc REED OR WIND INSTRUMENT REPAIRER Work Phone: [facility] External Department UnsolicitedStart: 03-17-2025 End: 71-41-8170Adgzukzjz Result EncounterNiurka Kc REED OR WIND INSTRUMENT REPAIRER Work Phone: NOKY External Department UnsolicitedStart: 03-03-2025 End: 57-29-9762Snbhvk flowsheetNiurka De REED OR WIND INSTRUMENT REPAIRER Work Phone: [facility] OBGYNStart: 03-03-2025 End: 87-48-9024Gxwuvw flowsheetKrjaroda De REED OR WIND INSTRUMENT REPAIRER Work Phone: [facility] [place] OBGYNStart: 03-03-2025 End: 57-79-5329Bhubbvlg flow sheetNgaa De REED OR WIND INSTRUMENT REPAIRER Work Phone: [facility] OBGYNComment on above:Second trimester ([facility]); 24 weeks gestation of ([facility]); Diabetes mellitus screeningStart: 03-03-2025 End: 16-41-1847hdgezluyxtFXRNIIHP EBERLYNot AvailableStart: 02-03-2025 End: 81-04-7243Ijbidcjw flow sheetCorey Tapan DO Work Phone: [facility] OBGYNComment on above:Second trimester ([facility]); 20 weeks gestation of ([facility]); Vitamin D deficiencyStart: 02-03-2025 End: 77-80-5352Cqvfowzoc Result EncounterGeneric External Data ProviderNOMS External Department UnsolicitedStart: 02-03-2025 End: 82-82-2164Zomrfcukj Result EncounterGeneric External Data ProviderNOMS External Department UnsolicitedStart: 02-03-2025 End: 75-09-3609mifvtkzawgVHRZU FAZIONot AvailableStart: 02-03-2025 End: 36-22-1464uescljbjyxRSE RAMEYNot AvailableStart: 01-02-2025 End: 89-50-4810Pciasc flowsheetMariam Fajardo LOWELL Work Phone: NOVF BCP OBStart: 01-02-2025 End: 31-01-8616Ftbfaw flowsheetMariam Fajardo LOWELL Work Phone: noms BCP OBStart: 01-02-2025 End: 49-87-2332Tbkhxwipd Result EncounterGeneric External Data ProviderNOMS External Department UnsolicitedStart: 01-02-2025 End: 79-45-4035Lwgpozfo Result EncounterMariam Fajardo LOWELL Work Phone: noMS External Department UnsolicitedStart: 01-02-2025 End: 94-59-3311Aianrlb encounter procedureMariam Fajardo LOWELL Work Phone: noms HealthcareStart: 01-02-2025 End: 40-21-2491Nxlnyiyr preventive med est patient 18-39 yrsMariam Fajardo LOWELL Work Phone: [facility] BCP OBComment on above:15 weeks gestation of ([facility]); Second trimester ([facility]); Well woman exam with routine gynecological exam; Screening, , for anatomic survey ([facility]); Exposure to STD; Vaginal dischargeStart: 01-02-2025 End: 76-40-9689miftcfbiweVEY RAMEYNot AvailableStart: 12-05-2024 End: 00-82-1217Svxfid flowsheetCorey Tapan DO Work Phone: [facility] BCP OBStart: 12-05-2024 End: 18-60-8790Eezhmp flowsheetCorey Tapan DO Work Phone: [facility] BCP OBStart: 12-05-2024 End: 71-59-9232Qxbkyszg flow sheetCorey Tapan DO Work Phone: [facility] BCP OBComment on above:First trimester ([facility]); 11 weeks gestation of ([facility])Start: 12-05-2024 End: 52-42-0757coeqzufnnpYQHQA FAZIONot AvailableStart: 11-28-2024 End: 73-20-2241Vwnbgf Terell Puente MD Work Phone: [facility] CWM FMStart: 11-28-2024 End: 57-06-8081Hjoidy Terell Puente MD Work Phone: [facility] CWM FMStart: 11-28-2024 End: 67-14-4074vxprvkfnpbJKFC NADERERNot AvailableStart: 11-28-2024 End: 95-59-9022Gruyps outpatient visit 15 minutesSkyler Puente MD Work Phone: [facility] CWM FMComment on above:Major depressive disorder, recurrent episode, mild (HCC) (CMS/HCC) (Primary Dx); Generalized anxiety disorder (CMS/HCC); 10 weeks gestation of pregnancyStart: 11-26-2024 End: 86-54-1052Dyxzeaaei Result EncounterCorey Tapan DO Work Phone: NOZF External Department UnsolicitedStart: 11-26-2024 End: 07-68-4657Wirpgqsuo Result EncounterCorey Tapan DO Work Phone: noms External Department UnsolicitedStart: 11-22-2024 End: 21-39-5996uzngloegjkMIPK NADERERNot AvailableStart: 11-08-2024 End: 28-92-2631Cajvjv outpatient visit 5 minutesNoms Bcp Ob Tapan NurseNOMS BCP OBComment on above:GA: 6c2sOlcke: 11-08-2024 End: 00-08-7077tfzxmjuwydHDDP NADERERNot AvailableStart: 08-14-2024 End: 12-71-2712Mqjbdl Terell Puente MD Work Phone: [facility] CWM FMStart: 08-14-2024 End: 84-39-2502Cyqbmufermín Puente MD Work Phone: [facility] CWM FMStart: 08-14-2024 End: 87-61-9788Pghtsn outpatient visit 25 minutesSkyler Puente MD Work Phone: NOQI CWM FMComment on above:Major depressive disorder, recurrent episode, mild (HCC) (CMS/HCC) (Primary Dx); Generalized anxiety disorder (CMS/HCC); Family planning counselingStart: 08-14-2024 End: 88-66-6989datfnaxypmDVFR NADERERNot AvailableStart: 06-27-2024 End: 66-07-8471Zrcdppqhb Result EncounterSkyler Puente MD Work Phone: noms External Department UnsolicitedStart: 06-27-2024 End: 75-11-7886Pkkeayjgx Result EncounterSkyler Puente MD Work Phone: noms External Department UnsolicitedStart: 05-28-2024 End: 79-47-4555Ipdxijny preventive med est patient 18-39 yrsSkyler Puente MD Work Phone: noms CWM FMComment on above:Annual physical exam (Primary Dx); Major depressive disorder, recurrent episode, mild (HCC) (CMS/HCC)Start: 05-28-2024 End: 80-90-4941lyumfypmmbVEJM NADERERNot AvailableStart: 05-28-2024 End: 74-64-2987Ddcbzq Terell Puente MD Work Phone: NOXT CWM FMStart: 05-28-2024 End: 98-13-4621Rdfxuk Terell Puente MD Work Phone: NOIH CWM FMStart: 05-28-2024 End: 11-21-1373Qxagmbe encounter procedureSkyler Puente MD Work Phone: [facility] Work Phone: Start: 05-07-2024 End: 93-17-1441MelgmmFwqc Naderer MD Work Phone: NOOP CWM FMComment on above:Obesity (BMI 30-39.9) Start: 03-28-2024 End: 01-91-7371Vkjduyuli Puente MD Work Phone: noms CWM FMStart: 03-28-2024 End: 52-00-0375Tzmqcfuli Puente MD Work Phone: [facility]oms CWM FMStart: 03-28-2024 End: 23-85-3102Drzwvz outpatient visit 25 minutesSkyler Puente MD Work Phone: noms CWM FMComment on above:Major depressive disorder, recurrent episode, mild (HCC) (CMS/HCC) (Primary Dx); Generalized anxiety disorder (CMS/HCC); Obesity (BMI 30-39.9); Overweight (BMI 25.0-29.9)Start: 01-11-2024 End: 72-29-1407onqnymzvrnFnzlijtheUniversity Hospitals [facility] Work Phone: Start: 01-11-2024 End: 20-09-5199Jwcopsk encounter procedureSampson [facility] Work Phone: Start: 58-67-4094Jbmllj outpatient visit 15 minutes Mirthaketty AntunezFPG Urgent Care ClydeStart: 01-04-2023 End: 42-27-4317fshwfefttrFjuexa HarmonyFacility:[facility] Start: 01-04-2023 End: 50-35-4066xugogkhgtlTA-C Mirthaketty Antunez Work Phone: [facility] Work Phone: Start: 01-04-2023 End: 61-72-3052Fvflhqd encounter procedureNP-C Mirtha Harmony Work Phone: [facility] [place] Work Phone: Start: 09-27-2022 End: 94-37-4157orrxchanovOrxjv Keller Other [facility] [employer] Other Start: 69-69-6002Aeupzo outpatient new 30 minutesAngelia Webb [facility] Care ClydeStart: 03-11-2021 End: 41-18-6368xqexiutgukDZYTQHV D KATKOFacility:Q3Rdomr: 30-49-6596Ehwyfajld for general adult medical examination without abnormal findingsDR DREW Kyleigh KWAME [facility] HospitalStart: 12-09-2020 End: 35-30-0868aguceqilepAV MARC Kyleigh NADERERFacility:N3Tuevp: 12-09-2020 End: 64-18-7727Jlxmaukzq for general adult medical examination without abnormal findingsDR SKYLER Arizmendi NADERERFacility:B2Cfati: 10-01-2020 End: 62-95-4813dqdesisdsrDT QUINN Mortensen WESTFacility:H1 Procedures DateProcedureProcedure DetailPerforming ClinicianStart: 93-57-0629Pisll dip stick/tablet rgnt non-auto w/o micrscpCorey Tapan DO Work Phone: Start: 40-48-7415Ejpdo dip stick/tablet rgnt non-auto w/o micrscpKristina De REED OR WIND INSTRUMENT REPAIRER Work Phone: Start: 35-89-2881Peujp dip stick/tablet rgnt non-auto w/o micrscpKristina De REED OR WIND INSTRUMENT REPAIRER Work Phone: Start: 07-59-4762VQBZMAN 1 HOURKristina De REED OR WIND INSTRUMENT REPAIRER Work Phone: Start: 79-34-7583Oecfj dip stick/tablet rgnt non-auto w/o micrscpKristina De REED OR WIND INSTRUMENT REPAIRER Work Phone: Start: 60-17-4436CYI LEADCorey Tapan DO Work Phone: Start: 92-10-3764Eljwn dip stick/tablet rgnt non-auto w/o micrscpCorey Tapan DO Work Phone: Start: 10-68-5716IADIDVCGR VAGINITIS (HTRX)Mariam ETIENNE Work Phone: Start: 55-45-8492Dkwlz dip stick/tablet rgnt non-auto w/o micrscpAmy Kushal ETIENNE Work Phone: Start: 42-79-1456MUD,APTIMA HPV,AGE GDLNAmy Kushal ETIENNE Work Phone: Start: 61-88-8535Vjyruhpatlp observation [Identifier] in Cervix by Cyto stainGeneric ProviderStart: 94-00-7678Btrjp dip stick/tablet rgnt non-auto w/o micrscpCorey Tapan DO Work Phone: Start: 29-23-5714OLF TESTGeneric External Data ProviderStart: 22-30-1363Exllo dip stick/tablet rgnt non-auto w/o micrscpCorey Tapan DO Work Phone: Start: 54-86-9442WXV CBC WITH AUTO DIFFMarc Kwame ALMAGUER Work Phone: Start: 41-19-4546Rbuez X-ray of right wristNP-C Mirtha Antunez Work Phone: Plan of Treatment DateCare ActivityDetailAuthorStart: 05-70-1624Qciogtnqg for malignant neoplasm of cervixNOMS HealthcareStart: 05-30-2025 End: 04-35-9144Flrfkmc encounter /05/2025 9:15 AM EST Office Visit [facility] [address] [place] [address] Skyler Puente MD [address] [place] [address] [facility] FMStart: 05-13-2025 End: 46-39-5673Lbivqwh encounter dmbyjerqw97/18/2025 1:30 PM EST Routine NOMTamera CARMEN [address] [place], [id number] Oleksandr Phelan DO [address] [place] [address] [facility] KASPERGYNStart: 04-16-2025 End: 84-43-9522NM for pregnancyUS OB follow up transabdominal approach Imaging Routine size inconsistent with dates ([facility]) Expected: 04/16/2025, Expires: 08/17/2025[facility] Work Phone: comment on above:Expected: 04/16/2025, Expires: 08/17/2025Start: 04-01-2025 End: 04-23-5317Aidegdq encounter hokgixnva89/07/2025 11:00 AM EDT Routine [facility] [place] [facility] [address] [place] [address] Niurka Kc, REED OR WIND INSTRUMENT REPAIRER [address] [place] [address] NOMTamera [place] OBGYNStart: 03-03-2025 End: 25-23-2502WNN panel - Blood by Automated countCBC Lab Routine Diabetes mellitus screening Expected: 03/03/2025 (Approximate), Expires: 03/03/2026[facility] Work Phone: comment on above:Expected: 03/03/2025 (Approximate), Expires: 03/03/2026Start: 03-03-2025 End: 52-15-0186Hmlkyevkier of glucose 1 hour after glucose challenge for glucose tolerance testGlucose tolerance, 1 hour Lab Routine Diabetes mellitus screening Expected: 03/03/2025 (Approximate), Expires: 03/03/2026[facility] HospitalComment on above:Expected: 03/03/2025 (Approximate), Expires: 03/03/2026Start: 03-03-2025 End: 86-14-9735Ebavipp encounter procedureNOMS [place] OBGYNComment on above: ArrivedStart: 23-85-7120MUUDJ-19 Vaccine ( season)COVID-19 Vaccine ()[facility] HealthcareStart: 60-26-1325Owmnnzxzn vaccinationInfluenza Vaccine (#1)[facility] HealthcareStart: 02-03-2025 End: 76-02-2340Tjhugwj encounter divvjnuwo77/11/2025 2:10 PM EDT Routine [facility] OB [address] [place] [phone] Oleksandr Phelan, DO [address] [place] [address] N[facility] BCP OBStart: 02-03-2025 End: 58-58-3770Yxrd, bloodLead, blood Lab Routine Second trimester ([facility]) 20 weeks gestation of ([facility]) Vitamin D deficiency Expected: 02/03/2025 (Approximate), Expires: 02/03/2026[facility] Work Phone: comment on above:Expected: 02/03/2025 (Approximate), Expires: 02/03/2026Start: 02-03-2025 End: 45-81-2224Xyxyzzdtvthj / ancillary services cmpuhacfca97/11/2025 1:00 PM EDT Ancillary Procedure [facility] OB [address] [place] [address] [facility] OBStart: 01-02-2025 End: 24-10-3309Mqoqt fetoprotein, maternalAlpha fetoprotein, maternal Lab Routine 15 weeks gestation of ([facility]) Second trimester ([facility]) Expected: 01/02/2025 (Approximate), Expires: 03/05/2025[facility] Healthcare Comment on above:Expected: 01/02/2025 (Approximate), Expires: 03/05/2025Start: 01-02-2025 End: 50-20-1186IC for pregnancyUS OB 14+ weeks anatomy scan Imaging Routine Screening, , for anatomic survey ([facility]) Expected: 01/02/2025, Expires: 04/04/2025[facility] HealthcareComment on above:Expected: 01/02/2025, Expires: 04/04/2025Start: 01-02-2025 End: 91-07-5691Cpzceos encounter /10/2025 9:30 AM EDT Routine [facility] [address] [place] [phone] Mariam Fajardo PA [address] [place] [address] ArrivedNOMS BCP OBComment on above: ArrivedStart: 12-05-2024 End: 38-68-3837Yvsmhba encounter procedureNONY BCP OBComment on above:Arrived Start: 11-28-2024 End: 44-48-6404Omcaseg encounter fofabovys45/05/2025 1:00 PM EDT Office Visit [facility] [address] [place] [address] Skyler Puente MD [address] [place] [phone] NOMTamera MELVIN FMStart: 63-04-5677Bjrsqnbum for malignant neoplasm of cervixNONY HealthcareStart: 11-12-2024 End: 30-73-5247Aixmlwz encounter xdaxtkxsm54/20/2025 10:45 AM EDT Office Visit [facility] [address] [place] [address] Skyler Puente MD [address] [place] [address] [facility] FMStart: 11-08-2024 End: 23-96-7134KZZ/RhABO/Rh Lab Routine Missed menses , unspecified gestational age Expected: 11/08/2024 (Approximate), Expires: 11/08/2025NOMS HealthcareComment on above:Expected: 11/08/2024 (Approximate), Expires: 11/08/2025Start: 11-08-2024 End: 74-96-8285Ctvaa type and Indirect antibody screen panel - BloodType and screen Lab Routine Missed menses , unspecified gestational age Expected: 11/08/2024 (Approximate), Expires: 11/08/2025NOMS HealthcareComment on above:Expected: 11/08/2024 (Approximate), Expires: 11/08/2025Start: 11-08-2024 End: 88-80-5746Aypks of abuse panel - Urine by Screen methodRapid drug screen, urine Lab Routine , unspecified gestational age Encounter for supervision of normal first in first trimester Expected: 11/08/2024 (Approximate), Expires: 11/08/2025NONY HealthcareComment on above:Expected: 11/08/2024 (Approximate), Expires: 11/08/2025Start: 11-01-2024 End: 65-19-2664FI Pelvis transvaginalUS OB transvaginal Imaging Routine Missed menses Expected: 11/01/2024, Expires: 02/01/2025[facility] Work Phone: comment on above:Expected: 11/01/2024, Expires: 02/01/2025Start: 08-14-2024 End: 09-85-4430Dpuvews encounter lfyjbdccx41/19/2025 10:30 AM EST Office Visit [facility] [address] [place] [id number] Skyler Puente MD [address] [place] [id number] ArrivedNOMS CWM FMComment on above:ArrivedStart: 05-28-2024 End: 45-85-3100Oijkikg encounter procedureNONY CWM FMComment on above:Arrived Start: 05-28-2024 End: 89-30-0305Ngyli metabolic 1998 panel - Serum or PlasmaBasic metabolic panel Lab Routine Annual physical exam Expected: 05/28/2024 (Approximate), Expires: 05/28/2025[facility] HealthcareComment on above:Expected: 05/28/2024 (Approximate), Expires: 05/28/2025Start: 05-28-2024 End: 53-64-8003LHO W Auto Differential panel - BloodCBC and differential Lab Routine Annual physical exam Expected: 05/28/2024 (Approximate), Expires: 1 07/29/2024[facility] HealthcareComment on above:Expected: 05/28/2024 (Approximate), Expires: 05/28/2025Start: 05-28-2024 End: 05-12-1543Tlycthqbcj A1c/Hemoglobin.total in BloodHemoglobin A1c Lab Routine Annual physical exam Expected: 05/28/2024 (Approximate), Expires: 05/28/2025[facility] Work Phone: Comment on above:Expected: 05/28/2024 (Approximate), Expires: 05/28/2025Start: 05-28-2024 End: 21-01-3170Tavbnfu function 2000 panel - Serum or PlasmaHepatic function panel Lab Routine Annual physical exam Expected: 05/28/2024 (Approximate), Expires: 05/28/2025[facility] HealthcareComment on above:Expected: 05/28/2024 (Approximate), Expires: 05/28/2025Start: 05-28-2024 End: 54-09-5305Wqwij 1996 panel - Serum or PlasmaLipid panel Lab Routine Annual physical exam Expected: 05/28/2024 (Approximate), Expires: 05/28/2025[facility] HealthcareComment on above:Expected: 05/28/2024 (Approximate), Expires: 05/28/2025Start: 05-28-2024 End: 81-64-1637Lkomszqvqec [Units/volume] in Serum or PlasmaTSH Lab Routine Annual physical exam Expected: 05/28/2024 (Approximate), Expires: 05/28/2025[facility] HealthcareComment on above:Expected: 05/28/2024 (Approximate), Expires: 05/28/2025Start: 03-28-2024 End: 31-58-1617Sufrrnn encounter ssmjhriap15/03/2024 11:15 AM EDT Office Visit [facility] [address] [place] [address] Skyler Puente MD [address] [place] [id number] [facility] FMComment on above:ArrivedStart: 90-68-7955Xtrwhbckf vaccinationInfluenza Vaccine (#1)[facility] HealthcareStart: 44-66-7611Ezbvlnive for malignant neoplasm of cervixPap SmearUniversity HospitalBacteria identified in Urine by CultureUrine culture Microbiology Routine Missed menses Ordered: 11/08/2024 [facility] HealthcareComment on above:Ordered: 11/08/2024BC W Auto Differential panel - BloodCBC and differential Lab Routine Missed menses , unspecified gestational age Ordered: 11/08/2024[facility] HealthcareComment on above:Ordered: 11/08/2024HLAMYDIA TRACHOMATIS (GENITO/STI)CHLAMYDIA TRACHOMATIS (GENITO/STI) Lab Routine Exposure to STD Ordered: 01/02/2025[facility] HealthcareComment on above: Ordered: 01/02/2025ytology Cervical or vaginal smear or scraping studyPap Smear Pathology and Cytology Routine Well woman exam with routine gynecological exam Ordered: 01/02/2025[facility] HealthcareComment on above:Ordered: 01/02/2025Hemoglobin A1c/Hemoglobin.total in BloodHemoglobin A1c Lab Routine Missed menses , unspecified gestational age Ordered: 11/08/2024[facility] HealthcareComment on above:Ordered: 11/08/2024Hepatitis B virus surface Ag [Presence] in Serum or Plasma by ImmunoassayHepatitis B surface antigen Lab Routine Missed menses , unspecified gestational age Ordered: 11/08/2024[facility] HealthcareComment on above:Ordered: 11/08/2024Hepatitis C virus Ab [Presence] in Serum or Plasma by ImmunoassayHepatitis C antibody Lab Routine Missed menses , unspecified gestational age Ordered: 11/08/2024[facility] HealthcareComment on above: Ordered: 11/08/2024HIV-1/HIV-2 antigen/antibody combination immunoassayHIV-1 and HIV-2 antibodies Lab Routine Missed menses , unspecified gestational age Ordered: 11/08/2024[facility] HealthcareComment on above:Ordered: 11/08/2024Human papilloma virus DNA [Presence] in Unspecified specimen by Probe with amplificationHPV DNA probe, amplified Microbiology Routine Well woman exam with routine gynecological exam Ordered: 01/02/2025[facility] HealthcareComment on above: Ordered: 01/02/2025Neisseria gonorrhoeae DNA [Presence] in Unspecified specimen by DEIRDRE with probe detectionNeisseria gonorrhea DNA probe, direct Lab Routine Exposure to STD Ordered: 01/02/2025[facility] HealthcareComment on above:Ordered: 01/02/2025Reagin Ab [Presence] in Serum by RPRRPR Lab Routine Missed menses , unspecified gestational age Ordered: 11/08/2024[facility] HealthcareComment on above:Ordered: 11/08/2024Rubella antibody, IgGRubella antibody, IgG Lab Routine Missed menses , unspecified gestational age Ordered: 11/08/2024 [facility] HealthcareComment on above:Ordered: 11/08/2024SURESWAB(R) ADVANCED VAGINITIS PLUS, TMASURESWAB(R) ADVANCED VAGINITIS PLUS, TMA Pathology and Cytology Routine Vaginal discharge Ordered: 01/02/2025[facility] Work Phone: comment on above:Ordered: 01/02/2025US Pelvis transvaginalUS OB transvaginal Imaging Routine Missed menses 11/08/2024 10:[facility] Immunizations Immunization DateImmunizationNotesCare WsfswnssQbzkwjlr02-97-2979smfdyicpy virus vaccine, unspecified formulationSkyler Puente MD Work Phone: [facility] Payers DatePayer CategoryPayerPolicy [id number] Health [id number] [id number]-[id number] Care HMO (unspecified) [id number] 2.0.1.464879.3.57[id number] 2.0.1.720628.3.57[id number] 2.0.1.593604.3.57[id number] 2.840.1.933276.3.57[id number] 2.16840.1.498630.3.57[id number] 2..1.300770.3.57[id number] 2.840.1.352678.3.579.[id number] 2..1.692505.3.57[id number] 2..1.350262.3.579.[id number] 2..1.918158.3.579.[id number] 2..1.786077.3.579.[id number] 2..1.343755.3.579.[id number] 2..1.115419.3.57[id number] 2.0.1.473633.3.579.2.[id number] 2..1.629734.3.579.2.356619-60-4922Yujddcr1533415 2..1.685307.3.57[id number] 2..1.137677.3.579.2.399182-40-1036Pxlklwj2397979 2.0.1.533431.3.579.2.508757-50-1181Oxkamzg Health [id number] [id number] 2.16.840.1.104196.3.579.2.531 Social History DateTypeDetailFacilityUnknown if ever smokedNorth Kextil Other Start: 09-19-2023 End: 84-96-7484Eaa Assigned At [facility]NONY HealthcareStart: 91-51-7543Qrb Assigned At [facility]tart: 09-26-2023 End: 67-99-3314Xxdxuut smoking status NHISNever smoked tobacco (finding) [facility] Daytontart: 20-23-6516Sfcfdoz use and exposure Smokeless tobacco non-userNONY HealthcareStart: 09-19-2023 End: 90-71-6678Oselicz of Social functionNOMS HealthcareDo you belong to any clubs or organizations such as hindu groups, unions, fraV[employer] or athletic [employer], or school groups?NoNOMS HealthcareAre you now , , , , never or living with a partner?MarriedNOMS HealthcareHow often to you have a drink containing alcohol?2-4 times a monthNONY HealthcareHow many standard drinks containing alcohol do you have on a typical day?3 or 4NOMS HealthcareHow often do you have 6 or more drinks on 1 occasion?NeverNONY HealthcareStart: 56-34-4732Svz hard is it for you to pay for the very basics like food, housing, medical care, and heatingNot hard at allNONY HealthcareDo you feel stress - tense, restless, nervous, or anxious, or unable to sleep at night because yourmind is troubled all the time - these days [OSQ]Not at allNONY Healthcare(I/We) worried whether (my/our) food would run out before (I/we) got money to buy more.Never trueNONY HealthcareStart: 12-05-0235Moh assigned at birthNot on fileNONY HealthcareStart: 27-12-2125AdpvhdzvqBONY Healthcare Clinical Notes 09-27-2022 to 04-30-2025 Note Date & JwykKbowVyiueuch06-70-8836 History of Present illness Narrative* Noemí Joaquín, AVA - 04/30/2025 2:00 PM EST Reason for Appointment: Patient ID: [...] nursing note reviewed. Exam conducted with a plating and point assembly supervisor present. Vitals: Estimated body mass index is 30.18 kg/m as calculated from the following: Height as of 11/28/24: 5' 6 . Weight as of this encounter: 187 lb. BP: 108/72 Patient's last menstrual period was 09/16/2024. Assessment/Plan ICD-10-CM 1. Third trimester ([facility]) Z34.93 2. 32 weeks gestation of ([facility]) Z3A.32 POCT urinalysis dipstick manually resulted Return OB: Patient presents today for a routine obstetrics appointment. Patient is currently 32w2d . Patient states she is doing well [...] of: Oleksandr Phelan DO documented in this encounterUniversity HospitalWegasloopn59-20-2893 History of Present illness Narrative* Niurka Kc MARC - 04/16/2025 9:20 AM EDT Reason for Appointment: Patient ID: [...] disorder), recurrent episode, mild Other primary thrombophilia ([facility]) Sprain of ulnar collateral ligament of right wrist, subsequent encounter HISTORY PAST MEDICAL HISTORY SOCIAL HISTORY Past Medical History: Diagnosis Date At standard risk for fall MO (generalized anxiety disorder) MDD (major depressive disorder), recurrent episode, mild 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 Exam conducted with a plating and point assembly supervisor present. Vitals: Estimated body mass index is 29.38 kg/m as calculated from the following: Height as of 11/28/24: 5' 6 . Weight as of this encounter: 182 lb. BP: 110/74 Patient's last menstrual period was 09/16/2024. Assessment/Plan ICD-10-CM 1. size inconsistent with dates ([facility]) O26.849 US OB follow up transabdominal approach 2. Third trimester ([facility]) Z34.93 POCT urinalysis dipstick manually resulted 3. 30 weeks gestation of ([facility]) Z3A.30 Return OB: Patient presents today for a routine obstetrics appointment. Patient is currently 30w2d . Patient states she is doing well but has complaints of being tired due to current . Patient has verbalizes frequent movement. labor precautions was discussed/given and patient was instructed to perform kick counts three times a day. Orders Placed This Encounter Procedures US OB follow up transabdominal approach POCT urinalysis dipstick manually resulted Follow Up: Patient is to return to office in 2 week for routine OB appointment. Documented by Lucrecia Das MA on behalf of: Niurka Kc NP documented in this encounterUniversity HospitalSxiiihdyhq20-37-5797 History of Present illness Narrative* Niurka Kc, MARC - 04/01/2025 11:00 AM EDT Reason for Appointment: Patient ID: [...] nursing note reviewed. Exam conducted with a plating and point assembly supervisor present. Vitals: Estimated body mass index is 28.85 kg/m as calculated from the following: Height as of 11/28/24: 5' 6 . Weight as of this encounter: 178 lb 12 oz. BP: 116/72 Patient's last menstrual period was 09/16/2024. ASSESSMENT & PLAN ICD-10-CM 1. Third trimester ([facility]) Z34.93 POCT urinalysis dipstick manually resulted 2. 28 weeks gestation of ([facility]) Z3A.28 Return OB: Patient presents today for a routine obstetrics appointment. Patient is currently 28w1d . Patient states she is doing well [...] week for routine OB appointment. Documented by Niurka Kc NP on behalf of: Niurka Kc NP documented in this encounterUniversity HospitalExdkppucpq51-94-9358 History of Present illness Narrative* Aurora Hernandez LPN - 03/03/2025 9:50 AM EDT Reason for Appointment: Patient ID: [...] nursing note reviewed. Exam conducted with a plating and point assembly supervisor present. Vitals: Estimated body mass index is 26.03 kg/m as calculated from the following: Height as of 11/28/24: 5' 6 . Weight as of 02/03/25: 161 lb 4 oz. BP: Patient's last menstrual period was 09/16/2024. ASSESSMENT & PLAN ICD-10-CM 1. Second trimester ([facility]) Z34.92 POCT urinalysis dipstick manually resulted 2. 24 weeks gestation of ([facility]) Z3A.24 3. Diabetes mellitus screening Z13.1 CBC [...] by Aurora Hernandez LPN on behalf of: Niurka Kc NP documented in this encounterUniversity HospitalSexwuvbpcy38-25-4164 History of Present illness Narrative* Aurora Hernandez LPN - 02/03/2025 2:10 PM EDT Reason for Appointment: Patient ID: Yi [...] disorder), recurrent episode, mild Other primary thrombophilia ([facility]) Sprain of ulnar collateral ligament of right wrist, subsequent encounter HISTORY PAST MEDICAL HISTORY SOCIAL HISTORY Past Medical History: Diagnosis Date At standard risk for fall MO (generalized anxiety disorder) MDD (major depressive disorder), recurrent episode, mild 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 Exam conducted with a plating and point assembly supervisor present. Vitals: Estimated body mass index is 26.03 kg/m as calculated from the following: Height as of 11/28/24: 5' 6 . Weight as of this encounter: 161 lb 4 oz. BP: 120/80 Patient's last menstrual period was 09/16/2024. ASSESSMENT & PLAN ICD-10-CM 1. Second trimester ([facility]) Z34.92 POCT urinalysis dipstick manually resulted Lead, blood Lead, blood 2. 20 weeks gestation of ([facility]) Z3A.20 Lead, blood Lead, blood 3. Vitamin D deficiency E55.9 Lead, blood Lead, blood Patient presents today for a routine obstetrics appointment. Patient is currently 20w0d with a Estimated Date of Delivery: 06/23/25. Patient had anatomy scan performed prior to appointment today. Patient desires to have Lead Test obtained. Printed lab slip after confirming with [place] at [facility] that correct order was selected. Patient to return to clinic in 4 weeks for routine OB appointment. 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 Exam conducted with a plating and point assembly supervisor present. Vitals: Estimated body mass index is 25.04 kg/m as calculated from the following: Height as of 11/28/24: 5' 6 . Weight as of this encounter: 155 lb 1.9 oz. BP: 110/70 Patient's last menstrual period was 09/16/2024. ASSESSMENT & PLAN ICD-10-CM 1. 15 weeks gestation of ([facility]) Z3A.15 POCT urinalysis dipstick manually resulted Alpha fetoprotein, maternal Alpha fetoprotein, maternal CANCELED: POCT urinalysis dipstick manually resulted 2. Second trimester ([facility]) Z34.92 POCT urinalysis dipstick manually resulted Alpha fetoprotein, maternal Alpha fetoprotein, maternal CANCELED: POCT urinalysis dipstick manually resulted 3. Well woman exam with routine gynecological exam Z01.419 Pap Smear HPV DNA probe, amplified 4. Screening, , for anatomic survey ([facility]) Z36.89 US OB 14+ weeks anatomy scan US OB 14+ weeks anatomy scan 5. Exposure to STD Z20.2 CHLAMYDIA TRACHOMATIS (GENITO/STI) Neisseria gonorrhea DNA probe, direct 6. Vaginal discharge N89.8 SURESWAB(R) ADVANCED VAGINITIS PLUS, TMA Return OB/Annual Exam: Patient presents today for a annual exam/routine obstetrics appointment. Patient is currently 01v4bzurbxdfn. Patient states she is doing well but [...] behalf of: LOWELL Mckee documented in this encounterUniversity HospitalLuzjnlojfd66-41-7400 History of Present illness Narrative* LOWELL Mckee - 12/05/2024 9:50 AM EDT Reason for Appointment: Patient ID: [...] ASSESSMENT & PLAN ICD-10-CM 1. First trimester ([facility]) Z34.91 Urine dip 2. 11 weeks gestation of ([facility]) Z3A.11 Urine dip Return OB: Patient presents [...] Documented by LOWELL Mckee on behalf of: Oleksandr Phelan DO documented in this encounterUniversity HospitalYumqwqpclm20-23-2212 History of Present illness Narrative* Skyler Puente MD - 11/28/2024 1:42 PM EDTAssociated Problem(s): Generalized anxiety disorder (CMS/HCC) Symptoms remain controlled with zoloft and continue. * Skyler Puente MD - 11/28/2024 1:42 PM EDTAssociated Problem(s): Major depressive disorder, recurrent episode, mild (HCC) (CMS/HCC) Symptoms remain controlled with zoloft and continue. * Skyler Puente MD - 11/28/2024 1:42 PM EDTAssociated Problem(s): 10 weeks gestation of Doing well and follow with OB. * Skyler Puente MD - 11/28/2024 1:00 PM EDT Images from the original note were not [...] functioning well. Anxiety stable. Recently with increased stressand needed major home repair and lost job [...] and follow with OB. documented in this encounterUniversity HospitalLxmjawihgo29-49-7090 History of Present illness Narrative* Missy Callejas LPN - 11/08/2024 10:30 AM EDT Reason for Appointment: Patient ID: [...] drink 6-8 glasses of water a day, eatno raw or undercooked meat, and stay away from [facility]. Patient has also been advised to not change litter boxes and eat 6 small meals a day. Patient has been consulted regarding the do's and don'ts ofpregnancy. Patient was given labs and all questions [...] by: Missy Callejas LPN documented in this encounterUniversity HospitalBpaxtqvall43-91-3330 History of Present illness Narrative* Skyler Puente MD - 08/14/2024 10:57 AM ESTAssociated Problem(s): Family planning counseling Discussed OTC and medication safety during . * Skyler Puente MD - 08/14/2024 10:56 AM ESTAssociated Problem(s): Generalized anxiety disorder (CMS/HCC) Mood well controlled but plan on getting . Stop wellbutrin and change to zoloft. * Skyler Puente MD - 08/14/2024 10:56 AM ESTAssociated Problem(s): Major depressive disorder, recurrent episode, mild (HCC) (CMS/HCC) Mood well controlled but plan on getting . Stop wellbutrin and change to zoloft. * Skyler Puente MD - 08/14/2024 10:30 AM EST Images from the original note were not [...] soon and wants to know if able tocontinue antidepressants. Also curious about other medications and [...] medication safety during . documented in this encounterUniversity HospitalEewflijnfi35-73-0612 History of Present illness Narrative* Skyler Puente MD - 05/28/2024 3:14 PM ESTAssociated Problem(s): Major depressive disorder, recurrent episode, mild (HCC) (CMS/HCC) Symptoms remain controlled with wellbutrin and continue. * Skyler Puente MD - 05/28/2024 3:13 PM ESTAssociated Problem(s): Annual physical exam Due for labs. Discussed proper diet and regular aerobic exercise. Need aerobic exercise 5-6 days a week for 30 minutes at a time. Smaller portions and limit total calories. Colonoscopy after age 45. Tetanus every 10 years. Advised not to smoke. * Skyler Puente MD - 05/28/2024 2:30 PM EST Images from the original note were not [...] with medication. Not down or sad and feelshappier. Review of Systems Respiratory: Negative for cough, [...] panel Lipid panel TSH documented in this encounterUniversity HospitalLefislfqmi52-91-3789 History of Present illness Narrative* Skyler Puente MD - 03/28/2024 11:46 AM EDTAssociated Problem(s): Overweight (BMI 25.0-29.9) Patient doing well [...] develop new or worsening symptoms contact office. * Skyler Puente MD - 03/28/2024 11:45 AM EDTAssociated Problem(s): Generalized anxiety disorder (CMS/HCC) Symptoms remain controlled with wellbutrin and continue. * Skyler Puente MD - 03/28/2024 11:45 AM EDTAssociated Problem(s): Major depressive disorder, recurrent episode, mild (HCC) (CMS/HCC) Symptoms remain controlled with wellbutrin and continue. * Skyler Puente MD - 03/28/2024 11:15 AM EDT Images from the original note were not [...] side effects. Taking adipex and weight down 12pounds since last visit and 24 pounds in 3 months. Tolerating medication without side effects except mild dry mouth. Not as hungry with medication. Smaller portions and not snacking. Increased fruitsand vegetables. Tries to limit total daily calories. [...] (Adipex-P) 37.5 MG tablet documented in this [facility]07-12-2023 Evaluation note* Encounter Date Diagnosis Assessment Notes Treatment Notes Treatment Clinical Notes Dec, Right wrist pain (ICD-10 - M25.5 31) Dec,arpal tunnel syndrome of right wrist (ICD-10 - G56.01)Carpal tunnel syndrome home care material was printed Drink plenty fluids, get plenty of rest. Take the Aleve as prescribed. Wear the splint to your wrist is much as possible including when you sleep. Follow-up with your family physician if no improvement in 5 to 7 days. Off work until Monday. [facility] Other 04-04-2023 Evaluation note* Encounter Date Diagnosis Assessment Notes Treatment Notes Treatment Clinical Notes Sep, Nasal congestion (ICD-10 - R09.8 1) Sep,OVID-19 (ICD-10 - U07.1) COVID PCR test performed [...] treatment plan. Patient left in stable condition [facility] Other Evaluation noteNo assessment information available [facility] Work Phone: Evaluation note* Diagnosis Major [...] in first trimester documented in this encounter [facility] HealthcareEvaluation note* Diagnosis Major depressive disorder, recurrent [...] Generalized anxiety disorder 10 weeks gestation of ([facility]) 15 weeks gestation of ([facility]) Second trimester ([facility]) state, incidental Well woman exam with routine gynecological exam Routine gynecological examination Screening, , for anatomic survey ([facility]) Encounter for anatomic survey Exposure to STD [...] Generalized anxiety disorder 10 weeks gestation of ([facility]) Second trimester ([facility]) state, incidental 20 weeks gestation of ([facility]) Vitamin D deficiency documented in this encounter [facility] HealthcareEvaluation note* [...] Generalized anxiety disorder 10 weeks gestation of ([facility]) Second trimester ([facility]) state, incidental 24 weeks gestation of ([facility]) Diabetes mellitus screening Screening for diabetes mellitus documented in this encounter [facility] HealthcareEvaluation note* Diagnosis Major depressive disorder, recurrent episode, mild- Primary Generalized anxiety disorder Obesity (BMI 30-39.9) Major depressive disorder, recurrent episode, mild- Primary Generalized anxiety disorder Obesity (BMI 30-39.9) Major depressive disorder, recurrent episode, mild- Primary Generalized anxiety disorder Obesity (BMI 30-39.9) Need for malaria prophylaxis Major depressive disorder, recurrent episode, mild- Primary Generalized anxiety disorder Obesity (BMI 30-39.9) Overweight (BMI 25.0-29.9) Overweight Annual physical exam- Primary Routine general medical examination at a health care facility Major depressive disorder, recurrent episode, mild Major depressive disorder, recurrent episode, mild- Primary Generalized anxiety disorder Family planning counseling Other general counseling and advice for contraceptive management Major depressive disorder, recurrent episode, mild- Primary Generalized anxiety disorder 10 weeks gestation of ([facility]) Third trimester ([facility]) state, incidental 28 weeks gestation of ([facility]) documented in this encounter [facility] HealthcareEvaluation note* Diagnosis Major depressive disorder, recurrent episode, mild- Primary Generalized anxiety disorder Obesity (BMI 30-39.9) Major depressive disorder, recurrent episode, mild- Primary Generalized anxiety disorder Obesity (BMI 30-39.9) Major depressive disorder, recurrent episode, mild- Primary Generalized anxiety disorder Obesity (BMI 30-39.9) Need for malaria prophylaxis Major depressive disorder, recurrent episode, mild- Primary Generalized anxiety disorder Obesity (BMI 30-39.9) Overweight (BMI 25.0-29.9) Overweight Annual physical exam- Primary Routine general medical examination at a health care facility Major depressive disorder, recurrent episode, mild Major depressive disorder, recurrent episode, mild- Primary Generalized anxiety disorder Family planning counseling Other general counseling and advice for contraceptive management Major depressive disorder, recurrent episode, mild- Primary Generalized anxiety disorder 10 weeks gestation of ([facility]) size inconsistent with dates ([facility])- Primary Third trimester ([facility]) state, incidental 30 weeks gestation of ([facility]) documented in this encounter [facility]* Diagnosis Major depressive disorder, recurrent episode, mild- Primary Generalized anxiety disorder Obesity (BMI 30-39.9) Major depressive disorder, recurrent episode, mild- Primary Generalized anxiety disorder Obesity (BMI 30-39.9) Major depressive disorder, recurrent episode, mild- Primary Generalized anxiety disorder Obesity (BMI 30-39.9) Need for malaria prophylaxis Major depressive disorder, recurrent episode, mild- Primary Generalized anxiety disorder Obesity (BMI 30-39.9) Overweight (BMI 25.0-29.9) Overweight Annual physical exam- Primary Routine general medical examination at a health care facility Major depressive disorder, recurrent episode, mild Major depressive disorder, recurrent episode, mild- Primary Generalized anxiety disorder Family planning counseling Other general counseling and advice for contraceptive management Major depressive disorder, recurrent episode, mild- Primary Generalized anxiety disorder 10 weeks gestation of ([facility]) Third trimester ([facility]) state, incidental 32 weeks gestation of ([facility]) documented in this encounter [facility] Narrative - Reported* Type Description Date Medical History Depression Medical HistoryAnxietySurgical Historytonsillectomy and adenoidectomy Hospitalization Historysee above GERS Other Summary Purpose Family History Relationship Condition Age at Onset Recorded Date/T zhang father Hypertension Unknown Advance Directives Advance Directive Response Recorded Date/ Time Advance Directives No January 12 9:23am Chief Complaint and Reason for Visit Chief Complaint Skin irritation on v agina Reason for Referral SpecialtyDiagnoses / ProceduresReferred By ContactReferred To Contact Diagnoses Obesity (BMI 30-39.9) Skyler Puente MD [address] [place] [address] Referral IDStatusReasonStart DateExpiration DateVisits RequestedVisits [id number] Additional Source Comments INFORMATION SOURCE (unrecogn ized section and content) DATE CREATED AUTHOR 03/15/2021 [facility] DATE CREATED AUTHOR AUTHOR'S ORGANIZ ATION 01/14/2023 [facility] DATE CREATED AUTHOR AUTHOR'S ORGANIZ ATION 05/02/2025 [facility] EPIC REASON FOR VISIT (unrecogniz ed section and content) ReasonCommentsEpistaxis (Nose Bleed)Follow-upCheck up on new medsReasonOnset DateCommentsMed Cikwyl104ReasonCommentsFollow-up2 mReasonComments Follow-upMed check.ReasonCommentsAmenorrheaReasonCommentsFollow-fh6oLujata CommentsRoutine Visit Care Teams (unrecognized sec tion and content) Team Status: Inactive Member Role Status Dates JAH Grant Attending Provider Active Team Status: Active Member Role Status Dates NON STAFF Primary Care Provider Active Team Status: Inactive Member Role Status Dates NON STAFF Primary Care Provider Active Start: January 11, 2024 End: January 11, 2024Esther Alvarez ProviderActiveStart: January 11, 2024 End: January 11, 2024Team MemberRelationshipSpecialtyStart DateEnd Date Skyler Puente MD [address] [place] [address] PCP - GeneralFamily Medicine09/26/23Team MemberRelationshipSpecialtyStart DateEnd Date Skyler Puente MD [address] [place] [address] PCP - GeneralFamily Medicine09/26/23Team MemberRelationshipSpecialtyStart DateEnd Date Skyler Puente MD [address] [place] [address] PCP - GeneralFamily Medicine09/26/23Team MemberRelationshipSpecialtyStart DateEnd Date Skyler Puente MD [address] [place] [address] PCP - GeneralFamily Medicine09/26/23Team MemberRelationshipSpecialtyStart DateEnd Date Skyler Puente MD [address] [place] [address] PCP - GeneralFamily Medicine09/26/23Team MemberRelationshipSpecialtyStart DateEnd Date Skyler Puente MD [address] [place] [address] PCP - GeneralFamily Medicine09/26/23Team MemberRelationshipSpecialtyStart DateEnd Date Skyler Puente MD [address] [place] [address] PCP - GeneralFamily Medicine09/26/23Team MemberRelationshipSpecialtyStart DateEnd Date Skyler Puente MD [address] [place] [address] PCP - [facility] Medicine09/26/23Team MemberRelationshipSpecialtyStart DateEnd Date Skyler Puente MD [address] [place] [address] PCP - [facility] Medicine09/26/23Team MemberRelationshipSpecialtyStart DateEnd Date Skyler Puente MD [address] [place] [address] PCP - [facility]09/26/23Team MemberRelationshipSpecialtyStart DateEnd Date Skyler Puente MD [address] [place] [address] PCP - [facility] Medicine09/26/23Team MemberRelationshipSpecialtyStart DateEnd Date Skyler Puente MD [address] [place] [address] [facility]/26/23Team MemberRelationshipSpecialtyStart DateEnd Date Skyler Puente MD [address] [place] [address] PCP - [facility] Medicine09/26/23Team MemberRelationshipSpecialtyStart DateEnd Date Skyler Puente MD [address] [place] [address] PCP - GeneralFamily Medicine09/26/23Team MemberRelationshipSpecialtyStart DateEnd Date Skyler Puente MD [address] [place] [address] PCP - GeneralFamily Medicine09/26/23Team MemberRelationshipSpecialtyStart DateEnd Date Skyler Puente MD [address] [place] [address] PCP - GeneralFamily Medicine09/26/23Team MemberRelationshipSpecialtyStart DateEnd Date Skyler Puente MD [address] [place] [address] PCP - Generalmily Medicine09/26/23Team MemberRelationshipSpecialtyStart DateEnd Date Skyler Puente MD PCP - Generalmily Medicine09/26/23Team MemberRelationshipSpecialtyStart DateEnd Date Skyler Puente MD PCP - GeneralFamily Medicine09/26/23Team MemberRelationshipSpecialtyStart DateEnd Date Skyler Puente MD PCP - GeneralFamily Medicine09/26/23Team MemberRelationshipSpecialtyStart DateEnd Date Skyler Puente MD PCP - GeneralFamily Medicine09/26/23Team MemberRelationshipSpecialtyStart DateEnd Date Skyler Puente MD PCP - [facility]09/26/23Team MemberRelationshipSpecialtyStart DateEnd Date Skyler Puente MD PCP - [facility]09/26/23 Goals (unrecognized section and content) Goals may [...] BE BASED ON THE PRIMARY CLINICAL RECORDS. [facility] [employer], [facility]. provides no warranty or guarantee of the accuracy or completeness of information in this document.
== END 2025-05-27 15:01 | disposition home or self-care (01) ==
LOC: LAB 15:00
PROVIDERS: PCP Family Medicine; Visit Provider Obstetrics & Gynecology
DX: Z34.93 Encounter for supervision of normal pregnancy, unspecified, third trimester (principal)
CPT/HCPCS: 87081

== ENCOUNTER 2025-06-15 21:45 | Inpatient (IN) | payer OTHER, SELFPAY ==
--- OUTSIDE RECORDS SUMMARY | 2025-06-04 14:20 | XMS_ITS | Encounter Summary ---
Author Organization [facility] Address [address] [place] [address] Care Team Providers Care Social Service Worker Name Role Phone Skyler Webb MD Primary Care Provider [phone] Reason for Visit * ReasonCommentsRoutine Visit Encounter Details DateTypeDepartmentCare Team (Latest Contact Info)Hihtcmaeqgo02/10/2025 2:20 PM ESTRoutine [facility] [address] [place] [address] Oleksandr Phelan DO [address] [place] [address] Third trimester ([facility]); 37 weeks gestation of ([facility]) Social History Tobacco UseTypesPacks/DayYears UsedDateSmoking Tobacco: NeverSmokeless Tobacco: NeverSocial Connection and Isolation PanelAnswerDate RecordedIn a typical week, how many times do you talk on the phone with family, friends, or neighbors?More than three times a week09/19/2023How often do you get together with friends or relatives?Once a week09/19/2023How often do you attend baptist or restoration services?Never4Do you belong to any clubs or organizations such as baptist groups, unions, fraternal or athletic groups, or school groups?No 09/19/2023How often do you attend meetings of the clubs or organizations you belong to?Never09/19/2023re you , , , , never , or living with a partner?Vvfzjhk1009/19/2023UDIT-CAnswerDate RecordedQ1: How often do you have a [...] housing, medical care, and heating?Not hard at all09/19/2023[facility] [place] of Occupational Health - Occupational Stress QuestionnaireAnswerDate [...] to sleep or slept in ashelter (including now)?No03/26/2024Estimated Date of Delivery SnurazzuFtj84/29/2025Based on last menstrual period of 09/16/2024Sex and Gender InformationValueDate RecordedSex Assigned at BirthNot on fileLegal SexFemale 12/20/2022 10:00 AM EDTGender IdentityNot on fileSexual OrientationNot on file documented as of this encounter Last Filed Vital Signs Vital SignReadingTime TakenCommentsBlood Kkidkrdp097/7806/04/2025 2:37 PM EST Pulse--Temperature--Respiratory Rate--Oxygen Saturation--Inhaled Oxygen Concentration--Vccwve97.8 kg (198 lb)06/04/2025 2:37 PM ESTHeight--Body Mass Index31.9611/28/2024 1:18 PM EDTdocumented in this encounter Progress Notes * Noemí Joaquín, AVA - 06/04/2025 2:20 PM EST Reason for Appointment: Patient ID: [...] physical exam 05/28/2024 10 weeks gestation of ([facility]) 11/28/2024 Resolved Ambulatory Problems Diagnosis Date Noted Need for malaria prophylaxis 01/26/2024 Family planning counseling 08/14/2024 Past Medical History: Diagnosis Date At standard risk for fall MO (generalized anxiety disorder) MDD (major depressive disorder), recurrent episode, 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 Exam conducted with a automobile racer present. Vitals: Estimated body mass index is 31.96 kg/m?? as calculated from the following: Height as of 11/28/24: 5' 6 . Weight as of this encounter: 198 lb. BP: 118/78 Patient's last menstrual period was 09/16/2024. Assessment/Plan ICD-10-CM 1. Third trimester ([facility]) Z34.93 2. 37 weeks gestation of ([facility]) Z3A.37 POCT urinalysis dipstick manually resulted Assessment/Plan Return OB: Patient presents today for a routine obstetrics appointment. Patient is currently 37w2d . Patient states she is doing well but has complaints of being tired due to current . Patient has verbalizes frequent movement. labor precautions was discussed/given and patient was instructed to perform kick counts three times a day. Orders Placed This Encounter Procedures POCT urinalysis dipstick manually resulted Follow Up: Patient is to return to office in 1 week for routine OB appointment. Documented by Noemí Yanes LPN on behalf of: Oleksandr Phelan DO documented in this encounter Plan of Treatment Not on file documented as of this encounter Procedures Procedure NamePriorityDate/TimeAssociated DiagnosisCommentsPOCT URINALYSIS USVOFZZFIoarlli55/10/2025 2:37 PM EST 37 weeks gestation of ([facility]) documented in this encounter Results * (ABNORMAL) POCT urinalysis dipstick manually resulted (06/04/2025 2:37 PM EST) ComponentValueRef RangeTest MethodAnalysis TimePerformed AtPathologist SignatureColor, UAYellowClarity, UAClearGlucose, UANegativeNegative - 2000(110) ++++ mg/dLBilirubin, UANegativeNegative - 4(70) +++ mg/dLKetones, UA NegativeNegative - 160(16) ++++ mg/dLSpec Grav, UA1.0151 - 1.03Blood, UA NegativeNegative - 50 Curtis/mcLpH, UA8.05 - 9Protein, UA1+Negative - 2000(20) ++++ mg/dLUrobilinogen, UA1.00.2 - 12 mg/dLLeukocytes, UA1+Negative - 500+++ Ramos/mcLNitrite, UANegativeNegative - PositiveSpecimen (Source)Anatomical Location / LateralityCollection Method / VolumeCollection TimeReceived Time Urine06/04/2025 2:37 PM EST Narrative Authorizing ProviderResult TypeResult StatusCorey Tapan DOPOINT OF CARE TEST ENTER/EDIT ORDERABLESFinal Result documented in this encounter Visit Diagnoses Diagnosis Third trimester ([facility]) state, incidental 37 weeks gestation of ([facility]) documented in this encounter Care Teams Team MemberRelationshipSpecialtyStart DateEnd Date Skyler Webb MD [address] [place] [address] PCP - GeneralFamily Medicine09/26/23documented as of this encounter
--- OUTSIDE RECORDS SUMMARY | 2025-06-11 13:40 | XMS_ITS | Encounter Summary ---
Author Organization [facility] Address [address] [place] [address] Care Team Providers Care Developmental Mathematics Instructor Name Role Phone Skyler Webb MD Primary Care Provider [phone] Reason for Visit * ReasonCommentsRoutine Visit Encounter Details DateTypeDepartmentCare Team (Latest Contact Info)Fvuqktmvyiv58/17/2025 1:40 PM ESTRoutine [facility] [address] [place] [address] Oleksandr Phelan DO [address] [place] [address] Third trimester ([facility]); 38 weeks gestation of ([facility]) Social History Tobacco UseTypesPacks/DayYears UsedDateSmoking Tobacco: NeverSmokeless Tobacco: NeverSocial Connection and Isolation PanelAnswerDate RecordedIn a typical week, how many times do you talk on the phone with family, friends, or neighbors?More than three times a week09/19/2023How often do you get together with friends or relatives?Once a week09/19/2023How often do you attend orthodox or holiness services?Never4Do you belong to any clubs or organizations such as orthodox groups, unions, fraternal or athletic groups, or school groups?No 09/19/2023How often do you attend meetings of the clubs or organizations you belong to?Never09/19/2023re you , , , , never , or living with a partner?Akqksgz3909/19/2023UDIT-CAnswerDate RecordedQ1: How often do you have a [...] care, and heating?Not hard at all09/19/2023[facility] [place] of Occupational Health - Occupational Stress QuestionnaireAnswerDate [...] in ashelter (including now)?No03/26/2024Estimated Date of Delivery NoscnqhsQko97/29/2025Based on last menstrual period of 09/16/2024Sex and Gender InformationValueDate RecordedSex Assigned at BirthNot on fileLegal SexFemale 12/20/2022 10:00 AM EDTGender IdentityNot on fileSexual OrientationNot on file documented as of this encounter Last Filed Vital Signs Vital SignReadingTime TakenCommentsBlood Mraydmzw119/6806/11/2025 2:10 PM EST Pulse--Temperature--Respiratory Rate--Oxygen Saturation--Inhaled Oxygen Concentration--Mbbrzw37.1 kg (203 lb)06/11/2025 2:10 PM ESTHeight--Body Mass [...] physical exam 05/28/2024 10 weeks gestation of ([facility]) 11/28/2024 Resolved Ambulatory Problems Diagnosis Date Noted Need for malaria prophylaxis 01/26/2024 Family planning counseling 08/14/2024 Past Medical History: Diagnosis Date At standard risk for fall MO (generalized anxiety disorder) MDD (major depressive disorder), recurrent episode, mild Other primary thrombophilia ([facility]) Sprain of ulnar collateral ligament of right wrist, subsequent encounter HISTORY PAST MEDICAL HISTORY SOCIAL HISTORY Past Medical History: Diagnosis Date At standard risk for fall MO (generalized anxiety disorder) MDD (major depressive disorder), recurrent episode, mild 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 Exam conducted with a escapement maker present. Vitals: Estimated body mass index is 32.77 kg/m?? as calculated from the following: Height as of 11/28/24: 5' 6 . Weight as of this encounter: 203 lb. BP: 110/68 Patient's last menstrual period was 09/16/2024. Assessment/Plan ICD-10-CM 1. Third trimester ([facility]) Z34.93 2. 38 weeks gestation of ([facility]) Z3A.38 POCT urinalysis dipstick manually resulted Assessment/Plan [...] this encounter Procedures Procedure NamePriorityDate/TimeAssociated DiagnosisCommentsPOCT URINALYSIS NHUWGNTUMwgbygb15/17/2025 2:16 PM EST 38 weeks gestation of ([facility]) documented in this encounter Results * (ABNORMAL) [...] / LateralityCollection Method / VolumeCollection Time Received LenrFuxnr15/17/2025 2:16 PM EST Narrative Authorizing ProviderResult TypeResult StatusCorey Tapan DOPOINT OF CARE TEST ENTER/EDIT ORDERABLESFinal Result documented in this encounter Visit Diagnoses Diagnosis Third trimester ([facility]) state, incidental 38 weeks gestation of ([facility]) documented in this encounter Care Teams Team MemberRelationshipSpecialtyStart DateEnd Date Skyler Webb MD [address] [place] [address] PCP - GeneralFamily Medicine09/26/23documented as of this encounter
--- OUTSIDE RECORDS SUMMARY | 2025-06-15 21:49 | XMS_ITS | Encounter Summary ---
Author Organization [facility] Address [address] [place] [address] Care Team Providers Care Physical Fitness Teacher Name Role Phone Skyler Webb MD Primary Care Provider [phone] Encounter Details DateTypeDepartmentCare Team (Latest Contact Info)Rpjzvcxpfbk26/17/2025bstract [facility] [address] [place] [address] Oleksandr Phelan DO [address] [place] [address] Social History Tobacco UseTypesPacks/DayYears UsedDateSmoking Tobacco: NeverSmokeless Tobacco: NeverSocial Connection and Isolation PanelAnswerDate RecordedIn a typical week, how many times do you talk on the phone with family, friends, or neighbors?More than three times a week09/19/2023How often do you get together with friends or relatives?Once a week09/19/2023How often do you attend taoism or synagogue services?Never4Do you belong to any clubs or organizations such as taoism groups, unions, fraternal or athletic groups, or school groups?No 09/19/2023How often do you attend meetings of the clubs or organizations you belong to?Never09/19/2023re you , , , , never , or living with a partner?Qqobpje7509/19/2023UDIT-CAnswerDate RecordedQ1: How often do you have a [...] and heating?Not hard at all09/19/2023[facility] [place] of Occupational Health - Occupational Stress QuestionnaireAnswerDate [...] in ashelter (including now)?No09/19/2023Estimated Date of Delivery AzocmemiQxw22/5Based on last menstrual period of 09/16/2024Sex and Gender InformationValueDate RecordedSex Assigned at BirthNot on fileLegal SexFemale 12/20/2022 10:00 AM EDTGender IdentityNot on fileSexual OrientationNot on file documented as of this encounter Plan of Treatment Not on file documented as of this encounter Visit Diagnoses Not on filedocumented in this encounter Care Teams Team MemberRelationshipSpecialtyStart DateEnd Date Skyler Webb MD [address] [place] [phone] PCP - GeneralFamily Medicine09/26/23documented as of this encounter
--- OUTSIDE RECORDS SUMMARY | 2025-06-15 21:49 | XMS_ITS ---
Author Organization [facility] Source Produ ction (ClinicalSummary Clone) Address Unknown Care Team Providers Care Entertainment Dancer Name Role Phone Unavailable Primary Care Physician Unavailab le Results * [UNITY] CARRIER SCREEN Performed by: [employer] Component Value Range Date Sickle Cell Disease/Beta-Thalassemia/Hemoglobino pathies carrier screen NEGATIVE 12/06/2024 04:47 pm UTCAlpha-Thalassemia carrier knwdtjPFHAFLBK71/13/2025 04:47 pm UTCCystic Fibrosis carrier xwlzvhPRSQUTUC82/13/2025 04:47 pm UTCSpinal Muscular Atrophy carrier screenNEGATIVE 2 SMN1 copies, SNP not uxsmare0312/06/2024 04:47 pm UTCFor detailed report, see PDFSee PDF12/06/2024 04:47 pm UTC 12/06/2024 04:47 pm UTC Social History Observation Value Start Date End Date
--- OUTSIDE RECORDS SUMMARY | 2025-06-15 21:49 | XMS_ITS | Clinical Summary ---
Author Organization [facility] Address [address] [place] [address] Care Team Providers Care Supervisor Purification Name Role Phone Skyler Webb MD Primary Care Provider [phone] Allergies Active AllergyReactionsCriticalityNoted QvazEwbmlmcnRfebbveQnsjwgn68/09/2024 Lactose Intolerance - Digestive Aids Medications MedicationSigDispense [...] Problems ProblemNoted DateDiagnosed Date10 weeks gestation of ([facility]) 11/28/2024 Assessment & Plan (11/28/2024 1:42 PM [...] years. Advised not to smoke. Generalized anxiety ldhpuvlf95/02/2024 Assessment & Plan (11/28/2024 1:42 PM EDT): [...] or continue to gain weight. Vitamin D /02/2024Overweight (BMI 25.0-29.9)09/26/2023 Assessment & Plan (03/28/2024 11:46 [...] minutes at a time. Estimated Date of JvzwnjniXknprmlyAol55/29/2025Based on last menstrual period of 09/16/2024 Resolved Problems ProblemNoted DateDiagnosed DateResolved DateFamily planning twdawrhctt39/19/2025 11/28/2024 Assessment & Plan (08/14/2024 10:57 AM EST): Discussed OTC and medication safety during . Need for malaria gzqfxlridgg87 Assessment & Plan (01/26/2024 11:32 AM EDT): Plan on travel to [place] and take malaria prophylaxis. Encounters DateTypeDepartmentCare LvvsQslofqcesef72/17/2025 1:40 PM ESTRoutine [facility] [address] [place] [address] Oleksandr Phelan, Third trimester ([facility]); 38 weeks gestation of ([facility])06/11/2025bstract [facility] [address] [place] [address] Oleksandr Phelan, 06/11/2025ambuli flowsheet [facility] [address] [place] [address] Oleksandr Phelan, 06/04/2025 2:20 PM ESTRoutine [facility] [address] [place] [address] Oleksandr Phelan, Third trimester ([facility]); 37 weeks gestation of ([facility])06/04/2025amboo flowsheet [facility] [place] [address] Oleksandr Phelan, 05/27/2025 10:30 AM ESTRoutine [facility] [place] [address] Oleksandr Phelan, DO 36 weeks gestation of ([facility]); Third trimester ([facility]); Heartburn during in third trimester ([facility])5Clinisync Result Encounter [facility] External Department Unsolicited Oleksandr Phelan, DO 5Bamboo flowsheet [facility] [place] [place] [address] Oleksandr Phelan, 05/13/2025 1:30 PM ESTRoutine [facility] [place] [place] [address] Oleksandr Phelan, Third trimester ([facility]); 34 weeks gestation of ([facility]); Heartburn during in third trimester ([facility])5Bamboo flowsheet [facility] [place] [address] Oleksandr Phelan, 04/30/2025 2:00 PM ESTRoutine [facility] [place] [place] [address] Oleksandr Phealn, Third trimester ([facility]); 32 weeks gestation of ([facility])04/30/2025 1:30 PM ESTAncillary Procedure [facility] [place] [address] size inconsistent with dates ([facility])04/16/2025 9:20 AM EDTRoutine [facility] [place] [place] [address] Aliza Kc NP size inconsistent with dates ([facility]) (Primary Dx); Third trimester ([facility]); 30 weeks gestation of ([facility])04/16/2025amboo flowsheet [facility] [address] [place] [address] [place] [address] Aliza Kc NP 04/01/2025 11:00 AM EDTRoutine [facility] [address] [place] [address] [place] [address] Aliza Kc NP Third trimester ([facility]); 28 weeks gestation of ([facility])04/01/2025amboo flowsheet [facility] [address] [place] [address] [place] [address] Aliza Kc NP 03/17/2025linisync Result Encounter [facility] External Department Unsolicited Aliza Kc NP from Last 3 Months [...] relatives?Once a week09/19/2023How often do you attend quaker or jewish services?Never4Do you belong to any clubs or organizations such as quaker groups, unions, fraternal or athletic groups, or school groups?No 09/19/2023How often do you attend meetings of the clubs or organizations you belong to?Never09/19/2023re you , , , , never , or living with a partner?Vylwjho1209/19/2023UDIT-CAnswerDate RecordedQ1: How often do you have a [...] housing, medical care, and heating?Not hard at all09/19/2023Fin[facility] [place] of Occupational Health - Occupational Stress QuestionnaireAnswerDate [...] to sleep or slept in ashelter (including now)?No4Estimated Date of Delivery AdxskndiYst58/29/2025Based on last menstrual period of 09/16/2024Sex and Gender InformationValueDate RecordedSex Assigned at BirthNot on fileLegal SexFemale 12/20/2022 10:00 AM EDTGender IdentityNot on fileSexual OrientationNot on file Last Filed Vital Signs Vital SignReadingTime TakenCommentsBlood Xhglcvhx235/6812 2:10 PM EST Xjyec83397/05/2025 1:18 PM NAXEqqibxjghdd45.6 ??C (97.8 ??F)11/28/2024 1:18 PM EDTRespiratory Xgax970311/28/2024 1:18 PM EDTOxygen Bfyrqadsap10%11/28/2024 1:18 PM EDTInhaled Oxygen Concentration--Qmonlu15.1 kg (203 lb)06/11/2025 2:10 PM EST Ztfilc052.6 cm (5' 6 )11/28/2024 1:18 PM EDTBody Mass Index32.77011/28/2024 1:18 PM EDT Plan of Treatment Health MaintenanceDue DateLast DoneCommentsCOVID-19 Vaccine ( season) /11/2023, 12/01/2020, 10/25/2020Influenza Vaccine (#1)2025 05/01/2024ervical Cancer Auqcebzxe81/10/2030HPV/Ugolgf7101/02/2030Pap Smear Pneumococcal Vaccine: Pediatrics (0 to 5 Years) and At-Risk Patients (6 to 64 Years)Aged OutNo longer eligible based on patient's age to complete this topic Procedures Procedure NamePriorityDate/TimeAssociated DiagnosisCommentsPOCT URINALYSIS LJVUDCITScuxams47/17/2025 2:16 PM EST 38 weeks gestation of ([facility]) POCT URINALYSIS GIIOFWIETewsytu05/10/2025 2:37 PM EST 37 weeks gestation of ([facility]) POCT URINALYSIS KQNFYMZPZkdccmx77/02/2025 10:53 AM EST 36 weeks gestation of ([facility]) Third trimester ([facility]) STREP GP B CULTURE+FQRESrllmeo00/02/2025 10:37 AM EST POCT URINALYSIS KVBMNTLCStnofvm47/18/2025 1:58 PM EST 34 weeks gestation of ([facility]) POCT URINALYSIS QROUXOHRCwzcymh59/05/2025 2:35 PM EST 32 weeks gestation of ([facility]) US OB FOLLOW UP TRANSABDOMINAL EBYWOTOBIvnqpym41/05/2025 1:58 PM EST size inconsistent with dates ([facility]) POCT URINALYSIS ZTOYLIQAIbadayc31/22/2025 9:56 AM EDT Third trimester ([facility]) POCT URINALYSIS OGLITHYBIwspmba65/07/2025 11:12 AM EDT Third trimester ([facility]) ALL CBC WITH AUTO CXTXFwcneem14/22/2025 1:15 PM EDT GLUCOSE 1 NHSGLkdqnkv63/22/2025 1:15 PM EDT PAP ACHGAKrcphhs99/10/2025 12:00 AM EDTfrom Last 3 Months or Most Recently Relevant to Health Maintenance Results * (ABNORMAL) POCT urinalysis dipstick manually resulted (06/11/2025 2:16 PM EST) Only the most recent of7 resultswithin the time period is included. ComponentValueRef RangeTest MethodAnalysis TimePerformed AtPathologist Signature Color, UAYellowClarity, UAClearGlucose, UANegativeNegative - 2000(110) ++++ mg/dLBilirubin, UANegativeNegative - 4(70) +++ mg/dLKetones, UANegativeNegative - 160(16) ++++ mg/dLSpec Grav, UA1.0101 - 1.03Blood, UANegativeNegative - 50 Curtis/mcLpH, UA7.55 - 9Protein, UA1+Negative - 2000(20) ++++ mg/dLUrobilinogen, UA 1.00.2 - 12 mg/dLLeukocytes, UANegativeNegative - 500+++ Ramos/mcLNitrite, UA NegativeNegative - PositiveSpecimen (Source)Anatomical Location / Laterality Collection Method / VolumeCollection TimeReceived VuqxQgpul48/17/2025 2:16 PM EST Narrative Authorizing ProviderResult TypeResult StatusCorey Tapan DOPOINT OF CARE TEST ENTER/EDIT ORDERABLESFinal Result * STREP GP B CULTURE+RFLX (05/27/2025 10:37 AM EST)ComponentValueRef RangeTest MethodAnalysis TimePerformed AtPathologist SignatureSTREP GP B CULTURE+RFLX ??Strep Gp B Culture+Rflx TBHSTREP GP B CULTURE+RFLXNegativeTBHSTREP GP B CULTURE+RFLXCenters for Disease Control and Prevention (CDC) andTBHSTREP GP B CULTURE+RFLXAmerican Congress of Obstetricians and GynecologistsTBHSTREP GP B CULTURE+RFLX(ACOG) guidelines for prevention of group BTBHSTREP GP B CULTURE+RFLXstreptococcal (GBS) disease specify co-collection ofTBHSTREP GP B CULTURE+RFLXa vaginal and rectal swab specimen to maximizeTBHSTREP GP B CULTURE+RFLXsensitivity of GBS detection. Per the CDC and ACOG,TBHSTREP GP B CULTURE+RFLXswabbing both the lower vagina and rectumTBHSTREP GP B CULTURE+RFLXsubstantially increases the yield of detectionTBHSTREP GP B CULTURE+RFLXcompared with sampling the vagina alone.TBH STREP GP B CULTURE+RFLXPenicillin G, ampicillin, or cefazolin are indicatedTBH STREP GP B CULTURE+RFLXfor intrapartum prophylaxis of GBSTBHSTREP GP B CULTURE+RFLXcolonization. Reflex susceptibility testing should beTBHSTREP GP B CULTURE+RFLXperformed prior to use of clindamycin only on GBSTBHSTREP GP B CULTURE+RFLXisolates from penicillin-allergic women who areTBHSTREP GP B CULTURE+RFLXconsidered a high risk for anaphylaxis. Treatment withTBHSTREP GP B CULTURE+RFLXvancomycin without additional testing is warranted ifTBHSTREP GP B CULTURE+RFLXresistance to clindamycin is noted.TBHSTREP GP B CULTURE+RFLX Performed at: - [facility]TBHSTREP GP B CULTURE+[id number] [place], [place] [id number] GP B CULTURE+RFLXLab Director: Alfred Selby PhD, Phone: [phone] (Source)Anatomical Location / Laterality Collection Method / VolumeCollection TimeReceived Time05/27/2025 10:37 AM EST 05/27/2025 3:02 PM EST Narrative YEVGENIY - 05/31/2025 5:09 PM EST Authorizing ProviderResult TypeResult StatusCorey Tapan DOLAB BLOOD ORDERABLES Final ResultPerforming OrganizationAddressCity/State/ZIP CodePhone Number [facility] * OB follow up transabdominal approach (04/30/2025 1:58 [...] RangeTest Method Analysis TimePerformed AtPathologist SignatureGLUCOSE 1 XGRI039<130 mg/dLTBH Specimen (Source)Anatomical Location / LateralityCollection Method / Volume Collection TimeReceived Time03/17/2025 1:15 PM EDT03/17/2025 1:16 PM EDT Narrative CLINISYNC - 03/17/2025 1:46 PM EDT Authorizing ProviderResult TypeResult StatusAliza Kc NPLAB BLOOD ORDERABLESFinal ResultPerforming OrganizationAddressCity/State/ZIP CodePhone Number [facility] * (ABNORMAL) ALL CBC WITH AUTO DIFF (03/17/2025 1:15 PM EDT)ComponentValueRef RangeTest MethodAnalysis TimePerformed AtPathologist SignatureTBH WBC11.5(H) 4.0 - 11.0 10 3/uLTBHTBH RBC3.80(L)4.20 - 5.40 10 6/uLTBHTBH HGB12.612.0 - 16.0 g/dLTBHTBH HCT37.036.0 - 48.0 %TBHTBH MCV97.481.0 - 99.0 fLTBHTBH MCH33.2 26.7 - 34.0 pgTBHTBH MCHC34.129.9 - 35.2 g/dLTBHTBH RDW12.511.0 - 15.0 %TBHTBH XYY230008 - 450 10 3/uLTBHTBH MPV10.79.5 - 13.5 [...] 03/17/2025 1:57 PM EDT Authorizing ProviderResult TypeResult StatusAliza Kc NPCLINISYNCFinal ResultPerforming OrganizationAddressCity/State/ZIP CodePhone Number [facility] * Pap Smear (01/02/2025 12:00 AM EDT)Specimen (Source)Anatomical Location / LateralityCollection Method / VolumeCollection TimeReceived TimeSwabCervical swab / Unknown Narrative Authorizing ProviderResult TypeResult StatusCorey Tapan DOLAB CYTOLOGY ORDERABLESFinal ResultPerforming OrganizationAddressCity/State/ZIP CodePhone Number EXTERNAL LAB from Last 3 Months or Most Recently Relevant to Health Maintenance Insurance Care Teams Team MemberRelationshipSpecialtyStart DateEnd Date Skyler Webb MD [address] [place] [phone] PCP - GeneralFamily Medicine09/26/23
--- OUTSIDE RECORDS SUMMARY | 2025-06-15 21:49 | XMS_ITS | Encounter Summary ---
Author Organization [facility] Address [address] [place] [address] Care Team Providers Care Road Crew Member Name Role Phone Skyler Webb MD Primary Care Provider [phone] Encounter Details DateTypeDepartmentCare Team (Latest Contact Info)Exdiuzdgset08/17/2025amboo flowsheet [facility] [address] [place] [address] Oleksandr Phelan DO [address] [place] [address] Social History Tobacco UseTypesPacks/DayYears UsedDateSmoking Tobacco: NeverSmokeless Tobacco: NeverSocial Connection and Isolation PanelAnswerDate RecordedIn a typical week, how many times do you talk on the phone with family, friends, or neighbors?More than three times a week09/19/2023How often do you get together with friends or relatives?Once a week09/19/2023How often do you attend mu-ism or mosque services?Never4Do you belong to any clubs or organizations such as mu-ism groups, unions, fraternal or athletic groups, or school groups?No 09/19/2023How often do you attend meetings of the clubs or organizations you belong to?Never09/19/2023re you , , , , never , or living with a partner?Gmljdki9209/19/2023UDIT-CAnswerDate RecordedQ1: How often do you have a [...] housing, medical care, and heating?Not hard at all09/19/2023Fin[facility] [place] of Occupational Health - Occupational Stress QuestionnaireAnswerDate [...] in ashelter (including now)?No09/19/2023Estimated Date of Delivery KjqjajaoGoz86/5Based on last menstrual period of 09/16/2024Sex and Gender InformationValueDate RecordedSex Assigned at BirthNot on fileLegal SexFemale 12/20/2022 10:00 AM EDTGender IdentityNot on fileSexual OrientationNot on file documented as of this encounter Plan of Treatment Not on file documented as of this encounter Visit Diagnoses Not on filedocumented in this encounter Care Teams Team MemberRelationshipSpecialtyStart DateEnd Date Skyler Webb MD [address] [place] [phone] PCP - GeneralFamily Medicine09/26/23documented as of this encounter
--- OUTSIDE RECORDS SUMMARY | 2025-06-15 21:49 | XMS_ITS ---
Author Organization [facility] Source Produ ction (ClinicalSummary Clone) Address Unknown Care Team Providers Care Automatic Engraver Name Role Phone Unavailable Primary Care Physician Unavailab le Results * [UNITY] ANEUPLOIDY NIPT Performed by: [employer] Component Value Range Date Fraction 7.6% 12/02/2024 08:59 pm UTCRh(D) NIPTRhD NOT UXEDKHBX70/09/2025 08:59 pm UTCSex Chromosome AneuploidyNOT EANODLMT01/09/2025 08:59 pm UTCMonosomy XLOW RISK <1 in , 08:59 pm UTCTrisomy 13LOW RISK <1 in , 08:59 pm UTCTrisomy 18LOW RISK <1 in , 08:59 pm UTCTrisomy 21LOW RISK <1 in 10, 08:59 pm UTCFetal WwqGKVY1312/02/2024 08:59 pm UTCPregnancy OjozamclbWIHJEORAV16/09/2025 08:59 pm UTCFor detailed report, see PDFSee PDF 12/02/2024 08:59 pm UTC12/02/2024 08:59 pm UTC Social History Observation Value Start Date End Date
--- OUTSIDE RECORDS SUMMARY | 2025-06-15 21:49 | XMS_ITS | Clinical Summary ---
Author Organization [facility] Address [id number] [address] [place] [address] Care Team Providers Care Svp Digital Ad Sales Name Role Phone Skyler Webb MD Primary Care Provider [phone] Allergies No known active allergies Medications No known medications Active Problems No known active problems Family History Medical HistoryRelationNameCommentsHypertensionFatherFibromyalgiaMaternal GrandmotherOvarian cystsMotherhysterectomyHeart diseasePaternal Grandfather StrokePaternal GrandfatherRelationNameStatusCommentsFatherMaternal Grandmother MotherPaternal Grandfather Social History Tobacco UseTypesPacks/DayYears UsedDateSmoking Tobacco: NeverSmokeless Tobacco: NeverAlcohol UseStandard Drinks/WeekCommentsYes2 (1 standard drink = 0.6 oz pure alcohol)4-6 drinks every 2 weeksChildcareAnswerDate RecordedChildcareUnknown 12/06/2018EmploymentAnswerDate PpljtjvjQoqkgzzzolOylpuwa44/13/2019Purpose - Life AnswerDate RecordedPurpose and direction in ukhzQzovxxj24/11/2021 CommentsNoSex and Gender InformationValueDate RecordedSex Assigned at BirthNot on fileLegal PzgDvugss61/17/2018 10:56 AM ESTGender IdentityNot on fileSexual OrientationNot on fileOccupationIndustryJob Start DateJob End Datedesk workNot on fileNot on fileNot on file Last Filed Vital Signs Vital SignReadingTime TakenCommentsBlood Labktxtu198/6208 11:15 AM EDT Xxvvt9479 11:15 AM EDTTemperature--Respiratory Elna0312 11:15 AM EDTOxygen Saturation--Inhaled Oxygen Concentration--Sdvvzc91 kg (150 lb) 01/28/2021 11:15 AM RSDXesxnf446.4 cm (5' 5.5 )01/28/2021 11:15 AM EDTBody Mass Index24.5808 11:15 AM EDT Plan of Treatment Health MaintenanceDue DateLast DoneCommentsDepression Ifqnfktbw64/23/2007Tobacco Eyfzmkzat78/23/2007dult BMI Krygvdrho21/23/2013DTaP,Tdap and Td Vaccines (1 - Tdap)2013Pap Smear/10/2020, 08/14/2017COVID-19 Vaccine (3 - season)506/01/2021, 10/25/2020Influenza Ofipjqn7302/24/2025 Medical Devices Not on file Procedures Procedure NamePriorityDate/TimeAssociated DiagnosisCommentsPAP SMEARRoutine 01/28/2021 10:19 AM EDT Encounter for gynecological examination with Papanicolaou smear of cervix from Last 3 Months or Most Recently Relevant to Health Maintenance Results * Pap Smear (01/28/2021 10:19 AM EDT)Specimen (Source)Anatomical Location / LateralityCollection Method / VolumeCollection TimeReceived Time01/28/2021 10:19 AM EDT01/29/2021 10:20 AM EDT Narrative COPATH - 02/01/2021 12:18 PM EDT [facility] ? [address] ? [place] [address] ? Gynecologic Cytology Consultation ? Patient Name: ANJANA BOOTH : 1995 (Age: 25) Gender: F Taken: 01/28/2021 Reported: 02/01/2021 Physician(s): MARLYN RIZVI ([phone]) Copy To: ?? [facility]. #: [id number] Acct: # [id number] Final Cytologic Interpretation ThinPrep Pap Test (Cervical): Satisfactory for evaluation. A transformation zone component is present. NEGATIVE FOR INTRAEPITHELIAL LESION OR MALIGNANCY. ?? [facility] [place]21 Interpretation performed at [facility], [address] [place] [address], License number: [id number]. Electronically Signed Out By ?[place] Neff(ASCP) Date of Last Menstrual Period: ? 01/07/2021 Other Clinical Conditions: Z01.419 Cardiac Rn exam wo/abn findings Source of Specimen ??ThinPrep Pap Test (Cervical) ? Thin Prep Pap (SOLE LEVELING MACHINE OPERATOR) Fee Code(s): ?? G0145 The Pap test is a screening test with an inherent, but low, probability of error. The Pap test is primarily effective for the diagnosis and prevention of squamous cell carcinoma. Regular screening iscritical for prevention. ThinPrep liquid-based slides, which meet the Safety Companion criteria for automated screening, have been screened by the ThinPrep Imaging System (as of 03/12/07) along with an additional manual rescreening by a manager data warehousing and, if indicated, by a pathologist. Authorizing ProviderResult TypeResult StatusMarlyn Rizvi MDPATHOLOGY/CYTOLOGY ORDERABLESFinal ResultPerforming OrganizationAddressCity/State/ZIP CodePhone Number COPATH from Last 3 Months or Most Recently Relevant to Health Maintenance Insurance Care Teams Team MemberRelationshipSpecialtyStart DateEnd Date Skyler Webb MD PCP - [facility]Fabaystate [facility]01/28/21
--- OUTSIDE RECORDS SUMMARY | 2025-06-15 21:49 | XMS_ITS | Encounter Summary ---
Author Organization [facility] Address [address] [place] [address] Care Team Providers Care Welfare Adviser Name Role Phone Skyler Webb MD Primary Care Provider [phone] Encounter Details DateTypeDepartmentCare Team (Latest Contact Info)Ebcnafyvcxe44/10/2025amboo flowsheet [facility] [address] [place] [address] Oleksandr Phelan DO [address] [place] [address] Social History Tobacco UseTypesPacks/DayYears UsedDateSmoking Tobacco: NeverSmokeless Tobacco: NeverSocial Connection and Isolation PanelAnswerDate RecordedIn a typical week, how many times do you talk on the phone with family, friends, or neighbors?More than three times a week09/19/2023How often do you get together with friends or relatives?Once a week09/19/2023How often do you attend christian or voodoo services?Never4Do you belong to any clubs or organizations such as christian groups, unions, fraternal or athletic groups, or school groups?No 09/19/2023How often do you attend meetings of the clubs or organizations you belong to?Never09/19/2023re you , , , , never , or living with a partner?Werbktn4009/19/2023UDIT-CAnswerDate RecordedQ1: How often do you have a [...] housing, medical care, and heating?Not hard at all09/19/2023Finalta [facility] [place] [facility] - Occupational Stress QuestionnaireAnswerDate [...] in ashelter (including now)?No09/19/2023Estimated Date of Delivery JfjicagyOdl84/5Based on last menstrual period of 09/16/2024Sex and Gender InformationValueDate RecordedSex Assigned at BirthNot on fileLegal SexFemale 12/20/2022 10:00 AM EDTGender IdentityNot on fileSexual OrientationNot on file documented as of this encounter Plan of Treatment Not on file documented as of this encounter Visit Diagnoses Not on filedocumented in this encounter Care Teams Team MemberRelationshipSpecialtyStart DateEnd Date Skyler Webb MD [address] [place] [id number] PCP - GeneralFamily Medicine09/26/23documented as of this encounter
[2025-06-15 22:11] VITALS: BP 127/86; PULSE 90
[2025-06-15 22:26] VITALS: BP 127/86; PULSE 90
[2025-06-15 22:51] LABS: Hematocrit 36.9 % (36.0-48.0); Hemoglobin 12.5 g/dL (12.0-16.0); Mean Corpuscular HGB Conc 33.9 g/dL (29.9-35.2); Mean Corpuscular Hemoglobin 30.1 pg (26.7-34.0); Mean Corpuscular Volume 88.9 fL (81.0-99.0); Platelet Count 301 10^3/uL (150-450); Red Blood Count 4.15 10^6/uL (4.20-5.40); White Blood Count 13.9 10^3/uL (4.0-11.0)
[2025-06-15] MEDS: 0.9 % SODIUM CHLORIDE 1,000 ML 125 ML IV (22:58)
[2025-06-15] MEDS: OXYTOCIN/0.9 % SODIUM CHLORIDE 10 UNITS/500 ML PLAST..BAG 6 UNIT IV (23:00)
[2025-06-15 23:03] LABS: Cannabinoid Screen Urine NEGATIVE (NEGATIVE); Methamphetamines Screen Urine NEGATIVE (NEGATIVE); Tricyclic Antidepressant Urine NEGATIVE (NEGATIVE)
[2025-06-15 23:50] VITALS: BP 130/90; PULSE 90
[2025-06-16] VITALS (60 sets, daily range): BP systolic 109–162; BP diastolic 67–102; PULSE 67–101; TEMP 36.6–37.2; O2SAT 95–100
[2025-06-16] MEDS: 0.9 % SODIUM CHLORIDE 1,000 ML 125 ML IV (04:59)
[2025-06-16] MEDS: 0.9 % SODIUM CHLORIDE 1,000 ML 500 ML IV (08:38)
[2025-06-16] MEDS: FAMOTIDINE/PF 20 MG/2 ML VIAL IV (08:59)
[2025-06-16] MEDS: METOCLOPRAMIDE HCL 10 MG/2 ML VIAL IVP (09:01)
[2025-06-16] MEDS: CEFAZOLIN SODIUM/DEXTROSE,ISO 2 GM/50 ML PIGGYBACK IV ×2 (09:05→15:17)
--- NOTE | 2025-06-16 09:39 | P.ON_ITS ---
Brief Operative Note Date of procedure: 06/16/25 Pre-op diagnosis general: iup at 39wks, nonreassuring heart tones Post-op diagnosis: same as pre-op Procedure: NAME OF PROCEDURE: [ section ] PROCEDURE: Patient was taken back to the Operating Room where she was given a spinal anesthesia with Duramorph without difficulty. She was prepped and draped in the normal sterile fashion. A Pfannenstiel skin incision was then made 2 cm above the symphysis pubis and carried down to underlying rectus fascia using a Bovie. The fascia was incised in the midline and extended laterally using Rice scissors. Two Nelli clamps were placed on the superior aspect of the fascia and dissected off the underlying rectus muscles. The same was performed on the inferior aspect as well. The muscles were then in the midline. Perit oneum was identified and entered bluntly. The peritoneum was then extended superiorly and inferiorly with good visualization of the bladder. The bladder blade was inserted. A low transverse incision was made on the patient's uterus and extended laterally digitally. The was then delivered atraumatically after the bladder blade was removed in the cephalic position. The cord was clamped and cut. Cord blood was obtained. The infant was handed off to awaiting team. The patient's placenta was spontaneously delivered. The uterus was then exteriorized. The uterus was cleared of all clots and debris. The bladder blade was reinserted. The patient's uterine incision was closed using #0 Vicryl in a running lock fashion. Excellent hemostasis was assured. The uterus was then returned to the patient's abdomen. The patient's abdomen was copiously irrigated using warm saline. Peritoneal gutters were cleared of all clots and debris. Again excellent hemostasis was assured. The patient's peritoneum was closed using 3-0 Vicryl in a running fashion. The patient's fascia was closed using #0 Vicryl in a running fashion. The patient's skin was closed using 4-0 Vicryl subcuticularly. The patient tolerated the procedure well. Sponge, lap, and needle counts were correct x2. The patient was taken to the Recovery Room in stable condition. Anesthesia: spinal Surgeon: Oleksandr Phelan Recruitment Assistant: Patsy Nolasco Estimated blood loss (mL): 575 Pathology: other (placenta) Condition: stable Disposition: floor
--- NOTE | 2025-06-16 09:41 | PM.OBPRCCS ---
Procedure Pre-op/Post-op diagnoses: Pre-Op/Post-Op Diagnoses Operation Date: 06/16/25 09:10 <No data on this case meets the specified criteria> Procedure: Procedures Operation Date: 06/16/25 09:10 Actual Procedure Side Surgeon p Not Applicable Oleksandr Phelan DO Physician Office Specialist: Patsy Nolasco Estimated blood loss (mL): 575 Disposition: floor Anesthesia type: Spinal
--- NOTE | 2025-06-16 10:11 | PC.NURSE ---
UPON ARRIVAL TO PACU CLEANED KADE AREA UP AND CHANGED PADS UNDERNEATH PATIENT. WITH PALPATION, PATIENT SECRETED BLOODY DRAINAGE, UTERUS IS 1 UNDER UMBILICUS MIDLINE FIRM.
[2025-06-16] MEDS: OXYCODONE HCL/ACETAMINOPHEN 5MG/325MG 2 TAB PO ×3 (12:23→22:37)
[2025-06-16] MEDS: 0.9 % SODIUM CHLORIDE 1,000 ML 1000 ML IV (15:15)
[2025-06-16] MEDS: KETOROLAC TROMETHAMINE 30 MG/ML VIAL IVP ×2 (15:17→21:14)
[2025-06-16] MEDS: ENOXAPARIN SODIUM 40 MG/0.4 ML SYRINGE SUBQ (22:22)
[2025-06-17] VITALS (7 sets, daily range): BP systolic 119–134; BP diastolic 83–89; TEMP 36.4–36.9
[2025-06-17] MEDS: KETOROLAC TROMETHAMINE 30 MG/ML VIAL IVP ×2 (04:50→10:25)
[2025-06-17 05:58] LABS: Hematocrit 27.6 % (36.0-48.0); Hemoglobin 8.9 g/dL (12.0-16.0); Immature Granulocytes Abs Auto 0.20 10^3/uL (0.00-0.03); Immature Granulocytes Pct Auto 1.3 % (0.0-0.5); Lymphocytes Absolute Auto 2.3 10^3/uL (1.2-3.8); Mean Corpuscular HGB Conc 32.2 g/dL (29.9-35.2); Mean Corpuscular Hemoglobin 29.9 pg (26.7-34.0); Mean Corpuscular Volume 92.6 fL (81.0-99.0); Platelet Count 210 10^3/uL (150-450); Red Blood Count 2.98 10^6/uL (4.20-5.40); White Blood Count 14.9 10^3/uL (4.0-11.0)
--- NOTE | 2025-06-17 07:32 | PM.OBPN ---
OB - PN: Subj Subjective Patient comments: no complaints and pain well controlled [place] status: doing well Exam Constitutional Vital Signs, click to edit/add: Last Vital Signs Temp 99.0 F 06/16/25 20:08 Pulse 84 06/16/25 12:15 Resp 18 06/16/25 20:08 BP 109/74 06/16/25 20:08 Pulse Ox 97 06/16/25 15:35 O2 Del Method Room Air 06/16/25 20:08 Documenting provider has reviewed patient's vital signs: yes Common normals: no apparent distress Respiratory Common normals: normal respiratory effort and clear to auscultation bilaterally Cardio Common normals: regular rate and regular rhythm GI Common normals: Normal to inspection, nondistended, normoactive bowel sounds present Extremity Common normals: no clubbing, cyanosis or edema and no calf tenderness Results Labs Labs: Short CBC 06/17/25 Range/Units 05:36 WBC 14.9 H (4.0-11.0) 10^3/uL Hgb 8.9 L (12.0-16.0) g/dL Hct 27.6 L (36.0-48.0) % Plt Count 210 (150-450) 10^3/uL Urinary Catheter Management Urinary Catheter Management Urethral: Cath placed during this visit: no OB - PN: A/P Plan - day: 1 Plan: routine postop care Time Spent with Patient Time: Total time spent is greater than 50% in coordination of care (as documented) at patient's floor/unit and/or counseling patient: Total time spent with greater than 50% in coordination of care (as documented) at patient's floor/unit and/or counseling patient: less than 15 minutes
[2025-06-17] MEDS: OXYCODONE HCL/ACETAMINOPHEN 5MG/325MG 2 TAB PO ×3 (08:10→21:50)
[2025-06-17] MEDS: DOCUSATE SODIUM 100 MG CAPSULE PO ×2 (08:12→21:50)
--- NOTE | 2025-06-17 13:42 | PC.NURSE ---
Pt voids at this time without difficulty.
[2025-06-17] MEDS: IBUPROFEN 400 MG TABLET 800 MG PO (17:23)
--- NOTE | 2025-06-17 19:36 | W.PC.ACHO ---
Registration Status: ADM IN Primary Language: Kyrgyz Preferred Language: Kyrgyz Report given to Aldair MEDINA. Care relinquished at 1900. Active Medications Generic Name Dose Route Start Last Admin Trade Name Freq PRN Reason Stop Dose Admin Al Hydroxide/Mg Hydroxide 2,400 mg 06/16/25 09:41 Magnesium Hydroxide 2,400 Mg/10 Ml Oral.Susp PO Q6H PRN Dyspepsia Diphtheria/Tetanus/Acell Pertussis 0.5 ml 06/18/25 09:00 Diphth,Pertuss(Acell),Tet Vac 0.5 Ml Syringe IM 06/18/25 09:01 .ONCE ONE Docusate Sodium 100 mg 06/17/25 09:00 06/17/25 08:12 Docusate Sodium 100 Mg Capsule PO 100 mg BID FRIEDA Administration Enoxaparin Sodium 40 mg 06/16/25 22:00 06/16/25 22:22 Enoxaparin Sodium 40 Mg/0.4 Ml Syringe SUBQ 40 mg Q24H FRIEDA Administration Oxytocin/Sodium Chloride 20 units in 1,000 mls @ 125 mls/hr 06/15/25 21:48 Pitocin 20 Unit/1,000 Ml-Ns IV Q8H PRN POST DELIVERY Promethazine HCl 25 mg/ Sodium 51 mls @ 204 mls/hr 06/16/25 09:41 Chloride IV Q6H PRN Nausea And Vomiting Ibuprofen 800 mg 06/16/25 09:41 06/17/25 17:23 Ibuprofen 400 Mg Tablet PO 800 mg Q8H PRN Administration Pain Ketorolac Tromethamine 30 mg 06/16/25 09:41 06/17/25 10:25 Ketorolac Tromethamine 30 Mg/Ml Vial IVP 06/18/25 09:42 30 mg Q6H PRN Administration Pain Measles/Mumps/Rubella Vaccine Live 0.5 ml 06/18/25 09:00 Measles,Mumps,Rubella Vacc/Pf 0.5 Ml Vial SQ 06/18/25 09:01 .ONCE ONE Ondansetron HCl 4 mg 06/16/25 09:41 Ondansetron Pf 4 Mg/2 Ml Vial IV Q6H PRN Nausea And Vomiting Ondansetron HCl 4 mg 06/16/25 09:41 Ondansetron 4 Mg Rapdis Tablet PO Q6H PRN Nausea And Vomiting Oxycodone/Acetaminophen 1 tab 06/16/25 09:41 Oxycodone Hcl/Acetaminophen 5mg/325mg PO Q4H PRN Pain Scale 4-6 Oxycodone/Acetaminophen 2 tab 06/16/25 09:41 06/17/25 13:15 Oxycodone Hcl/Acetaminophen 5mg/325mg PO 2 tab Q4H PRN Administration Pain Scale 7-10 Senna 17.2 mg 06/16/25 20:00 Sennosides 8.6 Mg Tablet PO QHS PRN Constipation Sertraline HCl 50 mg 06/17/25 21:00 Sertraline Hcl 50 Mg Tablet PO QD FRIEDA Simethicone 80 mg 06/16/25 09:41 Simethicone 80 Mg Tab.Chew PO QID PRN Abdominal Distention Diet Category Date Time Status Regular Consistency Diet Diet 06/17/25 09:22 Active Respiratory Oxygen Delivery Method Room Air Oxygen Delivery Method Room Air Oxygen Delivery Method Room Air Oxygen Delivery Method Room Air Cardiology Heart Sounds Regular,Strong Bowels Bowel Pattern No Bowel Movement Renal Bladder Pattern Continent Catheter Date Urinary Catheter Removed 06/17/25 [Urethral] Time Urinary Catheter 10:25 Discontinued [Urethral]
[2025-06-17] MEDS: ENOXAPARIN SODIUM 40 MG/0.4 ML SYRINGE SUBQ (22:00)
[2025-06-18] MEDS: IBUPROFEN 400 MG TABLET 800 MG PO ×3 (01:01→20:05)
[2025-06-18] MEDS: OXYCODONE HCL/ACETAMINOPHEN 5MG/325MG 2 TAB PO ×2 (04:06→08:30)
--- NOTE | 2025-06-18 06:49 | PM.OBPN ---
OB - PN: Subj Subjective Patient comments: no complaints and pain well controlled [place] status: doing well Exam Constitutional Vital Signs, click to edit/add: Last Vital Signs Temp 98.5 F 06/17/25 23:30 Pulse 84 06/16/25 12:15 Resp 17 06/17/25 23:30 BP 129/84 06/17/25 23:29 Pulse Ox 97 06/16/25 15:35 O2 Del Method Room Air 06/17/25 23:30 Documenting provider has reviewed patient's vital signs: yes Common normals: no apparent distress Respiratory Common normals: normal respiratory effort and clear to auscultation bilaterally Cardio Common normals: regular rate and regular rhythm GI Common normals: Normal to inspection, nondistended, normoactive bowel sounds present Extremity Common normals: no clubbing, cyanosis or edema and no calf tenderness Urinary Catheter Management Urinary Catheter Management Urethral: Cath placed during this visit: yes, but has since been removed by the nurse Removal date: 06/17/25 Removal time: 10:25 OB - PN: A/P Plan - day: 2 Plan: routine postop care, discharge home and other (fu 1wk) Time Spent with Patient Time: Total time spent is greater than 50% in coordination of care (as documented) at patient's floor/unit and/or counseling patient: Total time spent with greater than 50% in coordination of care (as documented) at patient's floor/unit and/or counseling patient: less than 15 minutes
[2025-06-18] MEDS: DOCUSATE SODIUM 100 MG CAPSULE PO ×2 (08:30→20:05)
[2025-06-18 09:13] VITALS: BP 137/97
[2025-06-18 09:14] VITALS: BP 137/97
[2025-06-18 10:31] VITALS: BP 137/97; PULSE 87; TEMP 37.3
--- NOTE | 2025-06-18 12:46 | PC.NURSE ---
educated on , bathing and intake and output measuring on baby and self care
[2025-06-18] MEDS: OXYCODONE HCL/ACETAMINOPHEN 5MG/325MG 1 TAB PO ×2 (14:44→20:46)
[2025-06-18 16:30] VITALS: BP 128/80; PULSE 78; TEMP 36.7
[2025-06-18 17:08] VITALS: BP 128/82
[2025-06-18] MEDS: SIMETHICONE 80 MG TAB.CHEW PO (20:47)
[2025-06-19 00:18] VITALS: BP 131/79; TEMP 37.1
[2025-06-19] MEDS: ENOXAPARIN SODIUM 40 MG/0.4 ML SYRINGE SUBQ (00:20)
[2025-06-19] MEDS: OXYCODONE HCL/ACETAMINOPHEN 5MG/325MG 1 TAB PO ×2 (02:36→11:34)
[2025-06-19] MEDS: IBUPROFEN 400 MG TABLET 800 MG PO (06:54)
[2025-06-19 09:10] VITALS: BP 135/95; PULSE 77; TEMP 36.7; O2SAT 97
--- NOTE | 2025-06-19 09:23 | P.OBPN_ITS ---
OB - PN: Subj Subjective Interval history: POD #3 S/P Primary section Mild pain control, needing Percocet Admits to flatus, no BM yet Patient comments: no complaints, tolerating diet and flatus present [place] status: doing well [place] feeding status: breast and bottle feeding Exam Constitutional Vital Signs, click to edit/add: Last Vital Signs Temp 98.8 F 06/19/25 00:18 Pulse 78 06/18/25 16:30 Resp 17 06/19/25 00:18 BP 131/79 06/19/25 00:18 Pulse Ox 97 06/16/25 15:35 O2 Del Method Room Air 06/19/25 00:18 Common normals: no apparent distress, oriented x3 and alert General appearance: well developed Respiratory Common normals: normal respiratory effort Cardio Common normals: regular rate GI Common normals: Normal to inspection, nondistended, normoactive bowel sounds present Inspection: incision (dry) Inspection of incision: healing well Auscultation: normoactive bowel sounds Palpation: soft Bladder/kidney exam: bladder normal to palpation (Normal voiding) Uterus palpation: other (below umbilicus) Extremity Common normals: normal to inspection, full ROM, no clubbing, cyanosis or edema and no calf tenderness Neuro Common normals: moves all extremities Psych Common normals: mental status grossly normal, thought process normal and speech normal Thought process: normal thought process Judgement: judgment good Results Labs Labs: Hgb 8.9 Urinary Catheter Management Urinary Catheter Management Urethral: Cath placed during this visit: yes, but has since been removed by the nurse Removal date: 06/17/25 Removal time: 10:25 OB - PN: A/P Assessment and Plan (1) delivery delivered: Onset Date: ~05/2025 (2) anemia: Onset Date: ~05/2025 Plan Discharge home. Pt had a few BPs 130s/90s. Will schedule her for a BP check in a few days. Plan - day: 3 Plan: discharge home Time Spent with Patient Time: Total time spent is greater than 50% in coordination of care (as documented) at patient's floor/unit and/or counseling patient: Total time spent with greater than 50% in coordination of care (as documented) at patient's floor/unit and/or counseling patient: less than 15 minutes (20 min)
[2025-06-19] MEDS: DOCUSATE SODIUM 100 MG CAPSULE PO (09:24)
--- NOTE | 2025-06-19 09:43 | P.DS_ITS ---
DS: Providers Provider Date of admission: 06/15/25 21:45 Primary care physician: Skyler Webb MD Admitting clinician: Oleksandr Phelan Attending physician on admission: Oleksandr Phelan Consults: 06/15/25 Consult to Anesthesiology Routine Consulting Provider: Oleksandr Phelan Reason for consultation: Epidural Attending physician on discharge: Colleen Rodriguez Discharging clinician: Colleen Rodriguez Anticipated date of discharge: 06/19/25 DS: Diagnosis Discharge Diagnosis (1) delivery delivered: Onset Date: ~05/2025 (2) anemia: Onset Date: ~05/2025 OB - DS: Summary Hospital Course Hospital Course: 29 y/o WF, admitted for induction of labor. She developed a non-reassuring heart rate requiring a primary section. She delivered a live baby boy, Apgars 1/6/9. Weight was 8 lbs and 4 0z. There were no operative complications. She had no post issues other than anemia. Peripartum Data - Procedures: Procedures Operation Date: 06/16/25 09:10 Actual Procedure Side Surgeon p Not Applicable Oleksandr Phelan DO Peripartum Data - Vaginal Delivery Procedures: Procedures Operation Date: 06/16/25 09:10 Actual Procedure Side Surgeon p Not Applicable Oleksandr Phelan DO Complications complications: none Infant Delivery method: emergency section Gender: male Discharge plan: home A Delivery method: section Gender: male Discharge plan: home Status at Discharge Cognitive/behavioral status at discharge: Good Functional status at discharge: independent ambulation Overall status at discharge: patient is progressing back to baseline Time Spent with Patient Time attestation: Total time spent providing and/or coordinating discharge services: Time spent: less than 30 minutes Exam Narrative Exam Narrative: See note Constitutional Vital Signs, click to edit/add: Last Vital Signs Temp 98.8 F 06/19/25 00:18 Pulse 78 06/18/25 16:30 Resp 17 06/19/25 00:18 BP 131/79 06/19/25 00:18 Pulse Ox 97 06/16/25 15:35 O2 Del Method Room Air 06/19/25 00:18 Discharge Plan Discharge Disposition: Home, Self-Care Condition: Good Plan of Treatment: Office for BP check Discharge Medications: New ibuprofen 800 mg tablet 800 mg PO Q8H PRN (Reason: pain) 14 Days Qty: 40 0RF oxycodone-acetaminophen [Percocet] 5-325 mg tablet 1 tab PO Q6H PRN (Reason: pain) 5 Days Qty: 20 0RF Rx Instructions: g89.18 Activity Detail: Nothing in the vagina for 6 weeks. No driving for 2 weeks. Diet: regular diet Print Language: Italian Forms: Delivery - Discharge, Portal Instructions
[2025-06-19] MEDS: SERTRALINE HCL 50 MG TABLET PO (11:06)
[2025-06-19] MEDS: MAGNESIUM HYDROXIDE 2,400 MG/10 ML ORAL.SUSP 2400 MG PO (11:34)
[2025-06-19] MEDS: OXYCODONE HCL/ACETAMINOPHEN 5MG/325MG 2 TAB PO ×2 (15:16→15:17)
[2025-06-19] MEDS: MEASLES,MUMPS,RUBELLA VACC/PF 0.5 ML VIAL SQ (15:18)
== END 2025-06-19 15:50 | disposition home or self-care (01) | DRG 787 ==
PROVIDERS: Admitting Provider Obstetrics & Gynecology; PCP Family Medicine; Visit Provider Obstetrics & Gynecology
PROC: 10D00Z1 Extraction of Products of Conception, Low, Open Approach (ICD-10-PCS; CPT 59514; principal; 2025-06-16 09:10)
DX: O99.344 Other mental disorders complicating childbirth (principal); F33.0 Major depressive disorder, recurrent, mild; O76 Abnormality in fetal heart rate and rhythm complicating labor and delivery; O90.81 Anemia of the puerperium; F41.1 Generalized anxiety disorder; Z3A.39 39 weeks gestation of pregnancy; Z37.0 Single live birth
CPT/HCPCS: 36415; 59050; 80307; 85025; 85027; 86850; 86900; 86901; 90707; 94667; 94668; J0690; J1650; J1885; J2274; J2300; J2371; J2405; J2590; J2765; J3490

== ENCOUNTER 2025-06-20 15:22 | Outpatient (OUT) | payer OTHER, SELFPAY ==
--- OUTSIDE RECORDS SUMMARY | 2025-06-11 13:40 | XMS_ITS | Encounter Summary ---
Author Organization [facility] Address [address] [place] [address] Care Team Providers Care Cable Installer Name Role Phone Skyler Webb MD Primary Care Provider [phone] Reason for Visit * ReasonCommentsRoutine Visit Encounter Details DateTypeDepartmentCare Team (Latest Contact Info)Nbjkzkxtxej71/17/2025 1:40 PM ESTRoutine [facility] [address] [place] [address] Oleksandr Phelan DO [address] [place] [address] Third trimester ([facility]); 38 weeks gestation of ([facility]) Social History Tobacco UseTypesPacks/DayYears UsedDateSmoking Tobacco: NeverSmokeless Tobacco: NeverSocial Connection and Isolation PanelAnswerDate RecordedIn a typical week, how many times do you talk on the phone with family, friends, or neighbors?More than three times a week09/19/2023How often do you get together with friends or relatives?Once a week09/19/2023How often do you attend taoism or denominational services?Never4Do you belong to any clubs or organizations such as taoism groups, unions, fraternal or athletic groups, or school groups?No 09/19/2023How often do you attend meetings of the clubs or organizations you belong to?Never09/19/2023re you , , , , never , or living with a partner?Xnqaudo6009/19/2023UDIT-CAnswerDate RecordedQ1: How often do you have a [...] housing, medical care, and heating?Not hard at all09/19/2023[facility] [place] of Occupational Health - Occupational Stress QuestionnaireAnswerDate [...] in ashelter (including now)?No03/26/2024Estimated Date of Delivery HtesqbpwGiq89/29/2025Based on last menstrual period of 09/16/2024Sex and Gender InformationValueDate RecordedSex Assigned at BirthNot on fileLegal SexFemale 12/20/2022 10:00 AM EDTGender IdentityNot on fileSexual OrientationNot on file documented as of this encounter Last Filed Vital Signs Vital SignReadingTime TakenCommentsBlood Adjbwock227/6806/11/2025 2:10 PM EST Pulse--Temperature--Respiratory Rate--Oxygen Saturation--Inhaled Oxygen Concentration--Ofeoij18.1 kg (203 lb)06/11/2025 2:10 PM ESTHeight--Body Mass Index32.7706 1:18 PM EDTdocumented in this encounter Progress Notes * Noemí Yanes, AVA - 06/11/2025 1:40 PM EST Reason for Appointment: Patient ID: [...] physical exam 05/28/2024 10 weeks gestation of ([facility]) 11/28/2024 Resolved Ambulatory Problems Diagnosis Date Noted Need for malaria prophylaxis 01/26/2024 Family planning counseling 08/14/2024 Past Medical History: Diagnosis Date At standard risk for fall MO (generalized anxiety disorder) MDD (major depressive disorder), recurrent episode, mild Other primary thrombophilia ([facility]) Sprain of ulnar collateral ligament of right wrist, subsequent encounter HISTORY PAST MEDICAL HISTORY SOCIAL HISTORY Past Medical History: Diagnosis Date At standard risk for fall MO (generalized anxiety disorder) MDD (major depressive disorder), recurrent episode, mild 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 Exam conducted with a private equity analyst present. Vitals: Estimated body mass index is 32.77 kg/m?? as calculated from the following: Height as of 11/28/24: 5' 6 . Weight as of this encounter: 203 lb. BP: 110/68 Patient's last menstrual period was 09/16/2024. Assessment/Plan ICD-10-CM 1. Third trimester ([facility]) Z34.93 2. 38 weeks gestation of ([facility]) Z3A.38 POCT urinalysis dipstick manually resulted Assessment/Plan Return OB: Patient presents today for a routine obstetrics appointment. Patient is currently 38w2d . Patient states she is doing well but has complaints of being tired due to current . Patient has verbalizes frequent movement. labor precautions was discussed/given and patient was instructed to perform kick counts three times a day. Pt to be induced on Monday06/16/25 pt to arrive Orders Placed This Encounter Procedures POCT urinalysis dipstick manually resulted Follow Up: Patient is to return to office in 1 week for routine OB appointment. Documented by Noemí Yanes LPN on behalf of: Oleksandr Phelan DO documented in this encounter Plan of Treatment Not on file documented as of this encounter Procedures Procedure NamePriorityDate/TimeAssociated DiagnosisCommentsPOCT URINALYSIS JRLAOHGMZrszeio12/17/2025 2:16 PM EST 38 weeks gestation of ([facility]) documented in this encounter Results * (ABNORMAL) POCT urinalysis dipstick manually resulted (06/11/2025 2:16 PM EST) ComponentValueRef RangeTest MethodAnalysis TimePerformed AtPathologist SignatureColor, UAYellowClarity, UAClearGlucose, UANegativeNegative - 2000(110) ++++ mg/dLBilirubin, UANegativeNegative - 4(70) +++ mg/dLKetones, UA NegativeNegative - 160(16) ++++ mg/dLSpec Grav, UA1.0101 - 1.03Blood, UA NegativeNegative - 50 Curtis/mcLpH, UA7.55 - 9Protein, UA1+Negative - 2000(20) ++++ mg/dLUrobilinogen, UA1.00.2 - 12 mg/dLLeukocytes, UANegativeNegative - 500+++ Ramos/mcLNitrite, UANegativeNegative - PositiveSpecimen (Source) Anatomical Location / LateralityCollection Method / VolumeCollection Time Received GzzzPentw84/17/2025 2:16 PM EST Narrative Authorizing ProviderResult TypeResult StatusCorey Tapan DOPOINT OF CARE TEST ENTER/EDIT ORDERABLESFinal Result documented in this encounter Visit Diagnoses Diagnosis Third trimester ([facility]) state, incidental 38 weeks gestation of ([facility]) documented in this encounter Care Teams Team MemberRelationshipSpecialtyStart DateEnd Date Skyler Webb MD [address] [place] [address] PCP - GeneralFamily Medicine09/26/23documented as of this encounter
--- OUTSIDE RECORDS SUMMARY | 2025-06-16 19:37 | XMS_ITS | Continuity of Care Document ---
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 Name Role Phone Skyler Webb MD Primary Care Provider Skyler Webb MD Attending Provider Oleksandr Phelan DO Attending Provider [phone] Care Teams Visit Care Team Team Status: Inactive Member Role/Relationship Status Dates Skyler Webb MD Primary Care Provider Active S tart: May 30, 2025 End: May 30, 2025[facility] GERARD Webbttazeb ProviderActiveStart: May 30, 2025 End: May 30, 2025 Patient Care Team Team Status: Active Member Role/Relationship Status Dates Skyler Webb MD Primary Care Provider Active S tart: June 15, 2025 Oleksandr Phelan DOAttazeb ProviderActiveStart: June 15, 2025 Patient Care Team Team Status: Inactive Member Role/Relationship Status Dates Oleksandr Phelan DO Attending Provider Active Start : June 16, 2025 End: June 16, 2025 Chief Complaint and Reason for Visit Chief Complaint Admit Date Established Patient May 30, 2025 9 :15am Unknown June 16, 2025 9:54am Reason for Visit Admit Date Generalized anxiety disorder May 9:15am Major depressive disorder, recurrent epi sode, mild May 30, 2025 9:15am Allergies, Adverse Reactions, Alerts Allergen Type Severity Reaction Last Updated Verified Status lactose Allergy Unknown Unknown Reaction May 29, 2025 1:40 pm Yes Active Social History Smoking Status Status Start Date End Date Date of Observa tion Never smoked tobacco (finding) May 30, 2025 9:26am Observation Status Observation Response Date of Response Legal Sex Female (finding) Sex Assigned At BirthFemaleMay 1995 Family History Relationship Condition Age at Onset Recorded Date/T zhang father Hypertension Unknown Problems Active Problems Problem Diagnosis/Recorded Date Onset Date Stat us Carpal tunnel syndrome of right wrist January 11, 2024 1:41pm Unknown Active Generalized anxiety disorder May 29, 2025 1:40pm Unknown Active Major depressive disorder, r ecurrent episode, mild May 29, 2025 1:41pm Unknown Active Vitamin D deficiency May 29, 2025 1:41pm Unknown Active Inactive/Resolved Problems Problem Diagnosis/Recorded Date Onset Date Stat us Vaginal discharge January 11, 2024 1:53pm Unknown Resolved Genital lesion, female January 11, 2024 1:53pm Unknown Resolved Medications Medication Status Dose Units Route Directions Qty Days Refills S tart Date Stop Date End Date Reason(s) Instructions Adherence Phentermine 37.5 mg tablet Discontinued 37.5 MG PO Daily [facility] 10, [facility]24 [facility] 1:44pmBupropion Hcl 150 mg tablet extended release 24 hrDiscontinuedMGPOJuly 2023 11:00pm[facility] 2024 9:26amClindamycin Hcl 300 mg fipdtvuOkxmbrlujymg507RWEQBngpd 8 ehprk4851Fxfn 2023 11:00pm[facility] 2024 1:43pmOmeprazole 20 mg capsule,delayed release(DR/EC)Ooufeh32IMXCWroqqFdakvkvy 2024 12:00amUnknownSertraline 50 mg xrwzczGgqbyu54MJREUtdgvUrtqwbvz 2024 12:00amUnknown Relevant Diagnostic Tests and/or Laboratory Data Laboratory Results Test Collection Date/Time Result Date/Time Result Interpretation Reference Range Result Comment Performing Site Urine Amphetamines Screen June 15, 2025 10:15pm June 15, 2025 10:15pm NEGATIVE NEGATIVEHematocritDe2024 10:15pmDece2024 10:15pm36.9 % 36.0-48.0Urine Barbiturates ScreenDe2024 10:15pmDece2024 10:15pmNEGATIVENEGATIVEHemoglobinJune 15, 2025 10:15pmDecemb2024 10:15pm12.5 g/dL12.0-16.0Urine Benzodiazepines ScreenJune 15, 2025 10:15pm June 15, 2025 10:15pmNEGATIVENEGATIVEMean Corpuscular HemoglobinJune 15, 2025 10:15pmDece2024 10:15pm30.1 pg26.7-34.0Urine Buprenorphine June 15, 2025 10:15pmDecemb2024 10:15pmNEGATIVENEGATIVEDRUG CLASS TEST SYSTEM CUT-OFF CONCENTRATIONS ARE ASFOLLOWS:AMP (Amphetamine): 500 ng/mLBAR (Barbiturates): 200 ng/mLBZO (Benzodiazepines): 150 ng/mLBUP (Buprenorphine): 10 ng/mLCOC (Cocaine): 150 ng/mLmAMP (Methamphetamine): 500 ng/mLMTD (Methadone): 200 ng/mLOPI (Opiates): 100 ng/mLOXY (Oxycodone): 100 ng/mLPCP (Phencyclidine): 25 ng/mLTHC (Cannabinoids): 50 ng/mLTCA (Trycyclic Antidepressants): 300 ng/mL Mean Corpuscular Hemoglobin ConcentJune 15, 2025 10:15pmDe2024 10:15pm33.9 g/dL29.9-35.2Urine Cocaine ScreenJune 15, 2025 10:15pm June 15, 2025 10:15pmNEGATIVENEGATIVEMean Corpuscular VolumeJune 15, 2025 10:15pmDece2024 10:15pm88.9 fL81.0-99.0Urine Methamphetamines ScreenJune 15, 2025 10:15pmDecemb2024 10:15pmNEGATIVENEGATIVEMean Platelet VolumeJune 15, 2025 10:15pmDece2024 10:15pm12.5 fL 9.5-13.5Urine Methadone Screen.June 15, 2025 10:15pmDecemb2024 10:15pmNEGATIVENEGATIVEPlatelet CountJune 15, 2025 10:15pmDece2024 10:77ok853 10 3/zJ658-171Ucngu Opiates ScreenJune 15, 2025 10:15pm June 15, 2025 10:15pmNEGATIVENEGATIVERed Blood CountJune 15, 2025 10:15pmDecemb2024 10:15pm4.15 10 6/uLBelow low normal4.20-5.40Urine Oxycodone/Oxymorphone ScreenJune 15, 2025 10:15pmDece2024 10:15pmNEGATIVENEGATIVERed Cell Distribution WidthJune 15, 2025 10:15pm June 15, 2025 10:15pm12.2 %11.0-15.0Urine Phencyclidine ScreenJune 15, 2025 10:15pmDecemb2024 10:15pmNEGATIVENEGATIVECorrected White Blood CountJune 15, 2025 10:15pmDe2024 10:15pm13.9 10 3/uL Above high normal4.0-11.0Urine Tricyclic AntidepressantsJune 15, 2025 10:15pmDe2024 10:15pmNEGATIVENEGATIVEUrine Marijuana (THC) Screen June 15, 2025 10:15pmDe2024 10:15pmNEGATIVENEGATIVE Vital Signs Vital Reading Result Reference Range Collection Date/Time Height 66 [in_i] May 30, 2025 9:47thZugqcr86.71 kgMay 30, 2025 9:24amBody Temperature 97.1 [degF]97.6-99.0May 30, 2025 9:24amHeart Rate90 /nwi45-411VrksivpmMay 30, 2025 9:24amRespiratory rate20 /gzt07-59AwbgscdiMay 30, 2025 9:24amBP Systolic 116 mm[Hg]100-140May 30, 2025 9:24amBP Qvofmfgyj87 mm[Hg]60-100May 30, 2025 9:24amBMI (Body Mass Index)32.3 kg/q9BrtaweupMay 30, 2025 9:24am Advance Directives Advance Directive Response Recorded Date/ Time Advance Directives No January 12 8:23am Insurance Providers Guarantor Yi Booth Address [address] [address]Ytbsaoj Info.Home Phone: Payer Group Member ID Coverage Type Subscriber Relationship to Subscriber Effective Date Expiration Date [employer] Unknown Id: [id number] L Mizelle Id: [id number] [address] [address] Home Phone: self Encounters Encounter Location(s) Arrival/Admit Date Discharge/Departure Date Discharge/Departure Disposition Provider(s) Departed Physician/ Provider Office Visit -[facility] [place] May 30, 2025 9:15am May 30, 2025 9:57am Discharged to home care or self care (routine discharge) Skyler Webb MD Non-patient / Non-visit -[facility] June 15, 2025 10:15pm Oleksandr ChopraoDeparted Referred-[facility] 9:54amDecember 2024 9:55amDischarged to home care or self care (routine discharge)Oleksandr Phelan Recent Diagnosis Onset Date Admit Date Generalized anxiety disorder Unknown May 9:15am Major depressive disorder, r ecurrent episode, mild Unknown May 30, 2025 9:15am Assessments Diagnosis Onset Date Resolution Status Admit Date Generalized anxiety disorder acuteDe2024 9:15amMajor depressive disorder, recurrent episode, mild acuteDece2024 9:15am Plan of Treatment Author Skyler Webb [facility]2024 10:01amSymptoms well controlled with zoloft and continue. Symptoms well controlled with zoloft and continue. Future Tests Future scheduled test information is unavailable Pending Tests Test Name Ordered Date Scheduled Date Miscellaneous Pathology Test June 16, 2025 9:54am Future Visits Future appointment information is unavailable Future Procedures Procedure Name Ordered Date Scheduled Date Pathology Request for Lab Carissa June 16 2:09pm June 16, 2025 9:54am Future Medications Future medication information is unavailable Patient Instructions Patient instructions are unavailable
[2025-06-20 15:30] VITALS: BP 141/91; PULSE 85
--- OUTSIDE RECORDS SUMMARY | 2025-06-20 15:31 | XMS_ITS | Clinical Summary ---
[facility] Organization [facility] Address [id number] [address] [place] [address] Care Team Providers Care Superintendent General Name Role Phone Skyler Webb MD Primary Care Provider [phone] Allergies No known active allergies Medications No known medications Active Problems No known active problems Family History Medical HistoryRelationNameCommentsHypertensionFatherFibromyalgiaMaternal GrandmotherOvarian cystsMotherhysterectomyHeart diseasePaternal Grandfather StrokePaternal GrandfatherRelationNameStatusCommentsFatherMaternal Grandmother MotherPaternal Grandfather Social History Tobacco UseTypesPacks/DayYears UsedDateSmoking Tobacco: NeverSmokeless Tobacco: NeverAlcohol UseStandard Drinks/WeekCommentsYes2 (1 standard drink = 0.6 oz pure alcohol)4-6 drinks every 2 weeksChildcareAnswerDate RecordedChildcareUnknown 12/06/2018EmploymentAnswerDate XwizqzsqDxpjridxezHvqwgia02/13/2019Purpose - Life AnswerDate RecordedPurpose and direction in rawdPwbcxhl07/11/2021 CommentsNoSex and Gender InformationValueDate RecordedSex Assigned at BirthNot on fileLegal TpdDfdpjl63/17/2018 10:56 AM ESTGender IdentityNot on fileSexual OrientationNot on fileOccupationIndustryJob Start DateJob End Datedesk workNot on fileNot on fileNot on file Last Filed Vital Signs Vital SignReadingTime TakenCommentsBlood Ysvwrkbw299/6208 11:15 AM EDT Owwyb5804 11:15 AM EDTTemperature--Respiratory Qeto0230 11:15 AM EDTOxygen Saturation--Inhaled Oxygen Concentration--Ljdgpv61 kg (150 lb) 01/28/2021 11:15 AM ZFMIofxcq007.4 cm (5' 5.5 )01/28/2021 11:15 AM EDTBody Mass Index24.5808 11:15 AM EDT Plan of Treatment Health MaintenanceDue DateLast DoneCommentsDepression Mnypbmboq50/23/2007Tobacco Crqfwioch37/23/2007dult BMI Gwxkmovbt39/23/2013DTaP,Tdap and Td Vaccines (1 - Tdap)2013Pap Smear/10/2020, 08/14/2017COVID-19 Vaccine (3 - season)506/01/2021, 10/25/2020Influenza Jtemakm9802/24/2025 Medical Devices Not on file Procedures Procedure [...] ? [facility] ? [address] [facility] ? [place] [address] ? Gynecologic Cytology Consultation ? Patient Name: ANJANA BOOTH : 1995 (Age: 25) Gender: F Taken: 01/28/2021 Reported: 02/01/2021 Physician(s): MARLYN RIZVI ([phone]) Copy To: ?? [facility]. #: [id number] Acct: # [id number] Final Cytologic Interpretation ThinPrep Pap Test (Cervical): Satisfactory for evaluation. A transformation zone component is present. NEGATIVE FOR INTRAEPITHELIAL LESION OR MALIGNANCY. ?? [facility] [place]02/01/2021 Interpretation performed at [facility], [address] [place] [address], License number: [id number]. Electronically Signed Out By ?[place] Neff(ASCP) Date of Last Menstrual Period: ? 01/07/2021 Other Clinical Conditions: Z01.419 Electronic Scale Tester exam wo/abn findings Source of Specimen ??ThinPrep Pap Test (Cervical) ? Thin Prep Pap ([employer]) Fee Code(s): ?? G0145 The Pap test is a screening test with an inherent, but low, probability of error. The Pap test is primarily effective for the diagnosis and prevention of squamous cell carcinoma. Regular screening iscritical for prevention. ThinPrep liquid-based slides, which meet the Tile Mechanic Helper criteria for automated screening, have been screened by the ThinPrep Imaging System (as of 03/12/07) along with an additional manual rescreening by a credit processor and, if indicated, by a pathologist. Authorizing ProviderResult TypeResult StatusMarlyn Rizvi MDPATHOLOGY/CYTOLOGY ORDERABLESFinal ResultPerforming OrganizationAddressCity/State/ZIP CodePhone Number COPATH from Last 3 Months or Most Recently Relevant to Health Maintenance Insurance Care Teams Team MemberRelationshipSpecialtyStart DateEnd Date Skyler Webb MD PCP - GeneralFaencompass rehabilitation hospital [facility] [place] Medicine01/28/21
--- OUTSIDE RECORDS SUMMARY | 2025-06-20 15:31 | XMS_ITS | Encounter Summary ---
Author Organization [facility] Address [address] [place] [address] Care Team Providers Care Packing Room Worker Name Role Phone Skyler Webb MD Primary Care Provider [phone] Encounter Details DateTypeDepartmentCare Team (Latest Contact Info)Wtstsxbgxmg69/17/2025bstract [facility] [address] [place] [address] Oleksandr Phelan DO [address] [place] [address] Social History Tobacco UseTypesPacks/DayYears UsedDateSmoking Tobacco: NeverSmokeless Tobacco: NeverSocial Connection and Isolation PanelAnswerDate RecordedIn a typical week, how many times do you talk on the phone with family, friends, or neighbors?More than three times a week09/19/2023How often do you get together with friends or relatives?Once a week09/19/2023How often do you attend tenriism or jewish services?Never4Do you belong to any clubs or organizations such as tenriism groups, unions, fraternal or athletic groups, or school groups?No 09/19/2023How often do you attend meetings of the clubs or organizations you belong to?Never09/19/2023re you , , , , never , or living with a partner?Fnuxgfv8609/19/2023UDIT-CAnswerDate RecordedQ1: How often do you have a [...] housing, medical care, and heating?Not hard at all09/19/2023[facility] [place] of Occupational Health - Occupational Stress QuestionnaireAnswerDate [...] in ashelter (including now)?No09/19/2023Estimated Date of Delivery SpqtutcpGbg01/5Based on last menstrual period of 09/16/2024Sex and Gender InformationValueDate RecordedSex Assigned at BirthNot on fileLegal SexFemale 12/20/2022 10:00 AM EDTGender IdentityNot on fileSexual OrientationNot on file documented as of this encounter Plan of Treatment Not on file documented as of this encounter Visit Diagnoses Not on filedocumented in this encounter Care Teams Team MemberRelationshipSpecialtyStart DateEnd Date Skyler Webb MD [address] [place] [phone] PCP - GeneralFamily Medicine09/26/23documented as of this encounter
--- OUTSIDE RECORDS SUMMARY | 2025-06-20 15:31 | XMS_ITS | Encounter Summary ---
Author Organization [facility] Address [address] [place] [address] Care Team Providers Care Freight Brakeman Name Role Phone Skyler Webb MD Primary Care Provider Encounter Details DateTypeDepartmentCare Team (Latest Contact Info)Xjoxvwzvpir27/17/2025amboo flowsheet [facility] [address] [place] [address] Oleksandr Phelan DO [address] [place] [address] Social History Tobacco UseTypesPacks/DayYears UsedDateSmoking Tobacco: NeverSmokeless Tobacco: NeverSocial Connection and Isolation PanelAnswerDate RecordedIn a typical week, how many times do you talk on the phone with family, friends, or neighbors?More than three times a week09/19/2023How often do you get together with friends or relatives?Once a week09/19/2023How often do you attend restorationism or taoist services?Never4Do you belong to any clubs or organizations such as restorationism groups, unions, fraternal or athletic groups, or school groups?No 09/19/2023How often do you attend meetings of the clubs or organizations you belong to?Never09/19/2023re you , , , , never , or living with a partner?Cnwylzc6409/19/2023UDIT-CAnswerDate RecordedQ1: How often do you have a [...] housing, medical care, and heating?Not hard at all09/19/2023[facility] [place] of Occupational Health - Occupational Stress QuestionnaireAnswerDate [...] in ashelter (including now)?No09/19/2023Estimated Date of Delivery YgapgtiqPaq70/5Based on last menstrual period of 09/16/2024Sex and Gender InformationValueDate RecordedSex Assigned at BirthNot on fileLegal SexFemale 12/20/2022 10:00 AM EDTGender IdentityNot on fileSexual OrientationNot on file documented as of this encounter Plan of Treatment Not on file documented as of this encounter Visit Diagnoses Not on filedocumented in this encounter Care Teams Team MemberRelationshipSpecialtyStart DateEnd Date Skyler Webb MD [address] [place] [phone] PCP - GeneralFamily Medicine09/26/23documented as of this encounter
--- OUTSIDE RECORDS SUMMARY | 2025-06-20 15:32 | XMS_ITS | Encounter Summary ---
Author Organization [facility] Address [address] [place] [address] Care Team Providers Care Arborist Name Role Phone Skyler Webb MD Primary Care Provider Encounter Details DateTypeDepartmentCare Team (Latest Contact Info)Gpyskhadgcd71/22/2025bstract [facility] [address] [place] [address] Oleksandr Phelan DO [address] [place] [address] Social History Tobacco UseTypesPacks/DayYears UsedDateSmoking Tobacco: NeverSmokeless Tobacco: NeverSocial Connection and Isolation PanelAnswerDate RecordedIn a typical week, how many times do you talk on the phone with family, friends, or neighbors?More than three times a week09/19/2023How often do you get together with friends or relatives?Once a week09/19/2023How often do you attend uatsdin or pentecostalism services?Never4Do you belong to any clubs or organizations such as uatsdin groups, unions, fraternal or athletic groups, or school groups?No 09/19/2023How often do you attend meetings of the clubs or organizations you belong to?Never09/19/2023re you , , , , never , or living with a partner?Nezxezj1809/19/2023UDIT-CAnswerDate RecordedQ1: How often do you have a [...] housing, medical care, and heating?Not hard at all09/19/2023Fin[facility] [place] of Occupational Health - Occupational Stress QuestionnaireAnswerDate [...] in ashelter (including now)?No09/19/2023Estimated Date of Delivery VlfqaipjOcv14/5Based on last menstrual period of 09/16/2024Sex and Gender InformationValueDate RecordedSex Assigned at BirthNot on fileLegal SexFemale 12/20/2022 10:00 AM EDTGender IdentityNot on fileSexual OrientationNot on file documented as of this encounter Plan of Treatment Not on file documented as of this encounter Visit Diagnoses Not on filedocumented in this encounter Care Teams Team MemberRelationshipSpecialtyStart DateEnd Date Skyler Webb MD [address] [place] [phone] PCP - GeneralFamily Medicine09/26/23documented as of this encounter
--- OUTSIDE RECORDS SUMMARY | 2025-06-20 15:32 | XMS_ITS | Clinical Summary ---
Author Organization [facility] Healthcare Address [address] [place] [address] Care Team Providers Care Flat Optical Element Maker Name Role Phone Skyler Webb MD Primary Care Provider [phone] Allergies Active AllergyReactionsCriticalityNoted QxxcFbgoxyvaJuuokmuZcleyeh53/09/2024 Lactose Intolerance - Digestive Aids Medications MedicationSigDispense [...] Problems ProblemNoted DateDiagnosed Date10 weeks gestation of ([facility]) 11/28/2024 Assessment & Plan (11/28/2024 1:42 [...] years. Advised not to smoke. Generalized anxiety ovqntjjs68/02/2024 Assessment & Plan (11/28/2024 1:42 PM EDT): [...] or continue to gain weight. Vitamin D aaekpnftiq66/02/2024Overweight (BMI 25.0-29.9)09/26/2023 Assessment & Plan (03/28/2024 11:46 [...] minutes at a time. Estimated Date of PdjkexpeYmnwjjnuQbc11/29/2025Based on last menstrual period of 09/16/2024 Resolved Problems ProblemNoted DateDiagnosed DateResolved DateFamily planning nmvgxwkopv16/19/2025 11/28/2024 Assessment & Plan (08/14/2024 10:57 AM EST): Discussed OTC and medication safety during . Need for malaria ncvfmrhkdei22 Assessment & Plan (01/26/2024 11:32 AM EDT): Plan on travel to [place] and take malaria prophylaxis. Encounters DateTypeDepartmentCare RalsQssetjwwwhm75/23/2025linisync Result Encounter NOMS External Department Unsolicited Oleksandr Phelan, DO 06/16/2025bstract NOM[facility]am[facility] [address] Oleksandr Phelan, DO 5Clinisync Result Encounter NOMS External Department Unsolicited Oleksandr Phelan, DO 06/11/2025 1:40 [place] [address] Oleksandr Phelan, DO Third trimester ([facility]); 38 weeks gestation of ([facility])06/11/2025[place] [address] Oleksandr Phelan, DO 06/11/2025amboo [place] [address] Oleksandr Phelan, DO 06/04/2025 2:20 PM ESTRoutine [facility] [address] [place] [address] Oleksandr Phelan, DO Third trimester ([facility]); 37 weeks gestation of ([facility])5Bamboo flowsheet [facility] [place] [facility] [address] [place] [address] Oleksandr Phelan, DO 05/27/2025 10:30 AM ESTRoutine [facility] [place] [facility] [address] [place] [address] Oleksandr Phelan, DO 36 weeks gestation of ([facility]); Third trimester ([facility]); Heartburn during in third trimester ([facility])5Clinisync Result Encounter NOMS External Department Unsolicited Oleksandr Phelan, DO 5Bamboo flowsheet [facility] [place] [facility] [address] [place] [address] Oleksandr Phelan, DO 05/13/2025 1:30 PM ESTRoutine [facility] [address] [place] [address] Oleksandr Phelan, DO Third trimester ([facility]); 34 weeks gestation of ([facility]); Heartburn during in third trimester ([facility])5Bamboo flowsheet [facility] [place] [facility] [address] [place] [address] Oleksandr Phelan, DO 04/30/2025 2:00 PM ESTRoutine [facility] [address] [place] [address] Oleksandr Phelan, DO Third trimester ([facility]); 32 weeks gestation of ([facility])04/30/2025 1:30 PM ESTAncillary Procedure [facility] [address] [place] [address] size inconsistent with dates ([facility])04/16/2025 9:20 AM EDTRoutine [facility] [address] [place] [address] Aliza Kc NP size inconsistent with dates ([facility]) (Primary Dx); Third trimester ([facility]); 30 weeks gestation of ([facility])04/16/2025amboo flowsheet [facility] [address] [place] [address] Aliza Kc NP 04/01/2025 11:00 AM EDTRoutine [facility] [address] [place] [address] Aliza Kc NP Third trimester ([facility]); 28 weeks gestation of ([facility])04/01/2025amboo flowsheet [facility] [address] [place] [address] Aliza Kc NP from Last 3 Months [...] relatives?Once a week09/19/2023How often do you attend oriental orthodox or rastafarian services?Never09/19/2023o you belong to any clubs or organizations such as oriental orthodox groups, unions, fraternal or athletic groups, or school groups?No 09/19/2023How often do you attend meetings of the clubs or organizations you belong to?Never09/19/2023re you , , , , never , or living with a partner?Eajjomn7309/19/2023UDIT-CAnswerDate RecordedQ1: How often do you have a [...] housing, medical care, and heating?Not hard at all09/19/2023[facility] [place] of Occupational Health - Occupational Stress QuestionnaireAnswerDate [...] in ashelter (including now)?No4Estimated Date of Delivery AjcnjulmSxy74/29/2025Based on last menstrual period of 09/16/2024Sex and Gender InformationValueDate RecordedSex Assigned at BirthNot on fileLegal SexFemale 12/20/2022 10:00 AM EDTGender IdentityNot on fileSexual OrientationNot on file Last Filed Vital Signs Vital SignReadingTime TakenCommentsBlood Ctksisdw388/6806/11/2025 2:10 PM EST Hpble28765/05/2025 1:18 PM VRYDgcnijgiorn48.6 ??C (97.8 ??F)11/28/2024 1:18 PM EDTRespiratory Ujts014811/28/2024 1:18 PM EDTOxygen Wvvjhzvbvd40%11/28/2024 1:18 PM EDTInhaled Oxygen Concentration--Qhsrrk15.1 kg (203 lb)06/11/2025 2:10 PM EST Nmgnik625.6 cm (5' 6 )11/28/2024 1:18 PM EDTBody Mass Index32.77011/28/2024 1:18 PM EDT Plan of Treatment Health MaintenanceDue DateLast DoneCommentsInfluenza Vaccine (#1)02/24/2025 4Cervical Cancer Ekyilnwcs79/10/2030HPV/Xwbhew2201/02/2030Pap Smear Pneumococcal Vaccine: Pediatrics (0 to 5 Years) and At-Risk Patients (6 to 64 Years)Aged OutNo longer eligible based on patient's age to complete this topic Procedures Procedure NamePriorityDate/TimeAssociated DiagnosisCommentsALL CBC WITH AUTO QLESRslewgj17/23/2025 5:36 AM EST TBH DRUG SCREEN RAPID (URINE)Ovioxmf9106/15/2025 10:15 PM EST HMHP CBC WITH PLATELET NO LJTVMBLBNPAVYdehhog60/21/2025 10:15 PM EST POCT URINALYSIS UGMOIXQMJsshipc92/17/2025 2:16 PM EST 38 weeks gestation of ([facility]) POCT URINALYSIS FUGGTIINRplqezn10/10/2025 2:37 PM EST 37 weeks gestation of ([facility]) POCT URINALYSIS WMJTHFOZYhdvpxp26/02/2025 10:53 AM EST 36 weeks gestation of ([facility]) Third trimester ([facility]) STREP GP B CULTURE+MDAYAkxrkmk26/02/2025 10:37 AM EST POCT URINALYSIS IILLHEPXXyaktmu73/18/2025 1:58 PM EST 34 weeks gestation of ([facility]) POCT URINALYSIS NCBVLXTVFjknfpf90/05/2025 2:35 PM EST 32 weeks gestation of ([facility]) US OB FOLLOW UP TRANSABDOMINAL QIEXVFQLSkjfaft20/05/2025 1:58 PM EST size inconsistent with dates ([facility]) POCT URINALYSIS EFKZZJNZIbsmrdk58/22/2025 9:56 AM EDT Third trimester ([facility]) POCT URINALYSIS DLJMRTIFJeibkll19/07/2025 11:12 AM EDT Third trimester ([facility]) PAP JIBKEOgqsody68/10/2025 12:00 AM EDTfrom Last 3 Months or Most Recently Relevant to Health Maintenance Results * (ABNORMAL) ALL CBC WITH AUTO DIFF (06/17/2025 5:36 AM EST)ComponentValueRef RangeTest MethodAnalysis TimePerformed AtPathologist SignatureTBH WBC14.9(H) 4.0 - 11.0 10 3/uLTBHTBH RBC2.98(L)4.20 - 5.40 10 6/uLTBHTBH HGB8.9(L)12.0 - 16.0 g/dLTBHTBH HCT27.6(L)36.0 - 48.0 %TBHTBH MCV92.681.0 - 99.0 fLTBHTBH MCH 29.926.7 - 34.0 pgTBHTBH MCHC32.229.9 - 35.2 g/dLTBHTBH RDW12.711.0 - 15.0 % TBHTBH GMU579761 - 450 10 3/uLTBHTBH MPV11.39.5 - 13.5 fLTBHNEUTROPHILS PERCENT AUTO72.843.0 - 75.0 %TBHLYMPHOCYTES PERCENT AUTO15.6(L)20.5 - 60.0 % TBHMONOCYTES PERCENT AUTO9.41.7 - 12.0 %TBHTBH EO %0.6(L)0.9 - 7.0 %TBH BASOPHILS PERCENT AUTO0.30.2 - 2.0 %TBHIMMATURE GRANULOCYTES PCT AUTO1.3(H)0.0 - 0.5 %TBHNEUTROPHILS ABSOLUTE AUTO10.8(H)1.4 - 6.5 10 3/uLTBHLYMPHOCYTES ABSOLUTE AUTO2.31.2 - 3.8 10 3/uLTBHMONOCYTES ABSOLUTE AUTO1.4(H)0.3 - 0.8 10 3/uLTBHTBH EO #0.10.0 - 0.7 10 3/uLTBHBASOPHILS ABSOLUTE AUTO0.00.0 - 0.1 10 3/uLTBHIMMATURE GRANULOCYTES ABS AUTO0.20(H)0.00 - 0.03 10 3/uLTBHSpecimen (Source)Anatomical Location / LateralityCollection Method / VolumeCollection TimeReceived Time06/17/2025 5:36 AM EST06/17/2025 5:52 AM EST Narrative CLIN[facility]YNC - 06/17/2025 5:59 AM EST Authorizing ProviderResult TypeResult StatusCorey Tapan DOCLINISYNCFinal Result Performing OrganizationAddressCity/State/ZIP CodePhone Number CLINISYNC TB * [facility]H DRUG SCREEN RAPID (URINE) (06/15/2025 10:15 PM EST)ComponentValueRef Range Test MethodAnalysis TimePerformed AtPathologist SignatureCANNABINOID SCREEN URINENEGATIVENEGATIVETBHPHENCYCLIDINE SCREEN URINENEGATIVENEGATIVETBHCOCAINE SCREEN URINENEGATIVENEGATIVETBHMETHAMPHETAMINES SCREEN URINENEGATIVENEGATIVE TBHOPIATE SCREEN URINENEGATIVENEGATIVETBHAMPHETAMINE SCREEN URINENEGATIVE NEGATIVETBHBENZODIAZEPINES SCREEN URINENEGATIVENEGATIVETBHTRICYCLIC ANTIDEPRESSANT URINENEGATIVENEGATIVETBHMETHADONE SCREEN URINENEGATIVENEGATIVE TBHBARBITURATES SCREEN URINENEGATIVENEGATIVETBHOXYCODONE SCREEN URINENEGATIVE NEGATIVETBHBUPRENORPHINE SCREEN URINENEGATIVENEGATIVETBHComment: DRUG CLASS TEST SYSTEM CUT-OFF CONCENTRATIONS ARE FOLLOWS: AMP (Amphetamine): 500 ng/mL BAR (Barbiturates): 200 ng/mL BZO (Benzodiazepines): 150 ng/mL BUP (Buprenorphine): 10 ng/mL KELLI (Cocaine): 150 ng/mL mAMP (Methamphetamine): 500 ng/mL MTD (Methadone): 200 ng/mL OPI (Opiates): 100 ng/mL OXY (Oxycodone): 100 ng/mL PCP (Phencyclidine): 25 ng/mL THC (Cannabinoids): 50 ng/mL TCA (Trycyclic Antidepressants): 300 ng/mL Specimen (Source)Anatomical Location / LateralityCollection Method / Volume Collection TimeReceived Time06/15/2025 10:15 PM EST06/15/2025 10:47 PM EST Narrative [facility]NC - 06/15/2025 11:03 PM EST Authorizing ProviderResult TypeResult StatusCorey Tapan DOCLINISYNCFinal Result Performing OrganizationAddressCity/State/ZIP CodePhone Number [facility]EVGENYI [facility] * (ABNORMAL) HMHP CBC WITH PLATELET NO DIFFERENTIAL (06/15/2025 10:15 PM EST) ComponentValueRef RangeTest MethodAnalysis TimePerformed AtPathologist SignatureTBH WBC13.9(H)4.0 - 11.0 10 3/uLTBHTBH RBC4.15(L)4.20 - 5.40 10 6/uL TBHTBH HGB12.512.0 - 16.0 g/dLTBHTBH HCT36.936.0 - 48.0 %TBHTBH MCV88.981.0 - 99.0 fLTBHTBH MCH30.126.7 - 34.0 pgTBHTBH MCHC33.929.9 - 35.2 g/dLTBHTBH RDW 12.211.0 - 15.0 %TBHTBH [id number] - 450 10 3/uLTBHTBH MPV12.59.5 - 13.5 fLT Specimen (Source)Anatomical Location / LateralityCollection Method / Volume Collection TimeReceived Time06/15/2025 10:15 PM EST06/15/2025 10:46 PM EST Narrative [facility]IN[facility]YNC - 06/15/2025 10:53 PM EST Authorizing ProviderResult TypeResult StatusCorey Tapan DOCLINISYNCFinal Result Performing OrganizationAddressCity/State/ZIP CodePhone Number [facility] * (ABNORMAL) POCT urinalysis dipstick manually resulted [...] / Laterality Collection Method / VolumeCollection TimeReceived KvpiQovjb00/17/2025 2:16 PM EST Narrative Authorizing ProviderResult TypeResult [...] is noted.TBHSTREP GP B CULTURE+RFLX Performed at: [facility] LabCorewell Health Greenville HospitalTBHSTREP GP B CULTURE+[id number] [place], [place] [id number] GP B CULTURE+RFLXLab Director: Alfred Selby PhD, Phone: [phone] (Source)Anatomical Location / Laterality Collection Method / VolumeCollection TimeReceived Time05/27/2025 10:37 AM EST 05/27/2025 3:02 PM EST Narrative CLIN[facility]YNC - 05/31/2025 5:09 PM EST Authorizing ProviderResult TypeResult StatusCorey Tapan DOLAB BLOOD ORDERABLES Final ResultPerforming OrganizationAddressCity/State/ZIP CodePhone Number [facility] * US OB follow up transabdominal approach [...] MD Authorizing ProviderResult TypeResult StatusAliza Kc NPIMG US PROCEDURESFinal Result * Pap Smear (01/02/2025 12:00 AM EDT)Specimen (Source)Anatomical Location / LateralityCollection Method / VolumeCollection TimeReceived TimeSwabCervical swab / Unknown Narrative Authorizing ProviderResult TypeResult StatusCorey Tapan DOLAB CYTOLOGY ORDERABLESFinal ResultPerforming OrganizationAddressCity/State/ZIP CodePhone Number EXTERNAL LAB from Last 3 Months or Most Recently Relevant to Health Maintenance Insurance Care Teams Team MemberRelationshipSpecialtyStart DateEnd Date Skyler Webb MD [address] [place] [address] PCP - GeneralFamily Medicine09/26/23
--- OUTSIDE RECORDS SUMMARY | 2025-06-20 15:32 | XMS_ITS | Encounter Summary ---
Author Organization [facility] Address [address] [place] [address] Care Team Providers Care Laundry Room Attendant Name Role Phone Skyler Webb MD Primary Care Provider [phone] Encounter Details DateTypeDepartmentCare Team (Latest Contact Info)Fupimwqqoqu22/21/2025linisync Result Encounter NOMS External Department Unsolicited Oleksandr Phelan, DO [address] [place], [place] [id number] Social History Tobacco UseTypesPacks/DayYears UsedDateSmoking Tobacco: NeverSmokeless Tobacco: NeverSocial Connection and Isolation PanelAnswerDate RecordedIn a typical week, how many times do you talk on the phone with family, friends, or neighbors?More than three times a week09/19/2023How often do you get together with friends or relatives?Once a week09/19/2023How often do you attend uatsdin or faith services?Never4Do you belong to any clubs or organizations such as uatsdin groups, unions, fraternal or athletic groups, or school groups?No 09/19/2023How often do you attend meetings of the clubs or organizations you belong to?Never09/19/2023re you , , , , never , or living with a partner?Gnyvddz0809/19/2023UDIT-CAnswerDate RecordedQ1: How often do you have a [...] care, and heating?Not hard at all09/19/2023[facility] [place] of Occupational Health - Occupational Stress QuestionnaireAnswerDate [...] in ashelter (including now)?No09/19/2023Estimated Date of Delivery RlfmnrygOdf34/29/2025Based on last menstrual period of 09/16/2024Sex and Gender InformationValueDate RecordedSex Assigned at BirthNot on fileLegal SexFemale 12/20/2022 10:00 AM EDTGender IdentityNot on fileSexual OrientationNot on file documented as of this encounter Plan of Treatment Not on file documented as of this encounter Procedures Procedure NamePriorityDate/TimeAssociated DiagnosisCommentsTBH DRUG SCREEN RAPID (URINE)Jwpljwb6106/15/2025 10:15 PM EST HP CBC WITH PLATELET NO ZOMKBQHTPXXMUijmgkd82/21/2025 10:15 PM EST documented in this encounter Results * [facility] DRUG SCREEN RAPID (URINE) (06/15/2025 [...] Tapan DOCLINISYNCFinal Result Performing OrganizationAddressCity/State/ZIP CodePhone Number TIMNC [facility] * (ABNORMAL) HMHP CBC WITH PLATELET NO DIFFERENTIAL (06/15/2025 10:15 PM EST) ComponentValueRef RangeTest MethodAnalysis TimePerformed AtPathologist SignatureTBH WBC13.9(H)4.0 - 11.0 10 3/uLTBHTBH RBC4.15(L)4.20 - 5.40 10 6/uL TBHTBH HGB12.512.0 - 16.0 g/dLTBHTBH HCT36.936.0 - 48.0 %TBHTBH MCV88.981.0 - 99.0 fLTBHTBH MCH30.126.7 - 34.0 pgTBHTBH MCHC33.929.9 - 35.2 g/dLTBHTBH RDW 12.211.0 - 15.0 %TBHTBH [id number] - 450 10 3/uLTBHTBH MPV12.59.5 - 13.5 fLTBH Specimen (Source)Anatomical Location / LateralityCollection Method / Volume Collection TimeReceived Time06/15/2025 10:15 PM EST06/15/2025 10:46 PM EST Narrative [facility] - 06/15/2025 10:53 PM EST Authorizing ProviderResult TypeResult StatusCorey Tapan DOCLINISYNCFinal Result Performing OrganizationAddressCity/State/ZIP CodePhone Number TIMNC [facility] documented in this encounter Visit Diagnoses Not on filedocumented in this encounter Care Teams Team MemberRelationshipSpecialtyStart DateEnd Date Skyler Webb MD [address] [place] [address] PCP - GeneralFamily Medicine09/26/23documented as of this encounter
--- OUTSIDE RECORDS SUMMARY | 2025-06-20 15:32 | XMS_ITS | Encounter Summary ---
Author Organization [facility] Address [address] [place] [address] Care Team Providers Care Research Professional Name Role Phone Skyler Webb MD Primary Care Provider [phone] Encounter Details DateTypeDepartmentCare Team (Latest Contact Info)Ltmxlxsigrz06/23/2025linisync Result Encounter [facility] External Department Unsolicited Oleksandr Phelan, DO [address] [place], [place] [id number] Social History Tobacco UseTypesPacks/DayYears UsedDateSmoking Tobacco: NeverSmokeless Tobacco: NeverSocial Connection and Isolation PanelAnswerDate RecordedIn a typical week, how many times do you talk on the phone with family, friends, or neighbors?More than three times a week09/19/2023How often do you get together with friends or relatives?Once a week09/19/2023How often do you attend quaker or synagogue services?Never4Do you belong to any clubs or organizations such as quaker groups, unions, fraternal or athletic groups, or school groups?No 09/19/2023How often do you attend meetings of the clubs or organizations you belong to?Never09/19/2023re you , , , , never , or living with a partner?Bgbimty0209/19/2023UDIT-CAnswerDate RecordedQ1: How often do you have a [...] housing, medical care, and heating?Not hard at all09/19/2023[facility] [place] of Occupational Health - Occupational Stress QuestionnaireAnswerDate [...] in ashelter (including now)?No09/19/2023Estimated Date of Delivery CrwpyorzJjr49/29/2025Based on last menstrual period of 09/16/2024Sex and Gender InformationValueDate RecordedSex Assigned at BirthNot on fileLegal SexFemale 12/20/2022 10:00 AM EDTGender IdentityNot on fileSexual OrientationNot on file documented as of this encounter Plan of Treatment Not on file documented as of this encounter Procedures Procedure NamePriorityDate/TimeAssociated DiagnosisCommentsALL CBC WITH AUTO WWHHQlzuyhw33/23/2025 5:36 AM EST documented in this encounter Results * (ABNORMAL) ALL CBC WITH AUTO DIFF (06/17/2025 5:36 AM EST)ComponentValueRef RangeTest MethodAnalysis TimePerformed AtPathologist SignatureTBH WBC14.9(H) 4.0 - 11.0 10 3/uLTBHTBH RBC2.98(L)4.20 - 5.40 10 6/uLTBHTBH HGB8.9(L)12.0 - 16.0 g/dLTBHTBH HCT27.6(L)36.0 - 48.0 %TBHTBH MCV92.681.0 - 99.0 fLTBHTBH MCH 29.926.7 - 34.0 pgTBHTBH MCHC32.229.9 - 35.2 g/dLTBHTBH RDW12.711.0 - 15.0 % TBHTBH [id number] - 450 10 3/uLTBHTBH MPV11.39.5 - 13.5 [...] DOCLINISYNCFinal Result Performing OrganizationAddressCity/State/ZIP CodePhone Number [facility] documented in this encounter Visit Diagnoses Not on filedocumented in this encounter Care Teams Team MemberRelationshipSpecialtyStart DateEnd Date Skyler Webb MD [address] [place] [address] PCP - GeneralFamily Medicine09/26/23documented as of this encounter
--- OUTSIDE RECORDS SUMMARY | 2025-06-20 15:32 | XMS_ITS | CCD ---
Author Organization [facility] CliniSyri Care Team Providers Care Computer Software Engineer Name Role Phone WEST, DR QUINN Mortensen [...] Angelia Teixeira Unavailable JAH Antunez Attending Provider [phone] Mirtha Antunez Unavailable Mirtha Antunez Attending Unavailable Mirtha Antunez Admitting Unavailable NON STAFF Primary Care Unavailable Skyler Puente MD Primary Care Provider Skyler Puente MD Primary Care Provider [phone] SKYLER PUENTE Attending Unavailable SKYLER PUENTE Attending Unavailable OLEKSANDR PHELAN Attending Unavailable MARIAM FAJARDO Attending Unavailable MARIAM FAJARDO Referring Unavailable OLEKSANDR PHELAN Attending Unavailable NIURKA KC Attending Unavailable NIURKA CK Attending Unavailable NIURKA KC Attending Unavailable NIURKA KC Referring Unavailable OLEKSANDR PHELAN Attending Unavailable SKYLER PUENTE Attending Unavailable Allergies Allergy ClassificationReported Allergen(s)Allergy TypeDate of OnsetReaction(s) Facility (20 sources)Lactose (non-medical use)Propensity to adverse -[phone] UnknownNOMS Healthcare Medications Current Medications MedicationDrug Class(es)DatesSig (Normalized)Sig (Original)aspirin 81 mg delayed release oral tablet (19 sources)Platelet Aggregation Inhibitor, Nonsteroidal Anti-inflammatory Drug take 1 tablet by mouth once dailyaspirin 81 MG EC tablet Take 81 mg by mouth Daily Activeatovaquone 250 mg / proguanil hydrochloride 100 mg oral tablet (3 sources)Antimalarial, AntiprotozoalStart: 01-26-2024 End: 65-44-0210woxy 1 tablet by mouth once dailyatovaquone-proguanil (Malarone) 250-100 MG tablet Indications: Need for malaria prophylaxis Take 1 tablet by mouth Daily Start 2 days prior to travel and continue for 7 days after returning home. 20 tablet 01/26/2024 03/28/2024 Klbrnazrdvnb12 hr buPROPion hydrochloride 150 mg extended release oral tablet (12 sources)AminoketoneStart: 02-27-2024 End: 21-09-4115utpo 1 tablet by mouth once dailybuPROPion XL (Wellbutrin XL) 150 MG 24 hr tablet Indications: Major depressive disorder, recurrent episode, mild (HCC) (CMS/HCC) TAKE 1 TABLET BY MOUTH DAILY DO NOT CRUSH, CHEW, OR SPLIT 30 tablet 3 02/27/2024 08/14/2024 DiscontinuedStart: 68-55-1177Bbxkurkpk Hcl Active MG PO January 11, 2024 12:00amInulin (20 sources)take 1 tablet by mouth once dailyInulin (FIBER CHOICE PO) Take 1 tablet by mouth Daily Activeloratadine 10 mg oral tablet (11 sources)Start: 03-26-2024 End: 51-21-6035qzxlvexehl (Claritin) 10 MG tablet 03/26/2024 11/28/2024 Discontinuednaproxen sodium 550 mg oral tablet (1 source)Nonsteroidal Anti-inflammatory DrugStart: 84-23-8996mzsq 1 tablet by mouth every twelve hoursNaproxen Sodium 550 MG 1 cap(s) Orally every 12 hrs for 10 days for wrist pain and swelling ActivePrenatal MV-Min-Fe Fum-FA-DHA ( 1 PO) (20 sources) MV-Min-Fe Fum-FA-DHA ( 1 PO) Take 1 tablet by mouth Daily Activesertraline 50 mg oral tablet (20 sources)Serotonin Reuptake InhibitorStart: 08-14-2024 End: 02-50-1628aggc 1 tablet by mouth once dailysertraline (Zoloft) 50 MG tablet Indications: Major depressive disorder, recurrent episode, mild Take 1 tablet (50 mg) by mouth Daily 90 tablet 3 11/28/2024 ActiveSertraline HCl 50 MG 1.5 tablet Oral for 30 days ActiveWrist Splint/Right XL - (1 source)Start: 84-57-9246Yxary Splint/Right XL - as directed Dec, Active Completed/Discontinued Medications MedicationDrug Class(es)DatesSig (Normalized)Sig (Original)brompheniramine maleate 0.4 mg/ml / dextromethorphan hydrobromide 2 mg/ml / pseudoephedrine hydrochloride 6 mg/ml oral solution (2 sources)alpha-Adrenergic Agonist, Uncompetitive Y-vkeljl-N-aspartate Receptor Antagonist, Sigma-1 AgonistStart: 44-80-0345zufb 10 mL by mouth every six hours Hqtipcqun-Vwnpdlui-BH 30-2-10 MG/5ML 10 mL Orally every 6 hours for 5 days Sep, Not-TakingFLUoxetine (2 sources)Serotonin Reuptake InhibitorFluoxetine Not-TakingFluoxetine Active ondansetron 4 mg disintegrating oral tablet (2 sources)Serotonin-3 Receptor AntagonistStart: 91-78-6733zvwb 1 tablet by mouth every eight hoursOndansetron 4 MG 1 tablet on the tongue and allow to dissolve Orally every 8 hours for 5 days Sep, Not-Takingphentermine hydrochloride 37.5 mg oral tablet (11 sources)Sympathomimetic Amine AnorecticStart: 01-26-2024 End: 87-65-4048ttcp 1 tablet by mouth before mealtimephentermine (Adipex-P) 37.5 MG tablet Indications: Obesity (BMI 30-39.9) Take 1 tablet (37.5 mg) bymouth in the morning. Take before meals. 30 tablet 05/07/2024 05/28/2024 Discontinued Start: 44-76-7101njor 37.5 mg by mouth once dailyPhentermine Active 37.5 MG PO Daily January 11, 2024 12:00am Problems Active Problems Problem ClassificationProblemDateDocumented DateEpisodic/ChronicAnxiety disorders (20 sources)Generalized anxiety disorder; Translations: [Generalized anxiety disorder]Onset: 213825-26-2770VkzcspbPisobhz dysrhythmias (4 sources)Palpitations; Translations: [PALPITATIONS]Onset: 45-90-9304Amwredua Immunizations and screening for infectious disease (2 sources)Exposure to sexually transmissible disorder; Translations: [Contact with and (suspected) exposure to infections with a predominantly sexual mode of transmission]36-40-3336JjybcfbuJhrjozstq disorders (1 source)Missed period; Translations: [Irregular menstruation, unspecified] 69-41-6657JrkcklzGpmq disorders (20 sources)Recurrent major depressive episodes, mild ; Translations: [Major depressive disorder, recurrent, mild]Onset: hronic Nutritional deficiencies (20 sources)Vitamin D deficiency; Translations: [Vitamin D deficiency, unspecified]Onset: 509645-30-6530GvbnrcbAbcxv complications of (2 sources) size does not accord with dates; Translations: [Uterine size- date discrepancy, unspecified trimester]22-49-7436GfibktjoWexvp female genital disorders (2 sources)Vaginal discharge; Translations: [Other specified noninflammatory disorders of vagina]18-21-4719SjuhobboPsnmd nervous system disorders (1 source)Carpal tunnel syndrome of right wrist; Translations: [Carpal tunnel syndrome, right upper limb]ChronicOther nervous system disorders (1 source)Carpal tunnel syndrome, right upper limbChronicOther non-traumatic joint disorders (1 source)Pain in right wristEpisodicOther nutritional; endocrine; and metabolic disorders (5 sources)Body mass index 30+ - obesity; Translations: [Obesity, unspecified] Onset: 905390-69-6025VqleitcWvyca and delivery including normal (16 sources); Translations: [Encounter for supervision of normal , unspecified, unspecified trimester]80-02-1629DfsjrqzxBtjnq upper respiratory disease (1 source)Nasal congestionEpisodicResidual codes; unclassified (2 sources)Gestation period, 11 weeks; Translations: [11 weeks gestation of ]31-90-3846WjsasgtjKaakjwck codes; unclassified (2 sources)Gestation period, 15 weeks; Translations: [15 weeks gestation of ]22-74-1554NkmgjajwDwpmrmif codes; unclassified (2 sources)Gestation period, 20 weeks; Translations: [20 weeks gestation of ]84-70-3773HpzvrutwNkohaccy codes; unclassified (2 sources)Gestation period, 24 weeks; Translations: [24 weeks gestation of ]94-89-0466AisexvsrKscmhzrn codes; unclassified (2 sources)Gestation period, 28 weeks; Translations: [28 weeks gestation of ]18-99-9114UfjsjdycMidoowhy codes; unclassified (2 sources)Gestation period, 30 weeks; Translations: [30 weeks gestation of ]32-07-8512DmjvallpTapirrhu codes; unclassified (2 sources)Gestation period, 32 weeks; Translations: [32 weeks gestation of ]50-36-3425KxvqxgxbVkqbrkvpqdxb (1 source)Pain in right wrist; Translations: [Pain in right wrist]Onset: 01-04-2023 Past or Other Problems Problem ClassificationProblemDateDocumented DateEpisodic/ChronicContraceptive and procreative management (20 sources)Patient encounter status; Translations: [Encounter for other general counseling and advice on contraception]Onset: 08-14-2024 Resolved: 411520-27-4495GkqnvvqsW Codes: Fall (1 source)Fall on same level from slipping, tripping and stumbling without subsequent striking against object, initial encounter; Translations: [FALL SAME LVL SLIP NO STRK OBJ INIT]Onset: 98-44-2803GlezjpfoLkmzw injuries and conditions due to external causes (3 sources)Unspecified injury of thorax, initial encounter; Translations: [UNSPECIFIED INJURY THORAX INITIAL]Onset: 24-20-3585IcofgimxZdcal nutritional; endocrine; and metabolic disorders (20 sources)Body mass index 25-29 - overweight; Translations: [Overweight]Onset: 309347-85-8716ZuofijctLwrrwoqn codes; unclassified (20 sources)Prevention status; Translations: [Need for malaria prophylaxis] Onset: 01-26-2024 Resolved: 289060-58-4088CrfavdlfMggipwwz codes; unclassified (20 sources)Gestation period, 10 weeks; Translations: [10 weeks gestation of ]Onset: 595312-04-8611IhxjaycgFeluccifazs injury; contusion (1 source)Contusion of unspecified front wall of thorax, initial encounter; Translations: [CONTUS UNS FRONT WALL THORAX INIT]Onset: 58-83-4175UfgoynosUvosv infection (1 source)COVID-19 Results Test NameValueInterpretationReference RangeFacilityUS OB FOLLOW UP TRANSABDOMINAL APPROACHon 11-76-8406NC OB FOLLOW UP TRANSABDOMINAL APPROACH FINDINGS: A [...] Delivery: 06/23/25 Gestational Age as of 04/16/2025: 02p9qMzthccusdd macro (dipstick) panel (U)on 62-12-5091Qdhmehund, UANegativeNegative - 4(70) +++ mg/dLNOMS HealthcareBlood, UANegativeNegative [...] mg/dLNOMS HealthcareNOMS HealthcareUrinalysis macro (dipstick) panel (U)on 87-60-8309Hytudrpdd, UA NegativeNegative - 4(70) +++ mg/dLNOMS HealthcareBlood, [...] mg/dLNOMS HealthcareNOMS HealthcareUrinalysis macro (dipstick) panel (U)on 92-27-2723Lutjcpvyj, UANegativeNegative - 4(70) +++ mg/dLNOMS HealthcareBlood, UANegativeNegative [...] - 12 mg/dLNOMS HealthcareNOMS HealthcareGLUCOSE 1 HOURon 54-67-0843Resrezh [Mass/Vol]121 mg/dLNINF - 130 mg/dL NOMS HealthcareCLINISYNCNOMS HealthcareUrinalysis macro (dipstick) panel (U)on 15-55-9991Xnnpctlml, UANegativeNegative - 4(70) +++ mg/dLNOMS HealthcareBlood, UANegativeNegative [...] UA1.00.2 - 12 mg/dLNOMS HealthcareNOMS HealthcareALL LEADon 55-75-8024OGQC, BLOOD (ADULT)<1.00.0 - 3.4 ug/dLNOMS HealthcareComment on above:Testing performed by Inductively coupled plasma/Mass Spectrometry. Analysis by inductively coupled plasma/mass spectrometry (ICP/MS) This test was developed and its performance characteristics determined by [employer]. It has not been cleared or approved by the Food and Drug Administration. Environmental Exposure: WHO Recommendation <5.0 Occupational Exposure: OSHA Lead Std 40.0 TINO 30.0 Detection Limit = 1.0 Performed at: [address] [id number] Intern Brand: Alfred Selby PhD, Phone: [phone] Initial Venous No White/ CLINISYNCNOMS HealthcareUrinalysis macro [...] - 12 mg/dLNOMS HealthcareNOMS HealthcareIGP,APTIMA HPV,AGE GDLNon 37-81-5339JCI GDLN ACOG TESTINGNote.NOMS HealthcareComment on above:TESTS RESULT FLAG UNITS REF RANGE LAB Clinician Provided Cytology Information Source.............Vagina Other.............. No. of containers..01 ThinPrep Vial Age Algo ACOG Mariah... 30- FLAG LEGEND: L-Low Normal,H-High Normal,LL-Alert Low,HH-Alert High <-Panic Low,>-Panic High,A-Abnormal,AA-Critical Abnormal Performed at: 01 =[address] [phone] Chloe Valdes MD, HPV APTIMANegativeNegativeNOMS HealthcareComment on above:This nucleic acid amplification test detects fourteen high- risk HPV types (16,18,31,33,35,39,45,51,52,56,58,59,66,68) without differentiation. Performed at: =[address] [id number] Intern Brand: Chloe Valdes MD, Phone: [phone] Performed at: [address] [id number] Intern Brand: Chloe Valdes MD, Phone: [phone] IGP, APTIMA HPV, RFX 16/18,45Note.NOMS HealthcareComment on above:TESTS RESULT FLAG UNITS REF RANGE LAB DIAGNOSIS: 02 NEGATIVE FOR INTRAEPITHELIAL LESION OR MALIGNANCY. Specimen adequacy: 02 Satisfactory for evaluation. No endocervical component is identified. An endocervical component is not commonly seen in the patient. Performed by: 02 [employer] Machine [employer] ([facility]) . 02 Note: Note 02 The Pap [...] <-Panic Low,>-Panic High,A-Abnormal,AA-Critical Abnormal Performed at: [address] [address] Chloe Valdes MD, SPATULA-ALONE VAGINA CLINISYNCNOMS HealthcareRECURRENT VAGINITIS (HTRX)on 83-03-6213FBGAVLLCE VAGINAE 0NOMS HealthcareATOPOBIUM VAGINAENot detectedNOMS HealthcareBVAB 2,3 (BACTERIAL VAGINOSIS ASSOCIATED BACTERIA 2, 3); MOBILUNCUS UKQ3EKNM HealthcareBVAB 2,3 (BACTERIAL VAGINOSIS ASSOCIATED BACTERIA 2, 3); MOBILUNCUS SPPNot detectedNOMS HealthcareCANDIDA ALBICANS, PARAPSILOSIS, NLXYSDJHVN6KSGC HealthcareCANDIDA ALBICANS, PARAPSILOSIS, TROPICALISNot detectedNOMS HealthcareCANDIDA GLABRATA0 NOMS HealthcareCANDIDA GLABRATANot detectedNOMS HealthcareCANDIDA FEQDLY3WNDK HealthcareCANDIDA KRUSEINot detectedNOMS HealthcareCHLAMYDIA VXMNNDDQQTY1CVBS HealthcareCHLAMYDIA TRACHOMATISNot detectedNOMS HealthcareGARDNERELLA VAGINALIS0 NOMS HealthcareGARDNERELLA VAGINALISNot detectedNOMS HealthcareMEGASPHAERA (TYPES 1, 2)0NOMS HealthcareMEGASPHAERA (TYPES 1, 2)Not detectedNOMS Healthcare MYCOPLASMA LSGFUIHQKJ8ZXVH HealthcareMYCOPLASMA GENITALIUMNot detectedNOMS HealthcareNEISSERIA QTXZUOXIZQB0JQDU HealthcareNEISSERIA GONORRHOEAENot detected NOMS HealthcareTRICHOMONAS FYNTLKWSP6PZJA HealthcareTRICHOMONAS VAGINALISNot detectedNOMS HealthcareNOMS HealthcareUS OB 14+ [...] Delivery: 06/23/25 Gestational Age as of 01/02/2025: 41m5dIdtzbpojqx macro (dipstick) panel (U)on 07-92-4987Fsyqshpwk, UANegativeNegative - 4(70) +++ mg/dLNOMS HealthcareBlood, UANegativeNegative [...] HealthcareNOMS Healthcare Urinalysis macro (dipstick) panel (U)on 27-82-6608Ehqfqhzye, UANegativeNegative - 4(70) +++ mg/dLNOMS HealthcareBlood, UANegativeNegative [...] UA1.00.2 - 12 mg/dLNOMS HealthcareNOMS HealthcareBOX TESTon 71-57-3973DWO TEST SENT OUTUNITY NOMS RtvjqnavfcETT3SIFOMZUIO UenruotwulLWM12/09/17NOMS HealthcareUNITY BOX CLINISYNCNOMS HealthcareUS OB TRANSVAGINALon 33-87-6567KH OB TRANSVAGINALEXAM: US OB TRANSVAGINAL HISTORY: Dating. [...] II, MD, PHD at 25-Nov-2024 10:22:19 AM [facility] TeleradiologyNormalNot AvailableComment on above:Order Comment: US OB VIABILITY PLEASE PERFORM TRANSVAGINAL ULTRASOUND IF INDICATED Patient's last menstrual period was 09/16/2024.HCG ( test) Ql (U)on 48-77-2770Areasepkbjaafj and review of laboratory resultsAbnormChestnut Hill Hospital Preg Test, UrPositiveNegativeNOResearch Psychiatric CenterNOIN HealthcareUS OB TRANSVAGINALon 43-55-2135YE OB TRANSVAGINALEXAM: US OB TRANSVAGINAL HISTORY: Dating. [...] II, MD, PHD at 10-Nov-2024 09:18:36 PM [facility] TeleradiologyNormalNot AvailableComment on above:Order Comment: US OB TRANSVAGINAL No LMP recorded.Urinalysis macro (dipstick) panel (U)on 03-92-6221Gyhlbvnrt, UA PositiveNegative - 4(70) +++ mg/dLNOMS HealthcareComment [...] - 1.03N[facility] Healthcare Urobilinogen, UA1.00.2 - 12 mg/dLCritical access hospitalALL CBC WITH AUTO DIFFon 76-79-0855HKBZLKKZQ ABSOLUTE AUTO0.1NOMS HealthcareBasophils/100 WBC (Bld)0.7 %0.2 - 2.0 %NOMSaint Luke'S East HospitalEosinophils/100 WBC (Bld)0.7 %Low0.9 - 7.0 % [facility] Memorial HospitalErythrocyte distribution width (RBC) [Ratio]12.1 %11.0 - 15.0 % NOMSaint Luke'S East HospitalHematocrit (Bld) [Volume fraction]39.4 %36.0 - 48.0 %[facility] HospitalHemoglobin (Bld) [Mass/Vol]13.2 g/dL12.0 - 16.0 g/dLScotland County Memorial Hospital IMMATURE GRANULOCYTES ABS AUTO0.03NOResearch Psychiatric CenterImmature granulocytes/100 WBC (Bld)0.4 %0.0 - 0.5 %[facility] HospitalInterpretation and review of laboratory resultsAbnormalScotland County Memorial HospitalLYMPHOCYTES ABSOLUTE AUTO1.8NOResearch Psychiatric Center Lymphocytes/100 WBC (Bld)24.2 %20.5 - 60.0 %[facility] HospitalH (RBC) [Entitic mass]31.1 pg26.7 - 34.0 pgBarton County Memorial HospitalHC (RBC) [Mass/Vol]33.5 g/dL29.9 - 35.2 g/dLBarton County Memorial HospitalV (RBC) [Entitic vol]92.9 fL81.0 - 99.0 fLScotland County Memorial HospitalMONOCYTES ABSOLUTE AUTO0.7NOResearch Psychiatric CenterMonocytes/100 WBC (Bld)9 %1.7 - 12.0 %[facility] HospitalNEUTROPHILS ABSOLUTE AUTO4.7NOResearch Psychiatric Center Neutrophils/100 WBC (Bld)65 %43.0 - 75.0 %[facility] Memorial HospitalPlatelet mean volume (Bld) [Entitic vol]10.5 fL9.5 - 13.5 fLWashington County Memorial Hospital EO #0.1NOMS [facility] TB DMT131LOZHCarondelet Health RBC4.24NOCarondelet Health WBC7.3NOResearch Psychiatric Center CLINISYNCNOIN HealthcareXR wrist RT min 3V*on 19-17-1961QD wrist RT min 3V* [facility] HOSPITALNogolden valley memorial hospital [employer] Other XR wrist RT min 3V*[facility] [employer] Other XR wrist RT min 3V*[address] [facility] [employer] Other XR wrist RT min 3V*KOURTNEY Galvan [address]KkbvySeattle Va Medical Center [employer] Other XR wrist RT min 3V*XRay ReportSeattle Va Medical Center [employer] Other XR wrist RT min 3V*SignedGeorgetown [employer] Other XR wrist RT min 3V*Patient: Yi Booth MR#: [id number] [employer] Other XR wrist RT min 3V*[id number] [employer] Other XR wrist RT min 3V*: 1995 Acct:[id number] [place] [employer] Other XR wrist RT min 3V*Age/Sex: 27 / F ADM Date: 01/04/23 [place] [employer] Other XR wrist RT min 3V*Loc: XDUCLY Room: Type: [facility] [employer] Other XR wrist RT min 3V*Attending Dr: Mirtha TYSON [place] [employer] Other XR wrist RT min 3V*Copies to: JAH Monsalve [employer] Other XR wrist RT min 3V*Ordering Provider: CHERELLE Monsalvemetropolitan saint louis psychiatric center [employer] Other XR wrist RT min 3V*Date of Service: 01/04/23[place] [employer] Other XR wrist RT min 3V* XR/XR wrist RT min 3V*: RIGHT WRIST [facility] [employer] Other XR wrist RT min 3V*4 views RIGHT wrist plain filmGeorgetown [employer] Other XR wrist RT min 3V*COMPARISON: [facility] [employer] Other XR wrist RT min 3V*HISTORY: RIGHT dorsal wrist pain starting 2 days ago.[employer] Other XR wrist RT min 3V*ACUTE FINDINGS: [facility] [employer] Other XR wrist RT min 3V*DEGENERATIVE CHANGE: Unremarkable [place] [employer] Other XR wrist RT min 3V*SOFT TISSUE FINDINGS: Unremarkable [employer] Other XR wrist RT min 3V*JOINT EFFUSION: [facility] Medical CenterOneloudr Productions [employer] Other XR wrist RT min 3V*POSTOP CHANGES: [facility] [employer] Other XR wrist RT min 3V*BONE MINERALIZATION: AdequateGeorgetown [employer] Other XR wrist RT min 3V* XR/XR wrist RT min 3V*[employer] Other XR wrist RT min 3V*IMPRESSION: Unremarkable examGeorgetown [employer] Other XR wrist RT min 3V*Impression dictated by: Anurag Hollingsworth M.D.01/04/2023 10:38 [facility] [employer] Other XR wrist RT min 3V*Dictation Location: [place] [address] [employer] Other XR wrist RT min 3V*Transcribed By: JOSEFINA 01/04/23 1038 [employer] Other XR wrist RT min 3V*Dictated By: Anurag Hollingsworth DO 01/04/23 1033[place] [employer] Other XR wrist RT min 3V*Signed By:[employer] Other XR wrist RT min 3V*01/04/23 1038[facility] [employer] Other XR wrist RT min 3V*[facility] [place] [address] XRay Report Signed Patient: Yi Booth MR#: [id number] : 1995 Acct:[id number] Age/Sex: 27 / F ADM Date: 01/04/23 Loc: XDUCLY Room: Type: [facility] Attending Dr: Mirtha TYSON Copies to: [...] Anurag Hollingsworth M.D.01/04/2023 10:38 AM Dictation Location: [place] [address] Transcribed By: [facility] 01/04/23 1038 Dictated By: Anurag Hollingsworth DO 01/04/23 1033 Signed By: 01/04/23 1038[facility] God HospitalCOVID/FLU RT-PCRon 72-02-1943YWAG-CoV-2 (COVID-19) RNA DEIRDRE+probe Ql (Unsp spec)PositiveRipley County Memorial HospitalCensis Technologies Other COVID/FLU RT-PCRNegativeNo[employer] Other CBC AUTO DIFFon 22-43-6136LGZD #0.1 103/ulNormal 0.0-0.1The [facility] Medical CenterComment on above:Performed By: #### CBC #### [facility] [address] [place] [address] [address] Mary Gasophils/100 WBC (Bld)0.6 %Normal0.2-2.0[facility] Comment on above:Performed By: #### CBC #### [facility] [address] [place] [address] Dr. Mary Bedolla #0.1 103/ulNormal0.0-0.7The [facility] CenterComment on above: Performed By: #### CBC #### [facility] [address] [place] [address] Dr. Mary Mcbrideosinophils/100 WBC (Bld)0.6 %Critically low0.9-7.0The [facility] Medical CenterComment on above:Performed By: #### CBC #### [facility] [address] [place] [address] Dr. Mary Mcbriderythrocyte distribution width (RBC) [Ratio]12.0 %Xxmlez08.0-15.0 The [facility] CenterComment on above:Performed By: #### CBC #### [facility] [address] [place] [address] Dr. Mary BillyHematocrit (Bld) [Volume fraction]38.8 %Htnmel34.0-48.0The [facility] CenterComment on above:Performed By: #### CBC #### [facility] [address] [place] [address] Dr. Mary BillyHemoglobin (Bld) [Mass/Vol]12.8 g/pZKgydij45.0-16.0The [facility] CenterComment on above:Performed By: #### CBC #### [facility] [address] [place] [address] Dr. Mary Lowe #0.03 10e3/ulNormal0.00-0.03The [facility] CenterComment on above:Performed By: #### CBC #### [facility] [address] [place] [address] Dr. Mary Lowe %0.4 %Normal0.0-0.5The [facility] CenterComment on above: Performed By: #### CBC #### [facility] [address] [place] [address] Dr. Mary Mcneal #2.7 103/ulNormal1.2-3.8The [facility] CenterComment on above:Performed By: #### CBC #### [facility] [address] [place] [address] Dr. Mary Glasgowhocytes/100 WBC (Bld)33.0 %Vocflz84.5-60.0The [facility] CenterComment on above:Performed By: #### CBC #### [facility] [address] [place] [address] Dr. Mary Mckeon DIFF REQNONormalThe [facility] Medical CenterComment on above: Performed By: #### CBC #### [facility] [address] [place] [address] Dr. Mary Rose (RBC) [Entitic mass]31.3 asWkynem39.7-34.0The [facility] CenterComment on above:Performed By: #### CBC #### [facility] [address] [place] [address] Dr. Mary Rose (RBC) [Mass/Vol]33.0 g/rJIivpor82.9-35.2The [facility] CenterComment on above:Performed By: #### CBC #### [facility] [address] [place] [address] Dr. Mary Rose (RBC) [Entitic vol]94.9 cBGasqpt22.0-99.0The [facility] CenterComment on above:Performed By: #### CBC #### [facility] [address] [place] [address] Dr. Mary Sanders #0.8 103/ulNormal0.3-0.8The [facility] CenterComment on above:Performed By: #### CBC #### [facility] [facility] [address] [place] [address] Dr. Mary Hardyocytes/100 WBC (Bld)10.1 %Normal1.7-12.0[facility] Comment on above:Performed By: #### CBC #### [facility] [address] [place] [address] Dr. Mary LopezUT #4.5 103/ulNormal1.4-6.5[facility] CenterComment on above:Performed By: #### CBC #### [facility] [address] [address] [address] Mary Lopezutrophils/100 WBC (Bld)55.3 %Fuvdgm04.0-75.0[facility] CenterComment on above:Performed By: #### CBC #### [facility] [address] [address] [address] Mary BillyPlatelet mean volume (Bld) [Entitic vol]10.5 fLNormal9.5-13.5The [facility] CenterComment on above:Performed By: #### CBC #### [facility] [address] [place] [address] Dr. Mary BillyPLT261 103/ayOdervt923-539Wcg [facility] CenterComment on above: Performed By: #### CBC #### [facility] [address] [place] [address] Dr. Mary BillyRBC4.09 106/ulCritically low4.20-5.40The [facility] CenterComment on above:Performed By: #### CBC #### [facility] [address] [place] [address] Dr. Mary BillyWBC8.1 103/ulNormal4.0-11.0[facility] CenterComment on above: Performed By: #### CBC #### [facility] [address] [place] [address] Dr. Mary BillyPROF CHEM 8 (BAS METB)on 74-31-6099Odbeq gap [Moles/Vol]9.6 mmol/LNormalThe [facility] CenterComment on above:Performed By: #### BMP #### [facility] [address] [place] [address] Dr. Mary BillyCalcium [Mass/Vol]9.2 mg/dLNormal8.4-10.2[facility] Comment on above:Performed By: #### BMP #### [facility] [address] [address] [address] Mary BillyChloride [Moles/Vol]104 mmol/AItpppc81-726BgvCleveland Clinic [facility] Comment on above:Performed By: #### BMP #### [facility] [address] [place] [address] Dr. Mary BillyCO2 [Moles/Vol]29.9 mmol/KWpimnh67.0-30.0[facility] Comment on above:Performed By: #### BMP #### [facility] [address] [place] [address] Dr. Mary BillyCreatinine [Mass/Vol]0.50 mg/dLCritically low0.52-1.04[facility] CenterComment on above:Performed By: #### BMP #### [facility] [address] [place] [address] Dr. Hernandez ChangEGFR-AF SAMOAN>60Normal>=60[facility] CenterComment on above:Performed By: #### BMP #### [facility] [address] [place] [address] Dr. Mary McbrideGFR-NON AF SAMOAN>60Normal>=60[facility] For RehabilitationComment on above:Performed By: #### BMP #### [facility] [address] [place] [address] Dr. Mary BillyGlucose [Mass/Vol]89 mg/iRYoodkg83-577GimCleveland Clinic Children'S Hospital For Rehabilitation Comment on above:Performed By: #### BMP #### [facility] [address] [address] [address] Mary BillyPotassium [Moles/Vol]3.5 mmol/LNormal3.4-5.0[facility] Comment on above:Performed By: #### BMP #### [facility] [address] [place] [address] Dr. Mary BillySodium [Moles/Vol]140 mmol/LMobaiv487-101IlbCleveland Clinic [facility]'S [facility] Comment on above:Performed By: #### BMP #### [facility] [address] [place] [address] Dr. Yilan ChangUrea nitrogen [Mass/Vol]6.0 mg/dLCritically low7.0-17.0[facility] CenterComment on above:Performed By: #### BMP #### [facility] [address] [place] [address] Dr. Mary Saucedo nitrogen/Creatinine [Mass ratio]12.0 mg/mgNormalThe [facility] CenterComment on above:Performed By: #### BMP #### [facility] [address] [place] [address] Dr. Mary DelgadilloC AUTO DIFFon [id number] #0.1 103/ulNormal0.0-0.1[facility] CenterComment on above:Performed By: #### CBC #### [facility] [address] [place] [address] Curt KarenBasophils/100 WBC (Bld)0.9 %Normal0.2-2.0The [facility] Comment on above:Performed By: #### CBC #### [facility] [address] [place] [address] Curt KarenEO #0.1 103/ulNormal0.0-0.7The [facility] CenterComment on above: Performed By: #### CBC #### [facility] [address] [place] [address] Curt KarenEosinophils/100 WBC (Bld)1.5 %Normal0.9-7.0The [facility] Comment on above:Performed By: #### CBC #### [facility] [address] [place] [address] Curt KarenErythrocyte distribution width (RBC) [Ratio]11.6 %Sqnind61.0-15.0[facility] CenterComment on above:Performed By: #### CBC #### [facility] [address] [place] [address] Curt KarenHematocrit (Bld) [Volume fraction]38.6 %Lrdcxo46.0-48.0[facility] CenterComment on above:Performed By: #### CBC #### [facility] [address] [address] Curt KarenHemoglobin (Bld) [Mass/Vol]13.1 g/bFUeqxrq40.0-16.0[facility] CenterComment on above:Performed By: #### CBC #### [facility] [address] [place] [address] Curt KarenIG #0.08 10e3/ulCritically high0.00-0.03The [facility] CenterComment on above:Performed By: #### CBC #### [facility] [address] [place] [address] Curt KarenIG %0.9 %Critically high0.0-0.5[facility] CenterComment on above:Performed By: #### CBC #### [facility] [address] [place] [address] Curt KarenLYMPH #2.7 103/ulNormal1.2-3.8[facility] CenterComment on above: Performed By: #### CBC #### [facility] [address] [place] [address] Curt KarenLymphocytes/100 WBC (Bld)31.4 %Scnojs84.5-60.0The [facility] Comment on above:Performed By: #### CBC #### [facility] [address] [place] [address] Curt KarenMANUAL DIFF REQNONormalThe [facility] CenterComment on above: Performed By: #### CBC #### [facility] [address] [place] [address] Curt KarenMCH (RBC) [Entitic mass]31.7 efPvunpu17.7-34.0The [facility] Comment on above:Performed By: #### CBC #### [facility] [address] [place] [address] Curt KarenMCHC (RBC) [Mass/Vol]33.9 g/uGUufslk95.9-35.2The [facility] Comment on above:Performed By: #### CBC #### [facility] [address] [place] [address] Curt KarenMCV (RBC) [Entitic vol]93.5 fFCfohcm02.0-99.0The [facility] Comment on above:Performed By: #### CBC #### [facility] [address] [place] [address] Curt MorganenMONO #0.8 103/ulNormal0.3-0.8The [facility] CenterComment on above: Performed By: #### CBC #### [facility] [address] [place] [address] Curt KarenMonocytes/100 WBC (Bld)9.4 %Normal1.7-12.0[facility] Comment on above:Performed By: #### CBC #### [facility] [address] [place] [address] Curt MorganenNEUT #4.8 103/ulNormal1.4-6.5[facility] CenterComment on above: Performed By: #### CBC #### [facility] [address] [place] [address] Curt KarenNeutrophils/100 WBC (Bld)55.9 %Xkktfx02.0-75.0[facility] Comment on above:Performed By: #### CBC #### [facility] [address] [place] [address] Curt KarenPlatelet mean volume (Bld) [Entitic vol]10.8 fLNormal9.5-13.5The [facility] CenterComment on above:Performed By: #### CBC #### [facility] [address] [place] [address] Curt PpskhOGA210 103/whQyqlji969-329Tui [facility] CenterComment on above: Performed By: #### CBC #### [facility] [address] [place] [address] Curt KarenRBC4.13 106/ulCritically low4.20-5.40The [facility] CenterComment on above:Performed By: #### CBC #### [facility] [address] [place] [address] Curt KarenWBC8.6 103/ulNormal4.0-11.0[facility] For RehabilitationComment on above: Performed By: #### CBC #### [facility] [address] [address] Curt KarenGLYCOHEMOGLOBIN A1Con 17-18-0065KFO RECOMMENDATIONADA THERAPEUTIC TARGET 6.0 - 7.0 ACTION SUGGESTED > 7.0Tuscarawas HospitalComment on above:Performed By: #### A1C #### [facility] [address] [address] Curt KarenGlucose [Mass/Vol]100 mg/dLTuscarawas HospitalComment on above:Performed By: #### A1C #### [facility] [address] [place] [address] Curt WasvlPdX6v (Bld) [Mass fraction]5.1 %Normal<=6.0[facility] Comment on above:Performed By: #### A1C #### [facility] [address] [address] Curt KarenLIPID PROFILEon 45-17-8855RLND-HDL RATIO NORMSEE The Jewish HospitalComment on above:Result Comment: 3.3 - 4.4 LOW RISK 4.4 - 7.1 AVERAGE RISK 7.1 - 11.0 MODERATE RISK >11.0 HIGH RISKPerformed By: #### TSH, LIPID, BMP, LIVER #### [facility] [address] [address] Curt KarenCholesterol [Mass/Vol]131 mg/dLrmal<=200[facility] Comment on above:Performed By: #### TSH, LIPID, BMP, LIVER #### [facility] [address] [address] Curt KarenCholesterol in HDL [Mass/Vol]71 mg/dLTuscarawas Hospital Comment on above:Performed By: #### TSH, LIPID, BMP, LIVER #### [facility] [address] [address] Curt KarenCholesterol in LDL [Mass/Vol]55.2 mg/dLTuscarawas Hospital Comment on above:Performed By: #### TSH, LIPID, BMP, LIVER #### [facility] [address] [phone] Curt KarenCholesterol.total/Cholesterol in HDL [Mass ratio]1.8 {ratio}Normal The [facility] CenterComment on above:Performed By: #### TSH, LIPID, BMP, LIVER #### [facility] [address] [id number] Curt KarenHDL NORMAL> or = 60 mg/dl - LOW CARDIOVASCULAR RISK <40 mg/dl - HIGH CARDIOVASCULAR RISKTuscarawas HospitalComment on above:Performed By: #### TSH, LIPID, BMP, LIVER #### [facility] [address] [phone] Curt KarenLDL CALC NORMALSEE BELOWTuscarawas HospitalComment on above: Result Comment: <100 mg/dl OPTIMAL 100 - 129 mg/dl NEAR OR ABOVE OPTIMAL 130 - 159 mg/dl BORDERLINE HIGH 160 - 189 mg/dl HIGH >190 mg/dl VERY HIGHPerformed By: #### TSH, LIPID, BMP, LIVER #### [facility] [address] [address] Curt KarenTriglyceride [Mass/Vol]24 mg/dLNormal<=150[facility] Comment on above:Performed By: #### TSH, LIPID, BMP, LIVER #### [facility] [address] [phone] Curt KarenVLDL CALC4.8 mg/dLNormCleveland Clinic Medina HospitalComment on above: Performed By: #### TSH, LIPID, BMP, LIVER #### [facility] [address] [phone] Curt KarenLIVER PROFILEon 86-50-3831Dxwkcoy [Mass/Vol]3.9 g/dLNormal3.5-5.0[facility] CenterComment on above:Performed By: #### TSH, LIPID, BMP, LIVER #### [facility] [address] [address] Curt KarenAlbumin/Globulin [Mass ratio]1.0 {ratio}NormalThe [facility] Comment on above:Performed By: #### TSH, LIPID, BMP, LIVER #### [facility] [address] [address] Curt KarenALP [Catalytic activity/Vol]59 U/ALyluns48-052CsaCleveland Clinic Children'S Hospital [facility] Comment on above:Performed By: #### TSH, LIPID, BMP, LIVER #### [facility] [address] [place] [address] Curt KarenALT [Catalytic activity/Vol]20 U/LNormal9-52[facility] Comment on above:Performed By: #### TSH, LIPID, BMP, LIVER #### [facility] [address] [place] [address] Curt KarenAST [Catalytic activity/Vol]17 U/UCeqcqs69-35KxlCleveland Clinic Children'S [facility] Comment on above:Performed By: #### TSH, LIPID, BMP, LIVER #### [facility] [address] [place] [address] Curt KarenBILI, CONJUGATED0.1 mg/dLNormal0.0-0.3TAultman Alliance Community HospitalComment on above:Performed By: #### TSH, LIPID, BMP, LIVER #### [facility] [address] [place] [address] Curt KarenBilirubin [Mass/Vol]0.3 mg/dLNormal0.2-1.3TAultman Alliance Community Hospital Comment on above:Performed By: #### TSH, LIPID, BMP, LIVER #### [facility] [address] [place] [address] Curt KarenGlobulin (S) [Mass/Vol]3.8 g/dLNormalThe [facility] CenterComment on above:Performed By: #### TSH, LIPID, BMP, LIVER #### [facility] [address] [place], [place] [address] Curt KarenProtein [Mass/Vol]7.7 g/dLNormal6.1-8.2[facility] For RehabilitationComment on above:Performed By: #### TSH, LIPID, BMP, LIVER #### [facility] [address] [place] [address] Curt KarenPROF CHEM 8 (BAS METB)on 46-57-1391Hriec gap [Moles/Vol]10.3 mmol/L NormalCleveland Clinic Children'S Hospital For RehabilitationComment on above:Performed By: #### TSH, LIPID, BMP, LIVER #### [facility] [address] [place] [address] Curt KarenCalcium [Mass/Vol]9.1 mg/dLNormal8.4-10.2[facility] Comment on above:Performed By: #### TSH, LIPID, BMP, LIVER #### [facility] [address] [place] [address] Curt KarenChloride [Moles/Vol]104 mmol/OWubmmf51-161Kuc [facility] Comment on above:Performed By: #### TSH, LIPID, BMP, LIVER #### [facility] [address] [place] [address] Curt KarenCO2 [Moles/Vol]31.3 mmol/LCritically high22.0-30.0[facility] RehabilitationComment on above:Performed By: #### TSH, LIPID, BMP, LIVER #### [facility] [address] [place] [address] Curt KarenCreatinine [Mass/Vol]0.60 mg/dLNormal0.52-1.04[facility] Comment on above:Performed By: #### TSH, LIPID, BMP, LIVER #### [facility] [address] [place] [address] Curt KarenEGFR-AF SAMOAN>60Normal>=60The [facility] CenterComment on above: Performed By: #### TSH, LIPID, BMP, LIVER #### [facility] [address] [place] [address] Curt KarenEGFR-NON AF SAMOAN>60Normal>=60The [facility] CenterComment on above:Performed By: #### TSH, LIPID, BMP, LIVER #### [facility] [address] [place] [address] Curt KarenGlucose [Mass/Vol]108 mg/dLCritically xiuz48-029JaqCleveland Clinic Children'S Hospital For RehabilitationComment on above:Performed By: #### TSH, LIPID, BMP, LIVER #### [facility] [address] [place] [address] Curt KarenPotassium [Moles/Vol]3.6 mmol/LNormal3.4-5.0[facility] Comment on above:Performed By: #### TSH, LIPID, BMP, LIVER #### [facility] [address] [place] [address] Curt KarenSodium [Moles/Vol]142 mmol/FTgfzvx073-217Kii [facility] Comment on above:Performed By: #### TSH, LIPID, BMP, LIVER #### [facility] [address] [place] [address] Curt KarenUrea nitrogen [Mass/Vol]10.0 mg/dLNormal7.0-17.0[facility] RehabilitationComment on above:Performed By: #### TSH, LIPID, BMP, LIVER #### [facility] [address] [place] [address] Curt KarenUrea nitrogen/Creatinine [Mass ratio]16.7 mg/mgNoUniversity Hospitals Conneaut Medical CenterComment on above:Performed By: #### TSH, LIPID, BMP, LIVER #### [facility] [address] [place] [address] Curt KarenTSHon 28-06-6792UKE1.211 uIU/mLNormal0.470-4.680The [facility] CenterComment on above:Performed By: #### TSH, LIPID, BMP, LIVER #### [facility] [address] [place] [address] Curt KarenTSH RANGESEE BELOWNoUniversity Hospitals Conneaut Medical CenterComment on above:Result Comment: <0.34 UIU/ml HYPERTHYROID 0.34-5.60 UIU/ml EUTHYROID >5.60 UIU/ml HYPOTHYROIDPerformed By: #### TSH, LIPID, BMP, LIVER #### [facility] [address] [place] [address] Curt KarenVITAMIN D 25 OHon 85-53-3055RST D 25-OH35.1 ng/mLNSumma HealthComment on above:Performed By: #### VITAD #### [facility] [address] [place], [place] [address] Curt DowdVIT Tamar RANGESSEE BELOWTuscarawas HospitalComment on above: Result Comment: <20 ng/mL Vit D deficient 20 - <30 ng/mL Vit D insufficient 30 - 100 ng/mL Vit D sufficient >100 ng/mL Potential ToxicityPerformed By: #### VITAD #### [facility] [address] [place] [address] Curt MorganenXR CHEST 2 Von [id number] CHEST 2 VEXAMINATION: XR CHEST 2 V [...] Electronically authenticated by: QUINN LEAL Date: 2020-10-01 09:29[facility] Vital Signs Date TimeVital SignValuePerforming HnxiiopscBgvqxkzg99-27-6541 14:22-0500Body mass index (BMI) [Ratio]30.18 kg/d5Orbrw Tapan DO Work Phone: [facility] HospitalOjyastpbta03-14-7945 14:22-050Body oewptt33.82 kgCorey Tapan DO Work Phone: [facility] HospitalSasyizopxf94-30-3608 14:22050Diastolic blood aajylpkb48 mm[Hg]Oleksandr Tapan DO Work Phone: [facility] HospitalOdtmzzwtsp89-65-8549 14:22-050Systolic blood xmvhlsel228 mm[Hg]Oleksandr Tapan DO Work Phone: [facility] HospitalNtjvejczmn87-75-6108 09:46-0400Body mass index (BMI) [Ratio]29.38 kg/d1Kbpctnpe De PORT SURVEYOR Work Phone: [phone] [place], [place] [address]Aqvbfaxmha02-70-9418 09:46-0400Body celzkn23.56 kgKristina De PORT SURVEYOR Work Phone: [phone] [place], [place] [address]Yjmvbsnqrx28-39-9204 09:46-0400Diastolic blood tnjtpdaf03 mm[Hg]Niurka De PORT SURVEYOR Work Phone: [phone] [place], [place] [address]Drfnlbaktl52-16-0881 09:46-0400Systolic blood smirpbzd406 mm[Hg]Niurka De PORT SURVEYOR Work Phone: [phone] [place], [place] 1708710-07-2025 11:05-0400Body mass index (BMI) [Ratio]28.85 kg/h9Ptojmjir De PORT SURVEYOR Work Phone: [phone])[address] [place], [place] 1708710-07-2025 11:05-0400Body pozlmp61.08 kgKristina De PORT SURVEYOR Work Phone: [phone] [place], [place] 1708710-07-2025 11:05-0400Diastolic blood qzrgtcal69 mm[Hg]Niurka De PORT SURVEYOR Work Phone: [phone] [place], [place] 1708710-07-2025 11:05-0400Systolic blood icyygijo779 mm[Hg]Niurka De PORT SURVEYOR Work Phone: [phone])[address] [place], [place] 1708709-08-2025 10:23-0400Body mass index (BMI) [Ratio]27.12 kg/v1Oqbxurhb De PORT SURVEYOR Work Phone: [phone])[address] [place], [place] 1708709-08-2025 10:23-0400Body qvgbir70.2 kg Niurka De PORT SURVEYOR Work Phone: [phone])[address] [place], [place] 1708709-08-2025 10:23-0400Diastolic blood znmgwcah90 mm[Hg]Niurka De PORT SURVEYOR Work Phone: [phone] [place], [place] 1708709-08-2025 10:23-0400Systolic blood bzfsbrky403 mm[Hg]Niurka De PORT SURVEYOR Work Phone: [phone] [place], [place] 1708708-11-2025 14:15-0400Body mass index (BMI) [Ratio]26.03 kg/x6Jtfji Tapan DO Work Phone: [facility] HospitalZvcwwnvaed39-49-0739 14:15-0400Body jizmbe95.14 kgCorey Tapan DO Work Phone: [facility] HospitalVpihmfrrxy26-92-7340 14:15-0400Diastolic blood mmixxkvr33 mm[Hg]Oleksandr Tapan DO Work Phone: [phone]-[facility] HospitalGddldxawpw57-29-2186 14:15-0400Systolic blood kcugpyqw819 mm[Hg]Oleksandr Tapan DO Work Phone: [phone] [place], [place] [address]Ibaixusnqw12-26-3826 09:46-0400Body mass index (BMI) [Ratio]25.04 kg/m2Amy Kushal PA Work Phone: [facility] HospitalLfewtaqzme31-17-1853 09:46-0400Body gmrimu26.36 kgAmy [place] PA Work Phone: [phone] [place], [place] [address]Mjtdjhfggh99-12-7531 09:46-0400Diastolic blood sxlvugcc56 mm[Hg]Mariam Laboyey PA Work Phone: [phone] [place], [place] [address]Myykqeqjva15-10-0335 09:46-0400Systolic blood igrgfbca985 mm[Hg]Mariam Laboyey PA Work Phone: [phone] [place], [place] [address]Ijtkkzzjqz78-14-3772 09:53-0400Body mass index (BMI) [Ratio]24.55 kg/x9Ggrif Tapan DO Work Phone: [phone] [place], [place] [address]Zgiwgwctyg61-75-7434 09:53-0400Body imhfse01 kg Oleksandr Tapan DO Work Phone: [phone] [place], [place] [address]Hrrwkkcslh73-44-9973 09:53-0400Diastolic blood gcmaydvo36 mm[Hg]Oleksandr Tapan DO Work Phone: [phone] [place], [place] [address]Ebrvxcryew15-00-9450 09:53-0400Systolic blood qdaijbmz151 mm[Hg]Oleksandr Tapan DO Work Phone: [phone] [place], [place] [address]Qzfdalfbxy68-52-2268 13:18-0400Body azsxne549.6 cmMar Naderer MD Work Phone: [facility] HospitalXqqiiawxur95-32-7876 13:18-0400Body mass index (BMI) [Ratio]25.02 kg/m2Skyler Puente MD Work Phone: [facility] HospitalTglucfqjnf16-01-0659 13:18-0400Body temperature 97.81 [degF]Skyler Puente MD Work Phone: [facility] HospitalSsfzlbvqji64-45-7254 13:18-0400Body vqalgi48.31 kgSkyler Puente MD Work Phone: [facility] HospitalDrsyxthokj70-21-1809 13:18-0400Diastolic blood ccntyije73 mm[Hg]Skyler Puente MD Work Phone: [facility] HospitalHeroxvcxgw18-35-9958 13:18-0400Heart zfho044 /min Skyler Puente MD Work Phone: [facility] HospitalEaliyclmuk48-48-3388 13:18-0400Respiratory rate20 /minSkyler Puente MD Work Phone: [facility] HospitalYwvlewjfeb44-13-4684 13:18-2714NtW7% (BldA) [Mass fraction]99 %Skyler Puente MD Work Phone: [facility] HospitalYaraihacbq47-73-2098 13:18-0400Systolic blood eoensaxu875 mm[Hg]kSyler Puente MD Work Phone: [facility] HospitalYjbaggwkik27-87-6940 11:00-0400Body mass index (BMI) [Ratio]24.95 kg/m2[facility]05-16-2025 11:00-0400Body umlumt57.13 [facility]2025 11:00-0400Diastolic blood wivbyoxq16 mm[Hg][facility]05-16-2025 11:00-0400Systolic blood ugesvuup565 mm[Hg][facility]02-19-2025 10:35-0500Body gamyxn392.6 cmSkyler Puente MD Work Phone: [facility] HospitalDbgithjnfc35-96-6512 10:35-0500Body mass index (BMI) [Ratio]26.47 kg/m2Skyler Puente MD Work Phone: [facility] HospitalWfllorelta50-13-8003 10:35-0500Body temperature 97.11 [degF]Skyler Puente MD Work Phone: [facility] HospitalSybekbbosj23-96-1505 10:35-0500Body loulzu15.39 kgSkyler Puente MD Work Phone: [facility] HospitalKeibfhbxss35-78-6796 10:35-0500Diastolic blood dgymsrfk01 mm[Hg]Skyler Puente MD Work Phone: [facility] HospitalBeinummdtt34-84-1162 10:35-0500Heart rate98 /min Skyler Puente MD Work Phone: [facility] HospitalOphjazrden97-26-8386 10:35-0500Respiratory rate20 /minSkyler Puente MD Work Phone: [facility] HospitalVtulyparlx94-90-4464 10:35-2580YmF6% (BldA) [Mass fraction]99 %Skyler Puente MD Work Phone: [facility] HospitalXcnbkhxgfj45-77-3681 10:35-0500Systolic blood eufxtnkt664 mm[Hg]Skyler Puente MD Work Phone: [facility] HospitalEtgcyfqagz28-41-9336 14:46-0500Body .6 cmSkyler Puente MD Work Phone: [facility] HospitalQidrybprlf21-63-4499 14:46-0500Body mass index (BMI) [Ratio]26.95 kg/m2Skyler Puente MD Work Phone: [facility] HospitalIeluldklfi95-98-7207 14:46-0500Body temperature 97.81 [degF]Skyler Puente MD Work Phone: [facility] HospitalOruavhnmud20-18-7024 14:46-0500Body jqbuva01.75 kgSkyler Puente MD Work Phone: [facility] HospitalJeevfmfypu43-95-7960 14:46-0500Diastolic blood mm[Hg]Skyler Puente MD Work Phone: [facility] HospitalXfmvnzskkf67-25-5442 14:46-0500Heart rate94 /min Skyler Puente MD Work Phone: [facility] HospitalScligxesor50-12-3867 14:46-0500Respiratory rate18 /minSkyler Puente MD Work Phone: [facility] HospitalQmyxgegvam25-46-9443 14:46-8870CmT5% (BldA) [Mass fraction]99 %Skyler Puente MD Work Phone: [facility] HospitalKcaczbtfev64-35-7704 14:46-0500Systolic blood iyxuduia497 mm[Hg]Skyler Puente MD Work Phone: [facility] HospitalLmmhqjlqmx00-56-3823 11:17-0400Body nivpca482.6 cmSkyler Puente MD Work Phone: [phone] [place], [place] [address]Zhkhkefuhv53-48-7344 11:17-0400Body mass index (BMI) [Ratio]28.08 kg/m2Skyler Puente MD Work Phone: [facility] HospitalRheikpjguj80-88-4575 11:17-0400Body temperature 97.9 [degF]Skyler Puente MD Work Phone: [facility] HospitalNuxtiiygxu60-56-4676 11:17-0400Body amyyws16.93 kgSkyler Puente MD Work Phone: [phone] HospitalMwinzqzahz17-40-0333 11:17-0400Diastolic blood rjotpqkz69 mm[Hg]Skyler Puente MD Work Phone: [place] [address]Vdetlezcps09-80-7155 11:17-0400Heart rvdt960 /min Skyler Puente MD Work Phone: [place] [address]Gsynlpehrc50-46-3649 11:17-0400Respiratory rate18 /minSkyler Puente MD Work Phone: [place] [address]Cjemeqwksh34-76-5239 11:17-6549FoI8% (BldA) [Mass fraction]98 %Skyler Puente MD Work Phone: [facility] HospitalMdmetptfgn19-94-2534 11:17-0400Systolic blood juidruid507 mm[Hg]Skyler Puente MD Work Phone: [facility] HospitalBfapfyjgru08-42-1878 14:39-0400Body gsrepi207.64 cm[facility]07-[facility]2024 14:39-0400Body mass index (BMI) [Ratio]31.4 kg/i8DdklmmmweThe [facility]07-18-2024 14:39-0400Body knlvtolfdrq18.2 [degF][facility]07-18-2024 14:39-0400Body kkraqx49.45 kgThe [facility]07-18-2024 14:39-0400Heart rate 85 /[facility]07-18-2024 14:39-0400Respiratory rate18 /[facility]07-18-2024 14:39-3556EfT1% (BldA) [Mass fraction]98 %[facility]07-12-2023 09:55-0400Body height 167.64 Franklin Harmony Other [employer] Other 07-12-2023 09:55-0400Body mass index (BMI) [Ratio] 27.08 kg/c9CsqkfhMirtha Antunez Other [employer] Other 07-12-2023 09:55-0400Body .7 [degF]Mirtha Antunez Other [employer] Other 07-12-2023 09:55-0400Body samchz01.11 kgLowellpawan Harmony Other [employer] Other 07-12-2023 09:55-0400Diastolic blood qynjohqt30 mm[Hg] Mirtha Antunez Other [employer] Other 07-12-2023 09:55-0400Respiratory rate18 /minPapawan Antunez Other [employer] Other 07-12-2023 09:55-9448IwC3% (BldA) [Mass fraction]96 % Mirtha Antunez Other [employer] Other 07-12-2023 09:55-0400Systolic blood vaoyenbc005 mm[Hg] Mirtha Antunez Other [employer] Other 04-04-2023 10:35-0400Body .64 cmAmbshashi Teixeira Other [facility] [employer] Other 04-04-2023 10:35-0400Body mass index (BMI) [Ratio] 25.82 kg/e0JkoryAngelia Teixeira Other [employer] Other 04-04-2023 10:35-0400Body yhuiscwwiln38.8 [degF]Angelia Teixeira Other [employer] Other 04-04-2023 10:35-0400Body .58 kgAngelia Teixeira Other [employer] Other 04-04-2023 10:35-0400Respiratory rate18 /minAngelia Teixeira Other [employer] Other 04-04-2023 10:35-6427CwQ8% (BldA) [Mass fraction]96 % Angelia Teixeira Other [place] [employer] Other Encounters Encounter DateEncounter TypeCare ProviderFacilityStart: 04-30-2025 End: 02-40-0093Xjuqktif flow sheetCorey Tapan DO Work Phone: [facility] Sasha OBGYNComment on above:Third trimester ([facility]); 32 weeks gestation of ([facility])Start: 04-30-2025 End: 58-51-2193lvicfdctdvMACEV FAZIONot AvailableStart: 04-16-2025 End: 92-69-5212Takqwh flowsheetKristina De PORT SURVEYOR Work Phone: [facility] Grethel OBGYNStart: 04-16-2025 End: 27-80-1186Geiwpb flowsheetKristina De PORT SURVEYOR Work Phone: [facility] OBGYNStart: 04-16-2025 End: 94-21-3953isurmnksotQQACESDK EBERLYNot AvailableStart: 04-16-2025 End: 96-31-7960Bsnboiwx flow sheetKristina De PORT SURVEYOR Work Phone: [facility] Sasha OBGYNComment on above: size inconsistent with dates ([facility]) (Primary Dx); Third trimester ([facility]); 30 weeks gestation of ([facility])Start: 04-01-2025 End: 80-04-2092Ttjorh flowsheetKristina De PORT SURVEYOR Work Phone: [facility] OBGYNStart: 04-01-2025 End: 19-32-9871Avofii flowsheetKristina De PORT SURVEYOR Work Phone: [facility]thel OBGYNStart: 04-01-2025 End: 45-65-8856Hwizcryd flow sheetKristina De PORT SURVEYOR Work Phone: [facility] Sasha OBGYNComment on above:Third trimester ([facility]); 28 weeks gestation of ([facility])Start: 04-01-2025 End: 57-47-3076flfumtftypOZPFVXWV EBERLYNot AvailableStart: 03-17-2025 End: 13-03-9290Zuijbpkyw Result EncounterNiurka Kc PORT SURVEYOR Work Phone: NOBG External Department UnsolicitedStart: 03-17-2025 End: 87-62-2449Jgbsfrwrv Result EncounterNiurka Kc PORT SURVEYOR Work Phone: [facility] External Department UnsolicitedStart: 03-03-2025 End: 39-77-3237Uxomai flowsheetNiurka De PORT SURVEYOR Work Phone: [facility] Grethel OBGYNStart: 03-03-2025 End: 59-32-3480Pmwuuq flowsheetKrjaroda De PORT SURVEYOR Work Phone: [facility] OBGYNStart: 03-03-2025 End: 32-50-4443Migdqtte flow sheetNgaa De PORT SURVEYOR Work Phone: [facility] Grethel OBGYNComment on above:Second trimester ([facility]); 24 weeks gestation of ([facility]); Diabetes mellitus screeningStart: 03-03-2025 End: 17-68-0575ktyfosejsgULEKMUIA EBERLYNot AvailableStart: 02-03-2025 End: 96-73-4062Udplbxkl flow sheetCorey Tapan DO Work Phone: [facility] Grethel OBGYNComment on above:Second trimester ([facility]); 20 weeks gestation of ([facility]); Vitamin D deficiencyStart: 02-03-2025 End: 82-03-8625Rctcurixi Result EncounterGeneric External Data ProviderNOMS External Department UnsolicitedStart: 02-03-2025 End: 19-44-5988Aefhxwtih Result EncounterGeneric External Data ProviderNOMS External Department UnsolicitedStart: 02-03-2025 End: 96-30-1085pmyxzuxhjhLVGSY FAZIONot AvailableStart: 02-03-2025 End: 30-06-1210qkhetrqpspAKL RAMEYNot AvailableStart: 01-02-2025 End: 01-60-0010Wynoyf flowsheetMariam Fajardo LOWELL Work Phone: NOJR BCP OBStart: 01-02-2025 End: 57-74-5333Cxskan flowsheetMariam Fajardo LOWELL Work Phone: noms BCP OBStart: 01-02-2025 End: 53-26-2507Rvomgnlmb Result EncounterGeneric External Data ProviderNOMS External Department UnsolicitedStart: 01-02-2025 End: 96-50-3952Hcsbxktl Result EncounterMariam Fajardo LOWELL Work Phone: noMS External Department UnsolicitedStart: 01-02-2025 End: 12-82-7622Rxgzlgq encounter procedureMariam Fajardo LOWELL Work Phone: noms HealthcareStart: 01-02-2025 End: 06-20-6079Ihzfsplv preventive med est patient 18-39 yrsMariam Fajardo LOWELL Work Phone: [facility] BCP OBComment on above:15 weeks gestation of ([facility]); Second trimester ([facility]); Well woman exam with routine gynecological exam; Screening, , for anatomic survey ([facility]); Exposure to STD; Vaginal dischargeStart: 01-02-2025 End: 61-97-9749ebghshomivCFT RAMEYNot AvailableStart: 12-05-2024 End: 13-31-5937Nvqzwu flowsheetCorey Tapan DO Work Phone: [facility] BCP OBStart: 12-05-2024 End: 86-75-2687Zdfrly flowsheetCorey Tapan DO Work Phone: [facility] BCP OBStart: 12-05-2024 End: 25-04-2731Rsrafnkw flow sheetCorey Tapan DO Work Phone: [facility] BCP OBComment on above:First trimester ([facility]); 11 weeks gestation of ([facility])Start: 12-05-2024 End: 80-65-2347lhfpdqqckbCSSOX FAZIONot AvailableStart: 11-28-2024 End: 33-99-7392Hnpyjz Terell Puente MD Work Phone: [facility] CWM FMStart: 11-28-2024 End: 77-25-9437Vvnkxw Terell Puente MD Work Phone: [facility] CWM FMStart: 11-28-2024 End: 20-72-7768huvmjkkapnNAVN NADERERNot AvailableStart: 11-28-2024 End: 96-68-9529Ibgqkz outpatient visit 15 minutesSkyler Puente MD Work Phone: [facility] CWM FMComment on above:Major depressive disorder, recurrent episode, mild (HCC) (CMS/HCC) (Primary Dx); Generalized anxiety disorder (CMS/HCC); 10 weeks gestation of pregnancyStart: 11-26-2024 End: 43-51-1366Hmuuhecya Result EncounterCorey Tapan DO Work Phone: NOXQ External Department UnsolicitedStart: 11-26-2024 End: 13-95-4423Wtgeibnol Result EncounterCorey Tapan DO Work Phone: noms External Department UnsolicitedStart: 11-22-2024 End: 13-78-7409joxfqreutnKBJZ NADERERNot AvailableStart: 11-08-2024 End: 89-44-9838Mtapxn outpatient visit 5 minutesNoms Bcp Ob Tapan NurseNOMS BCP OBComment on above:GA: 2h7vCeqzb: 11-08-2024 End: 83-65-7507hquulktulcDNVQ NADERERNot AvailableStart: 08-14-2024 End: 60-42-3316Tptphf Terell Puente MD Work Phone: [facility] CWM FMStart: 08-14-2024 End: 48-07-6358Vxfoxpfermín Puente MD Work Phone: [facility] CWM FMStart: 08-14-2024 End: 84-65-9412Lihuni outpatient visit 25 minutesSkyler Puente MD Work Phone: NOCQ CWM FMComment on above:Major depressive disorder, recurrent episode, mild (HCC) (CMS/HCC) (Primary Dx); Generalized anxiety disorder (CMS/HCC); Family planning counselingStart: 08-14-2024 End: 23-03-5380vugivghbfsCZDT NADERERNot AvailableStart: 06-27-2024 End: 15-69-1178Cknpvdjju Result EncounterSkyler Puente MD Work Phone: noms External Department UnsolicitedStart: 06-27-2024 End: 51-48-3606Dlazuuckn Result EncounterSkyler Puente MD Work Phone: noms External Department UnsolicitedStart: 05-28-2024 End: 44-10-1430Bokshyxi preventive med est patient 18-39 yrsSkyler Puente MD Work Phone: noms CWM FMComment on above:Annual physical exam (Primary Dx); Major depressive disorder, recurrent episode, mild (HCC) (CMS/HCC)Start: 05-28-2024 End: 61-36-0090ckzeunbootBGGZ NADERERNot AvailableStart: 05-28-2024 End: 84-19-0510Kgsoap Terell Puente MD Work Phone: NOQF CWM FMStart: 05-28-2024 End: 93-39-6525Fhtspo Terell Puente MD Work Phone: NOHQ CWM FMStart: 05-28-2024 End: 91-80-4951Skpovea encounter procedureSkyler Puente MD Work Phone: [facility] Work Phone: Start: 05-07-2024 End: 43-12-8490HjhxepVism Naderer MD Work Phone: NONM CWM FMComment on above:Obesity (BMI 30-39.9) Start: 03-28-2024 End: 93-76-5463Dniowmuli Puente MD Work Phone: noms CWM FMStart: 03-28-2024 End: 22-62-4910Drvuzvuli Puente MD Work Phone: noms CWM FMStart: 03-28-2024 End: 93-56-3786Bwubdi outpatient visit 25 minutesSkyler Puente MD Work Phone: noms CWM FMComment on above:Major depressive disorder, recurrent episode, mild (HCC) (CMS/HCC) (Primary Dx); Generalized anxiety disorder (CMS/HCC); Obesity (BMI 30-39.9); Overweight (BMI 25.0-29.9)Start: 01-11-2024 End: 10-85-3870dihjkrdhycAdgtaevdkSt. Rita's Hospital Work Phone: Start: 01-11-2024 End: 27-28-5752Bozyqch encounter procedureEcu Health [facility] Work Phone: Start: 89-69-5335Kpqryr outpatient visit 15 minutes Mirthaketty AntunezFPG Urgent Care ClydeStart: 01-04-2023 End: 53-02-8845aecstsppcoZbhpmz HarmonyFacility:[facility] Start: 01-04-2023 End: 01-41-1540rlolekzafrBC-C Mirthaketty Antunez Work Phone: [facility] Work Phone: Start: 01-04-2023 End: 18-79-8031Lndczqx encounter procedureNP-C Mirtha Harmony Work Phone: [facility] Work Phone: Start: 09-27-2022 End: 31-13-2266npxmyeuatmQnkou Keller Other [facility] [employer] Other Start: 10-45-9195Dloida outpatient new 30 minutesAngelia Webb [facility] ClydeStart: 03-11-2021 End: 47-16-1419zyhratlvggNOIPTPD D KATKOFacility:D2Zvlhl: 89-05-9170Tmxocssgf for general adult medical examination without abnormal findingsDR DREW Kyleigh KWAME [facility] HospitalStart: 12-09-2020 End: 94-79-0318ftfhyiwzdfCC MARC Kyleigh NADERERFacility:Q7Ngbjd: 12-09-2020 End: 00-20-8270Eqsdhcurj for general adult medical examination without abnormal findingsDR SKYLER Arizmendi NADERERFacility:U0Ragxz: 10-01-2020 End: 16-04-3692zcadydlyoaYZ QUINN Mortensen WESTFacility:H1 Procedures DateProcedureProcedure DetailPerforming ClinicianStart: 54-80-7387Oakgr dip stick/tablet rgnt non-auto w/o micrscpCorey Tapan DO Work Phone: Start: 73-49-7944Eigwi dip stick/tablet rgnt non-auto w/o micrscpKristina De PORT SURVEYOR Work Phone: Start: 68-42-3092Lrzwj dip stick/tablet rgnt non-auto w/o micrscpKristina De PORT SURVEYOR Work Phone: Start: 22-53-7652HPDIWYU 1 HOURKristina De PORT SURVEYOR Work Phone: Start: 98-96-6640Ltmqr dip stick/tablet rgnt non-auto w/o micrscpKristina De PORT SURVEYOR Work Phone: Start: 76-41-6690ALV LEADCorey Tapan DO Work Phone: Start: 86-12-0044Myhkw dip stick/tablet rgnt non-auto w/o micrscpCorey Tapan DO Work Phone: Start: 66-56-8705SGVAECNUD VAGINITIS (HTRX)Mariam ETIENNE Work Phone: Start: 47-81-6277Pfaul dip stick/tablet rgnt non-auto w/o micrscpAmy Kushal ETIENNE Work Phone: Start: 65-90-8336KBU,APTIMA HPV,AGE GDLNAmy Kushal ETIENNE Work Phone: Start: 28-52-3162Yhgrfbfgsro observation [Identifier] in Cervix by Cyto stainGeneric ProviderStart: 15-96-8550Rlsug dip stick/tablet rgnt non-auto w/o micrscpCorey Tapan DO Work Phone: Start: 07-59-0331CHM TESTGeneric External Data ProviderStart: 63-66-6954Wkgot dip stick/tablet rgnt non-auto w/o micrscpCorey Tapan DO Work Phone: Start: 58-13-7967WRZ CBC WITH AUTO DIFFMarc Kwame ALMAGUER Work Phone: Start: 36-55-6918Qyahz X-ray of right wristNP-C Mirtha Antunez Work Phone: Plan of Treatment DateCare ActivityDetailAuthorStart: 31-67-4960Quyalthjm for malignant neoplasm of cervixNOMS HealthcareStart: 05-30-2025 End: 86-47-3740Fbrrnez encounter /05/2025 9:15 AM EST Office Visit [facility] [address] [place] [address] Skyler Puente MD [address] [place] [address] [facility]DA FMStart: 05-13-2025 End: 04-31-6438Xjzgaro encounter dnhtqjzia35/18/2025 1:30 PM EST Routine NOMTamera CARMEN [address] [place], [id number] Oleksandr Phelan DO [address] [place] [place] [address] [facility] Sasha KASPERGYNStart: 04-16-2025 End: 47-57-2418BX for pregnancyUS OB follow up transabdominal approach Imaging Routine size inconsistent with dates ([facility]) Expected: 04/16/2025, Expires: 08/17/2025[facility] Work Phone: comment on above:Expected: 04/16/2025, Expires: 08/17/2025Start: 04-01-2025 End: 10-28-7696Ymxjqes encounter xoplnivev85/07/2025 11:00 AM EDT Routine [facility] [address] [place] [address] Niurka Kc, PORT SURVEYOR [address] [place] [place] [address] NOMTamera [place]aez OBGYNStart: 03-03-2025 End: 22-25-9072PZY panel - Blood by Automated countCBC Lab Routine Diabetes mellitus screening Expected: 03/03/2025 (Approximate), Expires: 03/03/2026[facility] Work Phone: comment on above:Expected: 03/03/2025 (Approximate), Expires: 03/03/2026Start: 03-03-2025 End: 32-39-2073Dychvrbufkd of glucose 1 hour after glucose challenge for glucose tolerance testGlucose tolerance, 1 hour Lab Routine Diabetes mellitus screening Expected: 03/03/2025 (Approximate), Expires: 03/03/2026[facility] HospitalComment on above:Expected: 03/03/2025 (Approximate), Expires: 03/03/2026Start: 03-03-2025 End: 81-85-4024Rprtqsn encounter procedureNOMS Baez OBGYNComment on above: ArrivedStart: 67-31-3051DIVMI-19 Vaccine ( season)COVID-19 Vaccine ()[facility] HealthcareStart: 73-68-3231Wjizosfyg vaccinationInfluenza Vaccine (#1)[facility] HealthcareStart: 02-03-2025 End: 13-25-0321Nbhyqnx encounter biaupyuzu02/11/2025 2:10 PM EDT Routine [facility] [address] [place] [phone] Oleksandr Phelan, DO [address] [place] [place] [address] [facility] BCP OBStart: 02-03-2025 End: 58-42-5831Wmqz, bloodLead, blood Lab Routine Second trimester ([facility]) 20 weeks gestation of ([facility]) Vitamin D deficiency Expected: 02/03/2025 (Approximate), Expires: 02/03/2026[facility] Work Phone: comment on above:Expected: 02/03/2025 (Approximate), Expires: 02/03/2026Start: 02-03-2025 End: 48-65-0322Blbowhrjqayi / ancillary services pbwcqdyknd36/11/2025 1:00 PM EDT Ancillary Procedure [facility] [address] [place] [address] [facility] OBStart: 01-02-2025 End: 14-65-9783Tzyls fetoprotein, maternalAlpha fetoprotein, maternal Lab Routine 15 weeks gestation of ([facility]) Second trimester ([facility]) Expected: 01/02/2025 (Approximate), Expires: 03/05/2025[facility] Comment on above:Expected: 01/02/2025 (Approximate), Expires: 03/05/2025Start: 01-02-2025 End: 11-07-4489RV for pregnancyUS OB 14+ weeks anatomy scan Imaging Routine Screening, , for anatomic survey ([facility]) Expected: 01/02/2025, Expires: 04/04/2025[facility] HealthcareComment on above:Expected: 01/02/2025, Expires: 04/04/2025Start: 01-02-2025 End: 85-73-4428Jyywoxa encounter bnzciqwpo55/10/2025 9:30 AM EDT Routine [facility] [address] [place] [phone] Mariam Fajardo PA [address] [place] [address] ArrivedNOMS BCP OBComment on above: ArrivedStart: 12-05-2024 End: 31-62-6135Profigx encounter procedureNOIN BCP OBComment on above:Arrived Start: 11-28-2024 End: 54-83-1080Nvybqiq encounter qwywrtrtg28/05/2025 1:00 PM EDT Office Visit [facility] [address] [place] [address] Skyler Puente MD [address] [place] [address] NOMTamera MELVIN FMStart: 14-80-9608Raqhywlhq for malignant neoplasm of cervixNOIN HealthcareStart: 11-12-2024 End: 21-29-0077Kiojdzu encounter lyjidrzib94/20/2025 10:45 AM EDT Office Visit [facility] [address] [place] [address] Skyler Puente MD [address] [place] [address] [facility] FMStart: 11-08-2024 End: 08-63-0392JFS/RhABO/Rh Lab Routine Missed menses , unspecified gestational age Expected: 11/08/2024 (Approximate), Expires: 11/08/2025N[facility] HealthcareComment on above:Expected: 11/08/2024 (Approximate), Expires: 11/08/2025Start: 11-08-2024 End: 24-24-1620Faefc type and Indirect antibody screen panel - BloodType and screen Lab Routine Missed menses , unspecified gestational age Expected: 11/08/2024 (Approximate), Expires: 11/08/2025NOMS HealthcareComment on above:Expected: 11/08/2024 (Approximate), Expires: 11/08/2025Start: 11-08-2024 End: 33-07-3292Lwmdi of abuse panel - Urine by Screen methodRapid drug screen, urine Lab Routine , unspecified gestational age Encounter for supervision of normal first in first trimester Expected: 11/08/2024 (Approximate), Expires: 11/08/2025[facility] HealthcareComment on above:Expected: 11/08/2024 (Approximate), Expires: 11/08/2025Start: 11-01-2024 End: 24-85-2863MR Pelvis transvaginalUS OB transvaginal Imaging Routine Missed menses Expected: 11/01/2024, Expires: 02/01/2025[facility] Work Phone: comment on above:Expected: 11/01/2024, Expires: 02/01/2025Start: 08-14-2024 End: 63-14-5742Ghivanh encounter betwffclp03/19/2025 10:30 AM EST Office Visit [facility] [address] [place] [phone] Skyler Puente MD [address] [place] [address] ArrivedNOMS CWM FMComment on above:ArrivedStart: 05-28-2024 End: 18-12-6550Kxjiilb encounter procedureNOIN CWM FMComment on above:Arrived Start: 05-28-2024 End: 02-68-9313Pmego metabolic 1998 panel - Serum or PlasmaBasic metabolic panel Lab Routine Annual physical exam Expected: 05/28/2024 (Approximate), Expires: 05/28/2025NOIN HealthcareComment on above:Expected: 05/28/2024 (Approximate), Expires: 05/28/2025Start: 05-28-2024 End: 33-35-0919BJG W Auto Differential panel - BloodCBC and differential Lab Routine Annual physical exam Expected: 05/28/2024 (Approximate), Expires: 1 07/29/2024[facility] HealthcareComment on above:Expected: 05/28/2024 (Approximate), Expires: 05/28/2025Start: 05-28-2024 End: 67-90-6731Nsiihnpfkf A1c/Hemoglobin.total in BloodHemoglobin A1c Lab Routine Annual physical exam Expected: 05/28/2024 (Approximate), Expires: 05/28/2025[facility] Healthcare Work Phone: Comment on above:Expected: 05/28/2024 (Approximate), Expires: 05/28/2025Start: 05-28-2024 End: 31-03-0184Yohhmdf function 2000 panel - Serum or PlasmaHepatic function panel Lab Routine Annual physical exam Expected: 05/28/2024 (Approximate), Expires: 05/28/2025[facility] HealthcareComment on above:Expected: 05/28/2024 (Approximate), Expires: 05/28/2025Start: 05-28-2024 End: 80-48-4572Xoirw 1996 panel - Serum or PlasmaLipid panel Lab Routine Annual physical exam Expected: 05/28/2024 (Approximate), Expires: 05/28/2025[facility] HealthcareComment on above:Expected: 05/28/2024 (Approximate), Expires: 05/28/2025Start: 05-28-2024 End: 16-92-8040Ipifxejluyp [Units/volume] in Serum or PlasmaTSH Lab Routine Annual physical exam Expected: 05/28/2024 (Approximate), Expires: 05/28/2025[facility] HealthcareComment on above:Expected: 05/28/2024 (Approximate), Expires: 05/28/2025Start: 03-28-2024 End: 29-12-7968Waffosx encounter dbjbqysvi38/03/2024 11:15 AM EDT Office Visit [facility] [address] [place] [address] Skyler Puente MD [address] [place] [phone] [facility] FMComment on above:ArrivedStart: 51-79-5777Dhtcyoawx vaccinationInfluenza Vaccine (#1)[facility] HealthcareStart: 67-18-2132Ewhtaxccc for malignant neoplasm of cervixPap SmearScotland County Memorial HospitalBacteria identified in Urine by CultureUrine culture Microbiology Routine Missed menses Ordered: 11/08/2024 [facility] HealthcareComment on above:Ordered: 11/08/2024BC W Auto Differential panel - BloodCBC and differential Lab Routine Missed menses , unspecified gestational age Ordered: 11/08/2024[facility] HealthcareComment on above:Ordered: 11/08/2024HLAMYDIA TRACHOMATIS (GENITO/STI)CHLAMYDIA TRACHOMATIS (GENITO/STI) Lab Routine Exposure to STD Ordered: 01/02/2025[facility] HealthcareComment on above: Ordered: 01/02/2025ytology Cervical or vaginal smear or scraping studyPap Smear Pathology and Cytology Routine Well woman exam with routine gynecological exam Ordered: 01/02/2025[facility] HealthcareComment on above:Ordered: 01/02/2025Hemoglobin A1c/Hemoglobin.total in BloodHemoglobin A1c Lab Routine Missed menses , unspecified gestational age Ordered: 11/08/2024[facility] HealthcareComment on above:Ordered: 11/08/2024Hepatitis B virus surface Ag [Presence] in Serum or Plasma by ImmunoassayHepatitis B surface antigen Lab Routine Missed menses , unspecified gestational age Ordered: 11/08/2024[facility] HealthcareComment on above:Ordered: 11/08/2024Hepatitis C virus Ab [Presence] in Serum or Plasma by ImmunoassayHepatitis C antibody Lab Routine Missed menses , unspecified gestational age Ordered: 11/08/2024[facility] HealthcareComment on above: Ordered: 11/08/2024HIV-1/HIV-2 antigen/antibody combination immunoassayHIV-1 and HIV-2 antibodies Lab Routine Missed menses , unspecified gestational age Ordered: 11/08/2024[facility] HealthcareComment on above:Ordered: 11/08/2024Human papilloma virus DNA [Presence] in Unspecified specimen by Probe with amplificationHPV DNA probe, amplified Microbiology Routine Well woman exam with routine gynecological exam Ordered: 01/02/2025[facility] HealthcareComment on above: Ordered: 01/02/2025Neisseria gonorrhoeae DNA [Presence] in Unspecified specimen by DEIRDRE with probe detectionNeisseria gonorrhea DNA probe, direct Lab Routine Exposure to STD Ordered: 01/02/2025[facility] HealthcareComment on above:Ordered: 01/02/2025Reagin Ab [Presence] in Serum by RPRRPR Lab Routine Missed menses , unspecified gestational age Ordered: 11/08/2024[facility] HealthcareComment on above:Ordered: 11/08/2024Rubella antibody, IgGRubella antibody, IgG Lab Routine Missed menses , unspecified gestational age Ordered: 11/08/2024 [facility] HealthcareComment on above:Ordered: 11/08/2024SURESWAB(R) ADVANCED VAGINITIS PLUS, TMASURESWAB(R) ADVANCED VAGINITIS PLUS, TMA Pathology and Cytology Routine Vaginal discharge Ordered: 01/02/2025[facility] Work Phone: comment on above:Ordered: 01/02/2025US Pelvis transvaginalUS OB transvaginal Imaging Routine Missed menses 11/08/2024 10:[facility] Immunizations Immunization DateImmunizationNotesCare CyafpuxjPbhlssbo35-29-1452mebfdhfmx virus vaccine, unspecified formulationSkyler Puente MD Work Phone: [facility] Payers DatePayer CategoryPayerPolicy [id number] [id number] 2..[id number]-[id number] Care HMO (unspecified) 1..[id number] 2.0.1.713467.3.57[id number] 2.0.1.093267.3.57[id number] 2.0.1.225162.3.57[id number] 2.840.1.283869.3.57[id number] 2.16840.1.160529.3.57[id number] 2..1.315017.3.57[id number] 2.840.1.126180.3.57[id number] 2..1.687776.3.579.2.2[id number] 2..1.829067.3.579.2.215097-68-3967Mcvweqr2098 2..1.601077.3.57[id number] 2..1.888254.3.57[id number] 2..1.941942.3.57[id number] 2..1.539932.3.579.[id number] 2.0.1.304359.3.579.2.380212-39-5499Mruohnq9987018 2..1.764655.3.579.2.[id number] 2..1.493318.3.579.2.61[id number] 2..1.430699.3.57[id number] 2.0.1.040174.3.579.2.044846-44-1017Kwbfpuq Health [id number] [id number] 2.16.840.1.547881.3.579.2.531 Social History DateTypeDetailFacilityUnknown if ever smokedNorth Community [employer] Other Start: 09-19-2023 End: 09-64-0465Ndj Assigned At [facility] HospitalNOIN HealthcareStart: 57-83-1124Hwv Assigned At [facility]tart: 09-26-2023 End: 18-77-1648Utdugie smoking status NHISNever smoked tobacco (finding) [facility] Hospitaltart: 64-31-3823Swgkpkr use and exposure Smokeless tobacco non-userNOIN HealthcareStart: 09-19-2023 End: 94-78-3963Afxdpei of Social functionNOMS HealthcareDo you belong to any clubs or organizations such as yarsanism groups, unions, fraAquarius Biotechnologies or athletic BESOS, or school groups?NoNOMS HealthcareAre you now , , , , never or living with a partner?MarriedNOMS HealthcareHow often to you have a drink containing alcohol?2-4 times a monthNOIN HealthcareHow many standard drinks containing alcohol do you have on a typical day?3 or 4NOMS HealthcareHow often do you have 6 or more drinks on 1 occasion?NeverNOIN HealthcareStart: 54-07-8060Rnw hard is it for you to pay for the very basics like food, housing, medical care, and heatingNot hard at allNOIN HealthcareDo you feel stress - tense, restless, nervous, or anxious, or unable to sleep at night because yourmind is troubled all the time - these days [OSQ]Not at allNOIN Healthcare(I/We) worried whether (my/our) food would run out before (I/we) got money to buy more.Never trueNOIN HealthcareStart: 31-17-4286Sun assigned at birthNot on fileNOIN HealthcareStart: 84-02-1962LjdjukgwiNOXQ Healthcare Clinical Notes 09-27-2022 to 04-30-2025 Note Date & QdgiVrarKegqkwlu10-00-4362 History of Present illness Narrative* Noemí Joaquín, [...] nursing note reviewed. Exam conducted with a project finance analyst present. Vitals: Estimated body mass index is 30.18 kg/m as calculated from the following: Height as of 11/28/24: 5' 6 . Weight as of this encounter: 187 lb. BP: 108/72 Patient's last menstrual period was 09/16/2024. Assessment/Plan ICD-10-CM 1. Third trimester ([facility]) Z34.93 2. 32 weeks gestation of ([facility]) Z3A.32 POCT urinalysis dipstick manually resulted Return [...] of: Oleksandr Phelan DO documented in this encounterScotland County Memorial HospitalDdfmycecrv86-36-0086 History of Present illness Narrative* Niurka Kc [...] disorder), recurrent episode, mild Other primary thrombophilia ([facility]) Sprain of ulnar collateral ligament of right wrist, subsequent encounter HISTORY PAST MEDICAL HISTORY SOCIAL HISTORY Past Medical History: Diagnosis Date At standard risk for fall MO (generalized anxiety disorder) MDD (major depressive disorder), recurrent episode, mild 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 Exam conducted with a project finance analyst present. Vitals: Estimated body mass index is 29.38 kg/m as calculated from the following: Height as of 11/28/24: 5' 6 . Weight as of this encounter: 182 lb. BP: 110/74 Patient's last menstrual period was 09/16/2024. Assessment/Plan ICD-10-CM 1. size inconsistent with dates ([facility]) O26.849 US OB follow up transabdominal approach 2. Third trimester ([facility]) Z34.93 POCT urinalysis dipstick manually resulted 3. 30 weeks gestation of ([facility]) Z3A.30 Return OB: Patient presents today for [...] of: Niurka Kc NP documented in this encounterScotland County Memorial HospitalCpyoydklft88-12-8098 History of Present illness Narrative* Niurka Kc, [...] nursing note reviewed. Exam conducted with a project finance analyst present. Vitals: Estimated body mass index is 28.85 kg/m as calculated from the following: Height as of 11/28/24: 5' 6 . Weight as of this encounter: 178 lb 12 oz. BP: 116/72 Patient's last menstrual period was 09/16/2024. ASSESSMENT & PLAN ICD-10-CM 1. Third trimester ([facility]) Z34.93 POCT urinalysis dipstick manually resulted 2. 28 weeks gestation of ([facility]) Z3A.28 Return OB: Patient presents [...] of: Niurka Kc NP documented in this encounterScotland County Memorial HospitalMoephklrtd60-67-0119 History of Present illness Narrative* Aurora Hernandez [...] nursing note reviewed. Exam conducted with a project finance analyst present. Vitals: Estimated body mass index is 26.03 kg/m as calculated from the following: Height as of 11/28/24: 5' 6 . Weight as of 02/03/25: 161 lb 4 oz. BP: Patient's last menstrual period was 09/16/2024. ASSESSMENT & PLAN ICD-10-CM 1. Second trimester ([facility]) Z34.92 POCT urinalysis dipstick manually resulted 2. 24 weeks gestation of ([facility]) Z3A.24 3. 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 Exam conducted with a project finance analyst present. Vitals: Estimated body mass index is 26.03 kg/m as calculated from the following: Height as of 11/28/24: 5' 6 . Weight as of this encounter: 161 lb 4 oz. BP: 120/80 Patient's last menstrual period was 09/16/2024. ASSESSMENT & PLAN ICD-10-CM 1. Second trimester ([facility]) Z34.92 POCT urinalysis dipstick manually resulted Lead, blood Lead, blood 2. 20 weeks gestation of ([facility]) Z3A.20 Lead, blood Lead, blood 3. Vitamin D deficiency E55.9 Lead, blood Lead, blood Patient presents today for a routine obstetrics appointment. Patient is currently 20w0d with a Estimated Date of Delivery: 06/23/25. Patient had anatomy scan performed prior to appointment today. Patient desires to have Lead Test obtained. Printed lab slip after confirming with [place] at [facility] that correct order was selected. Patient to return to clinic in 4 weeks for routine OB appointment. 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 Exam conducted with a project finance analyst present. Vitals: Estimated body mass index is 25.04 kg/m as calculated from the following: Height as of 11/28/24: 5' 6 . Weight as of this encounter: 155 lb 1.9 oz. BP: 110/70 Patient's last menstrual period was 09/16/2024. ASSESSMENT & PLAN ICD-10-CM 1. 15 weeks gestation of ([facility]) Z3A.15 POCT urinalysis dipstick manually resulted Alpha fetoprotein, maternal Alpha fetoprotein, maternal CANCELED: POCT urinalysis dipstick manually resulted 2. Second trimester ([facility]) Z34.92 POCT urinalysis dipstick manually resulted Alpha fetoprotein, maternal Alpha fetoprotein, maternal CANCELED: POCT urinalysis dipstick manually resulted 3. Well woman exam with routine gynecological exam Z01.419 Pap Smear HPV DNA probe, amplified 4. Screening, , for anatomic survey ([facility]) Z36.89 US OB 14+ weeks anatomy scan US OB 14+ weeks anatomy scan 5. Exposure to STD Z20.2 CHLAMYDIA TRACHOMATIS (GENITO/STI) Neisseria gonorrhea DNA probe, direct 6. Vaginal discharge N89.8 SURESWAB(R) ADVANCED VAGINITIS PLUS, TMA Return OB/Annual Exam: Patient presents today for a annual exam/routine obstetrics appointment. Patient is currently 06z9zcfazgaxd. Patient states she is doing well but [...] behalf of: LOWELL Mckee documented in this encounterScotland County Memorial HospitalVdjfxrcdlx11-72-2726 History of Present illness Narrative* LOWELL Mckee [...] ASSESSMENT & PLAN ICD-10-CM 1. First trimester ([facility]) Z34.91 Urine dip 2. 11 weeks gestation of ([facility]) Z3A.11 Urine dip Return OB: [...] of: Oleksandr Phelan DO documented in this encounterScotland County Memorial HospitalHzvaisdexv70-57-0147 History of Present illness Narrative* Skyler Puente [...] and follow with OB. documented in this encounterScotland County Memorial HospitalFeyxwrocsv93-95-5834 History of Present illness Narrative* Missy Callejas [...] or undercooked meat, and stay away from [facility]. Patient has also been advised to [...] by: Missy Callejas LPN documented in this encounterScotland County Memorial HospitalOhgtfvzghn63-65-9145 History of Present illness Narrative* Skyler Puente [...] medication safety during . documented in this encounterScotland County Memorial HospitalJbywgwxpqo67-06-5954 History of Present illness Narrative* Skyler Puente [...] panel Lipid panel TSH documented in this encounterScotland County Memorial HospitalJcdqjgxkew87-69-9982 History of Present illness Narrative* Skyler Puente [...] (Adipex-P) 37.5 MG tablet documented in this [facility]07-12-2023 Evaluation note* Encounter Date Diagnosis Assessment Notes [...] to 7 days. Off work until Monday. [employer] Other 04-04-2023 Evaluation note* Encounter Date Diagnosis [...] treatment plan. Patient left in stable condition [employer] Other Evaluation noteNo assessment information available [facility] Work Phone: Evaluation note* Diagnosis [...] in first trimester documented in this encounter [facility] HealthcareEvaluation note* Diagnosis Major depressive disorder, [...] Generalized anxiety disorder 10 weeks gestation of ([facility]) 15 weeks gestation of ([facility]) Second trimester ([facility]) state, incidental Well woman exam with routine gynecological exam Routine gynecological examination Screening, , for anatomic survey ([facility]) Encounter for anatomic survey Exposure to [...] Generalized anxiety disorder 10 weeks gestation of ([facility]) Second trimester ([facility]) state, incidental 20 weeks gestation of ([facility]) Vitamin D deficiency documented in this encounter [...] Generalized anxiety disorder 10 weeks gestation of ([facility]) Second trimester ([facility]) state, incidental 24 weeks gestation of ([facility]) Diabetes mellitus screening Screening for diabetes [...] Generalized anxiety disorder 10 weeks gestation of ([facility]) Third trimester ([facility]) state, incidental 28 weeks gestation of ([facility]) documented in this encounter [facility] [...] Generalized anxiety disorder 10 weeks gestation of ([facility]) size inconsistent with dates ([facility])- Primary Third trimester ([facility]) state, incidental 30 weeks gestation of ([facility]) documented in this encounter [facility] [...] Generalized anxiety disorder 10 weeks gestation of ([facility]) Third trimester ([facility]) state, incidental 32 weeks gestation of ([facility]) documented in this encounter [facility] HealthcareHistory general Narrative - Reported* Type Description Date Medical History Depression Medical HistoryAnxietySurgical Historytonsillectomy and adenoidectomy Hospitalization Historysee above [employer] Other Summary Purpose Family History Relationship Condition [...] Skyler Puente MD [address] [place] [address] Referral IDStatusReasonStart DateExpiration DateVisits RequestedVisits [id number] Additional Source Comments INFORMATION SOURCE (unrecogn ized section and content) DATE CREATED AUTHOR 03/15/2021 [facility] DATE CREATED AUTHOR AUTHOR'S ORGANIZ ATION 01/14/2023 [facility] DATE CREATED AUTHOR AUTHOR'S ORGANIZ ATION 05/02/2025 [facility] EPIC REASON FOR VISIT (unrecogniz ed section and content) ReasonCommentsEpistaxis (Nose Bleed)Follow-upCheck up on new medsReasonOnset DateCommentsMed [id number]-up2 mReasonComments Follow-upMed check.ReasonCommentsAmenorrheaReasonCommentsFollow-ui9zKeyeio CommentsRoutine Visit Care Teams (unrecognized sec tion [...] Puente MD [address] [place] [address] PCP - GeneralFamily Medicine09/26/23Team MemberRelationshipSpecialtyStart DateEnd Date Skyler Puente MD [address] [place] [address] PCP - GeneralFamily Medicine09/26/23Team MemberRelationshipSpecialtyStart DateEnd Date Skyler Puente MD [address] [place] [address] PCP - GeneralFamily Medicine09/26/23Team MemberRelationshipSpecialtyStart DateEnd Date Skyler Puente MD [address] [place] [address] PCP - GeneralFamily Medicine09/26/23Team MemberRelationshipSpecialtyStart DateEnd Date Skyler Puente MD [address] [place] [address] PCP - GeneralFamily Medicine09/26/23Team MemberRelationshipSpecialtyStart DateEnd Date Skyler Puente MD [address] [place] [address] PCP - GeneralFamily Medicine09/26/23Team MemberRelationshipSpecialtyStart DateEnd Date Skyler Puente MD [address] [place] [address] PCP - GeneralFamily Medicine09/26/23Team MemberRelationshipSpecialtyStart DateEnd Date Skyler Puente MD [address] [place] [address] PCP - [facility] Medicine09/26/23Team MemberRelationshipSpecialtyStart DateEnd Date Skyler Puente MD [address] [place] [address] PCP - [facility] Medicine09/26/23Team MemberRelationshipSpecialtyStart DateEnd Date Skyler Puente MD [address] [place] [address] PCP - [facility]09/26/23Team MemberRelationshipSpecialtyStart DateEnd Date Skyler Puente MD [address] [place] [address] PCP - [facility] Medicine09/26/23Team MemberRelationshipSpecialtyStart DateEnd Date Skyler Puente MD [address] [place] [address] [facility]09/26/23Team MemberRelationshipSpecialtyStart DateEnd Date Skyler Puente MD [address] [place] [address] PCP - [facility] Medicine09/26/23Team MemberRelationshipSpecialtyStart DateEnd Date Skyler Puente MD [address] [place] [address] PCP - GeneralFamily Medicine09/26/23Team MemberRelationshipSpecialtyStart DateEnd Date Skyler Puente MD [address] [place] [address] PCP - GeneralFamily Medicine09/26/23Team MemberRelationshipSpecialtyStart DateEnd Date Skyler Puente MD [address] [place] [address] PCP - GeneralFamily Medicine09/26/23Team MemberRelationshipSpecialtyStart DateEnd Date Skyler Puente MD [address] [place] [address] PCP - Generalmily Medicine09/26/23Team MemberRelationshipSpecialtyStart DateEnd Date Skyler Puente MD PCP - Generalmily Medicine09/26/23Team MemberRelationshipSpecialtyStart DateEnd Date Skyler Puente MD PCP - GeneralFamily Medicine09/26/23Team MemberRelationshipSpecialtyStart DateEnd Date Skyler Puente MD PCP - GeneralFamily Medicine09/26/23Team MemberRelationshipSpecialtyStart DateEnd Date Skyler Puente MD PCP - GeneralFamily Medicine09/26/23Team MemberRelationshipSpecialtyStart DateEnd Date Skyler Puente MD PCP - [facility]09/26/23Team MemberRelationshipSpecialtyStart DateEnd Date Skyler Puente MD PCP - [facility]09/26/23 Goals (unrecognized section and content) Goals may [...] BE BASED ON THE PRIMARY CLINICAL RECORDS. [facility] [employer], [facility]. provides no warranty or guarantee of the accuracy or completeness of information in this document.
[2025-06-20 16:12] LABS: Hematocrit 31.1 % (36.0-48.0); Hemoglobin 10.1 g/dL (12.0-16.0); Immature Granulocytes Abs Auto 0.35 10^3/uL (0.00-0.03); Immature Granulocytes Pct Auto 3.6 % (0.0-0.5); Lymphocytes Absolute Auto 1.6 10^3/uL (1.2-3.8); Mean Corpuscular HGB Conc 32.5 g/dL (29.9-35.2); Mean Corpuscular Hemoglobin 29.8 pg (26.7-34.0); Mean Corpuscular Volume 91.7 fL (81.0-99.0); Platelet Count 365 10^3/uL (150-450); Red Blood Count 3.39 10^6/uL (4.20-5.40); White Blood Count 9.8 10^3/uL (4.0-11.0)
--- NOTE | 2025-06-20 16:18 | PC.NURSE ---
1530 Pt arrives to dept after dc yesterday with c/o increased swelling to legs, bloody nose and elevated bp of 140/100 home. to room 252, assessed-denies headache or visual disturbances, states has had RUQ pain times two days, reflexes 2+ upper and lower with 3+ leg edema noted; bps done every 5 deszcih248/90,131/90 and 134/94 subsequently. Orders received from Dr Rodriguez after calling with report and labs drawn.
[2025-06-20 16:23] LABS: Alanine Aminotransferase 24 U/L (14-59); Albumin Globulin Ratio 0.5; Albumin Level 2.1 g/dL (3.4-5.0); Alkaline Phosphatase 136 U/L (46-116); Anion Gap 8.5; Aspartate Amino Transferase 27 U/L (15-37); Blood Urea Nitrogen 6.0 mg/dL (7.0-18.0); Calcium 9.1 mg/dL (8.5-10.1); Carbon Dioxide 31.8 mmol/L (21.0-32.0); Chloride 103 mmol/L (98-107); Estimated GFR (African America >60 (>=60 mL/min/1.73m^2); Estimated GFR (Non-African Ame >60 (>=60 mL/min/1.73m^2); Globulin 4.0 g/dL; Glucose 95 mg/dL (74-106); Potassium 4.3 mmol/L (3.5-5.1); Sodium 139 mmol/L (136-145); Total Protein 6.1 g/dL (6.4-8.2)
--- NOTE | 2025-06-20 16:26 | PC.NURSE ---
1605 Medicated with Labetalol po 100mg.
--- NOTE | 2025-06-20 18:11 | PC.NURSE ---
lying down on couch 125/78
--- NOTE | 2025-06-20 18:27 | PC.NURSE ---
Dr Rodriguez notified of labs and bp, dc instructions given to pt
== END 2025-06-20 18:28 | disposition home or self-care (01) ==
LOC: FBCO 15:29 → FBC 15:44
PROVIDERS: PCP Family Medicine
DX: O90.89 Other complications of the puerperium, not elsewhere classified (principal)
CPT/HCPCS: 36415; 80053; 85025

== ENCOUNTER 2025-06-23 08:55 | Outpatient (OUT) | payer OTHER, SELFPAY ==
--- OUTSIDE RECORDS SUMMARY | 2025-06-11 13:40 | XMS_ITS | Encounter Summary ---
Author Organization [facility] Address [address] [place] [address] Care Team Providers Care Projection Welding Machine Operator Name Role Phone Skyler Webb MD Primary Care Provider [phone] Reason for Visit * ReasonCommentsRoutine Visit Encounter Details DateTypeDepartmentCare Team (Latest Contact Info)Fiaggpdebkl05/17/2025 1:40 PM ESTRoutine [facility] [address] [address] Oleksandr Phelan DO [address] [place] [address] Third trimester ([facility]); 38 weeks gestation of ([facility]) Social History Tobacco UseTypesPacks/DayYears UsedDateSmoking Tobacco: NeverSmokeless Tobacco: NeverSocial Connection and Isolation PanelAnswerDate RecordedIn a typical week, how many times do you talk on the phone with family, friends, or neighbors?More than three times a week09/19/2023How often do you get together with friends or relatives?Once a week09/19/2023How often do you attend samaritan or restorationism services?Never4Do you belong to any clubs or organizations such as samaritan groups, unions, fraternal or athletic groups, or school groups?No 09/19/2023How often do you attend meetings of the clubs or organizations you belong to?Never09/19/2023re you , , , , never , or living with a partner?Sntysgk0009/19/2023UDIT-CAnswerDate RecordedQ1: How often do you have a [...] housing, medical care, and heating?Not hard at all09/19/2023[facility] [place] of Occupational Health - Occupational Stress QuestionnaireAnswerDate [...] in ashelter (including now)?No03/26/2024Estimated Date of Delivery UwtqoagmDfy36/29/2025Based on last menstrual period of 09/16/2024Sex and Gender InformationValueDate RecordedSex Assigned at BirthNot on fileLegal SexFemale 12/20/2022 10:00 AM EDTGender IdentityNot on fileSexual OrientationNot on file documented as of this encounter Last Filed Vital Signs Vital SignReadingTime TakenCommentsBlood Bzlkzmtg753/6806/11/2025 2:10 PM EST Pulse--Temperature--Respiratory Rate--Oxygen Saturation--Inhaled Oxygen Concentration--Snijws62.1 kg (203 lb)06/11/2025 2:10 PM ESTHeight--Body Mass [...] physical exam 05/28/2024 10 weeks gestation of ([facility]) 11/28/2024 Resolved Ambulatory Problems Diagnosis Date Noted Need for malaria prophylaxis 01/26/2024 Family planning counseling 08/14/2024 Past Medical History: Diagnosis Date At standard risk for fall [place] (generalized anxiety disorder) MDD (major depressive disorder), recurrent episode, mild Other primary thrombophilia ([facility]) Sprain of ulnar collateral ligament of right wrist, subsequent encounter HISTORY PAST MEDICAL HISTORY SOCIAL HISTORY Past Medical History: Diagnosis Date At standard risk for fall MO (generalized anxiety disorder) MDD (major depressive disorder), recurrent episode, mild 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 Exam conducted with a fork assembler present. Vitals: Estimated body mass index is 32.77 kg/m?? as calculated from the following: Height as of 11/28/24: 5' 6 . Weight as of this encounter: 203 lb. BP: 110/68 Patient's last menstrual period was 09/16/2024. Assessment/Plan ICD-10-CM 1. Third trimester ([facility]) Z34.93 2. 38 weeks gestation of ([facility]) Z3A.38 POCT urinalysis dipstick manually resulted Assessment/Plan [...] this encounter Procedures Procedure NamePriorityDate/TimeAssociated DiagnosisCommentsPOCT URINALYSIS JOZYTBTYEsfrpjo88/17/2025 2:16 PM EST 38 weeks gestation of ([facility]) documented in this encounter Results * [...] / LateralityCollection Method / VolumeCollection Time Received DpygLfgky16/17/2025 2:16 PM EST Narrative Authorizing ProviderResult TypeResult StatusCorey Tapan DOPOINT OF CARE TEST ENTER/EDIT ORDERABLESFinal Result documented in this encounter Visit Diagnoses Diagnosis Third trimester ([facility]) state, incidental 38 weeks gestation of ([facility]) documented in this encounter Care Teams Team MemberRelationshipSpecialtyStart DateEnd Date Skyler Webb MD [address] [place] [phone] PCP - GeneralFamily Medicine09/26/23documented as of this encounter
--- OUTSIDE RECORDS SUMMARY | 2025-06-23 09:01 | XMS_ITS | Encounter Summary ---
Author Organization [facility] Address [address] [place] [address] Care Team Providers Care Offc Spec Name Role Phone Skyler Webb MD Primary Care Provider [phone] Encounter Details DateTypeDepartmentCare Team (Latest Contact Info)Ruzrdzdvogp80/17/2025bstract [facility] [address] [place] [address] Oleksandr Phelan DO [address] [place] [address] Social History Tobacco UseTypesPacks/DayYears UsedDateSmoking Tobacco: NeverSmokeless Tobacco: NeverSocial Connection and Isolation PanelAnswerDate RecordedIn a typical week, how many times do you talk on the phone with family, friends, or neighbors?More than three times a week09/19/2023How often do you get together with friends or relatives?Once a week09/19/2023How often do you attend advent or buddhism services?Never4Do you belong to any clubs or organizations such as advent groups, unions, fraternal or athletic groups, or school groups?No 09/19/2023How often do you attend meetings of the clubs or organizations you belong to?Never09/19/2023re you , , , , never , or living with a partner?Ijcbxmm3009/19/2023UDIT-CAnswerDate RecordedQ1: How often do you have a [...] and heating?Not hard at all09/19/2023[facility] [place] of Occupational Health - Occupational Stress QuestionnaireAnswerDate [...] in ashelter (including now)?No09/19/2023Estimated Date of Delivery KrusmiclXin50/5Based on last menstrual period of 09/16/2024Sex and Gender InformationValueDate RecordedSex Assigned at BirthNot on fileLegal SexFemale 12/20/2022 10:00 AM EDTGender IdentityNot on fileSexual OrientationNot on file documented as of this encounter Plan of Treatment Not on file documented as of this encounter Visit Diagnoses Not on filedocumented in this encounter Care Teams Team MemberRelationshipSpecialtyStart DateEnd Date Skyler Webb MD [address] [place] [phone] PCP - GeneralFamily Medicine09/26/23documented as of this encounter
--- OUTSIDE RECORDS SUMMARY | 2025-06-23 09:01 | XMS_ITS | Clinical Summary ---
Author Organization [facility] Address [id number] [address] [place] [address] Care Team Providers Care Moss Bleacher Name Role Phone Skyler Webb MD Primary Care Provider [phone] Allergies No known active allergies Medications No known medications Active Problems No known active problems Family History Medical HistoryRelationNameCommentsHypertensionFatherFibromyalgiaMaternal GrandmotherOvarian cystsMotherhysterectomyHeart diseasePaternal Grandfather StrokePaternal GrandfatherRelationNameStatusCommentsFatherMaternal Grandmother MotherPaternal Grandfather Social History Tobacco UseTypesPacks/DayYears UsedDateSmoking Tobacco: NeverSmokeless Tobacco: NeverAlcohol UseStandard Drinks/WeekCommentsYes2 (1 standard drink = 0.6 oz pure alcohol)4-6 drinks every 2 weeksChildcareAnswerDate RecordedChildcareUnknown 12/06/2018EmploymentAnswerDate RmhmtoskNjiaszbsaoCedqmdz33/13/2019Purpose - Life AnswerDate RecordedPurpose and direction in bkdzUovnqth61/11/2021 CommentsNoSex and Gender InformationValueDate RecordedSex Assigned at BirthNot on fileLegal HbjScoluj26/17/2018 10:56 AM ESTGender IdentityNot on fileSexual OrientationNot on fileOccupationIndustryJob Start DateJob End Datedesk workNot on fileNot on fileNot on file Last Filed Vital Signs Vital SignReadingTime TakenCommentsBlood Mgevzrud596/6208 11:15 AM EDT Kuhwy0619 11:15 AM EDTTemperature--Respiratory Hszp5312 11:15 AM EDTOxygen Saturation--Inhaled Oxygen Concentration--Wpgwoi40 kg (150 lb) 01/28/2021 11:15 AM BSRAajtuq146.4 cm (5' 5.5 )01/28/2021 11:15 AM EDTBody Mass Index24.5808 11:15 AM EDT Plan of Treatment Health MaintenanceDue DateLast DoneCommentsDepression Cbouoanhq98/23/2007Tobacco Uwrafcjxl32/23/2007dult BMI Smzbiojbg37/23/2013DTaP,Tdap and Td Vaccines (1 - Tdap)2013Pap Smear/10/2020, 08/14/2017COVID-19 Vaccine (3 - season)506/01/2021, 10/25/2020Influenza Gfthyjx7102/24/2025 Medical Devices Not on file Procedures Procedure [...] ? [facility] ? [address] [facility] ? [place] [address] ? Gynecologic Cytology Consultation ? Patient Name: ANJANA BOOTH : 1995 (Age: 25) Gender: F Taken: 01/28/2021 Reported: 02/01/2021 Physician(s): MARLYN RIZVI ([phone]) Copy To: ?? [facility]. #: [id number] Acct: # [id number] Final Cytologic Interpretation ThinPrep Pap Test (Cervical): Satisfactory for evaluation. A transformation zone component is present. NEGATIVE FOR INTRAEPITHELIAL LESION OR MALIGNANCY. [place] [facility] [place] Interpretation performed at [facility], [address] [place] [address], License number: [id number]. Electronically Signed Out By ?NY Neff(ASCP) Date of Last Menstrual Period: ? 01/07/2021 Other Clinical Conditions: Z01.419 Copy Chief exam wo/abn findings Source of Specimen ??ThinPrep Pap Test (Cervical) ? Thin Prep Pap (PROFESSOR OF ENVIRONMENTAL STUDIES) Fee Code(s): ?? G0145 The Pap test is a screening test with an inherent, but low, probability of error. The Pap test is primarily effective for the diagnosis and prevention of squamous cell carcinoma. Regular screening iscritical for prevention. ThinPrep liquid-based slides, which meet the Pump Erector Helper criteria for automated screening, have been screened by the ThinPrep Imaging System (as of 03/12/07) along with an additional manual rescreening by a nursing officer and, if indicated, by a pathologist. Authorizing ProviderResult TypeResult StatusMarlyn Rizvi MDPATHOLOGY/CYTOLOGY ORDERABLESFinal ResultPerforming OrganizationAddressCity/State/ZIP CodePhone Number COPATH from Last 3 Months or Most Recently Relevant to Health Maintenance Insurance Care Teams Team MemberRelationshipSpecialtyStart DateEnd Date Skyler Webb MD PCP - GeneralFarobert [facility] Medicine01/28/21
--- OUTSIDE RECORDS SUMMARY | 2025-06-23 09:01 | XMS_ITS | Encounter Summary ---
Author Organization [facility] Address [address] [place] [address] Care Team Providers Care Technology Coach Name Role Phone Skyler Webb MD Primary Care Provider [phone] Encounter Details DateTypeDepartmentCare Team (Latest Contact Info)Oogftelfuui39/22/2025bstract [facility] [address] [place] [address] Oleksandr Phelan DO [address] [place] [address] Social History Tobacco UseTypesPacks/DayYears UsedDateSmoking Tobacco: NeverSmokeless Tobacco: NeverSocial Connection and Isolation PanelAnswerDate RecordedIn a typical week, how many times do you talk on the phone with family, friends, or neighbors?More than three times a week09/19/2023How often do you get together with friends or relatives?Once a week09/19/2023How often do you attend pentecostal or worship services?Never4Do you belong to any clubs or organizations such as pentecostal groups, unions, fraternal or athletic groups, or school groups?No 09/19/2023How often do you attend meetings of the clubs or organizations you belong to?Never09/19/2023re you , , , , never , or living with a partner?Hujvlqz3609/19/2023UDIT-CAnswerDate RecordedQ1: How often do you have a [...] housing, medical care, and heating?Not hard at all09/19/2023[facility] [place] of Occupational Health - Occupational Stress QuestionnaireAnswerDate [...] in ashelter (including now)?No09/19/2023Estimated Date of Delivery RmhuuxzaUep16/5Based on last menstrual period of 09/16/2024Sex and Gender InformationValueDate RecordedSex Assigned at BirthNot on fileLegal SexFemale 12/20/2022 10:00 AM EDTGender IdentityNot on fileSexual OrientationNot on file documented as of this encounter Plan of Treatment Not on file documented as of this encounter Visit Diagnoses Not on filedocumented in this encounter Care Teams Team MemberRelationshipSpecialtyStart DateEnd Date Skyler Webb MD [address] [place] [phone] PCP - GeneralFamily Medicine09/26/23documented as of this encounter
--- OUTSIDE RECORDS SUMMARY | 2025-06-23 09:01 | XMS_ITS | Encounter Summary ---
Author Organization [facility] Address [address] [place] [address] Care Team Providers Care Enrollment Management Vice President Name Role Phone Skyler Webb MD Primary Care Provider [phone] Encounter Details DateTypeDepartmentCare Team (Latest Contact Info)Hjdndqfoufl33/17/2025amboo flowsheet [facility] [address] [place] [address] Oleksandr Phelan DO [address] [place] [address] Social History Tobacco UseTypesPacks/DayYears UsedDateSmoking Tobacco: NeverSmokeless Tobacco: NeverSocial Connection and Isolation PanelAnswerDate RecordedIn a typical week, how many times do you talk on the phone with family, friends, or neighbors?More than three times a week09/19/2023How often do you get together with friends or relatives?Once a week09/19/2023How often do you attend hindu or sabianist services?Never4Do you belong to any clubs or organizations such as hindu groups, unions, fraternal or athletic groups, or school groups?No 09/19/2023How often do you attend meetings of the clubs or organizations you belong to?Never09/19/2023re you , , , , never , or living with a partner?Pfpxlrb5509/19/2023UDIT-CAnswerDate RecordedQ1: How often do you have a [...] housing, medical care, and heating?Not hard at all09/19/2023[facility] [place] of Occupational Health - Occupational Stress QuestionnaireAnswerDate [...] in ashelter (including now)?No09/19/2023Estimated Date of Delivery GmjwphyoQyj08/5Based on last menstrual period of 09/16/2024Sex and Gender InformationValueDate RecordedSex Assigned at BirthNot on fileLegal SexFemale 12/20/2022 10:00 AM EDTGender IdentityNot on fileSexual OrientationNot on file documented as of this encounter Plan of Treatment Not on file documented as of this encounter Visit Diagnoses Not on filedocumented in this encounter Care Teams Team MemberRelationshipSpecialtyStart DateEnd Date Skyler Webb MD [address] [place] [address] PCP - GeneralFamily Medicine09/26/23documented as of this encounter
--- OUTSIDE RECORDS SUMMARY | 2025-06-23 09:01 | XMS_ITS | Encounter Summary ---
Author Organization [facility] Address [address] [place] [address] Care Team Providers Care Media Director Name Role Phone Skyler Webb MD Primary Care Provider [phone] Encounter Details DateTypeDepartmentCare Team (Latest Contact Info)Iysxiixjmum31/23/2025linisync Result Encounter [facility] Department Unsolicited Oleksandr Phelan, DO [address] [place], [place] [phone] Social History Tobacco UseTypesPacks/DayYears UsedDateSmoking Tobacco: NeverSmokeless Tobacco: NeverSocial Connection and Isolation PanelAnswerDate RecordedIn a typical week, how many times do you talk on the phone with family, friends, or neighbors?More than three times a week09/19/2023How often do you get together with friends or relatives?Once a week09/19/2023How often do you attend holiness or judaism services?Never4Do you belong to any clubs or organizations such as holiness groups, unions, fraternal or athletic groups, or school groups?No 09/19/2023How often do you attend meetings of the clubs or organizations you belong to?Never09/19/2023re you , , , , never , or living with a partner?Uoxipjh4709/19/2023UDIT-CAnswerDate RecordedQ1: How often do you have a [...] housing, medical care, and heating?Not hard at all09/19/2023[facility] [place] of Occupational Health - Occupational Stress QuestionnaireAnswerDate [...] in ashelter (including now)?No09/19/2023Estimated Date of Delivery PhyemzvuTyr37/29/2025Based on last menstrual period of 09/16/2024Sex and Gender InformationValueDate RecordedSex Assigned at BirthNot on fileLegal SexFemale 12/20/2022 10:00 AM EDTGender IdentityNot on fileSexual OrientationNot on file documented as of this encounter Plan of Treatment Not on file documented as of this encounter Procedures Procedure NamePriorityDate/TimeAssociated DiagnosisCommentsALL CBC WITH AUTO AFQKFciujyo27/23/2025 5:36 AM EST documented in this encounter Results * (ABNORMAL) ALL CBC WITH AUTO DIFF (06/17/2025 5:36 AM EST)ComponentValueRef RangeTest MethodAnalysis TimePerformed AtPathologist SignatureTBH WBC14.9(H) 4.0 - 11.0 10 3/uLTBHTBH RBC2.98(L)4.20 - 5.40 10 6/uLTBHTBH HGB8.9(L)12.0 - 16.0 g/dLTBHTBH HCT27.6(L)36.0 - 48.0 %TBHTBH MCV92.681.0 - 99.0 fLTBHTBH MCH 29.926.7 - 34.0 pgTBHTBH MCHC32.229.9 - 35.2 g/dLTBHTBH RDW12.711.0 - 15.0 % TBHTBH ZNU883781 - 450 10 3/uLTBHTBH MPV11.39.5 - 13.5 [...] DOCLINISYNCFinal Result Performing OrganizationAddressCity/State/ZIP CodePhone Number [facility] documented in this encounter Visit Diagnoses Not on filedocumented in this encounter Care Teams Team MemberRelationshipSpecialtyStart DateEnd Date Skyler Webb MD [address] [place] [phone] PCP - GeneralFamily Medicine09/26/23documented as of this encounter
--- OUTSIDE RECORDS SUMMARY | 2025-06-23 09:01 | XMS_ITS | Clinical Summary ---
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 Advised not to smoke. Generalized anxiety msocgurs43/02/2024 Assessment & Plan (11/28/2024 1:42 PM EDT): [...] or continue to gain weight. Vitamin D zhgdwhhbys86/02/2024Overweight (BMI 25.0-29.9)09/26/2023 Assessment & Plan (03/28/2024 11:46 [...] minutes at a time. Estimated Date of KilyyyzuGoxvabznVhu29/29/2025Based on last menstrual period of 09/16/2024 Resolved Problems ProblemNoted DateDiagnosed DateResolved DateFamily planning mmvfgiyhlk70/19/2025 11/28/2024 Assessment & Plan (08/14/2024 10:57 AM EST): Discussed OTC and medication safety during . Need for malaria oxbbzpdrdwl70 Assessment & Plan (01/26/2024 11:32 AM EDT): Plan on travel to [place] and take malaria prophylaxis. Encounters DateTypeDepartmentCare NrzoYrrbrrjgjzb31/23/2025linisync Result Encounter [facility] External Department Unsolicited Oleksandr Phelan, DO 06/16/2025bstract [facility] [place] [address] Oleksandr Phelan, DO 5Clinisync Result Encounter [facility] External Department Unsolicited Oleksandr Phelan, DO 06/11/2025 1:40 PM [place] [address] Oleksandr Phelan, DO Third trimester ([facility]); 38 weeks gestation of ([facility])06/11/2025[place] [address] Oleksandr Phelan, DO 06/11/2025amboo [place] [address] Oleksandr Phelan, DO 06/04/2025 2:20 PM ESTRoutine [facility] [address] [place] [address] Oleksandr Phelan, DO Third trimester ([facility]); 37 weeks gestation of ([facility])5Bamboo flowsheet [facility] [address] [place] [place] [address] Oleksandr Phelan, DO 05/27/2025 10:30 AM ESTRoutine [facility] [address] [place] [place] [address] Oleksandr Phelan, DO 36 weeks gestation of ([facility]); Third trimester ([facility]); Heartburn during in third trimester ([facility])5Clinisync Result Encounter [facility] External Department Unsolicited Oleksandr Phelan, DO 5Bamboo flowsheet [facility] [address] [place] [place] [address] Oleksandr Phelan, DO 05/13/2025 1:30 PM ESTRoutine [facility] [address] [place] [place] [address] Oleksandr Phelan, DO Third trimester ([facility]); 34 weeks gestation of ([facility]); Heartburn during in third trimester ([facility])5Bamboo flowsheet [facility] [address] [place] [place] [address] Oleksandr Phelan, DO 04/30/2025 2:00 PM ESTRoutine [facility] [address] [place] [place] [address] Oleksandr Phelan, DO Third trimester ([facility]); 32 weeks gestation of ([facility])04/30/2025 1:30 PM ESTAncillary Procedure [facility] [address] [place] [place] [address] size inconsistent with dates ([facility])04/16/2025 9:20 AM EDTRoutine [facility] [address] [place] [place] [address] Aliza Kc NP size inconsistent with dates ([facility]) (Primary Dx); Third trimester ([facility]); 30 weeks gestation of ([facility])04/16/2025amboo flowsheet [facility] [address] [place] [place] [address] Aliza Kc NP 04/01/2025 11:00 AM EDTRoutine [facility] [address] [place] [address] Aliza Kc NP Third trimester ([facility]); 28 weeks gestation of ([facility])04/01/2025amboo flowsheet [facility] [address] [place] [place] [address] Aliza Kc NP from Last 3 Months [...] relatives?Once a week09/19/2023How often do you attend protestant or orthodoxy services?Never09/19/2023o you belong to any clubs or organizations such as protestant groups, unions, fraternal or athletic groups, or school groups?No 09/19/2023How often do you attend meetings of the clubs or organizations you belong to?Never09/19/2023re you , , , , never , or living with a partner?Fdzchcr5509/19/2023UDIT-CAnswerDate RecordedQ1: How often do you have a [...] housing, medical care, and heating?Not hard at all09/19/2023[facility] [place] of Occupational Health - Occupational Stress QuestionnaireAnswerDate [...] in ashelter (including now)?No4Estimated Date of Delivery QgjmafccPqd47/29/2025Based on last menstrual period of 09/16/2024Sex and Gender InformationValueDate RecordedSex Assigned at BirthNot on fileLegal SexFemale 12/20/2022 10:00 AM EDTGender IdentityNot on fileSexual OrientationNot on file Last Filed Vital Signs Vital SignReadingTime TakenCommentsBlood Aojbbncr241/6806/11/2025 2:10 PM EST Avxbu37241/05/2025 1:18 PM EAJZogfznrillh05.6 ??C (97.8 ??F)11/28/2024 1:18 PM EDTRespiratory Vpal915011/28/2024 1:18 PM EDTOxygen Jpukzoqhii45%11/28/2024 1:18 PM EDTInhaled Oxygen Concentration--Cyqkor14.1 kg (203 lb)06/11/2025 2:10 PM EST Qgaeqy198.6 cm (5' 6 )11/28/2024 1:18 PM EDTBody Mass Index32.77011/28/2024 1:18 PM EDT Plan of Treatment Health MaintenanceDue DateLast DoneCommentsInfluenza Vaccine (#1)02/24/2025 4Cervical Cancer Qohrlwtev90/10/2030HPV/Iuoimc5001/02/2030Pap Smear Pneumococcal Vaccine: Pediatrics (0 to 5 Years) and At-Risk Patients (6 to 64 Years)Aged OutNo longer eligible based on patient's age to complete this topic Procedures Procedure NamePriorityDate/TimeAssociated DiagnosisCommentsALL CBC WITH AUTO TNGXYvskbet63/23/2025 5:36 AM EST [facility] DRUG SCREEN RAPID (URINE)Uxpzqzo3506/15/2025 10:15 PM EST HMHP CBC WITH PLATELET NO UJGRASEBCSXRVwmezgd22/21/2025 10:15 PM EST POCT URINALYSIS QPNKBLQBMvatxhc38/17/2025 2:16 PM EST 38 weeks gestation of ([facility]) POCT URINALYSIS KNQYPBZBVgnribi28/10/2025 2:37 PM EST 37 weeks gestation of ([facility]) POCT URINALYSIS VBYYCMMSElnidqe66/02/2025 10:53 AM EST 36 weeks gestation of ([facility]) Third trimester ([facility]) STREP GP B CULTURE+QUHJKfjezvi25/02/2025 10:37 AM EST POCT URINALYSIS ESVPMGBDEomnznh48/18/2025 1:58 PM EST 34 weeks gestation of ([facility]) POCT URINALYSIS CAGRJRGQTniyzig44/05/2025 2:35 PM EST 32 weeks gestation of ([facility]) US OB FOLLOW UP TRANSABDOMINAL MXIHPNSEQrqoltm83/05/2025 1:58 PM EST size inconsistent with dates ([facility]) POCT URINALYSIS YAKHNIJNBanvrwc85/22/2025 9:56 AM EDT Third trimester ([facility]) POCT URINALYSIS RVQZWYDJJcxjxwk64/07/2025 11:12 AM EDT Third trimester ([facility]) PAP KGOLHPvlbfza60/10/2025 12:00 AM EDTfrom Last 3 Months or [...] 35.2 g/dLTBHTBH RDW12.711.0 - 15.0 % TBHTBH MUM948319 - 450 10 3/uLTBHTBH MPV11.39.5 - 13.5 [...] [place] DOCLINISYNCFinal Result Performing OrganizationAddressCity/State/ZIP CodePhone Number YEVGENIY [facility] * (ABNORMAL) HMHP CBC WITH PLATELET NO DIFFERENTIAL (06/15/2025 10:15 PM EST) ComponentValueRef RangeTest MethodAnalysis TimePerformed AtPathologist SignatureTBH WBC13.9(H)4.0 - 11.0 10 3/uLTBHTBH RBC4.15(L)4.20 - 5.40 10 6/uL TBHTBH HGB12.512.0 - 16.0 g/dLTBHTBH HCT36.936.0 - 48.0 %TBHTBH MCV88.981.0 - 99.0 fLTBHTBH MCH30.126.7 - 34.0 pgTBHTBH MCHC33.929.9 - 35.2 g/dLTBHTBH RDW 12.211.0 - 15.0 %TBHTBH OMI286904 - 450 10 3/uLTBHTBH MPV12.59.5 - 13.5 fLT Specimen (Source)Anatomical Location / LateralityCollection Method / Volume Collection TimeReceived Time06/15/2025 10:15 PM EST06/15/2025 10:46 PM EST Narrative [facility] - 06/15/2025 10:53 PM EST Authorizing ProviderResult TypeResult StatusCorey Tapan DOCLINISYNCFinal Result Performing OrganizationAddressCity/State/ZIP CodePhone Number [facility]ISYNC [facility] * (ABNORMAL) POCT urinalysis dipstick manually [...] / Laterality Collection Method / VolumeCollection TimeReceived XoavPklvr47/17/2025 2:16 PM EST Narrative Authorizing ProviderResult TypeResult [...] is noted.TBHSTREP GP B CULTURE+RFLX Performed at: [facility] LabFore[facility] Health Medical CenterTBHSTREP GP B CULTURE+[id number] [place], [place] [id number] GP B CULTURE+RFLXLab Director: Alfred Selby PhD, Phone: [phone] (Source)Anatomical Location / Laterality Collection Method / [...] period. TRANSCRIBED BY: ELECTRONICALLY SIGNED BY: Elieser aCmacho MD Authorizing ProviderResult TypeResult StatusAliza Kc NPIMG [...] Date Skyler Webb MD [address] [place] [address] PCP - GeneralFamily Medicine09/26/23
--- OUTSIDE RECORDS SUMMARY | 2025-06-23 09:01 | XMS_ITS | Encounter Summary ---
Author Organization [facility] Address [address] [place] [address] Care Team Providers Care Public Service Director Name Role Phone Skyler Webb MD Primary Care Provider [phone] Encounter Details DateTypeDepartmentCare Team (Latest Contact Info)Pphufvgmjpl63/21/2025linisync Result Encounter [facility] Unsolicited Oleksandr Phelan, DO [address] [place], [place] [id number] Social History Tobacco UseTypesPacks/DayYears UsedDateSmoking Tobacco: NeverSmokeless Tobacco: NeverSocial Connection and Isolation PanelAnswerDate RecordedIn a typical week, how many times do you talk on the phone with family, friends, or neighbors?More than three times a week09/19/2023How often do you get together with friends or relatives?Once a week09/19/2023How often do you attend hinduism or buddhist services?Never4Do you belong to any clubs or organizations such as hinduism groups, unions, fraternal or athletic groups, or school groups?No 09/19/2023How often do you attend meetings of the clubs or organizations you belong to?Never09/19/2023re you , , , , never , or living with a partner?Jchhfig1609/19/2023UDIT-CAnswerDate RecordedQ1: How often do you have a [...] housing, medical care, and heating?Not hard at all09/19/2023[place] [facility] [place] [facility] [employer] - Occupational Stress QuestionnaireAnswerDate [...] in ashelter (including now)?No09/19/2023Estimated Date of Delivery WomytxocTay90/29/2025Based on last menstrual period of 09/16/2024Sex and Gender InformationValueDate RecordedSex Assigned at BirthNot on fileLegal SexFemale 12/20/2022 10:00 AM EDTGender IdentityNot on fileSexual OrientationNot on file documented as of this encounter Plan of Treatment Not on file documented as of this encounter Procedures Procedure NamePriorityDate/TimeAssociated DiagnosisCommentsTBH DRUG SCREEN RAPID (URINE)Nzpohxm3306/15/2025 10:15 PM EST HP CBC WITH PLATELET NO JVLJBWFIKJXOUjccxmp82/21/2025 10:15 PM EST documented in this encounter [...] 35.2 g/dLTBHTBH RDW 12.211.0 - 15.0 %TBHTBH [id number] - 450 10 3/uLTBHTBH MPV12.59.5 - 13.5 [...] Date Skyler Webb MD [address] [place] [address] PCP - GeneralFamily Medicine09/26/23documented as of this encounter
--- OUTSIDE RECORDS SUMMARY | 2025-06-23 09:04 | XMS_ITS | CCD ---
Author Organization [facility] CliniSyva Care Team Providers Care Electric Trucker Name Role Phone WEST, DR QUINN Mortensen [...] Provider Skyler Puente MD Primary Care Provider [phone] SKYLER PUENTE Attending Unavailable SKYLER PUENTE Attending Unavailable OLEKSANDR PHELAN Attending Unavailable MARIAM FAJARDO Attending Unavailable MARIAM FAJARDO Referring Unavailable OLEKSANDR PHELAN Attending Unavailable NIURKA KC Attending Unavailable NIURKA KC Attending Unavailable NIURKA KC Attending Unavailable NIURKA KC Referring Unavailable OLEKSANDR PHELAN Attending Unavailable SKYLER PUENTE Attending Unavailable Allergies Allergy ClassificationReported Allergen(s)Allergy TypeDate of OnsetReaction(s) Facility (20 sources)Lactose (non-medical use)Propensity to adverse rfpmyiipb46-37-0540 UnknownNOMS Healthcare Medications Current Medications MedicationDrug Class(es)DatesSig (Normalized)Sig (Original)aspirin 81 mg delayed release oral tablet (19 sources)Platelet Aggregation Inhibitor, Nonsteroidal Anti-inflammatory Drug take 1 tablet by mouth once dailyaspirin 81 MG EC tablet Take 81 mg by mouth Daily Activeatovaquone 250 mg / proguanil hydrochloride 100 mg oral tablet (3 sources)Antimalarial, AntiprotozoalStart: 01-26-2024 End: 70-04-4299zhbg 1 tablet by mouth once dailyatovaquone-proguanil (Malarone) 250-100 MG tablet Indications: Need for malaria prophylaxis Take 1 tablet by mouth Daily Start 2 days prior to travel and continue for 7 days after returning home. 20 tablet 01/26/2024 03/28/2024 Wapueididxpb66 hr buPROPion hydrochloride 150 mg extended release oral tablet (12 sources)AminoketoneStart: 02-27-2024 End: 39-06-6474koif 1 tablet by mouth once dailybuPROPion XL (Wellbutrin XL) 150 MG 24 hr tablet Indications: Major depressive disorder, recurrent episode, mild (HCC) (CMS/HCC) TAKE 1 TABLET BY MOUTH DAILY DO NOT CRUSH, CHEW, OR SPLIT 30 tablet 3 02/27/2024 08/14/2024 DiscontinuedStart: 98-83-1658Dpwwdlcww Hcl Active MG PO January 11, 2024 12:00amInulin (20 sources)take 1 tablet by mouth once dailyInulin (FIBER CHOICE PO) Take 1 tablet by mouth Daily Activeloratadine 10 mg oral tablet (11 sources)Start: 03-26-2024 End: 39-62-0250degrbnnzei (Claritin) 10 MG tablet 03/26/2024 11/28/2024 Discontinuednaproxen sodium 550 mg oral tablet (1 source)Nonsteroidal Anti-inflammatory DrugStart: 83-80-7543pjii 1 tablet by mouth every twelve hoursNaproxen Sodium 550 MG 1 cap(s) Orally every 12 hrs for 10 days for wrist pain and swelling ActivePrenatal MV-Min-Fe Fum-FA-DHA ( 1 PO) (20 sources) MV-Min-Fe Fum-FA-DHA ( 1 PO) Take 1 tablet by mouth Daily Activesertraline 50 mg oral tablet (20 sources)Serotonin Reuptake InhibitorStart: 08-14-2024 End: 65-93-0964hemq 1 tablet by mouth once dailysertraline (Zoloft) 50 MG tablet Indications: Major depressive disorder, recurrent episode, mild Take 1 tablet (50 mg) by mouth Daily 90 tablet 3 11/28/2024 ActiveSertraline HCl 50 MG 1.5 tablet Oral for 30 days ActiveWrist Splint/Right XL - (1 source)Start: 59-74-6970Yaclh Splint/Right XL - as directed Dec, Active Completed/Discontinued Medications MedicationDrug Class(es)DatesSig (Normalized)Sig (Original)brompheniramine maleate 0.4 mg/ml / dextromethorphan hydrobromide 2 mg/ml / pseudoephedrine hydrochloride 6 mg/ml oral solution (2 sources)alpha-Adrenergic Agonist, Uncompetitive E-ystjic-F-aspartate Receptor Antagonist, Sigma-1 AgonistStart: 82-59-7549abgk 10 mL by mouth every six hours Lkukdnqyf-Tleawanz-FL 30-2-10 MG/5ML 10 mL Orally every 6 hours for 5 days Sep, Not-TakingFLUoxetine (2 sources)Serotonin Reuptake InhibitorFluoxetine Not-TakingFluoxetine Active ondansetron 4 mg disintegrating oral tablet (2 sources)Serotonin-3 Receptor AntagonistStart: 71-88-5289azlv 1 tablet by mouth every eight hoursOndansetron 4 MG 1 tablet on the tongue and allow to dissolve Orally every 8 hours for 5 days Sep, Not-Takingphentermine hydrochloride 37.5 mg oral tablet (11 sources)Sympathomimetic Amine AnorecticStart: 01-26-2024 End: 19-37-8138vpkf 1 tablet by mouth before mealtimephentermine (Adipex-P) 37.5 MG tablet Indications: Obesity (BMI 30-39.9) Take 1 tablet (37.5 mg) bymouth in the morning. Take before meals. 30 tablet 05/07/2024 05/28/2024 Discontinued Start: 33-86-8759cuhh 37.5 mg by mouth once dailyPhentermine Active 37.5 MG PO Daily January 11, 2024 12:00am Problems Active Problems Problem ClassificationProblemDateDocumented DateEpisodic/ChronicAnxiety disorders (20 sources)Generalized anxiety disorder; Translations: [Generalized anxiety disorder]Onset: 156619-31-7451WbligxnWbjwrrs dysrhythmias (4 sources)Palpitations; Translations: [PALPITATIONS]Onset: 17-30-9115Ptgfgisd Immunizations and screening for infectious disease (2 sources)Exposure to sexually transmissible disorder; Translations: [Contact with and (suspected) exposure to infections with a predominantly sexual mode of transmission]59-99-6521GbsfsilcComzrgsvg disorders (1 source)Missed period; Translations: [Irregular menstruation, unspecified] 79-96-9276AbwfqaoOzrb disorders (20 sources)Recurrent major depressive episodes, mild ; Translations: [Major depressive disorder, recurrent, mild]Onset: hronic Nutritional deficiencies (20 sources)Vitamin D deficiency; Translations: [Vitamin D deficiency, unspecified]Onset: 642219-04-8881ZhlthvjDmkiv complications of (2 sources) size does not accord with dates; Translations: [Uterine size- date discrepancy, unspecified trimester]91-96-3599EzvzafpsTboyp female genital disorders (2 sources)Vaginal discharge; Translations: [Other specified noninflammatory disorders of vagina]72-96-6749WlodcgyaPmysp nervous system disorders (1 source)Carpal tunnel syndrome of right wrist; Translations: [Carpal tunnel syndrome, right upper limb]ChronicOther nervous system disorders (1 source)Carpal tunnel syndrome, right upper limbChronicOther non-traumatic joint disorders (1 source)Pain in right wristEpisodicOther nutritional; endocrine; and metabolic disorders (5 sources)Body mass index 30+ - obesity; Translations: [Obesity, unspecified] Onset: 416474-56-0478EzvmggxBevte and delivery including normal (16 sources); Translations: [Encounter for supervision of normal , unspecified, unspecified trimester]59-82-2203SxxtsmrlUjeak upper respiratory disease (1 source)Nasal congestionEpisodicResidual codes; unclassified (2 sources)Gestation period, 11 weeks; Translations: [11 weeks gestation of ]11-41-7663OcnrdzfbWchnbfwf codes; unclassified (2 sources)Gestation period, 15 weeks; Translations: [15 weeks gestation of ]86-89-4892HmebnaecYvdlhzzg codes; unclassified (2 sources)Gestation period, 20 weeks; Translations: [20 weeks gestation of ]09-42-4286FtphcyojVfrbdjwo codes; unclassified (2 sources)Gestation period, 24 weeks; Translations: [24 weeks gestation of ]85-18-4072PxtnhcupAzxhapsv codes; unclassified (2 sources)Gestation period, 28 weeks; Translations: [28 weeks gestation of ]53-37-3027YxnkcfgeFhftqgqg codes; unclassified (2 sources)Gestation period, 30 weeks; Translations: [30 weeks gestation of ]06-05-4085KfvyprbkItvwwpre codes; unclassified (2 sources)Gestation period, 32 weeks; Translations: [32 weeks gestation of ]57-58-3766FacaywatPliiekeowsia (1 source)Pain in right wrist; Translations: [Pain in right wrist]Onset: 01-04-2023 Past or Other Problems Problem ClassificationProblemDateDocumented DateEpisodic/ChronicContraceptive and procreative management (20 sources)Patient encounter status; Translations: [Encounter for other general counseling and advice on contraception]Onset: 08-14-2024 Resolved: 828116-98-4221IodsohfyW Codes: Fall (1 source)Fall on same level from slipping, tripping and stumbling without subsequent striking against object, initial encounter; Translations: [FALL SAME LVL SLIP NO STRK OBJ INIT]Onset: 28-58-9282RbjuicjxTxfpt injuries and conditions due to external causes (3 sources)Unspecified injury of thorax, initial encounter; Translations: [UNSPECIFIED INJURY THORAX INITIAL]Onset: 42-92-3055YsoaluanFflov nutritional; endocrine; and metabolic disorders (20 sources)Body mass index 25-29 - overweight; Translations: [Overweight]Onset: 699910-32-8293PaptcodnBzajcigl codes; unclassified (20 sources)Prevention status; Translations: [Need for malaria prophylaxis] Onset: 01-26-2024 Resolved: 468011-00-3893WzkeheorKgfzottz codes; unclassified (20 sources)Gestation period, 10 weeks; Translations: [10 weeks gestation of ]Onset: 387514-43-5820AptadweyBmqngxkyarg injury; contusion (1 source)Contusion of unspecified front wall of thorax, initial encounter; Translations: [CONTUS UNS FRONT WALL THORAX INIT]Onset: 70-86-3416PpkslklqVykuk infection (1 source)COVID-19 Results Test NameValueInterpretationReference RangeFacilityUS OB FOLLOW UP TRANSABDOMINAL APPROACHon 28-21-0292ND OB FOLLOW UP TRANSABDOMINAL APPROACH FINDINGS: A [...] Delivery: 06/23/25 Gestational Age as of 04/16/2025: 40f1wYtfdsjseeg macro (dipstick) panel (U)on 41-89-5776Fagmsdhah, UANegativeNegative - 4(70) +++ mg/dLNOMS HealthcareBlood, UANegativeNegative [...] mg/dLNOMS HealthcareNOMS HealthcareUrinalysis macro (dipstick) panel (U)on 33-44-7705Vohxmqjzp, UA NegativeNegative - 4(70) +++ mg/dLNOMS HealthcareBlood, [...] mg/dLNOMS HealthcareNOMS HealthcareUrinalysis macro (dipstick) panel (U)on 33-36-3547Aobmnjoxv, UANegativeNegative - 4(70) +++ mg/dLNOMS HealthcareBlood, UANegativeNegative [...] - 12 mg/dLNOMS HealthcareNOMS HealthcareGLUCOSE 1 HOURon 17-92-6799Evxojfm [Mass/Vol]121 mg/dLNINF - 130 mg/dL NOMS HealthcareCLINISYNCNOMS HealthcareUrinalysis macro (dipstick) panel (U)on 74-13-8413Edqjpfuna, UANegativeNegative - 4(70) +++ mg/dLNOMS HealthcareBlood, UANegativeNegative [...] UA1.00.2 - 12 mg/dLNOMS HealthcareNOMS HealthcareALL LEADon 07-55-6127EXMC, BLOOD (ADULT)<1.00.0 - 3.4 ug/dLNOMS HealthcareComment on above:Testing performed by Inductively coupled plasma/Mass Spectrometry. Analysis by inductively coupled plasma/mass spectrometry (ICP/MS) This test was developed and its performance characteristics determined by [facility]. It has not been cleared or approved by the Food and Drug Administration. Environmental Exposure: WHO Recommendation <5.0 Occupational Exposure: OSHA Lead Std 40.0 TINO 30.0 Detection Limit = 1.0 Performed at: [address] [id number] Numerical Control Tool Programmer: Alfred Selby PhD, Phone: [phone] Initial Venous No White/ CLINISYNCNOMS HealthcareUrinalysis macro [...] - 12 mg/dLNOMS HealthcareNOMS HealthcareIGP,APTIMA HPV,AGE GDLNon 09-20-9881PRH GDLN ACOG TESTINGNote.NOMS HealthcareComment on above:TESTS RESULT FLAG UNITS REF RANGE LAB Clinician Provided Cytology Information Source.............Vagina Other.............. No. of containers..01 ThinPrep Vial Age Algo ACOG Mariah... 30- FLAG LEGEND: L-Low Normal,H-High Normal,LL-Alert Low,HH-Alert High <-Panic Low,>-Panic High,A-Abnormal,AA-Critical Abnormal Performed at: 01 =[address] [address] Chloe Valdes MD, HPV APTIMANegativeNegativeNOMS HealthcareComment on above:This nucleic acid amplification test detects fourteen high- risk HPV types (16,18,31,33,35,39,45,51,52,56,58,59,66,68) without differentiation. Performed at: =[address] [id number] Numerical Control Tool Programmer: Chloe Valdes MD, Phone: [phone] Performed at: [address] [id number] Numerical Control Tool Programmer: Chloe Valdes MD, Phone: [phone] IGP, APTIMA HPV, RFX 16/18,45Note.NOMS HealthcareComment on above:TESTS RESULT FLAG UNITS REF RANGE LAB DIAGNOSIS: 02 NEGATIVE FOR INTRAEPITHELIAL LESION OR MALIGNANCY. Specimen adequacy: 02 Satisfactory for evaluation. No endocervical component is identified. An endocervical component is not commonly seen in the patient. Performed by: 02 [employer] Fore[employer] ([facility]) . 02 Note: Note 02 The [...] <-Panic Low,>-Panic High,A-Abnormal,AA-Critical Abnormal Performed at: [address] [address] Chloe Valdes MD, SPATULA-ALONE VAGINA CLINISYNCNOMS HealthcareRECURRENT VAGINITIS (HTRX)on 66-99-8794DSEFAEZHQ VAGINAE 0NOMS HealthcareATOPOBIUM VAGINAENot detectedNOMS HealthcareBVAB 2,3 (BACTERIAL VAGINOSIS ASSOCIATED BACTERIA 2, 3); MOBILUNCUS ALH7EMBM HealthcareBVAB 2,3 (BACTERIAL VAGINOSIS ASSOCIATED BACTERIA 2, 3); MOBILUNCUS SPPNot detectedNOMS HealthcareCANDIDA ALBICANS, PARAPSILOSIS, RBSVITQJJT5UQHU HealthcareCANDIDA ALBICANS, PARAPSILOSIS, TROPICALISNot detectedNOMS HealthcareCANDIDA GLABRATA0 NOMS HealthcareCANDIDA GLABRATANot detectedNOMS HealthcareCANDIDA XRAFEZ2KADS HealthcareCANDIDA KRUSEINot detectedNOMS HealthcareCHLAMYDIA HNYNGQYKLVT3BXNH HealthcareCHLAMYDIA TRACHOMATISNot detectedNOMS HealthcareGARDNERELLA VAGINALIS0 NOMS HealthcareGARDNERELLA VAGINALISNot detectedNOMS HealthcareMEGASPHAERA (TYPES 1, 2)0NOMS HealthcareMEGASPHAERA (TYPES 1, 2)Not detectedNOMS Healthcare MYCOPLASMA LNDBTWFVGY3SJFT HealthcareMYCOPLASMA GENITALIUMNot detectedNOMS HealthcareNEISSERIA FIDZLADBOCZ6XVKN HealthcareNEISSERIA GONORRHOEAENot detected NOMS HealthcareTRICHOMONAS CEYLLXHGF5ZQYZ HealthcareTRICHOMONAS VAGINALISNot detectedNOMS HealthcareNOMS HealthcareUS OB 14+ [...] Delivery: 06/23/25 Gestational Age as of 01/02/2025: 53u3aQqvzmojuxn macro (dipstick) panel (U)on 67-48-3985Mnkujpdib, UANegativeNegative - 4(70) +++ mg/dLNOMS HealthcareBlood, UANegativeNegative [...] HealthcareNOMS Healthcare Urinalysis macro (dipstick) panel (U)on 44-84-6705Kcqhatjmr, UANegativeNegative - 4(70) +++ mg/dLNOMS HealthcareBlood, UANegativeNegative [...] UA1.00.2 - 12 mg/dLNOMS HealthcareNOMS HealthcareBOX TESTon 42-62-5743XWD TEST SENT OUTUNITY NOMS LjuerobaojGER2FWUPVDRZN AwozrknndsLPJ46/09/17NOMS HealthcareUNITY BOX CLINISYNCNOMS HealthcareUS OB TRANSVAGINALon 20-35-7345PZ OB TRANSVAGINALEXAM: US OB TRANSVAGINAL HISTORY: Dating. [...] II, MD, PHD at 25-Nov-2024 10:22:19 AM [facility] TeleradiologyNormalNot AvailableComment on above:Order Comment: US OB VIABILITY PLEASE PERFORM TRANSVAGINAL ULTRASOUND IF INDICATED Patient's last menstrual period was 09/16/2024.HCG ( test) Ql (U)on 82-28-1944Omgjcgugmdiowy and review of laboratory resultsAbnormOSS Health Preg Test, UrPositiveNegativeNONorthwest Medical CenterNOFL HealthcareUS OB TRANSVAGINALon 99-87-6445YY OB TRANSVAGINALEXAM: US OB TRANSVAGINAL HISTORY: Dating. [...] II, MD, PHD at 10-Nov-2024 09:18:36 PM [facility] TeleradiologyNormalNot AvailableComment on above:Order Comment: US OB TRANSVAGINAL No LMP recorded.Urinalysis macro (dipstick) panel (U)on 45-59-9903Klbotlzed, UA PositiveNegative - 4(70) +++ mg/dLNOMS HealthcareComment [...] - 1.03N[facility] Healthcare Urobilinogen, UA1.00.2 - 12 mg/dLAtrium Health Carolinas Rehabilitation CharlotteALL CBC WITH AUTO DIFFon 14-96-7053DFTMUFFKE ABSOLUTE AUTO0.1NOMS HealthcareBasophils/100 WBC (Bld)0.7 %0.2 - 2.0 %NOMMercy Hospital WashingtonEosinophils/100 WBC (Bld)0.7 %Low0.9 - 7.0 % [facility] Memorial HospitalErythrocyte distribution width (RBC) [Ratio]12.1 %11.0 - 15.0 % NOMMercy Hospital WashingtonHematocrit (Bld) [Volume fraction]39.4 %36.0 - 48.0 %[facility] HospitalHemoglobin (Bld) [Mass/Vol]13.2 g/dL12.0 - 16.0 g/dLSainte Genevieve County Memorial Hospital IMMATURE GRANULOCYTES ABS AUTO0.03NONorthwest Medical CenterImmature granulocytes/100 WBC (Bld)0.4 %0.0 - 0.5 %[facility] HospitalInterpretation and review of laboratory resultsAbnormalSainte Genevieve County Memorial HospitalLYMPHOCYTES ABSOLUTE AUTO1.8NONorthwest Medical Center Lymphocytes/100 WBC (Bld)24.2 %20.5 - 60.0 %Northwest Medical CenterH (RBC) [Entitic mass]31.1 pg26.7 - 34.0 pgNorthwest Medical CenterHC (RBC) [Mass/Vol]33.5 g/dL29.9 - 35.2 g/dLNorthwest Medical CenterV (RBC) [Entitic vol]92.9 fL81.0 - 99.0 fLSainte Genevieve County Memorial HospitalMONOCYTES ABSOLUTE AUTO0.7NONorthwest Medical CenterMonocytes/100 WBC (Bld)9 %1.7 - 12.0 %[facility] HospitalNEUTROPHILS ABSOLUTE AUTO4.7NONorthwest Medical Center Neutrophils/100 WBC (Bld)65 %43.0 - 75.0 %[facility] HospitalPlatelet mean volume (Bld) [Entitic vol]10.5 fL9.5 - 13.5 fLWestern Missouri Mental Health Center EO #0.1NOMS [facility] TB TXE238WJWETwo [facility] RBC4.24NOTwo [facility] WBC7.3NONorthwest Medical Center CLINISYNCNOFL HealthcareXR wrist RT min 3V*on 55-96-6856NP wrist RT min 3V* [facility] MED[facility] CENTERNobarton county memorial hospital [place] Other XR wrist RT min 3V*[facility] Main [facility] [employer] Other XR wrist RT min 3V*[address] [facility] [employer] Other XR wrist RT min 3V*KOURTNEY Galvan [address]JkvncNorthwest Hospital [employer] Other XR wrist RT min 3V*XRay ReportNorthwest Hospital [employer] Other XR wrist RT min 3V*SignedGerton [place] Other XR wrist RT min 3V*Patient: Yi Booth MR#: [id number] [place] Other XR wrist RT min 3V*[id number] [place] Other XR wrist RT min 3V*: 1995 Acct:[id number] [facility] [place] Other XR wrist RT min 3V*Age/Sex: 27 / F ADM Date: 01/04/23 [facility] [place] Other XR wrist RT min 3V*Loc: XDUCLY Room: [facility] [employer] Other XR wrist RT min 3V*Attending Dr: Mirtha TYSON [facility] [place] Other XR wrist RT min 3V*Copies to: JAH Monsalve [employer] Other XR wrist RT min 3V*Ordering Provider: CHERELLE Monsalvecox south [place] Other XR wrist RT min 3V*Date of Service: 01/04/23[facility] [place] Other XR wrist RT min 3V* XR/XR wrist RT min 3V*: RIGHT WRIST [facility] [place] Other XR wrist RT min 3V*4 views RIGHT wrist plain filmGerton [place] Other XR wrist RT min 3V*COMPARISON: [facility] [place] Other XR wrist RT min 3V*HISTORY: RIGHT dorsal wrist pain starting 2 days ago.[employer] Other XR wrist RT min 3V*ACUTE FINDINGS: [facility] [place] Other XR wrist RT min 3V*DEGENERATIVE CHANGE: Unremarkable [facility] [place] Other XR wrist RT min 3V*SOFT TISSUE FINDINGS: Unremarkable [employer] Other XR wrist RT min 3V*JOINT EFFUSION: [facility] HospitalCaribe [employer] [place] Other XR wrist RT min 3V*POSTOP CHANGES: [facility] [place] Other XR wrist RT min 3V*BONE MINERALIZATION: AdequateGerton [place] Other XR wrist RT min 3V* XR/XR wrist RT min 3V*[employer] Other XR wrist RT min 3V*IMPRESSION: Unremarkable examGerton [place] Other XR wrist RT min 3V*Impression dictated by: Anurag Hollingsworth M.D.01/04/2023 10:38 [facility] [place] Other XR wrist RT min 3V*Dictation Location: [place] [address] [employer] Other XR wrist RT min 3V*Transcribed By: JOSEFINA 01/04/23 1038 [employer] Other XR wrist RT min 3V*Dictated By: Anurag Hollingsworth DO 01/04/23 1033[facility] [place] Other XR wrist RT min 3V*Signed By:[employer] Other XR wrist RT min 3V*01/04/23 1038Nob[facility] [place] Other XR wrist RT min 3V*[facility] [place] [address] XRay Report Signed Patient: Yi Booth MR#: [id number] : 1995 Acct:[id number] Age/Sex: 27 / F ADM Date: 01/04/23 Loc: XDUCLY Room: Type: [facility] Attending Dr: Mirtha TYSON Copies to: JAH [...] Anurag Hollingsworth M.D.01/04/2023 10:38 AM Dictation Location: [place] [address] Transcribed By: [facility] 01/04/23 1038 Dictated By: Anurag Hollingsworth DO 01/04/23 1033 Signed By: 01/04/23 1038Marymount HospitalCOVID/FLU RT-PCRon 32-87-0629ZYHN-CoV-2 (COVID-19) RNA DEIRDRE+probe Ql (Unsp spec)PositiveWestern Missouri Mental Health CenterZestFinance Other COVID/FLU RT-PCRNegativeNoZestFinance Other CBC AUTO DIFFon 97-10-8377BAPS #0.1 103/ulNormal 0.0-0.1The [facility] HospitalComment on above:Performed By: #### CBC #### [facility] [address] [address] [address] Mary Gasophils/100 WBC (Bld)0.6 %Normal0.2-2.0[facility] Comment on above:Performed By: #### CBC #### [facility] [address] [place] [address] Dr. Mary Bedolla #0.1 103/ulNormal0.0-0.7The [facility] HospitalComment on above: Performed By: #### CBC #### [facility] [address] [place] [address] Dr. Mary Mcbrideosinophils/100 WBC (Bld)0.6 %Critically low0.9-7.0The [facility] HospitalComment on above:Performed By: #### CBC #### [facility] [address] [place] [address] Dr. Mary Mcbriderythrocyte distribution width (RBC) [Ratio]12.0 %Ugjyzg92.0-15.0 The [facility] HospitalComment on above:Performed By: #### CBC #### [facility] [address] [place] [address] Dr. Mary BillyHematocrit (Bld) [Volume fraction]38.8 %Voaofx57.0-48.0The [facility] HospitalComment on above:Performed By: #### CBC #### [facility] [address] [place] [address] Dr. Mary BillyHemoglobin (Bld) [Mass/Vol]12.8 g/yIQpvmyx71.0-16.0The [facility] HospitalComment on above:Performed By: #### CBC #### [facility] [address] [place] [address] Dr. Mary Lowe #0.03 10e3/ulNormal0.00-0.03The [facility] HospitalComment on above:Performed By: #### CBC #### [facility] [address] [place] [address] Dr. Mary Lowe %0.4 %Normal0.0-0.5The [facility] HospitalComment on above: Performed By: #### CBC #### [facility] [address] [place] [address] Dr. Mary Mcneal #2.7 103/ulNormal1.2-3.8The [facility] HospitalComment on above:Performed By: #### CBC #### [facility] [address] [place] [address] Dr. Mary Glasgowhocytes/100 WBC (Bld)33.0 %Noxbuf53.5-60.0The [facility] HospitalComment on above:Performed By: #### CBC #### [facility] [address] [place] [address] Dr. Mary Mckeon DIFF REQNONormalThe [facility] HospitalComment on above: Performed By: #### CBC #### [facility] [address] [place] [address] Dr. Mary Rose (RBC) [Entitic mass]31.3 dyXyrsnj33.7-34.0The [facility] HospitalComment on above:Performed By: #### CBC #### [facility] [address] [place] [address] Dr. Mary Rose (RBC) [Mass/Vol]33.0 g/wQAkfcor02.9-35.2The [facility] HospitalComment on above:Performed By: #### CBC #### [facility] [address] [place] [address] Dr. Mary Rose (RBC) [Entitic vol]94.9 jAWgsnaf91.0-99.0The [facility] HospitalComment on above:Performed By: #### CBC #### [facility] [address] [place] [address] Dr. Mary Sanders #0.8 103/ulNormal0.3-0.8The [facility] HospitalComment on above:Performed By: #### CBC #### [facility] [address] [place] [address] Dr. Mary Hardyocytes/100 WBC (Bld)10.1 %Normal1.7-12.0The [facility] Comment on above:Performed By: #### CBC #### [facility] [address] [place] [address] Dr. Mary LopezUT #4.5 103/ulNormal1.4-6.5The [facility] HospitalComment on above:Performed By: #### CBC #### [facility] [address] [address] [address] Mary Lopezutrophils/100 WBC (Bld)55.3 %Idjwwn46.0-75.0The [facility] HospitalComment on above:Performed By: #### CBC #### [facility] [address] [address] [address] Mary BillyPlatelet mean volume (Bld) [Entitic vol]10.5 fLNormal9.5-13.5The [facility] HospitalComment on above:Performed By: #### CBC #### [facility] [address] [place] [address] Dr. Mary BillyPLT261 103/nfFczupb908-079Wtu [facility] HospitalComment on above: Performed By: #### CBC #### [facility] [address] [place] [address] Dr. Mary BillyRBC4.09 106/ulCritically low4.20-5.40The [facility] HospitalComment on above:Performed By: #### CBC #### [facility] Laboratory [address] [place] [address] Dr. Mary BillyWBC8.1 103/ulNormal4.0-11.0The [facility] HospitalComment on above: Performed By: #### CBC #### [facility] [address] [place] [address] Dr. Mary BillyPROF CHEM 8 (BAS METB)on [id number] gap [Moles/Vol]9.6 mmol/LNormalThe [facility] HospitalComment on above:Performed By: #### BMP #### [facility] [address] [place] [address] Dr. Mary BillyCalcium [Mass/Vol]9.2 mg/dLNormal8.4-10.2[facility] Comment on above:Performed By: #### BMP #### [facility] [address] [address] [address] Mary BillyChloride [Moles/Vol]104 mmol/AAsgopc34-939JwbOhiohealth Berger Hospital Comment on above:Performed By: #### BMP #### [facility] [address] [place] [address] Dr. Mary BillyCO2 [Moles/Vol]29.9 mmol/VIycxbi08.0-30.0[facility] Comment on above:Performed By: #### BMP #### [facility] [address] [place] [address] Dr. Mary BillyCreatinine [Mass/Vol]0.50 mg/dLCritically low0.52-1.04The [facility] HospitalComment on above:Performed By: #### BMP #### [facility] [address] [place] [address] Dr. Hernandez ChangEGFR-AF MONGOLIAN>60Normal>=60The [facility] HospitalComment on above:Performed By: #### BMP #### [facility] [address] [place] [address] Dr. Mary McbrideGFR-NON AF MONGOLIAN>60Normal>=60Ohiohealth Berger HospitalComment on above:Performed By: #### BMP #### [facility] [address] [place] [address] Dr. Mary BillyGlucose [Mass/Vol]89 mg/qLDwxmmx90-937XzuOhiohealth Berger Hospital Comment on above:Performed By: #### BMP #### [facility] [address] [address] [address] Mary BillyPotassium [Moles/Vol]3.5 mmol/LNormal3.4-5.0[facility] Comment on above:Performed By: #### BMP #### [facility] [address] [place] [address] Dr. Mary BillySodium [Moles/Vol]140 mmol/YTjyodm260-109XwcOhiohealth Berger Hospital Comment on above:Performed By: #### BMP #### [facility] [address] [place] [address] Dr. Yilan ChangUrea nitrogen [Mass/Vol]6.0 mg/dLCritically low7.0-17.0The [facility] HospitalComment on above:Performed By: #### BMP #### [facility] [address] [place] [address] Dr. Mary Saucedo nitrogen/Creatinine [Mass ratio]12.0 mg/mgNormalThe [facility] HospitalComment on above:Performed By: #### BMP #### [facility] [address] [place] [address] Dr. Mary DelgadilloC AUTO DIFFon [id number] #0.1 103/ulNormal0.0-0.1The [facility] HospitalComment on above:Performed By: #### CBC #### [facility] [address] [place] [address] Curt KarenBasophils/100 WBC (Bld)0.9 %Normal0.2-2.0[facility] Comment on above:Performed By: #### CBC #### [facility] [address] [place] [address] Curt KarenEO #0.1 103/ulNormal0.0-0.7The [facility] HospitalComment on above: Performed By: #### CBC #### [facility] [address] [place] [address] Curt KarenEosinophils/100 WBC (Bld)1.5 %Normal0.9-7.0[facility] Comment on above:Performed By: #### CBC #### [facility] [address] [place] [address] Curt KarenErythrocyte distribution width (RBC) [Ratio]11.6 %Uetoef34.0-15.0The [facility] HospitalComment on above:Performed By: #### CBC #### [facility] [address] [place] [address] Curt KarenHematocrit (Bld) [Volume fraction]38.6 %Wlsbpy45.0-48.0The [facility] HospitalComment on above:Performed By: #### CBC #### [facility] [address] [address] Curt KarenHemoglobin (Bld) [Mass/Vol]13.1 g/iGFgfnza92.0-16.0The [facility] HospitalComment on above:Performed By: #### CBC #### [facility] [address] [place] [address] Curt KarenIG #0.08 10e3/ulCritically high0.00-0.03The [facility] HospitalComment on above:Performed By: #### CBC #### [facility] [address] [place] [address] Curt KarenIG %0.9 %Critically high0.0-0.5The [facility] HospitalComment on above:Performed By: #### CBC #### [facility] [address] [place] [address] Curt KarenLYMPH #2.7 103/ulNormal1.2-3.8The [facility] HospitalComment on above: Performed By: #### CBC #### [facility] [address] [place] [address] Curt KarenLymphocytes/100 WBC (Bld)31.4 %Wikiia93.5-60.0[facility] Comment on above:Performed By: #### CBC #### [facility] [address] [place] [address] Curt KarenMANUAL DIFF REQNONormalThe [facility] HospitalComment on above: Performed By: #### CBC #### [facility] [address] [place] [address] Curt KarenMCH (RBC) [Entitic mass]31.7 jzRkflcv86.7-34.0[facility] Comment on above:Performed By: #### CBC #### [facility] [address] [place] [address] Curt KarenMCHC (RBC) [Mass/Vol]33.9 g/nZAmdmow41.9-35.2[facility] Comment on above:Performed By: #### CBC #### [facility] [address] [place] [address] Curt KarenMCV (RBC) [Entitic vol]93.5 qBYypanm30.0-99.0[facility] Comment on above:Performed By: #### CBC #### [facility] [address] [place] [address] Curt MorganenMONO #0.8 103/ulNormal0.3-0.8The [facility] HospitalComment on above: Performed By: #### CBC #### [facility] [address] [place] [address] Curt KarenMonocytes/100 WBC (Bld)9.4 %Normal1.7-12.0[facility] Comment on above:Performed By: #### CBC #### [facility] [address] [place] [address] Curt MorganenNEUT #4.8 103/ulNormal1.4-6.5The [facility] HospitalComment on above: Performed By: #### CBC #### [facility] [address] [place] [address] Curt KarenNeutrophils/100 WBC (Bld)55.9 %Meyyjh19.0-75.0[facility] Comment on above:Performed By: #### CBC #### [facility] [address] [place] [address] Curt KarenPlatelet mean volume (Bld) [Entitic vol]10.8 fLNormal9.5-13.5The [facility] HospitalComment on above:Performed By: #### CBC #### [facility] [address] [place] [address] Curt GsidrJZQ357 103/wqLssagh376-496Vhh [facility] HospitalComment on above: Performed By: #### CBC #### [facility] [address] [place] [address] Curt KarenRBC4.13 106/ulCritically low4.20-5.40The [facility] HospitalComment on above:Performed By: #### CBC #### [facility] [address] [place] [address] Curt KarenWBC8.6 103/ulNormal4.0-11.0[facility] Berger HospitalComment on above: Performed By: #### CBC #### [facility] [address] [address] Curt KarenGLYCOHEMOGLOBIN A1Con [id number] RECOMMENDATIONADA THERAPEUTIC TARGET 6.0 - 7.0 ACTION SUGGESTED > 7.0[facility]riners HospitalComment on above:Performed By: #### A1C #### [facility] [address] [address] Curt KarenGlucose [Mass/Vol]100 mg/dLCincinnati Shriners HospitalComment on above:Performed By: #### A1C #### [facility] [address] [place] [address] Curt PzfloQjT9z (Bld) [Mass fraction]5.1 %Normal<=6.0[facility] Comment on above:Performed By: #### A1C #### [facility] [address] [address] Curt KarenLIPID PROFILEon [id number]-HDL RATIO NORMSEE Kettering Health DaytonComment on above:Result Comment: 3.3 - 4.4 LOW RISK 4.4 - 7.1 AVERAGE RISK 7.1 - 11.0 MODERATE RISK >11.0 HIGH RISKPerformed By: #### TSH, LIPID, BMP, LIVER #### [facility] [address] [address] Curt KarenCholesterol [Mass/Vol]131 mg/dLrmal<=200[facility] Comment on above:Performed By: #### TSH, LIPID, BMP, LIVER #### [facility] [address] [address] Curt KarenCholesterol in HDL [Mass/Vol]71 mg/dLCincinnati Shriners Hospital Comment on above:Performed By: #### TSH, LIPID, BMP, LIVER #### [facility] [address] [address] Curt KarenCholesterol in LDL [Mass/Vol]55.2 mg/dLCincinnati Shriners Hospital Comment on above:Performed By: #### TSH, LIPID, BMP, LIVER #### [facility] [address] [id number] Curt KarenCholesterol.total/Cholesterol in HDL [Mass ratio]1.8 {ratio}Normal The [facility] HospitalComment on above:Performed By: #### TSH, LIPID, BMP, LIVER #### [facility] [address] [id number] Curt KarenHDL NORMAL> or = 60 mg/dl - LOW CARDIOVASCULAR RISK <40 mg/dl - HIGH CARDIOVASCULAR RISKCincinnati Shriners HospitalComment on above:Performed By: #### TSH, LIPID, BMP, LIVER #### [facility] [address] [id number] Curt KarenLDL CALC NORMALSEE BELOWCincinnati Shriners HospitalComment on above: Result Comment: <100 mg/dl OPTIMAL 100 - 129 mg/dl NEAR OR ABOVE OPTIMAL 130 - 159 mg/dl BORDERLINE HIGH 160 - 189 mg/dl HIGH >190 mg/dl VERY HIGHPerformed By: #### TSH, LIPID, BMP, LIVER #### [facility] [address] [address] Curt KarenTriglyceride [Mass/Vol]24 mg/dLNormal<=150[facility] Comment on above:Performed By: #### TSH, LIPID, BMP, LIVER #### [facility] [address] [id number] Curt KarenVLDL CALC4.8 mg/dLNormRiverside Methodist HospitalComment on above: Performed By: #### TSH, LIPID, BMP, LIVER #### [facility] [address] [id number] Curt KarenLIVER PROFILEon [id number] [Mass/Vol]3.9 g/dLNormal3.5-5.0The [facility] HospitalComment on above:Performed By: #### TSH, LIPID, BMP, LIVER #### [facility] [address] [address] Curt KarenAlbumin/Globulin [Mass ratio]1.0 {ratio}NormalThe [facility] Comment on above:Performed By: #### TSH, LIPID, BMP, LIVER #### [facility] [address] [address] Curt KarenALP [Catalytic activity/Vol]59 U/VLsrqho16-346AutOhiohealth Berger Hospital Comment on above:Performed By: #### TSH, LIPID, BMP, LIVER #### [facility] [address] [place] [address] Curt KarenALT [Catalytic activity/Vol]20 U/LNormal9-52[facility] Comment on above:Performed By: #### TSH, LIPID, BMP, LIVER #### [facility] [address] [place] [address] Curt KarenAST [Catalytic activity/Vol]17 U/NUijvre94-60VmlOhiohealth Berger Hospital Comment on above:Performed By: #### TSH, LIPID, BMP, LIVER #### [facility] [address] [place] [address] Curt KarenBILI, CONJUGATED0.1 mg/dLNormal0.0-0.3TFort Hamilton HospitalComment on above:Performed By: #### TSH, LIPID, BMP, LIVER #### [facility] [address] [place] [address] Curt KarenBilirubin [Mass/Vol]0.3 mg/dLNormal0.2-1.3TFort Hamilton Hospital Comment on above:Performed By: #### TSH, LIPID, BMP, LIVER #### [facility] [address] [place] [address] Curt KarenGlobulin (S) [Mass/Vol]3.8 g/dLNormalThe [facility] HospitalComment on above:Performed By: #### TSH, LIPID, BMP, LIVER #### [facility] [address] [place], [place] [address] Curt KarenProtein [Mass/Vol]7.7 g/dLNormal6.1-8.2[facility] HospitalComment on above:Performed By: #### TSH, LIPID, BMP, LIVER #### [facility] [address] [place] [address] Curt KarenPROF CHEM 8 (BAS METB)on [id number] gap [Moles/Vol]10.3 mmol/L NormalOhiohealth Berger HospitalComment on above:Performed By: #### TSH, LIPID, BMP, LIVER #### [facility] [address] [place] [address] Curt KarenCalcium [Mass/Vol]9.1 mg/dLNormal8.4-10.2[facility] Comment on above:Performed By: #### TSH, LIPID, BMP, LIVER #### [facility] [address] [place] [address] Curt KarenChloride [Moles/Vol]104 mmol/LQbacfs19-182Ned [facility] Comment on above:Performed By: #### TSH, LIPID, BMP, LIVER #### [facility] [address] [place] [address] Curt KarenCO2 [Moles/Vol]31.3 mmol/LCritically high22.0-30.0[facility] HospitalComment on above:Performed By: #### TSH, LIPID, BMP, LIVER #### [facility] [address] [place] [address] Curt KarenCreatinine [Mass/Vol]0.60 mg/dLNormal0.52-1.04[facility] Comment on above:Performed By: #### TSH, LIPID, BMP, LIVER #### [facility] [address] [place] [address] Curt KarenEGFR-AF MONGOLIAN>60Normal>=60The [facility] HospitalComment on above: Performed By: #### TSH, LIPID, BMP, LIVER #### [facility] [address] [place] [address] Curt KarenEGFR-NON AF MONGOLIAN>60Normal>=60The [facility] HospitalComment on above:Performed By: #### TSH, LIPID, BMP, LIVER #### [facility] [address] [place] [address] Curt KarenGlucose [Mass/Vol]108 mg/dLCritically zkrq08-621GebOhiohealth Berger HospitalComment on above:Performed By: #### TSH, LIPID, BMP, LIVER #### [facility] [address] [place] [address] Curt KarenPotassium [Moles/Vol]3.6 mmol/LNormal3.4-5.0[facility] Comment on above:Performed By: #### TSH, LIPID, BMP, LIVER #### [facility] [address] [place] [address] Curt KarenSodium [Moles/Vol]142 mmol/QXroorr294-427Xmj [facility] Comment on above:Performed By: #### TSH, LIPID, BMP, LIVER #### [facility] [address] [place] [address] Curt KarenUrea nitrogen [Mass/Vol]10.0 mg/dLNormal7.0-17.0[facility] HospitalComment on above:Performed By: #### TSH, LIPID, BMP, LIVER #### [facility] [address] [place] [address] Curt KarenUrea nitrogen/Creatinine [Mass ratio]16.7 mg/mgNoOhio State Health SystemComment on above:Performed By: #### TSH, LIPID, BMP, LIVER #### [facility] [address] [place] [address] Curt KarenTSHon 76-30-7273XWT9.211 uIU/mLNormal0.470-4.680The [facility] HospitalComment on above:Performed By: #### TSH, LIPID, BMP, LIVER #### [facility] [address] [place] [address] Curt KarenTSH RANGESEE BELOWNoOhio State Health SystemComment on above:Result Comment: <0.34 UIU/ml HYPERTHYROID 0.34-5.60 UIU/ml EUTHYROID >5.60 UIU/ml HYPOTHYROIDPerformed By: #### TSH, LIPID, BMP, LIVER #### [facility] [address] [place] [address] Curt KarenVITAMIN D 25 OHon [id number] D 25-OH35.1 ng/mLNWooster Community HospitalComment on above:Performed By: #### VITAD #### [facility] [address] [place], [place] [id number] Curt DowdVIT Tamar RANGESSEE BELOWCincinnati Shriners HospitalComment on above: Result Comment: <20 ng/mL Vit D deficient 20 - <30 ng/mL Vit D insufficient 30 - 100 ng/mL Vit D sufficient >100 ng/mL Potential ToxicityPerformed By: #### VITAD #### [facility] [address] [place] [address] Curt MorganenXR CHEST 2 Von [id number] CHEST 2 VEXAMINATION: XR CHEST 2 V [...] Electronically authenticated by: QUINN LEAL Date: 2020-10-01 09:29[facility] Vital Signs Date TimeVital SignValuePerforming ShoglvjgsXuvpyugz86-07-6358 14:22-0500Body mass index (BMI) [Ratio]30.18 kg/v2Trvth Tapan DO Work Phone: [facility] HospitalYkrqfzsear33-72-3289 14:22-050Body snfivp64.82 kgCorey Tapan DO Work Phone: [facility] HospitalOlydjwzmya10-36-3625 14:22050Diastolic blood qlfntawv82 mm[Hg]Oleksandr Tapan DO Work Phone: [facility] HospitalYbahdjllbu27-10-1906 14:22-050Systolic blood abejxyne688 mm[Hg]Oleksandr Tapan DO Work Phone: [facility] HospitalZghjqfbhfx12-42-3779 09:46-0400Body mass index (BMI) [Ratio]29.38 kg/b4Xyrtgvqk De [employer] Work Phone: [phone] [place], [place] [address]Ldmetjakyv53-48-8867 09:46-0400Body vegmga98.56 kgKristina De [employer] Work Phone: [phone])[facility] [place], [place] [address]Flpalonrwi75-46-1649 09:46-0400Diastolic blood kxcaaigc09 mm[Hg]Niurka De [employer] Work Phone: 1(515)[facility] [place], [place] [address]Dzuuyfvvsc24-51-4899 09:46-0400Systolic blood fokxffwb339 mm[Hg]Niurka De [employer] Work Phone: [phone])[address] [place], [place] 3224410-07-2025 11:05-0400Body mass index (BMI) [Ratio]28.85 kg/z9Rqnravuf De [employer] Work Phone: [phone])[address] [place], [place] 3224410-07-2025 11:05-0400Body zieknl31.08 kgKristina De [employer] Work Phone: [phone])[address] [place], [place] 3224410-07-2025 11:05-0400Diastolic blood rzzledbl78 mm[Hg]Niurka De [employer] Work Phone: [phone] [place], [place] 3224410-07-2025 11:05-0400Systolic blood zudkfadi587 mm[Hg]Niurka De [employer] Work Phone: [phone])[address] [place], [place] 3224409-08-2025 10:23-0400Body mass index (BMI) [Ratio]27.12 kg/q5Osbkkvvm De [employer] Work Phone: 1(912)[address] [place], [place] 3224409-08-2025 10:23-0400Body okozxf37.2 kg Niurka De [employer] Work Phone: [phone] [place], [place] 3224409-08-2025 10:23-0400Diastolic blood smsjoxnv37 mm[Hg]Niurka De [employer] Work Phone: [phone] [place], [place] 3224409-08-2025 10:23-0400Systolic blood hjtrocaz933 mm[Hg]Niurka De [employer] Work Phone: [phone] [place], [place] 3224408-11-2025 14:15-0400Body mass index (BMI) [Ratio]26.03 kg/c2Nlmum Tapan DO Work Phone: [facility] HospitalOnwjnaqmxg85-31-5269 14:15-0400Body lqsxfi71.14 kgCorey Tapan DO Work Phone: [facility] HospitalNikjffwtkn37-28-7025 14:15-0400Diastolic blood radavulu57 mm[Hg]Oleksandr Tapan DO Work Phone: [phone]-[facility] HospitalDqontreryu40-99-9619 14:15-0400Systolic blood zdipmaaa230 mm[Hg]Oleksandr Tapan DO Work Phone: [phone] [place], [place] [address]Cjjhmldryd43-58-2316 09:46-0400Body mass index (BMI) [Ratio]25.04 kg/m2Amy Kushal PA Work Phone: [facility] HospitalIiqchhsoqy26-85-3034 09:46-0400Body chobyq21.36 kgAmy Kittitas PA Work Phone: [phone])522-[address] [place], [place] [address]Wipifaygwg38-90-6794 09:46-0400Diastolic blood owaglefz11 mm[Hg]Mariam Laboyey PA Work Phone: 1(456)222-[address] [place], [place] [address]Xdzfnpsizo55-39-2775 09:46-0400Systolic blood udolpiuk829 mm[Hg]Mariam Laboyey PA Work Phone: 1([phone])602-[address] [place], [place] [address]Abepxvkyyu86-04-3160 09:53-0400Body mass index (BMI) [Ratio]24.55 kg/d5Nzukr Tapan DO Work Phone: [phone] [place], [place] [address]Ijfwjebgjh41-95-9344 09:53-0400Body qplyua52 kg Oleksandr Tapan DO Work Phone: [phone])793-[address] [place], [place] [address]Rujcsgrhrm67-76-9080 09:53-0400Diastolic blood bwemuuuw90 mm[Hg]Oleksandr Tapan DO Work Phone: [phone])643-[address] [place], [place] [address]Cffmbrrsvg62-48-5866 09:53-0400Systolic blood boagcjho016 mm[Hg]Oleksandr Tapan DO Work Phone: [phone] [place], [place] [address]Zdzjletfqg70-07-6475 13:18-0400Body okqdld911.6 cmMar Naderer MD Work Phone: [facility] HospitalUakpyqmoye80-44-2364 13:18-0400Body mass index (BMI) [Ratio]25.02 kg/m2Skyler Puente MD Work Phone: [facility] HospitalGyfubsyhyp20-80-8489 13:18-0400Body temperature 97.81 [degF]Skyler Puente MD Work Phone: [facility] HospitalXaddxnmzfp03-99-7453 13:18-0400Body .31 kgSkyler Puente MD Work Phone: [facility] HospitalCpnccjdxxb01-73-5496 13:18-0400Diastolic blood vbsollqc11 mm[Hg]Skyler Puente MD Work Phone: [facility] HospitalDqtbjxednh34-75-5062 13:18-0400Heart htcv474 /min Skyler Puente MD Work Phone: [facility] HospitalYzdddenseq15-56-2031 13:18-0400Respiratory rate20 /minSkyler Puente MD Work Phone: [facility] HospitalZppngxwvxs23-45-2577 13:18-7439VcZ8% (BldA) [Mass fraction]99 %Skyler Puente MD Work Phone: [facility] HospitalFzxqnabfjl10-32-4335 13:18-0400Systolic blood ghlghnjy340 mm[Hg]Skyler Puente MD Work Phone: [facility] HospitalHlbkatinfm05-59-3646 11:00-0400Body mass index (BMI) [Ratio]24.95 kg/m2[facility]05-16-2025 11:00-0400Body ocwhgm05.[address] [facility]05-16-2025 11:00-0400Diastolic blood uammyobx26 mm[Hg][facility]05-16-2025 11:00-0400Systolic blood mm[Hg][facility]02-19-2025 10:35-0500Body sbnuke968.6 cmSkyler Puente MD Work Phone: [facility] HospitalUekgkmzpnl97-94-6784 10:35-0500Body mass index (BMI) [Ratio]26.47 kg/m2Skyler Puente MD Work Phone: [facility] HospitalBocnnsucou59-98-5744 10:35-0500Body temperature 97.11 [degF]Skyler Puente MD Work Phone: [facility] HospitalYhtkrnjrxi50-77-1083 10:35-0500Body qympma77.39 kgSkyler Puente MD Work Phone: [facility] HospitalEskexvnzcp23-70-3875 10:35-0500Diastolic blood mimhrgeg94 mm[Hg]Skyler Puente MD Work Phone: [facility] HospitalDnptjrmdqy05-49-7946 10:35-0500Heart rate98 /min Skyler Puente MD Work Phone: [facility] HospitalDkevzvskgf51-33-6003 10:35-0500Respiratory rate20 /minSkyler Puente MD Work Phone: [facility] HospitalJmsjbqtugn15-18-4457 10:35-3697AoW1% (BldA) [Mass fraction]99 %Skyler Puente MD Work Phone: [facility] HospitalJjvbohbdoj63-18-7466 10:35-0500Systolic blood jafkgbbm755 mm[Hg]Skyler Puente MD Work Phone: [facility] HospitalWycduzitlu40-35-2937 14:46-0500Body elonpi129.6 cmSkyler Puente MD Work Phone: [facility] HospitalOtqvnlrktv34-97-6594 14:46-0500Body mass index (BMI) [Ratio]26.95 kg/m2Skyler Puente MD Work Phone: [facility] HospitalKqrqwgibte23-97-9413 14:46-0500Body temperature 97.81 [degF]Skyler Puente MD Work Phone: [facility] HospitalFtccrqzitg18-03-4632 14:46-0500Body .75 kgSkyler Puente MD Work Phone: [facility] HospitalBjcdzkceqz34-74-0377 14:46-0500Diastolic blood yqjariet33 mm[Hg]Skyler Puente MD Work Phone: [facility] HospitalPyupfopseu94-38-4076 14:46-0500Heart rate94 /min Skyler Puente MD Work Phone: [facility] HospitalTejozudodb01-94-8802 14:46-0500Respiratory rate18 /minSkyler Puente MD Work Phone: [facility] HospitalOzbnfbcesm90-48-2248 14:46-5506KaC4% (BldA) [Mass fraction]99 %Skyler Puente MD Work Phone: [facility] HospitalBrppbqyoaa56-05-8499 14:46-0500Systolic blood garuggqs448 mm[Hg]Skyler Puente MD Work Phone: [facility] HospitalPcgmvauefq64-04-9516 11:17-0400Body sgsfqo133.6 cmSkyler Puente MD Work Phone: 1([phone])980-[address] [place], [place] [address]Evubmencyj26-07-9756 11:17-0400Body mass index (BMI) [Ratio]28.08 kg/m2Skyler Puente MD Work Phone: [facility] HospitalNtmtzbmtyq00-70-0661 11:17-0400Body temperature 97.9 [degF]Skyler Puente MD Work Phone: [facility] HospitalNgququibwc32-50-9252 11:17-0400Body .93 kgSkyler Puente MD Work Phone: [phone] HospitalQaxtdlxuhg88-55-0976 11:17-0400Diastolic blood lurprwvw23 mm[Hg]Skyler Puente MD Work Phone: [place] [address]Gilhkhllfi46-67-0302 11:17-0400Heart qdss654 /min Skyler Puente MD Work Phone: [address] [place] [address]Mctzzcxeld62-42-7200 11:17-0400Respiratory rate18 /minSkyler Puente MD Work Phone: [address] [address]Flvvgualye31-69-7524 11:17-2596DnW7% (BldA) [Mass fraction]98 %Skyler Puente MD Work Phone: [facility] HospitalWlynvduwer36-41-6405 11:17-0400Systolic blood nnglohgv622 mm[Hg]Skyler Puente MD Work Phone: [facility] HospitalAogkxahqsr54-52-2124 14:39-0400Body .64 [facility]2024 14:39-0400Body mass index (BMI) [Ratio]31.4 kg/u0BjrwbivdaMetrohealth Main Campus [facility] Center07-18-2024 14:39-0400Body eqqbqgcvegd00.2 [degF][facility]07-18-2024 14:39-0400Body hryppu01.45 kgMet[facility]07-18-2024 14:39-0400Heart rate 85 /[facility]07-18-2024 14:39-0400Respiratory rate18 /[facility]07-18-2024 14:39-1482FpY6% (BldA) [Mass fraction]98 %[facility]07-12-2023 09:55-0400Body height 167.64 Franklin Harmony Other [employer] Other 07-12-2023 09:55-0400Body mass index (BMI) [Ratio] 27.08 kg/a3BoyccfMirtha Antunez Other [employer] Other 07-12-2023 09:55-0400Body emypqhgndcl92.7 [degF]Mirtha Antunez Other [employer] Other 07-12-2023 09:55-0400Body .11 kgLowellpawan Harmony Other [employer] Other 07-12-2023 09:55-0400Diastolic blood nottqiwb90 mm[Hg] Mirtha Antunez Other [employer] Other 07-12-2023 09:55-0400Respiratory rate18 /minPapawan Antunez Other [employer] Other 07-12-2023 09:55-8395DeQ9% (BldA) [Mass fraction]96 % Mirtha Antunez Other [employer] Other 07-12-2023 09:55-0400Systolic blood ckriucng737 mm[Hg] Mirtha Antunez Other [employer] Other 04-04-2023 10:35-0400Body .64 cmAmbshashi Teixeira Other [facility] [place] Other 04-04-2023 10:35-0400Body mass index (BMI) [Ratio] 25.82 kg/x6FxxakAngelia Teixeira Other [employer] [place] Other 04-04-2023 10:35-0400Body xijqmxlmhsp33.8 [degF]Angelia Teixeira Other [employer] Other 04-04-2023 10:35-0400Body .58 kgAngelia Teixeira Other [employer] Other 04-04-2023 10:35-0400Respiratory rate18 /minAngelia Teixeira Other [employer] Other 04-04-2023 10:35-3548XsB6% (BldA) [Mass fraction]96 % Angelia Teixeira Other [place] Other Encounters Encounter DateEncounter TypeCare ProviderFacilityStart: 04-30-2025 End: 27-83-5123Fcbbbupb flow sheetCorey Tapan DO Work Phone: [facility] OBGYNComment on above:Third trimester ([facility]); 32 weeks gestation of ([facility])Start: 04-30-2025 End: 58-07-9510menypoajlsTBUCD FAZIONot AvailableStart: 04-16-2025 End: 99-70-2743Hyjaqj flowsheetKristina De [employer] Work Phone: [facility] [place] OBGYNStart: 04-16-2025 End: 31-08-4088Iaofgl flowsheetKristina De [employer] Work Phone: [facility] [place] OBGYNStart: 04-16-2025 End: 36-03-6155eoacrswsndEBASMLSU EBERLYNot AvailableStart: 04-16-2025 End: 24-48-3822Tmxoutmv flow sheetKristina De [employer] Work Phone: [facility] OBGYNComment on above: size inconsistent with dates ([facility]) (Primary Dx); Third trimester ([facility]); 30 weeks gestation of ([facility])Start: 04-01-2025 End: 59-34-0364Mdlmoy flowsheetKristina De [employer] Work Phone: [facility] [place] OBGYNStart: 04-01-2025 End: 73-10-2751Dscdll flowsheetKristina De [employer] Work Phone: [facility] [place] OBGYNStart: 04-01-2025 End: 46-70-6273Guebccyr flow sheetKristina De [employer] Work Phone: [facility] OBGYNComment on above:Third trimester ([facility]); 28 weeks gestation of ([facility])Start: 04-01-2025 End: 06-88-8571qktdbtdpcwGWMCQMJE EBERLYNot AvailableStart: 03-17-2025 End: 71-84-0194Rqvhpvzbi Result EncounterNiurka Kc [employer] Work Phone: NORE External Department UnsolicitedStart: 03-17-2025 End: 72-84-4187Dyxdowkls Result EncounterNiurka Kc [employer] Work Phone: NOYI External Department UnsolicitedStart: 03-03-2025 End: 96-45-5560Grpinp flowsheetNiurka De [employer] Work Phone: [facility] [place] OBGYNStart: 03-03-2025 End: 30-92-8712Ujxnws flowsheetKrjaroda De [employer] Work Phone: [facility] [place] OBGYNStart: 03-03-2025 End: 31-34-8146Rxhnjkgh flow sheetNgaa De [employer] Work Phone: [facility] [place] OBGYNComment on above:Second trimester ([facility]); 24 weeks gestation of ([facility]); Diabetes mellitus screeningStart: 03-03-2025 End: 55-02-2547bwdbmvzxbwHQWQKCAH EBERLYNot AvailableStart: 02-03-2025 End: 02-44-9024Qgvdqfgg flow sheetCorey Tapan DO Work Phone: [facility] [place] OBGYNComment on above:Second trimester ([facility]); 20 weeks gestation of ([facility]); Vitamin D deficiencyStart: 02-03-2025 End: 56-65-6374Btdnlqmzk Result EncounterGeneric External Data ProviderNOMS External Department UnsolicitedStart: 02-03-2025 End: 93-32-5457Nrngjbbft Result EncounterGeneric External Data ProviderNOMS External Department UnsolicitedStart: 02-03-2025 End: 67-85-6674kiiiadojwfXTFWV FAZIONot AvailableStart: 02-03-2025 End: 24-14-9669ajtrekdvlvLWJ RAMEYNot AvailableStart: 01-02-2025 End: 65-98-4340Xqgglc flowsheetMariam Fajardo LOWELL Work Phone: NOVZ BCP OBStart: 01-02-2025 End: 55-67-5228Loguqz flowsheetMariam Fajardo LOWELL Work Phone: noms BCP OBStart: 01-02-2025 End: 98-15-3375Ldqbihloi Result EncounterGeneric External Data ProviderNOMS External Department UnsolicitedStart: 01-02-2025 End: 55-28-2388Dugnrldv Result EncounterMariam Fajardo LOWELL Work Phone: noMS External Department UnsolicitedStart: 01-02-2025 End: 78-73-8338Hinfbnj encounter procedureMariam Fajardo LOWELL Work Phone: noms HealthcareStart: 01-02-2025 End: 20-56-0319Xmixjfto preventive med est patient 18-39 yrsMariam Fajardo LOWELL Work Phone: [facility] BCP OBComment on above:15 weeks gestation of ([facility]); Second trimester ([facility]); Well woman exam with routine gynecological exam; Screening, , for anatomic survey ([facility]); Exposure to STD; Vaginal dischargeStart: 01-02-2025 End: 19-91-7816kjzvxdmoipQLP RAMEYNot AvailableStart: 12-05-2024 End: 33-22-9131Qvhkic flowsheetCorey Tapan DO Work Phone: [facility] BCP OBStart: 12-05-2024 End: 38-12-4414Ebdkpx flowsheetCorey Tapan DO Work Phone: [facility]OM[facility] BCP OBStart: 12-05-2024 End: 67-82-1944Yxrwoomk flow sheetCorey Tapan DO Work Phone: [facility]OM[facility] BCP OBComment on above:First trimester ([facility]); 11 weeks gestation of ([facility])Start: 12-05-2024 End: 43-80-8571rezdobqmbiPJHJQ FAZIONot AvailableStart: 11-28-2024 End: 37-00-6282Ocfoox Terell Puente MD Work Phone: [facility] CWM FMStart: 11-28-2024 End: 96-96-8863Gxcyzb Terell Puente MD Work Phone: [facility] CWM FMStart: 11-28-2024 End: 50-96-6022qqklsgqdytQWJV NADERERNot AvailableStart: 11-28-2024 End: 54-53-5588Fazjgy outpatient visit 15 minutesSkyler Puente MD Work Phone: [facility] CWM FMComment on above:Major depressive disorder, recurrent episode, mild (HCC) (CMS/HCC) (Primary Dx); Generalized anxiety disorder (CMS/HCC); 10 weeks gestation of pregnancyStart: 11-26-2024 End: 02-00-4810Vyctmgbbd Result EncounterCorey Tapan DO Work Phone: NODF External Department UnsolicitedStart: 11-26-2024 End: 94-26-8304Vevbykvoa Result EncounterCorey Tapan DO Work Phone: noms External Department UnsolicitedStart: 11-22-2024 End: 94-81-1658iciiyfzibzGIPM NADERERNot AvailableStart: 11-08-2024 End: 13-20-0687Xlgolk outpatient visit 5 minutesNoms Bcp Ob Tapan NurseNOMS BCP OBComment on above:GA: 2p4hJypvi: 11-08-2024 End: 27-16-9528wezzuxkbykFQRY NADERERNot AvailableStart: 08-14-2024 End: 87-96-7141Jzaxpo Terell Puente MD Work Phone: [facility] CWM FMStart: 08-14-2024 End: 50-45-9116Lidguhfermín Puente MD Work Phone: [facility] CWM FMStart: 08-14-2024 End: 36-46-6362Actvlm outpatient visit 25 minutesSkyler Puente MD Work Phone: NORX CWM FMComment on above:Major depressive disorder, recurrent episode, mild (HCC) (CMS/HCC) (Primary Dx); Generalized anxiety disorder (CMS/HCC); Family planning counselingStart: 08-14-2024 End: 13-46-7617mqoubuxpxxHFYM NADERERNot AvailableStart: 06-27-2024 End: 34-89-7019Juiivifxp Result EncounterSkyler Puente MD Work Phone: noms External Department UnsolicitedStart: 06-27-2024 End: 74-52-3578Ermaownql Result EncounterSkyler Puente MD Work Phone: noms External Department UnsolicitedStart: 05-28-2024 End: 13-64-7927Sjorsize preventive med est patient 18-39 yrsSkyler Puente MD Work Phone: noms CWM FMComment on above:Annual physical exam (Primary Dx); Major depressive disorder, recurrent episode, mild (HCC) (CMS/HCC)Start: 05-28-2024 End: 35-03-5756qixnhzzdwfLTRE NADERERNot AvailableStart: 05-28-2024 End: 72-76-1436Vwrlxj Terell Puente MD Work Phone: NOKJ CWM FMStart: 05-28-2024 End: 04-62-2707Ujcmft Terell Puente MD Work Phone: NOQT CWM FMStart: 05-28-2024 End: 67-81-6048Tpvsqad encounter procedureSkyler Puente MD Work Phone: [facility] Work Phone: Start: 05-07-2024 End: 45-26-6365GcdtojKwir Naderer MD Work Phone: NOQU CWM FMComment on above:Obesity (BMI 30-39.9) Start: 03-28-2024 End: 60-08-7346Ixpmfkuli Puente MD Work Phone: noms CWM FMStart: 03-28-2024 End: 53-62-8562Wepvrbuli Puente MD Work Phone: noms CWM FMStart: 03-28-2024 End: 03-28-1744Nhkzwr outpatient visit 25 minutesSkyler Puente MD Work Phone: noms CWM FMComment on above:Major depressive disorder, recurrent episode, mild (HCC) (CMS/HCC) (Primary Dx); Generalized anxiety disorder (CMS/HCC); Obesity (BMI 30-39.9); Overweight (BMI 25.0-29.9)Start: 01-11-2024 End: 58-50-9061wbfysnouxqNsqaunzecC[facility] Work Phone: Start: 01-11-2024 End: 20-03-1096Pcscujj encounter procedureFirsthealth [facility] Work Phone: Start: 84-58-6248Ezoyda outpatient visit 15 minutes Mirthaketty AntunezFPG Urgent Care ClydeStart: 01-04-2023 End: 73-30-2722pivzmgifreVbwnlr HarmonyFacility:[facility] Start: 01-04-2023 End: 11-11-7230gxyjntmqxxPT-C Mirthaketty Antunez Work Phone: [facility] Work Phone: Start: 01-04-2023 End: 85-35-6950Tihwiya encounter procedureNP-C Mirtha Harmony Work Phone: [facility] Work Phone: Start: 09-27-2022 End: 48-80-1427gmkhtywlnhOvunq Keller Other [facility] [place] Other Start: 64-08-0908Wczurk outpatient new 30 minutesAngelai Webb [facility] ClydeStart: 03-11-2021 End: 64-11-3445xbxyzbilchUEECCIM D KATKOFacility:C7Phtzr: 44-06-5748Bcgcpklvs for general adult medical examination without abnormal findingsDR DREW Kyleigh KWAME [facility] HospitalStart: 12-09-2020 End: 19-25-8604gcauezixbpZU MARC Kyleigh NADERERFacility:R9Qzbbp: 12-09-2020 End: 54-92-6439Rirsylpsl for general adult medical examination without abnormal findingsDR SKYLER Arizmendi NADERERFacility:C5Rrips: 10-01-2020 End: 35-04-8951qncrtjfnezVX QUINN Mortensen WESTFacility:H1 Procedures DateProcedureProcedure DetailPerforming ClinicianStart: 99-13-7448Eoyrd dip stick/tablet rgnt non-auto w/o micrscpCorey Tapan DO Work Phone: Start: 81-73-2367Sycpx dip stick/tablet rgnt non-auto w/o micrscpKristina De [employer] Work Phone: Start: 83-44-1550Jonqc dip stick/tablet rgnt non-auto w/o micrscpKristina De [employer] Work Phone: Start: 42-89-1589ODJFXKS 1 HOURKristina De [employer] Work Phone: Start: 79-98-7461Zuppb dip stick/tablet rgnt non-auto w/o micrscpKristina De [employer] Work Phone: Start: 91-73-7652KDK LEADCorey Tapan DO Work Phone: Start: 94-07-5199Ubaco dip stick/tablet rgnt non-auto w/o micrscpCorey Tapan DO Work Phone: Start: 62-61-4880GWDIGXXKM VAGINITIS (HTRX)Mariam ETIENNE Work Phone: Start: 99-01-2599Vngnm dip stick/tablet rgnt non-auto w/o micrscpAmy Kushal ETIENNE Work Phone: Start: 75-47-4345QRZ,APTIMA HPV,AGE GDLNAmy Kushal ETIENNE Work Phone: Start: 40-90-2726Bbwctfgdkio observation [Identifier] in Cervix by Cyto stainGeneric ProviderStart: 58-91-7073Wzlvz dip stick/tablet rgnt non-auto w/o micrscpCorey Tapan DO Work Phone: Start: 96-98-0109WIR TESTGeneric External Data ProviderStart: 00-36-6412Ujiuh dip stick/tablet rgnt non-auto w/o micrscpCorey Tapan DO Work Phone: Start: 71-40-5542FRT CBC WITH AUTO DIFFMarc Kwame ALMAGUER Work Phone: Start: 03-96-5512Shflv X-ray of right wristNP-C Mirtha Antunez Work Phone: Plan of Treatment DateCare ActivityDetailAuthorStart: 99-55-0939Ongwfqdss for malignant neoplasm of cervixNOMS HealthcareStart: 05-30-2025 End: 93-51-3865Oluhpth encounter favvzyafv58/05/2025 9:15 AM EST Office Visit [facility] [address] [place] [address] Skyler Puente MD [address] [place] [address] [facility] FMStart: 05-13-2025 End: 28-37-1354Ygpunke encounter epskdoknk80/18/2025 1:30 PM EST Routine NOMTamera CARMEN [address] [place], [id number] Oleksandr Phelan DO [address] [place] [address] [facility] Sasha KASPERGYNStart: 04-16-2025 End: 77-66-1182II for pregnancyUS OB follow up transabdominal approach Imaging Routine size inconsistent with dates ([facility]) Expected: 04/16/2025, Expires: 08/17/2025[facility] Work Phone: comment on above:Expected: 04/16/2025, Expires: 08/17/2025Start: 04-01-2025 End: 08-83-0684Dsqgwjv encounter jslythian17/07/2025 11:00 AM EDT Routine [facility] [place] [facility] [address] [place] [address] Niurka Kc, [employer] [address] [place] [address] NOMTamera [place] OBGYNStart: 03-03-2025 End: 84-63-0064PGZ panel - Blood by Automated countCBC Lab Routine Diabetes mellitus screening Expected: 03/03/2025 (Approximate), Expires: 03/03/2026[facility] Work Phone: comment on above:Expected: 03/03/2025 (Approximate), Expires: 03/03/2026Start: 03-03-2025 End: 86-62-6950Gjadhzawixk of glucose 1 hour after glucose challenge for glucose tolerance testGlucose tolerance, 1 hour Lab Routine Diabetes mellitus screening Expected: 03/03/2025 (Approximate), Expires: 03/03/2026[facility] HospitalComment on above:Expected: 03/03/2025 (Approximate), Expires: 03/03/2026Start: 03-03-2025 End: 14-59-6532Grsccpz encounter procedureNOMS [place] OBGYNComment on above: ArrivedStart: 01-70-5674VFBPW-19 Vaccine ( season)COVID-19 Vaccine ()[facility] HealthcareStart: 97-65-6835Leymyjixu vaccinationInfluenza Vaccine (#1)[facility] HealthcareStart: 02-03-2025 End: 47-64-1921Nigxqmb encounter krkbplthe21/11/2025 2:10 PM EDT Routine [facility] [address] [place] [phone] Oleksandr Phelan, DO [address] [place] [address] NOMS BCP OBStart: 02-03-2025 End: 45-47-2143Mhdy, bloodLead, blood Lab Routine Second trimester ([facility]) 20 weeks gestation of ([facility]) Vitamin D deficiency Expected: 02/03/2025 (Approximate), Expires: 02/03/2026[facility] Work Phone: comment on above:Expected: 02/03/2025 (Approximate), Expires: 02/03/2026Start: 02-03-2025 End: 98-60-5155Cdlgwbzxyjdw / ancillary services ymiaqrhzoa90/11/2025 1:00 PM EDT Ancillary Procedure [facility] [address] [place] [address] [facility] OBStart: 01-02-2025 End: 82-68-1101Ikprl fetoprotein, maternalAlpha fetoprotein, maternal Lab Routine 15 weeks gestation of ([facility]) Second trimester ([facility]) Expected: 01/02/2025 (Approximate), Expires: 03/05/2025[facility] Healthcare Comment on above:Expected: 01/02/2025 (Approximate), Expires: 03/05/2025Start: 01-02-2025 End: 78-26-0003XL for pregnancyUS OB 14+ weeks anatomy scan Imaging Routine Screening, , for anatomic survey ([facility]) Expected: 01/02/2025, Expires: 04/04/2025[facility] HealthcareComment on above:Expected: 01/02/2025, Expires: 04/04/2025Start: 01-02-2025 End: 77-11-5046Ozjboiq encounter cgmcanydy35/10/2025 9:30 AM EDT Routine [facility] [address] [place] [phone] Mariam Fajardo PA [address] [place] [address] ArrivedNOMS BCP OBComment on above: ArrivedStart: 12-05-2024 End: 39-89-6563Danbqoo encounter procedureNOFL BCP OBComment on above:Arrived Start: 11-28-2024 End: 40-45-9821Wnjdlff encounter yrnaybkpo02/05/2025 1:00 PM EDT Office Visit [facility] [address] [place] [address] Skyler Puente MD [address] [place] [address] NOMTamera MELVIN FMStart: 46-89-6031Lwuucvvcz for malignant neoplasm of cervixNOFL HealthcareStart: 11-12-2024 End: 27-17-2706Hajtrhg encounter mluxtohcy53/20/2025 10:45 AM EDT Office Visit [facility] [address] [place] [address] Skyler Puente MD [address] [place] [address] [facility] FMStart: 11-08-2024 End: 33-17-3926WRG/RhABO/Rh Lab Routine Missed menses , unspecified gestational age Expected: 11/08/2024 (Approximate), Expires: 11/08/2025NOMS HealthcareComment on above:Expected: 11/08/2024 (Approximate), Expires: 11/08/2025Start: 11-08-2024 End: 08-47-3597Ekaob type and Indirect antibody screen panel - BloodType and screen Lab Routine Missed menses , unspecified gestational age Expected: 11/08/2024 (Approximate), Expires: 11/08/2025NOMS HealthcareComment on above:Expected: 11/08/2024 (Approximate), Expires: 11/08/2025Start: 11-08-2024 End: 31-97-4906Ypjat of abuse panel - Urine by Screen methodRapid drug screen, urine Lab Routine , unspecified gestational age Encounter for supervision of normal first in first trimester Expected: 11/08/2024 (Approximate), Expires: 11/08/2025[facility] HealthcareComment on above:Expected: 11/08/2024 (Approximate), Expires: 11/08/2025Start: 11-01-2024 End: 79-78-1001SR Pelvis transvaginalUS OB transvaginal Imaging Routine Missed menses Expected: 11/01/2024, Expires: 02/01/2025[facility] Work Phone: comment on above:Expected: 11/01/2024, Expires: 02/01/2025Start: 08-14-2024 End: 00-90-9259Ygxsgvo encounter bgwwejhmr13/19/2025 10:30 AM EST Office Visit [facility] [address] [place] [address] Skyler Puente MD [address] [place] [address] ArrivedNOMS CWM FMComment on above:ArrivedStart: 05-28-2024 End: 41-53-8900Vyscood encounter procedureNOFL CWM FMComment on above:Arrived Start: 05-28-2024 End: 55-09-7691Spwtf metabolic 1998 panel - Serum or PlasmaBasic metabolic panel Lab Routine Annual physical exam Expected: 05/28/2024 (Approximate), Expires: 05/28/2025[facility] HealthcareComment on above:Expected: 05/28/2024 (Approximate), Expires: 05/28/2025Start: 05-28-2024 End: 37-13-0595STO W Auto Differential panel - BloodCBC and differential Lab Routine Annual physical exam Expected: 05/28/2024 (Approximate), Expires: 1 07/29/2024[facility] HealthcareComment on above:Expected: 05/28/2024 (Approximate), Expires: 05/28/2025Start: 05-28-2024 End: 39-79-7810Ugxbsuuqeu A1c/Hemoglobin.total in BloodHemoglobin A1c Lab Routine Annual physical exam Expected: 05/28/2024 (Approximate), Expires: 05/28/2025[facility] Healthcare Work Phone: Comment on above:Expected: 05/28/2024 (Approximate), Expires: 05/28/2025Start: 05-28-2024 End: 80-44-0347Qmwwtri function 2000 panel - Serum or PlasmaHepatic function panel Lab Routine Annual physical exam Expected: 05/28/2024 (Approximate), Expires: 05/28/2025[facility] HealthcareComment on above:Expected: 05/28/2024 (Approximate), Expires: 05/28/2025Start: 05-28-2024 End: 85-23-3238Ptenh 1996 panel - Serum or PlasmaLipid panel Lab Routine Annual physical exam Expected: 05/28/2024 (Approximate), Expires: 05/28/2025[facility] HealthcareComment on above:Expected: 05/28/2024 (Approximate), Expires: 05/28/2025Start: 05-28-2024 End: 02-16-6474Cieisltycjb [Units/volume] in Serum or PlasmaTSH Lab Routine Annual physical exam Expected: 05/28/2024 (Approximate), Expires: 05/28/2025[facility] HealthcareComment on above:Expected: 05/28/2024 (Approximate), Expires: 05/28/2025Start: 03-28-2024 End: 33-60-3097Pzxqqfd encounter qahxzdnym67/03/2024 11:15 AM EDT Office Visit [facility] [address] [place] [address] Skyler Puente MD [address] [place] [address] [facility] FMComment on above:ArrivedStart: 17-87-1726Bljkeyjjh vaccinationInfluenza Vaccine (#1)[facility] HealthcareStart: 78-64-2580Lbkcnsylu for malignant neoplasm of cervixPap SmearSainte Genevieve County Memorial HospitalBacteria identified in Urine by CultureUrine culture Microbiology Routine Missed menses Ordered: 11/08/2024 NOM HealthcareComment on above:Ordered: 11/08/2024BC W Auto Differential panel - BloodCBC and differential Lab Routine Missed menses , unspecified gestational age Ordered: 11/08/2024[facility] HealthcareComment on above:Ordered: 11/08/2024HLAMYDIA TRACHOMATIS (GENITO/STI)CHLAMYDIA TRACHOMATIS (GENITO/STI) Lab Routine Exposure to STD Ordered: 01/02/2025[facility] HealthcareComment on above: Ordered: 01/02/2025ytology Cervical or vaginal smear or scraping studyPap Smear Pathology and Cytology Routine Well woman exam with routine gynecological exam Ordered: 01/02/2025[facility] HealthcareComment on above:Ordered: 01/02/2025Hemoglobin A1c/Hemoglobin.total in BloodHemoglobin A1c Lab Routine Missed menses , unspecified gestational age Ordered: 11/08/2024[facility] HealthcareComment on above:Ordered: 11/08/2024Hepatitis B virus surface Ag [Presence] in Serum or Plasma by ImmunoassayHepatitis B surface antigen Lab Routine Missed menses , unspecified gestational age Ordered: 11/08/2024[facility] HealthcareComment on above:Ordered: 11/08/2024Hepatitis C virus Ab [Presence] in Serum or Plasma by ImmunoassayHepatitis C antibody Lab Routine Missed menses , unspecified gestational age Ordered: 11/08/2024[facility] HealthcareComment on above: Ordered: 11/08/2024HIV-1/HIV-2 antigen/antibody combination immunoassayHIV-1 and HIV-2 antibodies Lab Routine Missed menses , unspecified gestational age Ordered: 11/08/2024[facility] HealthcareComment on above:Ordered: 11/08/2024Human papilloma virus DNA [Presence] in Unspecified specimen by Probe with amplificationHPV DNA probe, amplified Microbiology Routine Well woman exam with routine gynecological exam Ordered: 01/02/2025[facility] HealthcareComment on above: Ordered: 01/02/2025Neisseria gonorrhoeae DNA [Presence] in Unspecified specimen by DEIRDRE with probe detectionNeisseria gonorrhea DNA probe, direct Lab Routine Exposure to STD Ordered: 01/02/2025[facility] HealthcareComment on above:Ordered: 01/02/2025Reagin Ab [Presence] in Serum by RPRRPR Lab Routine Missed menses , unspecified gestational age Ordered: 11/08/2024[facility] HealthcareComment on above:Ordered: 11/08/2024Rubella antibody, IgGRubella antibody, IgG Lab Routine Missed menses , unspecified gestational age Ordered: 11/08/2024 [facility] HealthcareComment on above:Ordered: 11/08/2024SURESWAB(R) ADVANCED VAGINITIS PLUS, TMASURESWAB(R) ADVANCED VAGINITIS PLUS, TMA Pathology and Cytology Routine Vaginal discharge Ordered: 01/02/2025[facility] Work Phone: comment on above:Ordered: 01/02/2025US Pelvis transvaginalUS OB transvaginal Imaging Routine Missed menses 11/08/2024 10[facility] Immunization DateImmunizationNotesCare [id number] virus vaccine, unspecified formulationSkyler Puente MD Work Phone: [facility] Payers DatePayer CategoryPayerPolicy [id number] Health [id number] Care HMO (unspecified) [id number] [id number] 2.0.[id number] 2.[id number] 2.84[id number] 2.16840.1.819782.3.57[id number] 2..1.817205.3.57[id number] 2.840.1.031688.3.57[id number] 2..1.679505.3.579.2.446745-79-4337Yemiaks19860086 2..1.147149.3.57[id number] 2..1.487841.3.57[id number] 2..1.299545.3.579.[id number] 2..1.308063.3.57[id number] 2..1.388373.3.579.[id number] 2.0.1.235353.3.579.2.538041-22-2133Ujthtan2458139 2..1.078782.3.579.2.9[id number] 2..1.125047.3.579.[id number] 2..1.128614.3.579.[id number] 2.0.1.006306.3.579.2.940121-81-3526Nfkzkzm Health [id number] [id number] 2.16.840.1.984625.3.579.2.531 Social History DateTypeDetailFacilityUnknown if ever smokedNorth [place] Other Start: 09-19-2023 End: 06-86-1450Ejs [facility]igned At [facility]NOFL HealthcareStart: 63-85-5985Tlj [facility]igned At [facility]: 09-26-2023 End: 80-59-8826Uwnvwre smoking status NHISNever smoked tobacco (finding) [facility]: 87-65-1722Fyjyncm use and exposure Smokeless tobacco non-userNOFL HealthcareStart: 09-19-2023 End: 56-50-9568Onpizkt of Social functionNOMS HealthcareDo you belong to any clubs or organizations such as mosque groups, unions, fra[employer] or athletic [employer], or school groups?NoNOMS HealthcareAre you now , , , , never or living with a partner?MarriedNOMS HealthcareHow often to you have a drink containing alcohol?2-4 times a monthNOFL HealthcareHow many standard drinks containing alcohol do you have on a typical day?3 or 4NOMS HealthcareHow often do you have 6 or more drinks on 1 occasion?NeverNOFL HealthcareStart: 97-43-3777Nfb hard is it for you to pay for the very basics like food, housing, medical care, and heatingNot hard at allNOFL HealthcareDo you feel stress - tense, restless, nervous, or anxious, or unable to sleep at night because yourmind is troubled all the time - these days [OSQ]Not at allNOFL Healthcare(I/We) worried whether (my/our) food would run out before (I/we) got money to buy more.Never trueNOFL HealthcareStart: 10-86-6046Lxe assigned at birthNot on fileNOFL HealthcareStart: 07-45-0966MqtcjytfxVKDA Healthcare Clinical Notes 09-27-2022 to 04-30-2025 Note Date & DddrEbfdYngeapgr54-80-4227 History of Present illness Narrative* Noemí Joaquín, [...] nursing note reviewed. Exam conducted with a physical medicine teacher present. Vitals: Estimated body mass index is 30.18 kg/m as calculated from the following: Height as of 11/28/24: 5' 6 . Weight as of this encounter: 187 lb. BP: 108/72 Patient's last menstrual period was 09/16/2024. Assessment/Plan ICD-10-CM 1. Third trimester ([facility]) Z34.93 2. 32 weeks gestation of ([facility]) Z3A.32 POCT urinalysis dipstick manually resulted [...] of: Oleksandr Phelan DO documented in this encounterSainte Genevieve County Memorial HospitalFyukffekvz78-53-3860 History of Present illness Narrative* Niurka Kc [...] disorder), recurrent episode, mild Other primary thrombophilia (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 Exam conducted with a physical medicine teacher present. Vitals: Estimated body mass index is 29.38 kg/m as calculated from the following: Height as of 11/28/24: 5' 6 . Weight as of this encounter: 182 lb. BP: 110/74 Patient's last menstrual period was 09/16/2024. Assessment/Plan ICD-10-CM 1. size inconsistent with dates ([facility]) O26.849 US OB follow up transabdominal approach 2. Third trimester ([facility]) Z34.93 POCT urinalysis dipstick manually resulted 3. 30 weeks gestation of ([facility]) Z3A.30 Return OB: Patient presents today [...] of: Niurka Kc NP documented in this encounterSainte Genevieve County Memorial HospitalLxeodcmmim99-26-9483 History of Present illness Narrative* Niurka Kc, [...] nursing note reviewed. Exam conducted with a physical medicine teacher present. Vitals: Estimated body mass index is 28.85 kg/m as calculated from the following: Height as of 11/28/24: 5' 6 . Weight as of this encounter: 178 lb 12 oz. BP: 116/72 Patient's last menstrual period was 09/16/2024. ASSESSMENT & PLAN ICD-10-CM 1. Third trimester ([facility]) Z34.93 POCT urinalysis dipstick manually resulted 2. 28 weeks gestation of ([facility]) Z3A.28 Return OB: Patient presents today for [...] of: Niurka Kc NP documented in this encounterSainte Genevieve County Memorial HospitalKaycmqzlqo00-23-4454 History of Present illness Narrative* Aurora Hernandez [...] nursing note reviewed. Exam conducted with a physical medicine teacher present. Vitals: Estimated body mass index is 26.03 kg/m as calculated from the following: Height as of 11/28/24: 5' 6 . Weight as of 02/03/25: 161 lb 4 oz. BP: Patient's last menstrual period was 09/16/2024. ASSESSMENT & PLAN ICD-10-CM 1. Second trimester ([facility]) Z34.92 POCT urinalysis dipstick manually resulted 2. 24 weeks gestation of ([facility]) Z3A.24 3. Diabetes mellitus screening Z13.1 [...] of: Niurka Kc NP documented in this encounterSainte Genevieve County Memorial HospitalLomhjcjxcn40-31-7400 History of Present illness Narrative* Aurora Hernandez [...] disorder), recurrent episode, mild Other primary thrombophilia (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 Exam conducted with a physical medicine teacher present. Vitals: Estimated body mass index is 26.03 kg/m as calculated from the following: Height as of 11/28/24: 5' 6 . Weight as of this encounter: 161 lb 4 oz. BP: 120/80 Patient's last menstrual period was 09/16/2024. ASSESSMENT & PLAN ICD-10-CM 1. Second trimester ([facility]) Z34.92 POCT urinalysis dipstick manually resulted Lead, blood Lead, blood 2. 20 weeks gestation of ([facility]) Z3A.20 Lead, blood Lead, blood 3. Vitamin D deficiency E55.9 Lead, blood Lead, blood Patient presents today for a routine obstetrics appointment. Patient is currently 20w0d with a Estimated Date of Delivery: 06/23/25. Patient had anatomy scan performed prior to appointment today. Patient desires to have Lead Test obtained. Printed lab slip after confirming with [place] at [facility] that correct order was selected. Patient to return to clinic in 4 weeks for routine OB appointment. Documented by Aurora Hernandez LPN on behalf of: Oleksandr Phelan DO documented in this encounterSainte Genevieve County Memorial HospitalCggozwvhxb58-95-1568 History of Present illness Narrative* LOWELL Mckee [...] disorder), recurrent episode, mild Other primary thrombophilia (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 Exam conducted with a physical medicine teacher present. Vitals: Estimated body mass index is 25.04 kg/m as calculated from the following: Height as of 11/28/24: 5' 6 . Weight as of this encounter: 155 lb 1.9 oz. BP: 110/70 Patient's last menstrual period was 09/16/2024. ASSESSMENT & PLAN ICD-10-CM 1. 15 weeks gestation of ([facility]) Z3A.15 POCT urinalysis dipstick manually resulted Alpha fetoprotein, maternal Alpha fetoprotein, maternal CANCELED: POCT urinalysis dipstick manually resulted 2. Second trimester ([facility]) Z34.92 POCT urinalysis dipstick manually resulted Alpha fetoprotein, maternal Alpha fetoprotein, maternal CANCELED: POCT urinalysis dipstick manually resulted 3. Well woman exam with routine gynecological exam Z01.419 Pap Smear HPV DNA probe, amplified 4. Screening, , for anatomic survey ([facility]) Z36.89 US OB 14+ weeks anatomy scan US OB 14+ weeks anatomy scan 5. Exposure to STD Z20.2 CHLAMYDIA TRACHOMATIS (GENITO/STI) Neisseria gonorrhea DNA probe, direct 6. Vaginal discharge N89.8 SURESWAB(R) ADVANCED VAGINITIS PLUS, TMA Return OB/Annual Exam: Patient presents today for a annual exam/routine obstetrics appointment. Patient is currently 90r2vdenjpstu. Patient states she is doing well but [...] behalf of: LOWELL Mckee documented in this encounterSainte Genevieve County Memorial HospitalYuakmbhoym89-56-4677 History of Present illness Narrative* LOWELL Mckee [...] ASSESSMENT & PLAN ICD-10-CM 1. First trimester ([facility]) Z34.91 Urine dip 2. 11 weeks gestation of ([facility]) Z3A.11 Urine dip Return OB: Patient presents [...] of: Oleksandr Phelan DO documented in this encounterSainte Genevieve County Memorial HospitalPcepaqnwse75-67-9834 History of Present illness Narrative* Skyler Puente [...] and follow with OB. documented in this encounterSainte Genevieve County Memorial HospitalJkuddjwinm41-16-6699 History of Present illness Narrative* Missy Callejas [...] or undercooked meat, and [facility] Patient has also been advised to not [...] by: Missy Callejas LPN documented in this encounterSainte Genevieve County Memorial HospitalSsoexdmtao15-63-7306 History of Present illness Narrative* Skyler Puente [...] medication safety during . documented in this encounterSainte Genevieve County Memorial HospitalSyqqzvyjxl44-60-0603 History of Present illness Narrative* Skyler Puente [...] panel Lipid panel TSH documented in this encounterSainte Genevieve County Memorial HospitalIbhxrwzukl28-81-2290 History of Present illness Narrative* Skyler Puente [...] (Adipex-P) 37.5 MG tablet documented in this [facility]07-12-2023 Evaluation note* Encounter Date Diagnosis Assessment [...] to 7 days. Off work until Monday. [employer] Other 04-04-2023 Evaluation note* Encounter Date Diagnosis [...] treatment plan. Patient left in stable condition [employer] Other Evaluation noteNo assessment information available [facility] Work Phone: Evaluation note* Diagnosis Major [...] in first trimester documented in this encounter [facility] HealthcareEvaluation note* Diagnosis Major depressive disorder, [...] Generalized anxiety disorder 10 weeks gestation of ([facility]) 15 weeks gestation of ([facility]) Second trimester ([facility]) state, incidental Well woman exam with routine gynecological exam Routine gynecological examination Screening, , for anatomic survey ([facility]) Encounter for anatomic survey Exposure to [...] Generalized anxiety disorder 10 weeks gestation of ([facility]) Second trimester ([facility]) state, incidental 20 weeks gestation of ([facility]) Vitamin D deficiency documented in this [...] Generalized anxiety disorder 10 weeks gestation of ([facility]) Second trimester ([facility]) state, incidental 24 weeks gestation of ([facility]) Diabetes mellitus screening Screening for diabetes [...] Generalized anxiety disorder 10 weeks gestation of ([facility]) Third trimester ([facility]) state, incidental 28 weeks gestation of ([facility]) documented in this encounter [facility] HealthcareEvaluation note* [...] Generalized anxiety disorder 10 weeks gestation of ([facility]) size inconsistent with dates ([facility])- Primary Third trimester ([facility]) state, incidental 30 weeks gestation of ([facility]) documented in this encounter [facility] HealthcareEvaluation note* [...] Generalized anxiety disorder 10 weeks gestation of ([facility]) Third trimester ([facility]) state, incidental 32 weeks gestation of ([facility]) documented in this encounter [facility] HealthcareHistory general Narrative - Reported* Type Description Date Medical History Depression Medical HistoryAnxietySurgical Historytonsillectomy and adenoidectomy Hospitalization Historysee above [employer] Other Summary Purpose Family History Relationship Condition [...] Skyler Puente MD [address] [place] [address] Referral IDStatusReasonStart DateExpiration DateVisits RequestedVisits [id number] Additional Source Comments INFORMATION SOURCE (unrecogn ized section and content) DATE CREATED AUTHOR 03/15/2021 [facility] DATE CREATED AUTHOR AUTHOR'S ORGANIZ ATION 01/14/2023 [facility] DATE CREATED AUTHOR AUTHOR'S ORGANIZ ATION 05/02/2025 [facility] EPIC REASON FOR VISIT (unrecogniz ed section and content) ReasonCommentsEpistaxis (Nose Bleed)Follow-upCheck up on new medsReasonOnset DateCommentsMed [id number]-up2 mReasonComments Follow-upMed check.ReasonCommentsAmenorrheaReasonCommentsFollow-oi3uVzaujq CommentsRoutine Visit Care Teams (unrecognized sec tion [...] Puente MD [address] [place] [address] PCP - GeneralFamily Medicine09/26/23Team MemberRelationshipSpecialtyStart DateEnd Date Skyler Puente MD [address] [place] [address] PCP - GeneralFamily Medicine09/26/23Team MemberRelationshipSpecialtyStart DateEnd Date Skyler Puente MD [address] [place] [address] PCP - GeneralFamily Medicine09/26/23Team MemberRelationshipSpecialtyStart DateEnd Date Skyler Puente MD [address] [place] [address] PCP - GeneralFamily Medicine09/26/23Team MemberRelationshipSpecialtyStart DateEnd Date Skyler Puente MD [address] [place] [address] PCP - GeneralFamily Medicine09/26/23Team MemberRelationshipSpecialtyStart DateEnd Date Skyler Puente MD [address] [place] [address] PCP - GeneralFamily Medicine09/26/23Team MemberRelationshipSpecialtyStart DateEnd Date Skyler Puente MD [address] [place] [address] PCP - GeneralFamily Medicine09/26/23Team MemberRelationshipSpecialtyStart DateEnd Date Skyler Puente MD [address] [place] [address] PCP - [facility] Medicine09/26/23Team MemberRelationshipSpecialtyStart DateEnd Date Skyler Puente MD [address] [place] [address] PCP - [facility] Medicine09/26/23Team MemberRelationshipSpecialtyStart DateEnd Date Skyler Puente MD [address] [place] [address] PCP - [facility]09/26/23Team MemberRelationshipSpecialtyStart DateEnd Date Skyler Puente MD [address] [place] [address] PCP - [facility] Medicine09/26/23Team MemberRelationshipSpecialtyStart DateEnd Date Skyler Puente MD [address] [place] [address] [facility]/23Team MemberRelationshipSpecialtyStart DateEnd Date Skyler Puetne MD [address] [place] [address] PCP - [facility] Medicine09/26/23Team MemberRelationshipSpecialtyStart DateEnd Date Skyler Puente MD [address] [place] [address] PCP - GeneralFamily Medicine09/26/23Team MemberRelationshipSpecialtyStart DateEnd Date Skyler Puente MD [address] [place] [address] PCP - GeneralFamily Medicine09/26/23Team MemberRelationshipSpecialtyStart DateEnd Date Skyler Puente MD [address] [place] [address] PCP - GeneralFamily Medicine09/26/23Team MemberRelationshipSpecialtyStart DateEnd Date Skyler Puente MD [address] [place] [address] PCP - Generalmily Medicine09/26/23Team MemberRelationshipSpecialtyStart DateEnd Date Skyler Puente MD PCP - Generalmily Medicine09/26/23Team MemberRelationshipSpecialtyStart DateEnd Date Skyler Puente MD PCP - GeneralFamily Medicine09/26/23Team MemberRelationshipSpecialtyStart DateEnd Date Skyler Puente MD PCP - GeneralFamily Medicine09/26/23Team MemberRelationshipSpecialtyStart DateEnd Date Skyler Puente MD PCP - GeneralFamily Medicine09/26/23Team MemberRelationshipSpecialtyStart DateEnd Date Skyler Puente MD PCP - [facility]09/26/23Team MemberRelationshipSpecialtyStart DateEnd Date Skyler Puente MD PCP - [facility]09/26/23 Goals (unrecognized section and content) Goals [...] BE BASED ON THE PRIMARY CLINICAL RECORDS. [facility] 2C2P, [facility]. provides no warranty or guarantee of the accuracy or completeness of information in this document.
[2025-06-23 17:42] VITALS: BP 126/87; PULSE 76; TEMP 36.8; O2SAT 98
== END 2025-06-23 17:50 | disposition home or self-care (01) ==
LOC: FBCO 08:58
PROVIDERS: PCP Family Medicine; Visit Provider Obstetrics & Gynecology
DX: Z39.1 Encounter for care and examination of lactating mother (principal)